=== PATIENT | male | born 1945 | race Hispanic/Latino ===

== ENCOUNTER 2024-04-24 09:23 | Emergency (ER) | payer OTHER ==
--- OUTSIDE RECORDS SUMMARY | 2024-04-24 09:27 | XMS REPORT | Continuity of Care Document ---
Author Name Unknown Address [address] [facility] [address] [place] [address] [facility] Address [address] [facility] [address] [place] [address] Care Team Providers Care Strategic Communications Manager Name Role Phone Steven Moeller MD Primary Care Physician ENOCH BASHIR Attending Clinician Unavaila FERNANDEZ Khalil Attending Clinician Unavailable STEVEN MOELLER Attending Clinician Unavailable Sean Iglesias Attending Clinician Unavailable TAL DIALLO Attending Clinician Jessica Ar Bolaños Attending Clinician Unavailable CHAVA HERNANDEZ Attending Clinician Unavail able INGRID HERNANDEZ Attending Clinician UnavailPRINCE Lionel Attending Clinician Unavailable RAMON ALDANA Attending Clinician Un available LOIS MAXWELL Attending Clinician Un available STEVEN MOELLER Attending Clinician UnavailFERNANDEZ Gross Attending Clinician U navailable PAT MOSLEY Attending Clinician Unav ailable Matthew Walter Attending Clinician Unavailable Pat Mosley Admitting Clinician Unavailable TOM ARELLANOKristel NÚÑEZFANTA Admitting Clinician Unavail able PAT MOSLEY Admitting Clinician Unav ailable Payers Payer Name Policy Type Policy Number Effective Date Expirati on Date Source [place] [id number] 2020 00:00:00 [facility] MEDIC[facility] SNP [id number] 2020 00:00:00 2024 00:00:00 Problems Condition Name Condition Details Condition Category Status Onset Date Resolution Date Last Treatment Date Treating Clinician Comments Source Leg swelling Leg swelling Disease Active 2020-08 00:00: 00 [facility] 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) Disease Active 2020-08 00:00: 00 [facility] Allergies, Adverse Reactions, Alerts Allergy Name Allergy Type Status Severity Reaction(s) Onset Date Inactive Date Treating Clinician Comments Source morphine DA Active MO SWELLING 2022-08 00:00: 00 [facility] codeine DA Active MO SWELLING 2022-08 00:00: 00 [facility] Ticlopid ine Allergy to substanc e Active 2020-08 00:00: 00 [facility] Aspirin Allergy to substanc e Active Hives 0 3- 00:00: 00 [facility] Morphine Allergy to substanc e Active 10-29 00:00: 00 [facility] Zolpidem Allergy to substanc e Active 10-29 00:00: 00 [facility] ticlopid ine HCl DA Active U 3- 00:00: 00 [facility] zolpidem tartrate DA Active U 3-22 00:00: [address] [facility] morphine DA Active U 3-22 00:00: [address] [facility] aspirin DA Active MO Hives 0 3-22 00:00: 00 [facility] Social History Social Habit Start Date Stop Date Quantity Comments Source Exposure to SARS-CoV-2 (event) Not sure [facility] Tobacco use and exposure 2021-07-18 00:00:00 2021-07-18 00:00:00 Smokeless tobacco non-user [facility] Sex Ass[birth year] At 1945 00:00:00 1945 00[birth year]00 [facility] Smoking Status Start Date Stop Date Source Ex-smoker 2021-07-18 00:00:00 2021-07-18 00:00:00 [facility] Medications Ordered Medication Name Filled Medication Name Start Date Stop Date Current Medication? Ordering Clinician Indication Dosage Frequency Signature (SIG) Comments Components Source aspirin 325 MG tablet 2020-08 17:12: 48 Yes [facility] clopidogrel (Plavix) 300 MG tablet 2020-08 17:12: 48 Yes [facility] Vital Signs Vital Name Observation Time Observation Value Comments S ource Systolic blood pressure 2021-10-02 21:03:00 121 mm[Hg] [facility] Diastolic blood pressure 2021-10-02 21:03:00 67 mm[Hg] [facility] Heart rate 2021-10-02 21:03:00 59 /min [facility]th Body temperature 2021-10-02 21:03:00 36.39 [facility] Respiratory rate 2021-10-02 21:03:00 18 /min [facility] Body height 2021-10-02 21:03:00 175.3 cm [facility] Body weight 2021-10-02 21:03:00 [facility].188 [facility] BMI 2021-10-02 21:03:00 27.41 [facility] saturation in Arterial blood by Pulse oximetry 2021-10-02 21:03:00 99 /min [facility] Encounters Start Date/Time End Date/Time Encounter Type Admission Type Attending Clinicians Care Facility Care Department Encounter ID Source 2023-09-03 16:47:24 Outpatient ENOCH BASHIR [facility] [id number] [address] [place] [address] [facility] 2021-10-02 15:30:15 Outpatient FERNANDEZ HARRIS [facility] [id number] [facility] 2021-08-22 12:52:46 Outpatient STEVEN MOELLER [facility] [id number] [facility] 2021-07-23 09:47:17 Outpatient [facility] [id number] [facility] 2021-07-23 09:45:25 Outpatient [facility] [id number] [facility] 2021-05-17 10:07:00 Outpatient STEVEN MOELLER [facility] [id number] [facility] 2021-02-15 11:54:35 Outpatient STEVEN MOELLER [facility] [id number] [facility] 2021-02-15 11:53:21 Outpatient [facility] [id number] [facility] 2021-02-15 11:52:40 Outpatient [facility] [id number] [facility] 2021-02-15 11:51:47 Outpatient [facility] [id number] [facility] 2021-02-15 11:50:23 Outpatient [facility] [id number] [facility] 2019-06-09 14:39:54 Outpatient [facility] [id number] [facility] 2019-04-28 00:00:00 Inpatient R Sean Iglesias [facility] [id number] [facility] 2023-10-07 07:19:00 2023-10-07 10:51:00 Outpatient ENOCH BASHIR [facility] [id number] 2023-07-18 15:17:00 2023-07-18 20:30:00 Emergency E TAL DIALLO [facility] [id number] [facility] 2023-07-13 15:10:00 2023-07-13 17:22:00 Emergency EM Ar Gaviria [facility] AERS [id number] [facility] 2023-06-10 00:22:00 2023-06-10 04:59:00 Emergency CHAVA DIANA [facility] [id number] [facility] 2023-03-03 16:25:00 2023-03-03 20:37:00 Emergency CHAVA DIANA [facility] [id number] [facility] 2022-12-10 09:07:00 2022-12-10 23:59:00 Outpatient INGRID HERNANDEZ [facility] [id number] [facility] 2022-11-15 00:39:00 2022-11-16 14:36:00 Outpatient E SHAMARDAMEONEmeliaPRINCE [facility] [id number] [facility] 2022-05-07 13:30:00 2022-05-07 23:59:00 Outpatient RAMON ALDANA [facility] PUL [id number] [facility] 2022-04-21 23:55:00 2022-04-22 05:32:00 Emergency E MARCUSNISHELIZABETHGALLITO LOIS [facility] [id number] [facility] 2021-10-04 14:06:00 2021-10-05 17:54:00 Outpatient STEVEN MOELLER [facility] [id number] [facility] 2021-10-02 15:00:00 2021-10-02 15:25:30 Office Visit Fernandez Harris [facility] 1 [id number] [facility] 2021-09-17 09:35:00 2021-09-17 19:32:00 Outpatient TAD HARRISZANEH SE [id number] [facility] 2021-09-12 01:44:00 2021-09-13 14:50:00 Outpatient E CHLOE MOSLEYSH [facility] [id number] [facility] 2021-08-22 11:45:00 2021-08-22 12:51:18 Office Visit Steven Moeller [facility] 1 [id number] [facility] 2021-07-18 11:45:00 2021-07-18 13:07:54 Office Visit Steven Moeller [facility] 1 [id number] [facility] 2019-12-28 22:08:00 2019-12-30 12:43:00 Outpatient E PAT MOSLEY [facility] [id number] [facility] 2019-09-07 06:47:00 2019-09-07 06:47:00 Outpatient MHSE [facility]SE [id number] [facility] 2019-07-26 16:33:00 2019-07-26 16:33:00 Outpatient E [facility] MED [id number] [facility] 2019-07-06 06:12:00 2019-07-06 06:12:00 Outpatient [facility] MED [id number] [facility] 2019-06-15 09:19:00 2019-06-15 09:19:00 Outpatient [facility] MED [id number] [facility] 2019-06-03 13:47:00 2019-06-03 13:47:00 Outpatient MHSE PUL [id number] [facility] 2019-04-28 18:59:00 2019-04-28 18:59:00 Emergency E MHSE [facility]SE [id number] [facility] Results Test Description Test Time Test Comments Results Result Co mments Source Notes Date/Time Note Provider Source 2023-07-13 15:14:00 [facility] ([facility] EMERGENCY PROVIDER REPORT REPORT#:[id number] REPORT STATUS: Signed DATE:07/13/23 TIME: 1513 PATIENT: LEONEL GARCIA UNIT #: [id number] ROOM/BED: AGE: 78 SEX: M PCP PHYS: SERVICE DT: AUTHOR: Ar Gaviria MD * ALL edits or amendments must be made on the electronic/computer document * HPI-Bite: Snake General Initial Greet Date/Time 07/13/231513 Presentation Chief Complaint Snake bite Free Text HPI Notes Free Text HPI Notes The patient claims that he got bit by a snake around 45 minutes ago. He says that he went outside of his home and was feeding his cats and when he bent down to feed the cats small snake jumped up and bit him on the tip of his tongue. He is not able to identify the snake. He has a very small abrasion to the tip of the tongue there is no puncture nicolasa. There is really no soft tissue swelling of the tongue oral mucosa or face. His phonation is normal. He does not have any signs or symptoms of envenomation. We are going to observe him for some time to ensure that he does not develop any facial swelling. Review of Systems ROS Statements All systems rev neg except as marked. Complete sys rev neg except as marked. Past Medical History - Adult Stated Complaint BIT BY A SNAKE ON THE TONGUE Allergies Coded Allergies: codeine (Intermediate, SWELLING 07/13/23) morphine (Intermediate, SWELLING 07/13/23) Additional Medical History Hypertension Physical Exam Vital Signs Vital Signs First Documented: Result Date Time Pulse Ox 97 07/13 1512 B/P 174/75 07/13 151 B/P Mean 108 07/13 1512 O2 Delivery Room air 07/13 1512 Temp 36.6 07/13 1512 Pulse 57 07/13 1512 Resp 18 07/13 1512 Last Documented: Result Date Time Pulse Ox 97 07/13 151 B/P 174/75 07/13 1512 B/P Mean 108 07/13 1512 O2 Delivery Room air 07/13 1512 Temp 36.6 07/13 1512 Pulse 57 07/13 1512 Resp 18 07/13 1512 Review of Vital Signs Reviewed Focused PE General/Const General/Const Awake, Alert, No acute distress Resp/Chest Respiratory/Chest Atraumatic, Breath sounds NL, Breath sounds = bilat Cardiovascular Cardiovascular Heart rate NL, Regular rhythm, Heart sounds NL Abdomen/GI Abdomen/GI Atraumatic, Soft, Non-tender Skin Skin Atraumatic, Color NL, No rash Neurologic Neurologic Oriented X3, Speech NL, No motor deficits, No sensory deficits Patient Discharge Departure Vital Signs/Condition Vital Signs First Documented: Result Date Time Pulse Ox 97 07/13 151 B/P 174/75 07/13 151 B/P Mean 108 07/13 1512 O2 Delivery Room air 07/13 1512 Temp 36.6 07/13 1512 Pulse 57 07/13 1512 Resp 18 07/13 1512 Last Documented: Result Date Time Pulse Ox 97 07/13 1512 B/P 174/75 07/13 151 B/P Mean 108 07/13 1512 O2 Delivery Room air 07/13 1512 Temp 36.6 07/13 1512 Pulse 57 07/13 1512 Resp 18 07/13 1512 All vital signs available at the time of this entry have been reviewed. Clinical Impression Clinical Impression Primary Impression: Bite, snake, non-venomous Disposition Decision Discharge )( Discharged to Home Yes )( Time 1632 )( Date 07/13/23 Discharge/Care Plan Patient Instructions ED Snakebite, Non-Poisonous Discharge Note I have spoken with the patient and/or caregivers. I have explained the patient's condition, diagnoses and treatment plan based on the information available to me at this time. I have answered the patient's and/or caregiver's questions and addressed any concerns. The patient and/or caregivers have as good an understanding of the patient's diagnosis, condition and treatment plan as can be expected at this point. The vital signs have been stable. The patient's condition is stable and appropriate for discharge from the emergency department. The patient will pursue further outpatient evaluation with the primary care physician or other designated or consulting physician as outlined in the discharge instructions. The patient and/or caregivers are agreeable to this plan of care and follow-up instructions have been explained in detail. The patient and/or caregivers have received these instructions in written format and have expressed an understanding of the discharge instructions. The patient and/or caregivers are aware that any significant change in condition or worsening of symptoms should prompt an immediate return to this or the closest emergency department or a call to 911. at 1633 RPT #:[id number] END OF REPORT [facility]
[2024-04-24] MEDS ORDERED: NA CHLORIDE 0.9% 500 ML ONE (09:42)
[2024-04-24] MEDS ORDERED: ONDANSETRON 4 MG/2 ML VIAL ONE (09:42)
[2024-04-24] MEDS ORDERED: MORPHINE 2 MG/ML SYR ONE (09:42)
[2024-04-24 09:55] LABS: Absolute Eosinophils 0.2 K/uL (0-0.5); Absolute Lymphocytes (CBC) 1.3 K/uL (0.7-4.9); Absolute Monocytes 0.4 K/uL (0.1-1.3); Absolute Neutrophil 2.7 K/uL (1.8-8.0); Basophils % 0.5 % (0-1.3); Hematocrit 36.6 % (39.6-49.0); Lymphocytes % 27.7 % (15.3-44.8); MCHC 32.9 g/dL (32.0-36.0); MCV 91.2 fL (80-100); MPV 8.8 fL (7.6-11.3); Monocytes % 9.4 % (3.3-12.3); Neutrophils % 57.4 % (41.7-73.7); Nucleated Red Blood Cells % 0.1 % (0-0); Platelets 139 thou/uL (152-406); RBC Red Blood Cell Count 4.01 M/uL (4.33-5.43); Red Cell Distribution Width 14.4 % (12.1-15.2)
[2024-04-24 10:08] LABS: Albumin 3.2 g/dL (3.4-5.0); Anion Gap 5.6 mEq/L (5.0-15.0); Bilirubin Total 1.3 mg/dL (0.2-1.0); Globulin 3.1 g/dL (2.3-3.5); Potassium 3.6 mEq/L (3.5-5.1); Protein, Total 6.3 g/dL (6.4-8.2)
--- NOTE | 2024-04-24 11:00 | RAD REPORT ---
EXAMINATION: CT ABDOMEN AND PELVIS WITH CONTRAST CLINICAL INDICATION: Male, 78 years old. [facility] MAIN ABD PAIN IV ONLY Bed Name: 20 TECHNIQUE: CT abdomen and pelvis was performed, after the administration of IV contrast, as per [facility] protocol. Axial, sagittal and coronal reconstructions were obtained. One or more of the following dose reduction techniques were used: Automated exposure control, adjustment of the mA and/o r kV according to patient size, and/or iterative reconstruction. Unless otherwise specified, incidental findings do not require dedicated imaging follow-up. [id number]. COMPARISON: No prior exam. FINDINGS: LOWER CHEST: Moderately thickened distal esophagus. Aortic valve and coronary artery calcifications. LIVER: Normal in size and contour. No focal lesion. GALLBLADDER/BILE DUCT: Likely cholelithiasis.?Mild gallbladder wall thickening. No pericholecystic in flammatory changes. PANCREAS: No mass, ductal dilation, or azael-pancreatic fluid. SPLEEN: Normal size. No focal lesion. ADRENALS: Normal; no mass. KIDNEYS AND URETERS: Normal size and contour. No hydronephrosis. URINARY BLADDER: Mild circumferential bladder wall thickening. This may be from chronic bowel obstruc tion. GASTROINTESTINAL TRACT: Stomach is non-dilated. Small bowel has normal course and caliber. No colonic wall thickening or pericolonic inflammatory changes. Duodenal diverticulum. No appendicitis. Surgical changes along the stomach. PERITONEUM: No ascites. Small fat-containing umbilical hernia. Fat-containing left lateral ventral he rnia. LYMPH NODES: No lymphadenopathy. ABDOMINAL AORTA AND OTHER VESSELS: 4.5 cm infrarenal abdominal aortic aneurysm. For management of fus iform aneurysmal abdominal aortas: Recommend follow-up every 6 months and recommend vascular consultation or continued care with a vascu lar specialist. REPRODUCTIVE ORGANS: Prostatomegaly. MUSCULOSKELETAL: No acute or suspicious osseous abnormality. ADDITIONAL FINDINGS: None. IMPRESSION: No acute or significant abnormalities seen in the abdomen or pelvis. Incidental findings as noted abo ve. 4.5 cm infrarenal abdominal aortic aneurysm. For management of fusiform aneurysmal abdominal aortas: Recommend follow-up every 6 months and recommend vascular consultation or continued care with a vascu lar specialist.
--- NOTE | 2024-04-24 11:18 | EDPHYS ---
Physician Documentation [facility] Name: Damian Lomeli Age: 78 yrs Sex: Male : 1945 Arrival Date: 04/24/2024 Time: 09:23 Bed 20 Private MD: ED Physician Singh Morales HPI: 04/24 09:33 This 78 yrs old Male presents to ER via EMS with complaints of abdominal pain. rn 09:33 The patient presents with abdominal pain right lower quadrant. Onset: The rn symptoms/episode began/occurred 3 day(s) ago. The symptoms do not radiate. Associated signs and symptoms: Pertinent positives: diarrhea, nausea, Pertinent negatives: blood in stools, fever, testicular pain, vomiting, vomiting blood. The symptoms are described as achy, crampy. Modifying factors: The symptoms are alleviated by nothing, the symptoms are aggravated by nothing. Severity of pain: At its worst the pain was mild in the emergency department the pain is unchanged. The patient has not experienced similar symptoms in the past. The patient has not recently seen a physician. Patient reports right lower quadrant abdominal pain for 3 days associated with nonbloody diarrhea and nausea. No fever or chills. Patient states had bad [place] food 3 days ago but denies anyone else getting sick at the same time.. Historical: - Allergies: 11:19 Morphine; ld1 - Home Meds: 09:29 clopidogrel 75 mg oral tablet 1 tab daily [Active]; ld1 - PMHx: 09:29 Hypertensive disorder; Hypercholesterolemia; CHF; NV; Insomnia; Alzheimer's disease; ld1 - Immunization history:: Adult Immunizations up to date. - Infectious Disease History:: Denies. - Social history:: Smoking status: Patient denies any tobacco usage or history of. - Family history:: not pertinent. - Hospitalizations: : No recent hospitalization is reported. ROS: 09:33 Constitutional: Negative for fever, chills, and weight loss, Cardiovascular: Negative rn for chest pain, palpitations, and edema, Respiratory: Negative for shortness of breath, cough, wheezing, and pleuritic chest pain, Abdomen/GI: Negative for vomiting, constipation, Back: Negative for injury and pain, : Negative for injury, bleeding, discharge, and swelling, MS/Extremity: Negative for injury and deformity, Skin: Negative for injury, rash, and discoloration, Neuro: Negative for headache, weakness, numbness, tingling, and seizure, Exam: 09:33 Constitutional: This is a well developed, well nourished patient who is awake, alert, rn and in no acute distress. ENT: Dry mucous membranes Cardiovascular: Bradycardic, regular Respiratory: No increased work of breathing, no retractions or nasal flaring. Abdomen/GI: Soft, tender right lower quadrant, tender epigastrium, tender left abdomen without rebound or masses. No peritoneal signs MS/ Extremity: Pulses equal, no cyanosis. Neuro: Awake and alert, GCS 15 Vital Signs: 09:27 Pulse 47; Resp 18; Temp 98.1(TE); Pulse Ox 100% on R/A; Weight 85.73 kg; Height 5 ft. 7 ld1 in. ; Pain 8/10; 09:27 BP 210 / 65; ld1 10:17 BP 200 / 59; Pulse 44; Resp 18; Pulse Ox 96% on R/A; ld1 11:54 BP 184 / 64; Pulse 49; Resp 18; Pulse Ox 100% on R/A; ld1 09:27 Body Mass Index 29.60 (85.73 kg, 170.18 cm) ld1 09:27 Pain Scale: Adult ld1 MDM: 09:27 Patient medically screened. rn 11:16 Differential diagnosis: appendicitis, bowel obstruction, diverticulitis, non-specific rn abd pain, Perf. Duodenal Ulcer, Perf. Gastric Ulcer. Data reviewed: vital signs, nurses notes, lab test result(s), radiologic studies, CT scan, and as a result, I will discharge patient. Counseling: I had a detailed discussion with the patient and/or guardian regarding the historical points, exam findings, and any diagnostic results supporting the discharge/admit diagnosis, lab results, radiology results, the need for outpatient follow up, to return to the emergency department if symptoms worsen or persist or if there are any questions or concerns that arise at home. Special discussion: Based on the patient's Hx, exam, and Dx evaluation, there is no indication for emergent surgery or inpatient Tx. It is understood by the patient/guardian that if the Sx's persist or worsen they need to return immediately for re-evaluation. I discussed with the patient/guardian in detail that at this point there is no indication for admission to the hospital. It is understood, however, that if the symptoms persist or worsen the patient needs to return immediately for re-evaluation. ED course: CT without acute findings. Does show 4.5 cm abdominal aortic aneurysm without evidence of rupture or leakage. Likely incidental finding as patient presents with abdominal pain associated with diarrhea and nausea. Notified patient of abdominal aortic aneurysm and need to follow-up at least every 6 months at the beginning to assess growth. Will discharge home with Augmentin for signs and symptoms of mild colitis.. 04/24 09:28 Order name: CBC with Diff; Complete Time: 10: rn 04/24 09:28 Order name: CMP; Complete Time: : rn 04/24 09:28 Order name: Lipase; Complete Time: : rn 04/24 09:28 Order name: CT Abd/Pelvis - IV Contrast Only; Complete Time: 11:03 rn 04/24 09:28 Order name: IV Saline Lock; Complete Time: 09:33 rn 04/24 09:28 Order name: Labs collected and sent; Complete Time: 09:55 rn Administered Medications: 09:54 Drug: NS 0.9% IV 500 ml IV at bolus once Route: IV; Rate: bolus; Site: right ld1 antecubital; 11:30 Follow up: Response: No adverse reaction; IV Status: Completed infusion; IV Intake: ld1 500ml 09:54 Drug: Ondansetron IVP 4 mg IVP once; over 2 minutes Route: IVP; Site: right antecubital;ld1 11:30 Follow up: Response: No adverse reaction ld1 09:54 Not Given (Patient Refused): morphineor iv 2 mg IVP once over 4 mins ld1 11:30 Drug: Amoxicillin-Clavulanate PO 875 mg PO once Route: PO; ld1 11:55 Follow up: Response: No adverse reaction ld1 11:30 Drug: Diphenoxylate-Atropine PO 1 tabs PO once Route: PO; ld1 11:55 Follow up: Response: No adverse reaction ld1 Disposition Summary: 04/24/24 11:18 Discharge Ordered Notes: Location: Home rn Problem: new rn Symptoms: have improved rn Condition: Stable rn Diagnosis - Other specified noninfective gastroenteritis and colitis rn - Diarrhea, unspecified rn - Abdominal aortic aneurysm, without rupture rn Followup: rn - With: Private Physician - When: As needed - Reason: Recheck today's complaints, Re-evaluation by your physician Discharge Instructions: - Discharge Summary Sheet rn - Abdominal Aortic Aneurysm rn - Diarrhea, Adult rn Forms: - Medication Reconciliation Form rn - Antibiotic yarn spooler - Prescription Opioid Use rn - Patient Portal Instructions rn - Leadership Thank You Letter rn Prescriptions: - Augmentin 875-125 mg Oral Tablet - take 1 tablet ORAL route every 12 hours for 10 days; 20 tablet; Refills: 0, rn Product Selection Permitted Signatures: Dispatcher [employer] [facility] Singh Morales MD MD rn Mimi Morton RN RN ld1 Corrections: (The following items were deleted from the chart) 09: 09:29 CBC+H.LAB.BRZ ordered. EDNM EDMS 09:29 09:29 COMPREHENSIVE METABOLIC PANEL+C.LAB.BRZ ordered. EDNM EDMS 09:29 09:29 LIPASE+C.LAB.BRZ ordered. EDNM EDMS 09:29 09:29 Abdomen Pelvis W Con+CT.RAD.BRZ ordered. EDNM EDMS 09:30 09:29 Home Meds: Insomnia; ld1 ld1 11:20 09:29 Allergies: No Known Allergies; ld1 ld1
--- NOTE | 2024-04-24 11:18 | ER ---
Nurse's Notes [facility] Name: Damian Lomeli Age: 78 yrs Sex: Male : 1945 Arrival Date: 04/24/2024 Time: 09:23 Bed 20 Private MD: Diagnosis: Other specified noninfective gastroenteritis and colitis;Diarrhea, unspecified;Abdominal aortic aneurysm, without rupture Presentation: 04/24 09:27 Chief complaint: EMS states: toned out to patient home for diarrhea and abdominal pain ld1 X 3 days. Coronavirus screen: At this time, the client does not indicate any symptoms associated with coronavirus-19. Ebola Screen: No symptoms or risks identified at this time. Initial Sepsis Screen: Does the patient meet any 2 criteria? No. Patient's initial sepsis screen is negative. Does the patient have a suspected source of infection? No. Patient's initial sepsis screen is negative. Risk Assessment: Do you want to hurt yourself or someone else? Patient reports no desire to harm self or others. Onset of symptoms was April 24, 2024. 09:27 Method Of Arrival: EMS: [facility] ld1 09:27 Acuity: CHAD 3 ld1 Triage Assessment: :29 General: Appears in no apparent distress. uncomfortable, Behavior is calm, cooperative, ld1 appropriate for age. Pain: Complains of pain in right upper quadrant and right lower quadrant Pain does not radiate. Pain currently is 8 out of 10 on a pain scale. Quality of pain is described as throbbing, Pain began suddenly, Is continuous. EENT: No signs and/or symptoms were reported regarding the EENT system. Neuro: Level of Consciousness is awake, alert, obeys commands, Oriented to person, place, time, situation, Appropriate for age. Cardiovascular: Capillary refill < 3 seconds Patient's skin is warm and dry. Respiratory: Airway is patent Respiratory effort is even. GI: Abdomen is round non-distended, Reports lower abdominal pain, diarrhea. : No signs and/or symptoms were reported regarding the genitourinary system. Derm: No signs and/or symptoms reported regarding the dermatologic system. Musculoskeletal: No signs and/or symptoms reported regarding the musculoskeletal system. Historical: - Allergies: 11:19 Morphine; ld1 - Home Meds: : clopidogrel 75 mg oral tablet 1 tab daily [Active]; ld1 - PMHx: 09:29 Hypertensive disorder; Hypercholesterolemia; CHF; AR; Insomnia; Alzheimer's disease; ld1 - Immunization history:: Adult Immunizations up to date. - Infectious Disease History:: Denies. - Social history:: Smoking status: Patient denies any tobacco usage or history of. - Family history:: not pertinent. - Hospitalizations: : No recent hospitalization is reported. Screenin:32 [facility] ED Fall Risk Assessment (Adult) History of falling in the last 3 months, ld1 including since admission No falls in past 3 months (0 pts) Confusion or Disorientation No (0 pts) Intoxicated or Sedated No (0 pts) Impaired Gait No (0 pts) Mobility Assist Device Used No (0 pt) Altered Elimination No (0 pt) Score/Fall Risk Level 0 - 2 = Low Risk Oriented to surroundings, Maintained a safe environment, Educated pt \T\ family on fall prevention, incl call for assistance when getting out of bed, Assessed \T\ reinforced patient's understanding of fall precautions, Provided non-skid footwear, Hourly rounding (assess needs \T\ fall precautionary measures) done, Used ambulatory aids as needed (educated on \T\ assisted with), Used gait belt as appropriate. Abuse screen: Denies threats or abuse. Denies injuries from another. Nutritional screening: No deficits noted. Tuberculosis screening: No symptoms or risk factors identified. Assessment: 09:32 Reassessment: See triage assessment. ld1 11:54 Reassessment: Patient appears in no apparent distress at this time. No changes from ld1 previously documented assessment. Patient and/or family updated on plan of care and expected duration. Pain level reassessed. Patient is alert, oriented x 3, equal unlabored respirations, skin warm/dry/pink. Vital Signs: 09:27 Pulse 47; Resp 18; Temp 98.1(TE); Pulse Ox 100% on R/A; Weight 85.73 kg; Height 5 ft. 7 ld1 in. ; Pain 8/10; 09:27 BP 210 / 65; ld1 10:17 BP 200 / 59; Pulse 44; Resp 18; Pulse Ox 96% on R/A; ld1 11:54 BP 184 / 64; Pulse 49; Resp 18; Pulse Ox 100% on R/A; ld1 09:27 Body Mass Index 29.60 (85.73 kg, 170.18 cm) ld1 09:27 Pain Scale: Adult ld1 ED Course: 09:27 Patient arrived in ED. rn 09:27 Singh Morales MD is Attending Physician. rn 09:27 Mimi Morton, MAGNUS is Primary Nurse. ld1 09:29 Triage completed. ld1 09:29 Arm band placed on right wrist. ld1 09:32 Patient has correct armband on for positive identification. Placed in gown. Bed in low ld1 position. Call light in reach. Side rails up X2. manager of corporate on. Pulse ox on. NIBP on. Door closed. Noise minimized. Warm blanket given. 09:32 No provider procedures requiring assistance completed. Maintain EMS IV. Dressing ld1 intact. Good blood return noted. Site clean \T\ dry. Gauge \T\ site: 20g LH. 09:50 Initial lab(s) drawn, by me, sent to lab. Inserted saline lock: 22 gauge in right cc6 antecubital area, using aseptic technique. Blood collected. Flushed with 10 mL NS. 10:49 CT Abd/Pelvis - IV Contrast Only In Process Unspecified. EDMS 11:54 IV discontinued, intact, bleeding controlled, No redness/swelling at site. ld1 Administered Medications: 09:54 Drug: NS 0.9% IV 500 ml IV at bolus once Route: IV; Rate: bolus; Site: right ld1 antecubital; 11:30 Follow up: Response: No adverse reaction; IV Status: Completed infusion; IV Intake: ld1 500ml 09:54 Drug: Ondansetron IVP 4 mg IVP once; over 2 minutes Route: IVP; Site: right antecubital;ld1 11:30 Follow up: Response: No adverse reaction ld1 09:54 Not Given (Patient Refused): morphineor iv 2 mg IVP once over 4 mins ld1 11:30 Drug: Amoxicillin-Clavulanate PO 875 mg PO once Route: PO; ld1 11:55 Follow up: Response: No adverse reaction ld1 11:30 Drug: Diphenoxylate-Atropine PO 1 tabs PO once Route: PO; ld1 11:55 Follow up: Response: No adverse reaction ld1 Medication: 11:54 VIS not applicable for this client. ld1 Intake: 11:30 IV: 500ml; Total: 500ml. ld1 Outcome: 11:18 Discharge ordered by . rn 11:54 Discharged to home ambulatory, with family, ld1 :54 Condition: stable :54 Discharge instructions given to patient, family, Instructed on discharge instructions, follow up and referral plans. medication usage, Demonstrated understanding of instructions, follow-up care, medications, Prescriptions given X 1, :54 Patient left the ED. ld1 Signatures: Dispatcher [employer] EDMS Singh Morales MD MD rn Sims, Lauren, RN RN ld1 Dali Hatch cc6 Corrections: (The following items were deleted from the chart) :30 09:29 Home Meds: Insomnia; ld1 ld1 11: 09:29 Allergies: No Known Allergies; ld1 ld1
[2024-04-24] MEDS ORDERED: AMOX/K CLAV 875 MG TAB ONE (11:25)
[2024-04-24] MEDS ORDERED: DIPHENOX/ATROP SULF 1 TAB PO ONE (11:26)
[2024-04-24 12:04] VITALS: TEMP 98.1
[2024-04-24 12:19] VITALS: BP 184/64; O2SAT 100
== END 2024-04-24 11:54 | disposition home or self-care (01) ==
LOC: ER 09:23
DX: K52.89 Other specified noninfective gastroenteritis and colitis (principal); I71.40 Abdominal aortic aneurysm, without rupture, unspecified; G30.9 Alzheimer's disease, unspecified; F02.80 Dementia in other diseases classified elsewhere, unspecified severity, without behavioral disturbance, psychotic disturbance, mood disturbance, and anxiety
CPT/HCPCS: 96361; 85025; 36415; 83690; 80053; 74177; 96374; 99285; Q9967; J2405; J7040; J2270

== ENCOUNTER 2024-05-07 23:02 | Inpatient (IN) | payer OTHER ==
--- OUTSIDE RECORDS SUMMARY | 2024-05-07 23:05 | XMS REPORT | Continuity of Care Document ---
Author Name Unknown Address [address] [place] [address] [facility] thconnect Address [address] [place] [address] Care Team Providers Care Cash Applications Clerk Name Role Phone Steven Moeller MD Primary [...] Clinician Un available STEVEN MOELLER Attending Clinician Unavaila FERNANDEZ Khalil Attending Clinician U navailPAT Armando Attending Clinician Unav ailable Matthew Walter Attending Clinician Unavailable Pat Mosley Admitting Clinician Unavailable JANIYA ARELLANO Admitting Clinician Unavail able PAT MOSLEY Admitting Clinician Unav ailable Payers Payer Name Policy Type Policy Number Effective Date Expirati on Date Source [place] [id number] 2020 00:00:00 [facility] MEDIC[facility] SNP [id number] 2020 00:00:00 2024 00:00:00 Problems Condition Name Condition Details Condition Category Status Onset Date Resolution Date Last Treatment Date Treating Clinician Comments Source Leg swelling Leg swelling Disease Active 2020-08 00:00: 00 [facility] 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) Disease Active 2020-08 00:00: 00 [facility] Allergies, Adverse Reactions, Alerts Allergy Name Allergy Type Status Severity Reaction(s) Onset Date Inactive Date Treating Clinician Comments Source morphine DA Active [place] [facility] 2022-08 00:00: 00 [facility] codeine DA Active [place] 2022-08 00:00: 00 [facility] Ticlopid ine Allergy to substanc e Active 2020-08 00:00: 00 [facility] Aspirin Allergy to substanc e Active Hives 0 10-29 00:00: 00 [facility] Morphine Allergy to substanc e Active 10-29 00:00: 00 [facility] Zolpidem Allergy to substanc e Active 10-29 00:00: 00 [facility] ticlopid ine HCl DA Active U 3- 00:00: [address] [facility] zolpidem tartrate DA Active U 3- 00:00: [address] [facility] morphine DA Active U 3- 00:00: [address] [facility] aspirin DA Active [place] Hives 0 - 00:00: [address] [facility] [address] [facility] Social History Social Habit Start Date Stop Date Quantity Comments Source Exposure to SARS-CoV-2 (event) Not sure [facility] Tobacco use and exposure 2021-07-18 00:00:00 2021-07-18 00:00:00 Smokeless tobacco non-user [facility] Sex Ass[birth year] At 1945 00:00:00 1945 00:00:00 [facility] Smoking Status Start Date Stop Date Source Ex-smoker 2021-07-18 00:00:00 2021-07-18 00:00:00 [facility] Medications Ordered Medication Name Filled Medication Name Start Date Stop Date Current Medication? Ordering Clinician Indication Dosage Frequency Signature (SIG) Comments Components Source aspirin 325 MG tablet 2020-08 17:12: 48 Yes [facility] clopidogrel (Plavix) 300 MG tablet 2020-08 17:12: 48 Yes [facility] Vital Signs Vital Name Observation Time Observation Value Comments S ource Systolic blood pressure 2021-10-02 21:03:00 121 mm[Hg] [facility] Diastolic blood pressure 2021-10-02 21:03:00 67 mm[Hg] [facility] Heart rate 2021-10-02 21:03:00 59 /min [facility] Body temperature 2021-10-02 21:03:00 36.39 Claudia [facility] Respiratory rate 2021-10-02 21:03:00 18 /min [facility] Body height 2021-10-02 21:03:00 175.3 cm [facility] Body weight 2021-10-02 21:03:00 84.188 kg [facility] BMI 2021-10-02 21:03:00 27.41 kg/m2 [facility] Oxygen saturation in Arterial blood by Pulse oximetry 2021-10-02 21:03:00 99 /min [facility] Encounters Start Date/Time End Date/Time Encounter Type Admission Type Attending Clinicians Care Facility Care Department Encounter ID Source 2023-09-03 16:47:24 Outpatient ENOCH BASHIR [facility] [id number] [facility] 2021-10-02 15:30:15 Outpatient FERNANDEZ HARRIS [facility] [id number] [facility] 2021-08-22 12:52:46 Outpatient SUNNI STEVEN [facility] [id number] [facility] 2021-07-23 09:47:17 Outpatient [facility] [id number] [facility] 2021-07-23 09:45:25 Outpatient [facility] [id number] [facility] 2021-05-17 10:07:00 Outpatient STEVEN MOELLER [facility] [id number] [facility] 2021-02-15 11:54:35 Outpatient STEVEN MOELLER [facility] [id number] [facility] 2021-02-15 11:53:21 Outpatient [facility] [id number] [facility] 2021-02-15 11:52:40 Outpatient [facility] [id number] [facility] 2021-02-15 11:51:47 Outpatient [facility] [id number] [facility] 2021-02-15 11:50:23 Outpatient [facility] [id number] [facility] 2019-06-09 14:39:54 Outpatient [id number] 2019-04-28 00:00:00 Inpatient R Sean Iglesias [facility] [id number] [facility] 2023-10-07 07:19:00 2023-10-07 10:51:00 Outpatient ENOCH BASHIR [facility] [id number] [facility] 2023-07-18 15:17:00 2023-07-18 20:30:00 Emergency E TAL DIALLO [facility] [id number] [facility] 2023-07-13 15:10:00 2023-07-13 17:22:00 Emergency EM Khadra Ar [facility] AERS [id number] [facility] 2023-06-10 00:22:00 2023-06-10 04:59:00 Emergency E CHAVA HERNANDEZ [facility] [id number] [facility] 2023-03-03 16:25:00 2023-03-03 20:37:00 Emergency E CHAVA HERNANDEZ [id number] [facility] 2022-12-10 09:07:00 2022-12-10 23:59:00 Outpatient INGRID HERNANDEZ [facility] [id number] [facility] 2022-11-15 00:39:00 2022-11-16 14:36:00 Outpatient E PRINCE ANDRADE [facility] [id number] [facility] 2022-05-07 13:30:00 2022-05-07 23:59:00 Outpatient ALDANARAMON Solano [facility] PUL [id number] [facility] 2022-04-21 23:55:00 2022-04-22 05:32:00 Emergency E LOIS MAXWELL [facility] [id number] [facility] 2021-10-04 14:06:00 2021-10-05 17:54:00 Outpatient STEVEN MOELLER SE [facility] [id number] [facility] 2021-10-02 15:00:00 2021-10-02 15:25:30 Office Visit Fernandez Harris [facility] [id number] [facility] 2021-09-17 09:35:00 2021-09-17 19:32:00 Outpatient FERNANDEZ HARRIS SE [facility] [id number] [facility] 2021-09-12 01:44:00 2021-09-13 14:50:00 Outpatient E PAT MOSLEY [facility] [id number] [facility] 2021-08-22 11:45:00 2021-08-22 12:51:18 Office Visit Steven Moeller [facility] 1 [id number] [facility] 2021-07-18 11:45:00 2021-07-18 13:07:54 Office Visit Steven Moeller [facility] [address] 1 [id number] [facility] 2019-12-28 22:08:00 2019-12-30 12:43:00 Outpatient E PAT MOSLEY [facility] [id number] [facility] 2019-09-07 06:47:00 2019-09-07 06:47:00 Outpatient MHSE [facility]SE [id number] [facility] 2019-07-26 16:33:00 2019-07-26 16:33:00 Outpatient E [facility] MED [id number] [facility] 2019-07-06 06:12:00 2019-07-06 06:12:00 Outpatient [facility] MED [id number] [facility] 2019-06-15 09:19:00 2019-06-15 09:19:00 Outpatient [facility] MED [id number] [facility] 2019-06-03 13:47:00 2019-06-03 13:47:00 Outpatient [facility] PUL [id number] [facility] 2019-04-28 18:59:00 2019-04-28 18:59:00 Emergency E [facility]SE [facility]SE [id number] [facility] Results Test Description Test Time Test Comments Results Result Co mments Source Notes Date/Time Note Provider Source 2023-07-13 15:14:00 [facility] ([facility]) EMERGENCY PROVIDER REPORT REPORT#:[id number] REPORT STATUS: Signed DATE:07/13/23 TIME: 1513 PATIENT: LEONEL GARCIA UNIT #: [id number] ROOM/BED: AGE: 78 SEX: M PCP PHYS: [...] 07/13 1512 O2 Delivery Room air 07/13 151 Temp 36.6 07/13 1512 Pulse 57 07/13 151 Resp 18 07/13 1512 Last Documented: Result Date Time Pulse Ox 97 07/13 1512 B/P 174/75 07/13 151 B/P Mean 108 07/13 151 O2 Delivery Room air 07/13 151 Temp 36.6 07/13 151 Pulse 57 07/13 151 Resp 18 07/13 1512 Review of Vital [...] 07/13 1512 O2 Delivery Room air 07/13 151 Temp 36.6 07/13 1512 Pulse 57 07/13 151 Resp 18 07/13 1512 Last Documented: Result Date Time Pulse Ox 97 07/13 1512 B/P 174/75 07/13 151 B/P Mean 108 07/13 151 O2 Delivery Room air 07/13 151 Temp 36.6 07/13 1512 Pulse 57 07/13 [...] a call to 911. at 1633 RPT #:[id number] END OF REPORT [facility]
[2024-05-07 23:45] LABS: Absolute Eosinophils 0.3 K/uL (0-0.5); Absolute Lymphocytes (CBC) 1.3 K/uL (0.7-4.9); Absolute Monocytes 0.5 K/uL (0.1-1.3); Absolute Neutrophil 2.3 K/uL (1.8-8.0); Basophils % 0.5 % (0-1.3); Eosinophils % 5.8 % (0-4.4); Hematocrit 34.7 % (39.6-49.0); Hemoglobin 11.5 g/dL (13.6-17.9); Lymphocytes % 30.1 % (15.3-44.8); MCH 30.2 pg (27.0-35.0); MCHC 33.1 g/dL (32.0-36.0); MCV 91.1 fL (80-100); MPV 8.6 fL (7.6-11.3); Monocytes % 10.5 % (3.3-12.3); Neutrophils % 53.1 % (41.7-73.7); Platelets 123 thou/uL (152-406); RBC Red Blood Cell Count 3.81 M/uL (4.33-5.43); Red Cell Distribution Width 14.4 % (12.1-15.2)
[2024-05-07] MEDS ORDERED: ALBUTEROL 2.5 MG/3 ML NEB SOL ONE (23:46)
[2024-05-07] MEDS ORDERED: METHYLPREDNISOLONE 125 MG INJ ONE (23:46)
[2024-05-07] MEDS ORDERED: IPRATROPIUM BROM 0.5MG/2.5ML ONE (23:46)
[2024-05-08 00:02] LABS: AST/SGOT 18 U/L (15-37); Albumin 3.1 g/dL (3.4-5.0); Albumin/Globulin Ratio 0.9 (1.1-1.8); Alkaline Phosphatase 100 U/L (45-117); Anion Gap 5.4 mEq/L (5.0-15.0); BUN Blood Urea Nitrogen 8 mg/dL (7-18); Bicarbonate 32 mEq/L (21-32); Bilirubin Total 1.2 mg/dL (0.2-1.0); Globulin 3.5 g/dL (2.3-3.5); Glomerular Filtration Rate 90 ml/min (=/>90); Glucose Level 114 mg/dL (74-106); NT PRO-BNP 201 pg/mL (<450); Potassium 3.4 mEq/L (3.5-5.1); Protein, Total 6.6 g/dL (6.4-8.2); Sodium Level 139 mEq/L (136-145); Troponin High Sensitivity 10.6 pg/mL (<58.9)
[2024-05-08 00:12] LABS: SARS-CoV-2 Antigen CONTROL BLUE LINE VIS/BG OK; SARS-CoV-2 Antigen Rapid Res Negative (Negative)
[2024-05-08 00:38] LABS: ALT/SGPT < 14 U/L (16-61)
--- NOTE | 2024-05-08 00:46 | ER ---
Nurse's Notes [facility] Name: Damian Lomeli Age: 78 yrs Sex: Male : 1945 Arrival Date: 05/07/2024 Time: 23:02 Bed 20 Private MD: Diagnosis: Unspecified combined systolic (congestive) and diastolic (congestive) heart failure Presentation: 05/07 23:25 Chief complaint: Patient's son or daughter states: Pt c/o cough since that got tl4 worse tonight. Coronavirus screen: congestion, cough unrelated to allergies. Ebola Screen: No symptoms or risks identified at this time. Initial Sepsis Screen: Does the patient meet any 2 criteria? No. Patient's initial sepsis screen is negative. Does the patient have a suspected source of infection? No. Patient's initial sepsis screen is negative. Risk Assessment: Do you want to hurt yourself or someone else? Patient reports no desire to harm self or others. Onset of symptoms was May 07, 2024 at 21:00. 23:25 Method Of Arrival: Wheelchair tl4 23:25 Acuity: CHAD 3 tl4 Triage Assessment: 23:29 General: Appears uncomfortable, Behavior is calm, cooperative. Pain: Denies pain. EENT: tl4 No signs and/or symptoms were reported regarding the EENT system. Neuro: Level of Consciousness is awake, alert, obeys commands, Oriented to person, place, time, situation. Cardiovascular: Capillary refill < 3 seconds Patient's skin is warm and dry. Respiratory: Reports cough that is Airway is patent Respiratory effort is even, unlabored, Respiratory pattern is regular, symmetrical, Breath sounds with crackles bilaterally. GI: No signs and/or symptoms were reported involving the gastrointestinal system. : No signs and/or symptoms were reported regarding the genitourinary system. Derm: No signs and/or symptoms reported regarding the dermatologic system. Musculoskeletal: No signs and/or symptoms reported regarding the musculoskeletal system. Historical: - Allergies: 23:33 Morphine; tl4 - Home Meds: 23:33 clopidogrel 75 mg Oral tablet 1 tab daily [Active]; ezetimibe 10 mg oral tablet 1 tab tl4 daily [Active]; carvedilol 3.125 mg oral tablet 1 tab 2 times per day [Active]; escitalopram oxalate 5 mg oral tablet daily [Active]; furosemide 40 mg Oral tablet 1.5 tabs daily [Active]; montelukast 10 mg oral tablet daily [Active]; levocetirizine 5 mg oral tablet every day at bedtime [Active]; atorvastatin 80 mg oral tablet daily [Active]; quetiapine 50 mg oral tablet daily [Active]; valsartan 80 mg oral tablet daily [Active]; donepezil 10 mg oral tablet daily [Active]; trazodone 50 mg Oral tablet every day at bedtime [Active]; ropinirole 2 mg oral tablet daily [Active]; - PMHx: 23:33 Alzheimer's disease; CHF; Hypercholesterolemia; Hypertensive disorder; insomnia; MS; tl4 - Immunization history:: Adult Immunizations unknown. - Infectious Disease History:: Denies. - Social history:: Smoking status: Patient/guardian denies using tobacco, but has a distant history of tobacco abuse. Screenin/29 02:07 [facility] ED Fall Risk Assessment (Adult) History of falling in the last 3 months, cp4 including since admission No falls in past 3 months (0 pts) Confusion or Disorientation No (0 pts) Intoxicated or Sedated No (0 pts) Impaired Gait No (0 pts) Mobility Assist Device Used No (0 pt) Altered Elimination No (0 pt) Score/Fall Risk Level 0 - 2 = Low Risk Oriented to surroundings, Maintained a safe environment, Assessed \T\ reinforced patient's understanding of fall precautions, Hourly rounding (assess needs \T\ fall precautionary measures) done. Abuse screen: Denies threats or abuse. Nutritional screening: No deficits noted. Tuberculosis screening: No symptoms or risk factors identified. Assessment: 02:07 General: Appears in no apparent distress. uncomfortable, Behavior is calm, cooperative, cp4 appropriate for age. Pain: Denies pain. Neuro: Level of Consciousness is awake, alert, obeys commands, Oriented to person, place, time, situation. Cardiovascular: Patient's skin is warm and dry. Rhythm is sinus bradycardia. Respiratory: Airway is patent Respiratory effort is even, unlabored. Respiratory: Breath sounds with wheezes bilaterally. GI: No signs and/or symptoms were reported involving the gastrointestinal system. : No signs and/or symptoms were reported regarding the genitourinary system. EENT: No signs and/or symptoms were reported regarding the EENT system. Derm: No signs and/or symptoms reported regarding the dermatologic system. Musculoskeletal: No signs and/or symptoms reported regarding the musculoskeletal system. Vital Signs: 05/07 23:25 BP 153 / 61; Pulse 53; Resp 20; Temp 97.8(O); Pulse Ox 99% on R/A; Weight 94.8 kg; tl4 Height 5 ft. 9 in. ; Pain 0/10; 05/08 01:00 BP 154 / 71; Pulse 51; Resp 18; Pulse Ox 100% ; cp4 02:00 BP 150 / 69; Pulse 57; Resp 18; Pulse Ox 100% ; cp4 05/07 23:25 Body Mass Index 30.86 (94.80 kg, 175.26 cm) tl4 05/07 23:25 Pain Scale: Adult tl4 ED Course: 05/07 23:11 Patient arrived in ED. gm2 23:17 [facility] kb 23:17 Mert Angelo MD is Attending Physician. kb 23:26 Sheryl Aaron is Primary Nurse. cp4 23:29 Triage completed. tl4 23:32 Arm band placed on right wrist. tl4 23:39 SARS-COV-2 Antigen Rapid Sent. cp4 23:39 Flu Sent. cp4 23:39 CMP Sent. cp4 23:39 CBC with Diff Sent. cp4 23:39 NT PRO-BNP Sent. cp4 23:57 XRAY Chest (1 view) In Process Unspecified. EDMS 05/08 00:20 EKG done, by ED staff, reviewed by Lana CHOWDHURY. oe 00:45 Roge Collins MD is Hospitalizing Provider. kb 02:07 Bed in low position. Call light in reach. Side rails up X 1. Provided Education on: cp4 admission. 02:07 No provider procedures requiring assistance completed. Patient admitted, IV remains in cp4 place. Administered Medications: 05/07 23:51 Drug: MethylPrednisoLONE IVP 125 mg IVP once Route: IVP; Site: right antecubital; cp4 05/08 01:03 Follow up: Response: No adverse reaction cp4 05/07 23:51 Drug: Albuterol Inhalation 2.5 mg Inhalation once Route: Inhalation; cp4 05/08 01:03 Follow up: Response: No adverse reaction cp4 05/07 23:51 Drug: Ipratropium Inhalation Aerosol 0.5 mg Inhalation once Route: Inhalation; cp4 05/08 01:03 Follow up: Response: No adverse reaction cp4 01:03 Drug: Furosemide IVP 40 mg IVP once; give over 2 minutes Route: IVP; Site: right cp4 antecubital; 02:15 Follow up: Response: No adverse reaction cp4 Medication: 02:07 VIS not applicable for this client. cp4 Outcome: 00:45 Decision to Hospitalize by Provider. kb 02:07 Admitted to Med/surg accompanied by tech, via stretcher, with chart, cp4 02:07 Condition: stable 02:07 Instructed on the need for admit, 02:46 Patient left the ED. cp4 Signatures: Dispatcher [employer] EDLana Islas, FARM PLANNER-C FARM PLANNER-Uvaldo Silvestre Christina cp4 Kiara Fleming gm2 Rolando Patton, RN RN tl4
--- NOTE | 2024-05-08 00:46 | EDPHYS ---
Physician Documentation [facility] Name: Damian Lomeli Age: 78 yrs Sex: Male : 1945 Arrival Date: 05/07/2024 Time: 23:02 Bed 20 Private MD: ED Physician Mert Angelo HPI: 05/07 23:59 This 78 yrs old Male presents to ER via Wheelchair with complaints of Cough, kb Congestion, Breathing Difficulty. 23:59 Pt is a 78 year old male who presents for cough, congestion and shortness of breath kb that started 3 days ago and got worse tonight. Denies fever, n/v/d, chest pain. Historical: - Allergies: 23:33 Morphine; tl4 - Home Meds: 23:33 clopidogrel 75 mg Oral tablet 1 tab daily [Active]; ezetimibe 10 mg oral tablet 1 tab tl4 daily [Active]; carvedilol 3.125 mg oral tablet 1 tab 2 times per day [Active]; escitalopram oxalate 5 mg oral tablet daily [Active]; furosemide 40 mg Oral tablet 1.5 tabs daily [Active]; montelukast 10 mg oral tablet daily [Active]; levocetirizine 5 mg oral tablet every day at bedtime [Active]; atorvastatin 80 mg oral tablet daily [Active]; quetiapine 50 mg oral tablet daily [Active]; valsartan 80 mg oral tablet daily [Active]; donepezil 10 mg oral tablet daily [Active]; trazodone 50 mg Oral tablet every day at bedtime [Active]; ropinirole 2 mg oral tablet daily [Active]; - PMHx: 23:33 Alzheimer's disease; CHF; Hypercholesterolemia; Hypertensive disorder; insomnia; CO; tl4 - Immunization history:: Adult Immunizations unknown. - Infectious Disease History:: Denies. - Social history:: Smoking status: Patient/guardian denies using tobacco, but has a distant history of tobacco abuse. ROS: 23:59 Constitutional: As per HPI kb Exam: 23:59 Constitutional: This is a well developed, well nourished patient who is awake, alert, kb and in no acute distress. Head/Face: Normocephalic, atraumatic. ENT: Moist Mucous membranes Cardiovascular: Regular rate Abdomen/GI: Soft, non-tender. No distention Skin: Warm, dry with normal turgor. Normal color. MS/ Extremity: Pulses equal, no cyanosis. Neurovascular intact. Full, normal range of motion. Neuro: Awake and alert, GCS 15, oriented to person, place, time, and situation. Moves all extremities. Normal gait. 23:59 Respiratory: the patient does not display signs of respiratory distress, Respirations: normal, Breath sounds: rhonchi, that are mild, are scattered, wheezing: inspiratory expiratory that is moderate, is scattered, 05/08 00:04 ECG was reviewed by the Attending Physician. kb Vital Signs: 05/07 23:25 BP 153 / 61; Pulse 53; Resp 20; Temp 97.8(O); Pulse Ox 99% on R/A; Weight 94.8 kg; tl4 Height 5 ft. 9 in. ; Pain 0/10; 05/08 01:00 BP 154 / 71; Pulse 51; Resp 18; Pulse Ox 100% ; cp4 02:00 BP 150 / 69; Pulse 57; Resp 18; Pulse Ox 100% ; cp4 05/07 23:25 Body Mass Index 30.86 (94.80 kg, 175.26 cm) tl4 05/07 23:25 Pain Scale: Adult tl4 MDM: 05/07 23:17 Patient medically screened. kb 05/08 00:00 Data reviewed: vital signs, nurses notes. kb 00:44 Differential Diagnosis: Bronchitis Influenza Upper Respiratory Infection Pneumonia kb Other CHF exacerbation. Consideration of Admission/Observation Patient was admitted/placed on observation. Escalation of care including admission/observation considered. Management of patient was discussed with the following: Hospitalist: Dr Collins accepts pt for admission. Historians other than the Patient: Spouse/Significant Other: . Counseling: I had a detailed discussion with the patient and/or guardian regarding the historical points, exam findings, and any diagnostic results supporting the discharge/admit diagnosis, lab results, radiology results, the need for further work-up and treatment in the hospital. 05/07 23:22 Order name: CBC with Diff; Complete Time: 23:52 kb 05/07 23:22 Order name: NT PRO-BNP; Complete Time: 00:40 kb 05/07 23:22 Order name: Troponin HS; Complete Time: 00:40 kb 05/07 23:22 Order name: CMP; Complete Time: 00:40 kb 05/07 23:22 Order name: Flu; Complete Time: 00:17 kb 05/07 23:22 Order name: SARS-COV-2 Antigen Rapid; Complete Time: 00:17 kb 05/08 01:19 Order name: Basic Metabolic Panel [facility] 05/08 01:19 Order name: Basic Metabolic Panel [facility] 05/08 01:19 Order name: CBC with Automated Diff [facility] 05/08 01:19 Order name: CBC with Automated Diff [facility] 05/08 01:19 Order name: NT PRO-BNP [facility] 05/08 01:19 Order name: NT PRO-BNP [facility] 05/08 01:20 Order name: Respiratory Syncytial Virus Ag [facility] 05/08 01:21 Order name: Influenza Screen (A [facility] 05/08 01:21 Order name: Respiratory Syncytial Virus Ag [facility] 05/07 23:22 Order name: XRAY Chest (1 view) 05/08 01:19 Order name: Chest Pa And Lat (2 Views) [facility] 05/07 23:22 Order name: EKG; Complete Time: 23:22 kb 05/07 23:22 Order name: Cardiac monitoring; Complete Time: 23:27 kb 05/07 23:22 Order name: EKG - Nurse/Tech; Complete Time: 23:56 kb 05/07 23:22 Order name: IV Saline Lock; Complete Time: 23:39 kb 05/07 23:22 Order name: Labs collected and sent; Complete Time: 23:39 kb 05/07 23:22 Order name: O2 Per Protocol; Complete Time: 23:27 kb 05/07 23:22 Order name: O2 Sat Monitoring; Complete Time: 23:27 kb EC:04 Rate is 47 beats/min. Rhythm is regular. QRS [place] is Normal. ME interval is normal at kb 174 msec. QRS interval is normal at 164 msec. QT interval is normal at 484 msec. Administered Medications: 05/07 23:51 Drug: MethylPrednisoLONE IVP 125 mg IVP once Route: IVP; Site: right antecubital; [facility] 05/08 01:03 Follow up: Response: No adverse reaction [facility] 05/07 23:51 Drug: Albuterol Inhalation 2.5 mg Inhalation once Route: Inhalation; [facility] 05/08 01:03 Follow up: Response: No adverse reaction [facility] 05/07 23:51 Drug: Ipratropium Inhalation Aerosol 0.5 mg Inhalation once Route: Inhalation; cp4 05/08 01:03 Follow up: Response: No adverse reaction cp4 01:03 Drug: Furosemide IVP 40 mg IVP once; give over 2 minutes Route: IVP; Site: right cp4 antecubital; 02:15 Follow up: Response: No adverse reaction cp4 Disposition: 20:45 Co-signature as Attending Physician, Mert Angelo MD I agree with the assessment sp4 and plan of care. I reviewed the patient's care provided by the Advanced Practice Provider and agree with the diagnosis and treatment plan. Disposition Summary: 05/08/24 00:45 Hospitalization Ordered Notes: Hospitalization Status: Observation kb Provider: Roge Collins Location: Telemetry/MedSurg (observation) kb Condition: Stable kb Problem: new kb Symptoms: are unchanged kb Bed/Room Type: Standard Room Assignment: [facility](05/08/24 01:30) cp4 Diagnosis - Unspecified combined systolic (congestive) and diastolic (congestive) heart failure kb Forms: - Medication Reconciliation Form kb - SBAR form kb - Leadership Thank You Letter kb Signatures: Dispatcher [employer] EDMS Lana Cotto, BAKER PASTRY-C BAKER PASTRY-Mert Wadsworth MD MD sp4 Sheryl Aaron cp4 Rolando Patton RN RN tl4 Corrections: (The following items were deleted from the chart) 05/07 23:22 23:22 CBC+H.LAB.BRZ ordered. EDMS EDMS 23:22 23:22 PROBNP+C.LAB.BRZ ordered. EDMS EDMS 23:22 23:22 Troponin High Sensitivity+C.LAB.BRZ ordered. EDMS EDMS 23:22 23:22 COMPREHENSIVE METABOLIC PANEL+C.LAB.BRZ ordered. EDMS EDMS 23:22 23:22 Influenza Screen (A \T\ B)+BA.LAB.BRZ ordered. EDMS EDMS 23:22 23:22 SARS-COV-2 Antigen Rapid+I.LAB.BRZ ordered. EDMI EDMS 05/08 01:30 00:45 kb cp4
[2024-05-08] MEDS ORDERED: FUROSEMIDE 40 MG/4 ML VIAL ONE (00:59)
[2024-05-08] MEDS ORDERED: ACETAMINOPHEN 500 MG TAB PO PRN (01:13)
--- NOTE | 2024-05-08 01:23 | P.HP ---
Certification for Inpatient With expected LOS: >2 Midnights Practitioner: I am a practitioner with admitting privileges, knowledge of patient current condition, hospital course, and medical plan of care. Services: Services provided to patient in accordance with Admission requirements found in Title 42 Section 412.3 of the Code of Federal Regulations Patient History Date of Service: 05/08/24 Reason for admission: Cough congestion shortness of breath History of Present Illness: Patient is 78 years of age with a history of COPD congestive heart failure started becoming sick since last started off with a light cough Aldair Mccoy did help and today became much worse around 630 7:00 in the evening became more short of breath cough became a lot worse and it appeared in the emergency room currently he was out on a last week may have been exposed to someone with an infection denies any swelling of his extremities compliant with medications follows up with his physicians - Past Medical/Surgical History -: Alzheimer disease -: Congestive heart failure -: Hypertension -: Coronary artery disease -: Insomnia -: COPD exacerbationMonitor closely on telemetryStarted on bronchodilators -: CABG Review of Systems 10-point ROS is otherwise unremarkable General: Weakness Respiratory: Cough, Shortness of Breath Physical Examination - Vital Signs Temperature: 97.8 F Blood Pressure: 153/61 Pulse: 53 Respirations: 20 Pulse Ox (%): 99 - Physical Exam General: Alert, Oriented x3, Mild distress HEENT: Atraumatic Neck: Supple Respiratory: Diminished, Expiratory wheezes Cardiovascular: No edema, Regular rate/rhythm, Normal S1 S2 Gastrointestinal: Normal bowel sounds, Soft and benign Musculoskeletal: No clubbing, No swelling Integumentary: No rashes, No breakdown Neurological: Normal speech, Normal strength at 5/5 x4 extr - Studies Laboratory Data (last 24 hrs) 05/07/24 05/07/24 23:34 23:34 WBC 4.30 Hgb 11.5 L Hct 34.7 L Plt Count 123 L Sodium 139 Potassium 3.4 L BUN 8 Creatinine 0.81 Glucose 114 H Total Bilirubin 1.2 H AST 18 ALT < 14 L Alkaline Phosphatase 100 Microbiology Data (last 24 hrs): 05/07/24 23:34 Nasopharnyx Influenza Type A Antigen Screen - Final 05/07/24 23:34 Nasopharnyx Influenza Type B Antigen Screen - Final Assessment and Plan - Problems (Diagnosis) (1) COPD exacerbation Current Visit: Yes Status: Acute Plan: Patient is 78 years of age has been sick sick since last complaining of progressive cough congestion shortness of breath he has a history of COPD former smoker quit over 20 years ago he does use Anoro scheduled and albuterol as needed basis became worse last night around 7 PM unable to lie down flat Tessalon Perles did not help and it appeared in the emergency room chest x-ray shows significant cardiomegaly possible left lower lobe infiltrate he has a history of CABG otherwise he is gone normal troponin hemoglobin 11.5 COVID- negative admit patient treat with steroids antibiotics repeat PA lateral chest x-ray no evidence of volume overload in fact patient is hypokalemic presumably is using his Lasix will replace potassium have ordered an influenza and RSV screen otherwise his vitals oxygenation satisfactory - Advance Directives Does patient have a Living Will: No Does patient have a Durable POA for Healthcare: No
[2024-05-08] MEDS ORDERED: PROMETHAZINE-DM 5 ML OSYR PO PRN (01:24)
[2024-05-08 02:52] VITALS: BMI 26.9
[2024-05-08] MEDS: CEFTRIAXONE 1,000 MG in NA CHLORIDE 0.9% 50 ML IVPB SCH (05:37)
[2024-05-08] MEDS: AZITHROMYCIN 250 MG TAB PO SCH (05:38)
[2024-05-08] MEDS: POTASSIUM 25 MEQ EFFERV TAB PO SCH (05:38)
[2024-05-08] MEDS: IPRATROPIUM BROM 0.5MG/2.5ML NEB SCH (07:14)
[2024-05-08] MEDS: ALBUTEROL 2.5 MG/3 ML NEB SOL NEB SCH (07:14)
--- NOTE | 2024-05-08 07:35 | P.PN ---
Date of Service: 05/08/24 Subjective: continues with shortness of breath, weakness ~same dyspnea worsened with activity/exertion/laying flat feels choking sensation when laying flat, sensation of something stuck in his throat also occurs when eating sometimes. Dealing with this for a few months on room air ROS: 10 point ROS as noted above, otherwise negative Physical Exam: GEN: Alert, oriented, NAD CV: Regular rate and rhythm, LLE: trace lower extremity edema up to ankle. RLE: no edema Pulm: Nonlabored respirations on room air, diminished at bases bilaterally; +mild wheeze ABD: Soft, nontender, nondistended Neuro: normal speech, normal strength vitals reviewed Problem List: Acute on chronic COPD exacerbation Esophageal thickening Chronic CHF, unknown type hx CAD s/p CABG Hypertension Alzheimer's dementia Insomnia Acute on chronic COPD exacerbation on admission, presents with worsening dyspnea, cough, congestion, weakness. Dyspnea worsened with exertion/activity. CXR (05/07): cardiomegaly with pulmonary edema and possible small bilateral pleural effusions continue IV steroids continue empiric azithromycin / rocephin to cover possible infection continue duonebs, home inhalers wean oxygen as tolerable PRN phenergan Chest x-ray PA/lateral for tomorrow Esophageal thickening feels choking sensation when laying flat, sensation of something stuck in his throat. Sensations also occurs when eating sometimes has been dealing with this for months recent CT abdomen (04/24): moderately thickened distal esophagus. small umbilical hernia. Left lateral ventral hernia. 4.5 cm abdominal aortic aneurysm Check barium swallow Anticipate will need to follow-up with GI as an outpatient start daily protonix Chronic CHF Does not appear volume overloaded, only mild edema to the left ankle Difficult to discern with his feeling when he is laying back, if orthopnea or developed some reflux/choking issue He reports a history of CHF, we have no echo reports he was unknown systolic versus diastolic Check echo hx CAD s/p CABG Hypertension Alzheimer's dementia Insomnia confirm home meds, restart as appropriate Dispo: Home, 1-2 days Time Spent Managing Pts Care (In Minutes): 51
--- NOTE | 2024-05-08 07:43 | RAD REPORT ---
EXAM DESCRIPTION: Chest Single View CLINICAL HISTORY: COUGH COMPARISON: None. FINDINGS: 1 view(s) of the chest. Tubes and lines: Leads overlie the chest. Cardiomediastinal silhouette: Atherosclerotic calcification of thoracic aorta. Cardiomegaly. Prior me diane sternotomy. Lungs: Bilateral interstitial opacities. No pneumothorax. Possible pleural effusions. Bones: No acute osseous abnormality. Degenerative change of the spine and shoulders. Upper abdomen: No abnormality identified. IMPRESSION: Cardiomegaly with pulmonary edema pattern and possible small bilateral pleural effusions. Electronically signed by: Jatin Lo DO 05/08/2024 12:34 AM CDT RP [id number] Due to temporary technical issues with the [employer] reporting system, reports are being preston d by the in-house radiologist without review as a courtesy to ensure prompt reporting the interpreting radiologist is fully responsible for the content of the report. Transcribed Date/Time: 05/08/2024 7:43 AM
[2024-05-08 07:51] LABS: Absolute Lymphocytes (CBC) 0.6 K/uL (0.7-4.9); Absolute Neutrophil 1.9 K/uL (1.8-8.0); Basophils % 0.4 % (0-1.3); Eosinophils % 0.3 % (0-4.4); Hematocrit 35.4 % (39.6-49.0); Hemoglobin 12.1 g/dL (13.6-17.9); Lymphocytes % 23.8 % (15.3-44.8); MCH 30.5 pg (27.0-35.0); MCHC 34.1 g/dL (32.0-36.0); MCV 89.5 fL (80-100); MPV 8.7 fL (7.6-11.3); Monocytes % 1.3 % (3.3-12.3); Neutrophils % 74.2 % (41.7-73.7); Nucleated Red Blood Cells % 0.2 % (0-0); Platelets 115 thou/uL (152-406); RBC Red Blood Cell Count 3.95 M/uL (4.33-5.43); Red Cell Distribution Width 14.6 % (12.1-15.2)
[2024-05-08 08:10] LABS: AST/SGOT 15 U/L (15-37); Albumin 3.1 g/dL (3.4-5.0); Albumin/Globulin Ratio 0.9 (1.1-1.8); Alkaline Phosphatase 108 U/L (45-117); Anion Gap 5.3 mEq/L (5.0-15.0); BUN Blood Urea Nitrogen 11 mg/dL (7-18); Bicarbonate 32 mEq/L (21-32); Globulin 3.4 g/dL (2.3-3.5); Glomerular Filtration Rate 88 ml/min (=/>90); Glucose Level 195 mg/dL (74-106); Magnesium 1.8 mg/dL (1.6-2.4); NT PRO-BNP 193 pg/mL (<450); Potassium 3.3 mEq/L (3.5-5.1); Protein, Total 6.5 g/dL (6.4-8.2); Sodium Level 137 mEq/L (136-145)
[2024-05-08 08:13] LABS: ALT/SGPT < 14 U/L (16-61)
[2024-05-08] MEDS ORDERED: HOME MED 1 EA UNK (Escitalopram Oxalate [Lexapro] 5 MG Tablet) PO SCH (09:00)
[2024-05-08] MEDS: ESCITALOPRAM OXALATE 5 MG PO SCH (09:00)
[2024-05-08] MEDS ORDERED: HOME MED 1 EA UNK (Donepezil Hcl [Donepezil Hcl] 10 MG Tablet) PO SCH (09:00)
[2024-05-08] MEDS: MONTELUKAST 10 MG TAB PO SCH (09:23)
[2024-05-08] MEDS: EZETIMIBE 10 MG TAB PO SCH (09:23)
[2024-05-08] MEDS: carvediloL 3.125 MG TAB PO SCH (09:24)
[2024-05-08] MEDS: METHYLPREDNISOLONE 40 MG INJ IV SCH (09:24)
[2024-05-08] MEDS: CLOPIDOGREL 75 MG TABLET PO SCH (09:24)
[2024-05-08] MEDS: PANTOPRAZOLE 40MG TABLET PO SCH (11:42)
[2024-05-08] MEDS: DONEPEZIL HCL 5 MG TAB PO SCH (20:14)
[2024-05-08] MEDS: predniSONE 20 MG TAB PO SCH (20:15)
[2024-05-08] MEDS: ATORVASTATIN 80 MG TAB PO SCH (20:15)
[2024-05-09 06:22] LABS: Absolute Monocytes 0.6 K/uL (0.1-1.3); Absolute Neutrophil 7.7 K/uL (1.8-8.0); Basophils % 0.1 % (0-1.3); Hematocrit 34.2 % (39.6-49.0); Hemoglobin 11.7 g/dL (13.6-17.9); Lymphocytes % 10.7 % (15.3-44.8); MCHC 34.4 g/dL (32.0-36.0); MCV 90.1 fL (80-100); MPV 9.1 fL (7.6-11.3); Monocytes % 6.8 % (3.3-12.3); Neutrophils % 82.4 % (41.7-73.7); Platelets 141 thou/uL (152-406); RBC Red Blood Cell Count 3.79 M/uL (4.33-5.43); Red Cell Distribution Width 14.5 % (12.1-15.2)
[2024-05-09 06:44] LABS: Anion Gap 5.2 mEq/L (5.0-15.0); Magnesium 1.9 mg/dL (1.6-2.4); Potassium 4.2 mEq/L (3.5-5.1)
[2024-05-09] MEDS: FUROSEMIDE 40 MG/4 ML VIAL IV SCH (08:54)
--- NOTE | 2024-05-09 10:19 | EKG ---
Test Date: 2024-05-07 Test Time: 23:58:11 Sewing Machinist: JOHN MEASUREMENT RESULTS: Intervals: Rate: 47 OK: 174 QRSD: 164 QT: 548 QTc: 484 [place]: P: 44 OK: 174 QRS: -24 T: 0 INTERPRETIVE STATEMENTS: Marked sinus bradycardia Right bundle branch block Abnormal ECG Compared to ECG 01/13/1993 12:46:00 Right bundle-branch block now present Sinus rhythm no longer present Electronically Signed On 05-09-24 10:18:56 CDT by Xavi Patiño
--- NOTE | 2024-05-09 11:00 | ECHO ---
HEIGHT: 5 ft 9 in WEIGHT: 182 lb 0 oz DATE OF STUDY: 05/09/[address]: Ramírez Morales MD 2-DIMENSIONAL: YES M.MODE: YES DOPPLER: YES COLOR FLOW: YES TDS: PORTABLE: YES DEFINITY: BUBBLE STUDY: DIAGNOSIS: EVALUATE FUNCTION/ HISTORY OF CONGESTIVE HEART FAILURE/ SHORTNESS OF BREATH CARDIAC HISTORY: CATHERIZATION: SURGERY: YES PROSTHETIC VALVE: PACEMAKER: MEASUREMENTS (cm) DIASTOLIC (NORMALS) SYSTOLIC (NORMALS) IVSd 0.9 (0.6-1.2) LA Diam 3.9 (1.9-4.0) LVEF 55% LVIDd 5.1 (3.5-5.7) LVIDs 3.2 (2.0-3.5) %FS LVPWd 1.1 (0.6-1.2) Ao Diam 2.7 (2.0-3.7) 2 DIMENSIONAL ASSESSMENT: RIGHT ATRIUM: NORMAL LEFT ATRIUM: MILDLY DILATED RIGHT VENTRICLE: NORMAL LEFT VENTRICLE: NORMAL TRICUSPID VALVE: MILD TRICUSPID REGURGITATION MITRAL VALVE: TRACE MITRAL REGURGITATION PULMONIC VALVE: NORMAL AORTIC VALVE: TRACE AORTIC REGURGITATION PERICARDIAL EFFUSION: NONE AORTIC ROOT: NORMAL LEFT VENTRICULAR WALL MOTION: NORMAL DOPPLER/COLOR FLOW: NORMAL COMMENTS: 1. NORMAL LEFT VENTRICULAR SYSTOLIC FUNCTION, EJECTION FRACTION 55%, NORMAL WALL MOTION 2. NORMAL DIASTOLIC FUNCTION TECHNOLOGIST: FREDY DIEGO
--- NOTE | 2024-05-09 11:27 | RAD REPORT ---
EXAMINATION: Thorax Wo Con CLINICAL INDICATION: Male, 78 years old. [facility] MA[facility] Ro Pneumonia Y TECHNIQUE: Axial CT scan of the chest without intravenous contrast. Multiplanar reformats were genera ifeanyi and reviewed. One or more of the following dose reduction techniques were used: Automated exposure control, adjustment of the mA and/or kV according patient size, and/or iterative reconstruct ion. Unless otherwise specified, incidental findings do not require dedicated imaging follow-up. COMPARISON: Chest radiograph 05/07/2024 FINDINGS: LOWER NECK: Visualized thyroid gland and soft tissues are normal. LUNGS: Elevation of the left hemidiaphragm. Platelike left lower lobe dependent atelectasis. The lung s show no focal consolidation. Mild peripheral reticular opacities, may reflect chronic changes of mild fibrosis or COPD. Few subpleural small blebs at the right apex. No worrisome nodules. PLEURA: No pleural effusion. No pneumothorax. . MEDIASTINUM AND LYMPH NODES: Moderate cardiomegaly. Prominence of the left epicardial fat pad. No med iastinal mass or fluid collection. Normal size mediastinal, hilar, and axillary lymph nodes. OSSEOUS STRUCTURES AND CHEST WALL: Intact. UPPER ABDOMEN: No significant abnormalities. IMPRESSION: No acute pulmonary process. Mild peripheral reticular opacities may suggest mild fibrotic process, versus sequelae of COPD. Cardi omegaly, epicardial fat prominence, and elevation of the left hemidiaphragm, contribute to the radiographic appearance.
--- NOTE | 2024-05-09 13:25 | P.PN ---
Date of Service: 05/09/24 Subjective: feels better breathing improved no choking episodes last night ROS: 10 point ROS as noted above, otherwise negative Physical Exam: GEN: Alert, oriented, NAD CV: Regular rate and rhythm, LLE: trace lower extremity edema up to ankle. RLE: no edema Pulm: Nonlabored respirations on room air, diminished at bases bilaterally; +mild wheeze ABD: Soft, nontender, nondistended Neuro: normal speech, normal strength vitals reviewed Problem List: Acute on chronic COPD exacerbation Esophageal thickening Chronic CHF, unknown type hx CAD s/p CABG Hypertension Alzheimer's dementia Insomnia Acute on chronic COPD exacerbation on admission, presents with worsening dyspnea, cough, congestion, weakness. Dyspnea worsened with exertion/activity. CXR (05/07): cardiomegaly with pulmonary edema and possible small bilateral pleural effusions CT chest (05/09): mild fibrosis vs COPD with left lower lobe atelectasis IV steroids deescalated to PO prednisone 05/08 continue empiric azithromycin / rocephin to cover possible infection continue duonebs, home inhalers wean oxygen as tolerable PRN phenergan Esophageal thickening feels choking sensation when laying flat, sensation of something stuck in his throat. Sensations also occurs when eating sometimes has been dealing with this for months recent CT abdomen (04/24): moderately thickened distal esophagus. small umbilical hernia. Left lateral ventral hernia. 4.5 cm abdominal aortic aneurysm Check barium swallow may benefit from outpatient GI follow up continue daily protonix Chronic CHF Does not appear volume overloaded, only mild edema to the left ankle Difficult to discern with his feeling when he is laying back, if orthopnea or developed some reflux/choking issue He reports a history of CHF, we have no echo reports he was unknown systolic versus diastolic echo (05/09): 55% EF, normal diastolic function hx CAD s/p CABG Hypertension Alzheimer's dementia Insomnia confirm home meds, restart as appropriate Dispo: Home, anticipate tomorrow pending barium swallow further improvement Time Spent Managing Pts Care (In Minutes): 51
--- NOTE | 2024-05-09 15:26 | RAD REPORT ---
Procedure: Chest Pa And Lat (2 Views) History: Shortness of breath Comparison: April 29, 2024 Lungs appear clear of acute infiltrate. Pulmonary vascular congestion is present. No significant pleural effusion noted. Haziness left lung base secondary to a combination of elevation of the left hemidiaphragm and epicard ial fat. The heart is mildly to moderately enlarged Post surgical changes involving the chest
--- NOTE | 2024-05-09 15:43 | RAD REPORT ---
Exam: Modified barium swallow exam with speech pathology service HISTORY: [facility] MAIN distal thickened esophagus, feels choking at times. Coughing Fluoroscopy Time: 2.2 minutes 19 fluoroscopic spot images obtained Findings: Oral pharyngeal phase of swallowing normal. No pooling of contrast within the vallecula/piriform sinus. No supraglottic penetration. No aspiration
[2024-05-09] MEDS: VALSARTAN 80 MG TAB PO ONE (17:54)
--- NOTE | 2024-05-10 09:17 | P.DS ---
Admission Date: 05/08/24 Discharge Date: 05/10/24 Disposition: ROUTINE DISCHARGE Discharge Condition: GOOD Reason for Admission: Cough congestion shortness of breath Hospital Course: Diagnosis Acute on chronic COPD exacerbation Esophageal thickening Acute on chronic diastolic heart failure hx CAD s/p CABG Hypertension Alzheimer's dementia Insomnia Patient presented with worsening dyspnea, cough, congestion, weakness. Chest xray noted cardiomegaly with pulmonary edema and possible small bilateral pleural effusions. Patient was diagnosed with CHF exacerbation and COPD exacerbation. Patient had improvement with steroids, duonebs, inhalers. He was also treated with IV Lasix. Overall patient has clinically improved and tolerating room air, he is ambulatory. He had elevated blood pressure which was managed with his home antihypertensives-losartan, amlodipine was added. Use of Coreg was limited due to bradycardia. He also received empiric levaquin while hospitalized to cover possible infection / pneumonia. Patient prescribed Augmentin to cover any possible aspiration pneumonitis. In regards to difficulty swallowing, patient reported dealing with choking sensation when laying flat, sensation of something stuck in his throat for past few months. Reports sensations also occurs when eating sometimes. He had a recent CT ~2 weeks ago which noted moderately thickened distal esophagus. Case discussed with executive director contract shop Dr. Solano who plans to follow-up with the patient during the course of this week to evaluate him for EGD. Follow up: PCP 3-5 days Pulmonology 2-4 weeks Please call to schedule / confirm appointments Vital Signs/Physical Exam: Temp Pulse Resp BP Pulse Ox 98.6 F 48 L 20 180/77 H 98 05/10/24 08:00 05/10/24 08:00 05/10/24 08:00 05/10/24 08:00 05/10/24 08:00 Laboratory Data at Discharge: WBC 9.30 thou/uL (4.3-10.9) 05/09/24 05:41 Hgb 11.7 g/dL (13.6-17.9) L 05/09/24 05:41 Hct 34.2 % (39.6-49.0) L 05/09/24 05:41 Plt Count 141 thou/uL (152-406) L 05/09/24 05:41 Sodium 138 mEq/L (136-145) 05/09/24 05:41 Potassium 4.2 mEq/L (3.5-5.1) D 05/09/24 05:41 BUN 14 mg/dL (7-18) 05/09/24 05:41 Creatinine 1.03 mg/dL (0.70-1.30) 05/09/24 05:41 Glucose 61 mg/dL (74-106) L 05/09/24 05:41 Magnesium 1.9 mg/dL (1.6-2.4) 05/09/24 05:41 Total Bilirubin 1.0 mg/dL (0.2-1.0) 05/08/24 07:34 AST 15 U/L (15-37) 05/08/24 07:34 ALT < 14 U/L (16-61) L 05/08/24 07:34 Alkaline Phosphatase 108 U/L (45-117) 05/08/24 07:34 Home Medications: Atorvastatin Calcium [Lipitor] 80 mg PO DAILY 05/08/24 Carvedilol [Coreg] 3.125 mg PO BID 05/08/24 Clopidogrel Bisulfate [Plavix*] 75 mg PO DAILY 05/08/24 Donepezil HCl 10 mg PO DAILY 05/08/24 Escitalopram Oxalate [Lexapro] 5 mg PO DAILY 05/08/24 Ezetimibe 10 mg PO DAILY 05/08/24 Furosemide [Lasix*] 40 mg PO DAILY 05/08/24 Levocetirizine Dihydrochloride [Allergy Relief] 5 mg PO DAILY 05/08/24 Montelukast [Singulair*] 10 mg PO DAILY 05/08/24 Quetiapine Fumarate [Quetiapine Fumarate ER] 50 mg PO DAILY 05/08/24 Ropinirole HCl 2 mg PO DAILY 05/08/24 Trazodone [Desyrel*] 50 mg PO DAILY 05/08/24 Valsartan 80 mg PO DAILY 05/08/24 Amox/Clavulanate [Augmentin 875-125 Tab] 1 each PO BID #14 tab 05/10/24 Pantoprazole [Protonix Tab*] 40 mg PO DAILYAC #60 tab 05/10/24 predniSONE [Prednisone*] 20 mg PO BID #10 tab 05/10/24 New Medications: Amox/Clavulanate [Augmentin 875-125 Tab] 1 each PO BID #14 tab predniSONE [Prednisone*] 20 mg PO BID #10 tab Pantoprazole [Protonix Tab*] 40 mg PO DAILYAC #60 tab Physician Discharge Instructions: Physician discharge instructions: Patient presented with worsening dyspnea, cough, congestion, weakness secondary to acute on chronic COPD exacerbation. Chest xray noted cardiomegaly with pulmonary edema and possible small bilateral pleural effusions. Patient had improvement with steroids, duonebs, inhalers. He also received empiric levaquin while hospitalized to cover possible infection / pneumonia. In regards to difficulty swallowing, patient reported dealing with choking sensation when laying flat, sensation of something stuck in his throat for past few months. Reports sensations also occurs when eating sometimes. He had a recent CT ~2 weeks ago which noted moderately thickened distal esophagus. Recommend outpatient follow up with GI in near future for further discussion / consider EGD to further evaluate. Follow up: PCP 3-5 days Pulmonology 2-4 weeks GI 2-4 weeks Please call to schedule / confirm appointments Diet: AHA Activity: Fall precautions Followup: Roge Collins MD [ACTIVE - CAN ADMIT] - 1-2 Weeks EmeliaOTROSA ISELA [Primary Care Provider] - 1-2 Weeks Enrrique Solano MD [ASSOCIATE-ACTIVE - CAN ADMIT] - 1 Week (Difficulty swallowing)
[2024-05-10] MEDS: VALSARTAN 80 MG TAB PO SCH (09:24)
[2024-05-10 10:17] VITALS: O2SAT 97
[2024-05-10] MEDS: HYDRALAZINE HCL 20 MG/ML VIAL IV PRN (12:23)
[2024-05-10 12:52] VITALS: TEMP 99.2
[2024-05-10] MEDS: AMLODIPINE 10 MG TAB PO ONE (15:01)
[2024-05-10 15:42] VITALS: BP 155/61
--- NOTE | 2024-05-10 17:31 | RAD REPORT ---
EXAMINATION: ONE VIEW CHEST XR CLINICAL INDICATION: Male, 78 years old.,Cough, SOB TECHNIQUE: Frontal chest projection is submitted. Examination is limited by patient positioning and t echnique. COMPARISON: 05/09/2024 FINDINGS: Mild central interstitial prominence. Left basilar atelectasis versus trace effusion. No pneumothora x or sizable effusion. The heart is moderately enlarged in size. Sequelae of CABG. IMPRESSION: Mild central interstitial prominence may reflect mild congestion/CHF.
== END 2024-05-10 16:50 | disposition home or self-care (01) | DRG 291 ==
LOC: ER 23:02 → 2ND 05-08 01:13 → UNDODISIN 05-09 18:15
PROVIDERS: ADMIT Internal Medicine Sleep Medicine; ATTEND Internal Medicine
DX: I11.0 Hypertensive heart disease with heart failure (principal); I50.33 Acute on chronic diastolic (congestive) heart failure; J18.9 Pneumonia, unspecified organism; J44.1 Chronic obstructive pulmonary disease with (acute) exacerbation; J44.0 Chronic obstructive pulmonary disease with (acute) lower respiratory infection; E78.00 Pure hypercholesterolemia, unspecified; G47.00 Insomnia, unspecified; K43.9 Ventral hernia without obstruction or gangrene; I71.9 Aortic aneurysm of unspecified site, without rupture; G30.9 Alzheimer's disease, unspecified; F02.80 Dementia in other diseases classified elsewhere, unspecified severity, without behavioral disturbance, psychotic disturbance, mood disturbance, and anxiety; I25.10 Atherosclerotic heart disease of native coronary artery without angina pectoris; I25.2 Old myocardial infarction; Z88.5 Allergy status to narcotic agent; Z95.1 Presence of aortocoronary bypass graft; Z11.52 Encounter for screening for COVID-19; Z79.02 Long term (current) use of antithrombotics/antiplatelets; Z79.899 Other long term (current) drug therapy; Z87.891 Personal history of nicotine dependence
CPT/HCPCS: 36415; 71045; 71046; 71250; 74230; 80048; 80053; 83735; 83880; 84145; 84484; 85025; 87804; 87807; 87811; 92610; 93005; 93306; 94760; 96374; 96375; 99285; J0360; J0696; J1940; J2919; J7512; J7613; J7644

== ENCOUNTER 2024-05-23 22:47 | Inpatient (IN) | payer OTHER ==
--- OUTSIDE RECORDS SUMMARY | 2024-05-23 22:49 | XMS REPORT | Continuity of Care Document ---
Author Name Unknown Address [address] [place] [address] [facility] thconnect Address [address] [place] [address] Care Team Providers Care Family Support Specialist Name Role Phone Pat Mosley MD Primary Care Physicia n ENOCH BASHIR Attending Clinician Unavaila FERNANDEZ Khalil Attending Clinician Unavailable STEVEN MOELLER Attending Clinician Unavailable Sean Iglesias Attending Clinician Unavailable Anant Diallo MD Attending Clinician ANANT DIALLO Attending Clinician Jessica Ar Bolaños Attending Clinician Unavailable HCAVA HERNANDEZ Attending Clinician Unavail able INGRID HERNANDEZ Attending Clinician UnavailPRINCE Lionel Attending Clinician Unavailable RAMON ALDANA Attending Clinician Un available LOIS MAXWELL Attending Clinician Un available STEVEN MOELLER Attending Clinician Unavaila tam HARRIS, FERNANDEZ ESCOBEDO Attending Clinician U prettyailable PAT MOSLEY Attending Clinician Unav ailable Matthew Walter Attending Clinician Unavailable Pat Mosley Admitting Clinician Unavailable JENNIFERHAILEWINSOMETOMKristel JARAMILLO Admitting Clinician Unavail able PAT MOSLEY Admitting Clinician Unav ailable Payers Payer Name Policy Type Policy Number Effective Date Expirati on Date Source [place] MED[place] [id number] 2020 00:00:00 [facility] MEDICARE SNP [id number] 2020 00:00:00 2024 00:00:00 [facility] MEDICARE DUAL SNP Medicare [id number] 2020 00:00:00 MED[place]ID [place] Medicaid [id number] 2020 00:00:00 Problems Condition Name Condition Details Condition Category Status Onset Date Resolution Date Last Treatment Date Treating Clinician Comments Source Leg swelling Leg swelling Disease Active 2020-08 00:00: 00 [facility] 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) Disease Active 2020-08 00:00: 00 [facility] Allergies, Adverse Reactions, Alerts Allergy Name Allergy Type Status Severity Reaction(s) Onset Date Inactive Date Treating Clinician Comments Source morphine DA Active MO SWELLING 2022-08 00:00: 00 [facility] codeine DA Active MO SWELLING 2022-08 00:00: 00 [facility] Ticlopid ine Allergy to substanc e Active 2020-08 00:00: 00 [facility] Aspirin Allergy to substanc e Active Hives 10-29 00:00: 00 [facility] Morphine Allergy to substanc e Active 10-29 00:00: 00 [facility] Zolpidem Allergy to substanc e Active - 00:00: 00 [facility] ticlopid ine HCl DA Active U 3- 00:00: 00 [facility] zolpidem tartrate DA Active U - 00:00: 00 [facility] Huy morphine DA Active U 10-29 00:00: 00 [facility] aspirin DA Active [place] [facility] [address] [facility] Social [facility] Social Habit Start Date Stop Date Quantity Comments Source Gender identity 2023-10-31 05:52:33 Identifies as male gender (finding) [facility] Exposure to SARS-CoV-2 (event) Not sure [facility] History of tobacco use Current smoker [facility] Sexual orientation [facility] History of Social function 2023-10-02 00:00:00 2023-10-02 00:00:00 [facility] Tobacco use and exposure 2021-07-18 00:00:00 2021-07-18 00:00:00 Smokeless tobacco non-user [facility] Sex Assigned At 1945 00:00:00 1945 00:00:00 [facility] Smoking Status Start Date Stop Date Source Ex-smoker [facility] Medications Ordered Medication Name Filled Medication Name Start Date Stop Date Current Medication? Ordering Clinician Indication Dosage Frequency Signature (SIG) Comments Components Source iohexol (OMNIPaque) 350 MG/ML injection 80 mL iohexol (OMNIPaque) 350 MG/ML injection 80 mL [id number] 20:12: 32 05-17 20:13 :00 No 80mL 80 mL, Intravenou s, Once in imaging, Starting on Thu05/17/24 at 2011, For 1 dose Carmelina garner [place] [facility] QUEtiapine (SEROquel) 50 MG tablet QUEtiapine (SEROquel) 50 MG tablet 10-02 00:00: 00 Yes 50mg 50 mg = 1 tab, PO, BID, 0 Refill(s) Carmelina [facility] escitalopra m (Lexapro) 5 MG tablet escitalopra m (Lexapro) 5 MG tablet 12-10 00:00: 00 Yes 5mg 5 mg = 1 tab, PO, Daily, # 30 tab, 0 Refill(s) Carmelina garner [facility] folic acid (Folvite) 1 MG tablet folic acid (Folvite) 1 MG tablet 12-10 00:00: 00 Yes 1mg 1 mg = 1 tab, PO, Daily, # 30 tab, 0 Refill(s) Carmelina [facility] valsartan (Diovan) 80 MG tablet valsartan (Diovan) 80 MG tablet 11-15 00:00: 00 Yes 80mg 80 mg = 1 tab, PO, Daily, # 30 tab, 0 Refill(s) Carmelina [facility] LEVOCETIRIZ INE DIHYDROCHLO RIDE PO LEVOCETIRIZ INE DIHYDROCHLO RIDE PO 11-15 00:00: 00 Yes 5mg 5 mg =, PO, QPM, 0 Refill(s) Carmel[facility] clopidogrel (Plavix) 75 MG tablet clopidogrel (Plavix) 75 MG tablet 10-02 00:00: 00 Yes 75mg 75 mg = 1 tab, PO, Daily, 0 Refill(s) Carmel[facility] benzonatate (Tessalon) 100 MG capsule benzonatate (Tessalon) 100 MG capsule 10-02 00:00: 00 Yes 100mg 100 mg = 1 cap, PO, TID, 0 Refill(s) Carmel[facility] aspirin 325 MG tablet 2020-08 17:12: 48 Yes [facility] clopidogrel (Plavix) 300 MG tablet 2020-08 17:12: 48 Yes [facility] Furosemide (LASIX PO) Furosemide (LASIX PO) 12-28 00:00: 00 Yes 40mg 40 mg, PO, Daily, 0 Refill(s) Carmel[facility] aspirin EC ([employer] Aspirin EC Low Dose) 81 MG EC tablet aspirin EC ([employer] Aspirin EC Low Dose) 81 MG EC tablet 2018-08 00:00: 00 Yes 81mg 81 mg = 1 tab, PO, Daily, # 90 tab, 3 Refill(s) [facility] atorvastati n (Lipitor) 40 MG tablet atorvastati n (Lipitor) 40 MG tablet 2018-08 00:00: 00 Yes 80mg 80 mg = 2 tab, PO, Bedtime, 0 Refill(s) [facility] pantoprazol e (ProtoNix) 40 MG EC tablet pantoprazol e (ProtoNix) 40 MG EC tablet 2018-08 00:00: 00 Yes 40mg 40 mg = 1 tab, PO, Daily, 0 Refill(s) Carmelina Benitez ezetimibe (Zetia) 10 MG tablet ezetimibe (Zetia) 10 MG tablet 2018-08 00:00: 00 Yes 10mg 10 mg = 1 tab, PO, Daily, 0 Refill(s) Carmelina Benitez traZODone (Desyrel) 50 MG tablet traZODone (Desyrel) 50 MG tablet 2018-08 00:00: 00 Yes 50mg 50 mg = 1 tab, PO, Bedtime, 0 Refill(s) Carmelina Benitez montelukast (Singulair) 10 MG tablet montelukast (Singulair) 10 MG tablet 2018-08 00:00: 00 Yes 10mg 10 mg = 1 tab, PO, Bedtime, 0 Refill(s) Carmelina Benitez rOPINIRole (Requip) 0.5 MG tablet rOPINIRole (Requip) 0.5 MG tablet 2018-08 00:00: 00 Yes 1mg 1 mg = 2 tab, PO, TID, 0 Refill(s) Carmelina Benitez donepezil (Aricept) 10 MG tablet donepezil (Aricept) 10 MG tablet 2018-08 00:00: 00 Yes 10mg 10 mg = 1 tab, PO, Bedtime, 0 Refill(s) Carmelina Benitez albuterol HFA (ProAir HFA) 90 mcg/act inhaler albuterol HFA (ProAir HFA) 90 mcg/act inhaler 10-23 00:00: 00 Yes 2 puff, INHALER, Q6H, PRN for wheezing, # 8.5 gm, 0 Refill(s) Carmelina Benitez Vital Signs Vital Name Observation Time Observation Value Comments Kandice wells Systolic blood pressure 2024-05-17 23:15:00 183 mm[Hg] [facility] Diastolic blood pressure 2024-05-17 23:15:00 67 mm[Hg] [facility] Heart rate 2024-05-17 23:15:00 54 /min [facility] Respiratory rate 2024-05-17 23:15:00 16 /min [facility] Oxygen saturation in Arterial blood by Pulse oximetry 2024-05-17 23:15:00 99 /min [facility] Body temperature 2024-05-17 23:00:00 37 Claudia [facility] Body height 2024-05-17 17:36:00 177.8 [facility] weight 2024-05-17 17:36:00 81.647 [facility] BMI 2024-05-17 17:36:00 25.83 kg/m2 [facility] Systolic blood pressure 2024-05-17 23:15:00 183 mm[Hg] [facility] Diastolic blood pressure 2024-05-17 23:15:00 67 mm[Hg] [facility] Heart rate 2024-05-17 23:15:00 54 /min [facility] Respiratory rate 2024-05-17 23:15:00 16 /min [facility] Oxygen saturation in Arterial blood by Pulse oximetry 2024-05-17 23:15:00 99 /min [facility] Body temperature 2024-05-17 23:00:00 37 Claudia [facility] Body height 2024-05-17 17:36:00 177.8 cm [facility] Body weight 2024-05-17 17:36:00 81.647 kg [facility] BMI 2024-05-17 17:36:00 25.83 kg/m2 Tan marixa [facility] Systolic blood pressure 2021-10-02 21:03:00 121 mm[Hg] [facility] Diastolic blood pressure 2021-10-02 21:03:00 67 mm[Hg] [facility] Heart rate 2021-10-02 21:03:00 59 /min [facility] Body temperature 2021-10-02 21:03:00 36.39 Claudia [facility] Respiratory rate 2021-10-02 21:03:00 18 /min [facility] Body height 2021-10-02 21:03:00 [facility].3 [facility] Body weight 2021-10-02 21:03:00 [facility]188 [facility] BMI 2021-10-02 21:03:00 27.41 kg/m2 [facility] Oxygen saturation in Arterial blood by Pulse oximetry 2021-10-02 21:03:00 99 /min [facility] Procedures Procedure Date / Time Performed Performing Clinicia n Source CT BRAIN WO IV CONTRAST 2024-05-17 20:05:00 Gregg, Devan [facility] CT CERVICAL SPINE WO IV CONTRAST 2024-05-17 20:05:00 Gregg, [facility] CT ABDOMEN PELVIS W IV CONTRAST 2024-05-17 20:05:00 Gregg, [facility] BASIC METABOLIC PANEL 2024-05-17 18:47:00 Gregg, [facility] COMPLETE BLOOD COUNT W/DIFF AND PLATELET 2024-05-17 18:47:00 Gregg, [facility] PROTIME-INR 2024-05-17 18:47:00 [facility] 2024-05-17 18:47:00 Gregg, [facility] TROPONIN I HIGH SENSITIVITY (SINGLE ORDER) 2024-05-17 18:47:00 Gregg, [facility] COMPLETE BLOOD COUNT 2024-05-17 18:47:00 Gregg, [facility] AUTOMATED DIFFERENTIAL 2024-05-17 18:47:00 Gregg, [facility] XR SHOULDER 2+ VIEWS RIGHT 2024-05-17 18:20:00 Gregg, [facility] XR HUMERUS 2 VIEWS RIGHT 2024-05-17 18:20:00 Champ Escobedo [facility] XR CHEST 1 VIEW 2024-05-17 18:20:00 [facility] PELVIS 1-2 VIEWS 2024-05-17 18:20:00 Gregg, [facility] ECG 12 lead (arrhythmia) 2024-05-17 00:00:00 [facility] Encounters Start Date/Time End Date/Time Encounter Type Admission Type Attending [facility] Care Facility Care Department Encounter ID Source 2023-09-03 16:47:24 Outpatient ENOCH BASHIR [facility] [id number] [facility] 2021-10-02 15:30:15 Outpatient FERNANDEZ HARRIS [facility] [id number] [facility] 2021-08-22 12:52:46 Outpatient STEVEN MOELLER [facility] [id number] [facility] 2021-07-23 09:47:17 Outpatient [facility] [id number] [facility] 2021-07-23 09:45:25 Outpatient [facility] [id number] [facility] 2021-05-17 10:07:00 Outpatient SUNNISTEVEN Rios [facility] [id number] [facility] 2021-02-15 11:54:35 Outpatient SUNNISTEVEN [facility] [id number] [facility] 2021-02-15 11:53:21 Outpatient [facility] [id number] [facility] 2021-02-15 11:52:40 Outpatient [facility] [id number] [facility] 2021-02-15 11:51:47 Outpatient [facility] [id number] [facility] 2021-02-15 11:50:23 Outpatient [facility] [id number] [facility] 2019-06-09 14:39:54 Outpatient MHSE MHSE [id number] [facility] 2019-04-28 00:00:00 Inpatient Sean Acuna [facility] [id number] [facility] 2024-05-17 17:19:00 2024-05-17 23:22:00 Emergency Anant Diallo [facility] [id number] [facility] 2024-05-17 17:19:00 2024-05-17 23:22:00 Emergency Urgent ANANT DIALLO [facility] General Medicine [id number] [facility] 2023-10-07 07:19:00 2023-10-07 10:51:00 Outpatient ENOCH BASHIR [facility] MED [id number] [facility] 2023-07-18 15:17:00 2023-07-18 20:30:00 Emergency E ANANT DIALLO MHSE MHSE [id number] [facility] 2023-07-13 15:10:00 2023-07-13 17:22:00 Emergency EM Ar Gaviria [facility] [id number] [facility] 2023-06-10 00:22:00 2023-06-10 04:59:00 Emergency E MARY, CHAVA MHSE MHSE [id number] [facility] 2023-03-03 16:25:00 2023-03-03 20:37:00 Emergency E MARY CHAVA MHSE MHSE [id number] [facility] 2022-12-10 09:07:00 2022-12-10 23:59:00 Outpatient INGRID HERNANDEZ MHBL MHBL [id number] [facility] 2022-11-15 00:39:00 2022-11-16 14:36:00 Outpatient E PRINCE ANDRADE MHSE MED [id number] [facility] 2022-05-07 13:30:00 2022-05-07 23:59:00 Outpatient RAMON ALDANA [facility]SE PUL [id number] [facility] 2022-04-21 23:55:00 2022-04-22 05:32:00 Emergency E LOIS MAXWELL [facility]SE MHSE [id number] [facility] 2021-10-04 14:06:00 2021-10-05 17:54:00 Outpatient STEVEN MOELLER MHSE MHSE [id number] [facility] 2021-10-02 15:00:00 2021-10-02 15:25:30 Office Visit Fernandez Harris [facility] 1 [id number] [facility] 2021-09-17 09:35:00 2021-09-17 19:32:00 Outpatient FERNANDEZ HARRIS SE [facility]SE [id number] [facility] 2021-09-12 01:44:00 2021-09-13 14:50:00 Outpatient E TERRENCECHLOE PEREZSH [facility]SE MED [id number] [facility] [address] [facility] 2021-08-22 11:45:00 2021-08-22 12:51:18 Office Visit Steven Moeller [facility] 1 [id number] [facility] 2021-07-18 11:45:00 2021-07-18 13:07:54 Office Visit Steven Moeller [facility] 1 [id number] [facility] 2019-12-28 22:08:00 2019-12-30 12:43:00 Outpatient E TERRENCECHLOE WoodsonSH [facility]SE MED [id number] [facility] [address] [facility] 2019-09-07 06:47:00 2019-09-07 06:47:00 Outpatient MHSE [facility]SE [id number] [facility] [address] [facility] 2019-07-26 16:33:00 2019-07-26 16:33:00 Outpatient E [facility]SE MED [id number] [facility] 2019-07-06 06:12:00 2019-07-06 06:12:00 Outpatient [facility] MED [id number] [facility] 2019-06-15 09:19:00 2019-06-15 09:19:00 Outpatient MHSE MED [id number] [facility] [address] [facility] 2019-06-03 13:47:00 2019-06-03 13:47:00 Outpatient MHSE PUL [id number] [facility] [address] [facility] 2019-04-28 18:59:00 2019-04-28 18:59:00 Emergency E MHSE MHSE [id number] [facility] [address] [facility] Results Test Description Test Time Test Comments Results Result Co mments Source Notes Pending Results Date/Time Note Provider Source 2024-05-17 23:22:41 [facility] Scheduled Orders Name Type Priority Associated Diagnoses Orde r Schedule ECG 12 lead (arrhythmia) ECG STAT Once for 1 Occur rences starting 05/17/2024 until 05/17/2024 Health Maintenance Due Date Last Done Comments Medicare Annual Wellness (AWV) 1945 Pneumococcal Vaccine: 65+ Ye ars (1 of 2 - PCV) 1951 DTaP/Tdap/Td Vaccines (1 - Tdap) 1964 Zoster Vaccines (1 of 2) 1995 Respiratory Syncytial Virus (RSV) or >=60 (1 - 1-dose 60+ series) 2005 Influenza Vaccine (#1) 2024 10/05/2021 Lipid Panel 11/17/2027 11/16/2022 HIB Vaccines Aged Out No longer eligi ble based on patient's age to complete this topic HPV Vaccines Aged Out No longer eligi ble based on patient's age to complete this topic Hepatitis A Vaccines Aged Out No long er eligible based on patient's age to complete this topic Hepatitis B Vaccines Aged Out No long er eligible based on patient's age to complete this topic IPV Vaccines Aged Out No longer eligi ble based on patient's age to complete this topic Meningococcal Vaccine Aged Out No shanique vishal eligible based on patient's age to complete this topic Rotavirus Vaccines Aged Out No longer eligible based on patient's age to complete this topic [id number] 23:22:41 Diagnosis Acute pain of right shoulder - Primary Right lower quadrant abdomin al pain Right hip pain Pain in joint, pelvic region and thigh [id number] 23:22:41 [id number] 15:14:00 [facility] ([facility]) EMERGENCY PROVIDER REPORT REPORT#:[id number] REPORT STATUS: Signed DATE:07/13/23 TIME: 1513 PATIENT: LEONEL GARCIA UNIT #: [id number] ROOM/BED: AGE: 78 SEX: M PCP PHYS: [...] Ox 97 07/13 1512 B/P 174/75 07/13 1512 B/P Mean 108 [...] or a call to 911. at 1633 [facility] #:[id number] END OF REPORTHCACL
[2024-05-23] MEDS ORDERED: FAMOTIDINE 20 MG/2 ML VIAL IV ONE (23:23)
[2024-05-23] MEDS ORDERED: NA CHLORIDE 0.9% 100 ML ONE (23:23)
[2024-05-23] MEDS ORDERED: NA CHLORIDE 0.9% 1,000 ML ONE (23:23)
[2024-05-23] MEDS ORDERED: Meropenem 1000 MG/VIAL IV ONE (23:23)
[2024-05-23 23:45] LABS: Absolute Monocytes 0.3 K/uL (0.1-1.3); Absolute Neutrophil 5.1 K/uL (1.8-8.0); Basophils % 0.4 % (0-1.3); Eosinophils % 0.1 % (0-4.4); Hematocrit 37.4 % (39.6-49.0); Hemoglobin 12.5 g/dL (13.6-17.9); Lymphocytes % 15.2 % (15.3-44.8); MCH 30.1 pg (27.0-35.0); MCHC 33.3 g/dL (32.0-36.0); MCV 90.3 fL (80-100); Monocytes % 4.7 % (3.3-12.3); Neutrophils % 79.6 % (41.7-73.7); Platelets 153 thou/uL (152-406); Protime INR 0.98; RBC Red Blood Cell Count 4.15 M/uL (4.33-5.43); Red Cell Distribution Width 14.1 % (12.1-15.2)
[2024-05-23] MEDS ORDERED: IPRATROPIUM BROM 0.5MG/2.5ML ONE (23:56)
[2024-05-23] MEDS ORDERED: LEVALBUTEROL 1.25 MG/3 ML NEB ONE (23:56)
[2024-05-24 00:06] LABS: Albumin 3.2 g/dL (3.4-5.0); Anion Gap 6.1 mEq/L (5.0-15.0); Bilirubin Direct 0.2 mg/dL (0-0.2); Bilirubin Indirect, Calculated 0.5 mg/dL (0.2-0.8); Bilirubin Total 0.7 mg/dL (0.2-1.0); Globulin 3.2 g/dL (2.3-3.5); Magnesium 1.9 mg/dL (1.6-2.4); Potassium 4.1 mEq/L (3.5-5.1); Protein, Total 6.4 g/dL (6.4-8.2); Troponin High Sensitivity 6.9 pg/mL (<58.9)
[2024-05-24 00:31] LABS: SARS-CoV-2 Antigen CONTROL BLUE LINE VIS/BG OK; SARS-CoV-2 Antigen Rapid Res Negative (Negative)
--- NOTE | 2024-05-24 00:39 | EDPHYS ---
Physician Documentation [facility] Name: Damian Lomeli Age: 78 yrs Sex: Male : 1945 Arrival Date: 05/23/2024 Time: 22:47 Bed 4 Private MD: ED Physician Ashok Soto HPI: 05/24 00:30 This 78 yrs old Male presents to ER via EMS with complaints of Syncope. vicki 00:30 The patient has experienced near-syncope, felt dizzy, felt faint, felt generally weak. vicki Onset: The symptoms/episode began/occurred just prior to arrival, this morning. Duration: This was a single episode, that is still ongoing, but improving. Context: the episode(s) was witnessed, by family, occurred at home. Associated injury: The patient did not suffer any apparent associated injury. Associated signs and symptoms: The patient has no apparent associated signs or symptoms. Current symptoms: Currently, the patient is not experiencing any symptoms. The patient has not experienced similar symptoms in the past. Historical: - Allergies: 05/23 22:55 Morphine; lg3 - PMHx: 22:55 Alzheimer's disease; CHF; Hypertensive disorder; Hypercholesterolemia; insomnia; PR; lg3 - PSHx: 22:57 Unable to Obtain; lg3 - Immunization history:: Adult Immunizations up to date. - Infectious Disease History:: Denies. - Social history:: Smoking status: Patient denies any tobacco usage or history of. Patient/guardian denies using alcohol, street drugs. ROS: 05/24 00:32 Constitutional: Negative for fever, chills, and weight loss, Eyes: Negative for injury, vicki pain, redness, and discharge, ENT: Negative for injury, pain, and discharge, Neck: Negative for injury, pain, and swelling, Abdomen/GI: Negative for abdominal pain, nausea, vomiting, diarrhea, and constipation, Back: Negative for injury and pain, : Negative for injury, bleeding, discharge, and swelling, MS/Extremity: Negative for injury and deformity, Skin: Negative for injury, rash, and discoloration, Psych: Negative for depression, anxiety, suicide ideation, homicidal ideation, and hallucinations, Allergy/Immunology: Negative for hives, rash, and allergies, Endocrine: Negative for neck swelling, polydipsia, polyuria, polyphagia, and marked weight changes, Hematologic/Lymphatic: Negative for swollen nodes, abnormal bleeding, and unusual bruising, Cardiovascular: Positive for palpitations, Respiratory: Positive for cough, "sounds productive", wheezing, expiratory, Neuro: Positive for altered mental status, dizziness, gait disturbance, weakness, Exam: 00:32 Constitutional: This is a well developed, well nourished patient who is awake, alert, vicki and in no acute distress. Head/Face: Normocephalic, atraumatic. Eyes: Pupils equal round and reactive to light, extra-ocular motions intact. Lids and lashes normal. Conjunctiva and sclera are non-icteric and not injected. Cornea within normal limits. Periorbital areas with no swelling, redness, or edema. ENT: Nares patent. No nasal discharge, no septal abnormalities noted. Tympanic membranes are normal and external auditory canals are clear. Oropharynx with no redness, swelling, or masses, exudates, or evidence of obstruction, uvula midline. Mucous membranes moist. Neck: Trachea midline, no thyromegaly or masses palpated, and no cervical lymphadenopathy. Supple, full range of motion without nuchal rigidity, or vertebral point tenderness. No Meningismus. Chest/axilla: Normal chest wall appearance and motion. Nontender with no deformity. No lesions are appreciated. Abdomen/GI: Soft, non-tender, with normal bowel sounds. No distension or tympany. No guarding or rebound. No evidence of tenderness throughout. Back: No spinal tenderness. No costovertebral tenderness. Full range of motion. Male : Normal genitalia with no discharge or lesions. Skin: Warm, dry with normal turgor. Normal color with no rashes, no lesions, and no evidence of cellulitis. MS/ Extremity: Pulses equal, no cyanosis. Neurovascular intact. Full, normal range of motion. Neuro: Awake and alert, GCS 15, oriented to person, place, time, and situation. Cranial nerves II-XII grossly intact. Motor strength 5/5 in all extremities. Sensory grossly intact. Cerebellar exam normal. Normal gait. Psych: Awake, alert, with orientation to person, place and time. Behavior, mood, and affect are within normal limits. 00:32 Cardiovascular: Rate: normal, Rhythm: regular, Pulses: Pulses are 4+ in bilateral radial, brachial, femoral, popliteal, posterior tibial and and dorsalis pedis arteries.. Heart sounds: normal, Edema: is not appreciated, JVD: is not appreciated, 00:32 ECG was reviewed by the Attending Physician. Vital Signs: 05/23 22:53 BP 191 / 71; Pulse 58; Resp 17 S; Temp 98.4(O); Pulse Ox 100% on R/A; Weight 87.09 kg lg3 (M); Height 5 ft. 8 in. (R); Pain 0/10; 05/24 01:04 BP 181 / 63; Pulse 51; Resp 15 S; Pulse Ox 100% on R/A; lg3 05/23 22:53 Body Mass Index 29.19 (87.09 kg, 172.72 cm) 3 05/23 22:53 Pain Scale: Adult lg3 NIH Stroke Scale Scores: 05/23 22:53 NIHSS Score: 0 3 MDM: 22:59 Medical Screening Exam initiated [facility] 05/24 00:35 Differential diagnosis: Anemia Anxiety Reaction Bronchitis CHF exacerbation, Chronic vicki Obstructive Pulmonary Disease Myocardial Infarction pneumonia, pulmonary edema, Pulmonary Embolism reactive airway disease, Sepsis Unstable Angina. Antibiotic administration: merrem. Differential Diagnosis: cardiac arrhythmia, cerebrovascular accident, drug effect, emotional response, GI bleed, idiopathic syncope, seizure, transient ischemic attack, vasovagal episode. Differential Diagnosis: Obstructed Airway Bronchitis Influenza Upper Respiratory Infection Sinusitis Pharyngitis Otitis Media Allergic Rhinitis Asthma Exacerbation Viral Syndrome Pneumonia Tracheal Injury. Immunization status: Pneumococcal vaccine: within last 5 years. Influenza vaccine: within last 5 years. Data reviewed: vital signs, nurses notes, EMS record, lab test result(s), EKG, radiologic studies, CT scan, plain films. Consideration of Admission/Observation Patient was admitted/placed on observation. Escalation of care including admission/observation considered. I considered the following discharge prescriptions or medication management in the emergency department Medications were administered in the Emergency Department. See MAR. Care significantly affected by the following chronic conditions: Hypertension, Congestive Heart Failure, insomnia, cad, high chlesterol. 05/23 23:21 Order name: Basic Metabolic Panel; Complete Time: 00:12 [facility] 05/23 23:21 Order name: CBC with Diff; Complete Time: 00:12 [facility] 05/23 23:21 Order name: LFT's; Complete Time: 00:12 [facility] 05/23 23:21 Order name: Magnesium; Complete Time: 00:12 [facility] 05/23 23:21 Order name: NT PRO-BNP; Complete Time: 00:12 [facility] 05/23 23:21 Order name: PT-INR; Complete Time: 00:12 [facility] 05/23 23:21 Order name: Troponin HS; Complete Time: 00:12 [facility] 05/23 23:21 Order name: Lipase; Complete Time: 00:12 [facility] 05/23 23:21 Order name: Urinalysis w/ reflexes [facility] 05/23 23:21 Order name: Blood Culture Adult (2) [facility] 05/23 23:21 Order name: Lactate w/ 2H reflex if indic.; Complete Time: 00:12 [facility] 05/23 23:21 Order name: Flu; Complete Time: 00:23 [facility] 05/23 23:21 Order name: SARS RAPID; Complete Time: 00:38 [facility] 05/23 23:31 Order name: Glucose, Ancillary Testing; Complete Time: 00:12 EDMS 05/23 23:33 Order name: Glucose, Ancillary Testing EDMS 05/24 01:00 Order name: Urinalysis w/ reflexes EDMS 05/24 01:00 Order name: CBC with Automated Diff EDMS 05/24 01:00 Order name: CBC with Automated Diff EDMS 05/24 01:00 Order name: Comprehensive Metabolic Panel EDMS 05/24 01:00 Order name: Comprehensive Metabolic Panel EDCT 05/23 23:21 Order name: XRAY Chest (1 view) [facility] 05/23 23:21 Order name: CT Head C Spine [facility] 05/23 23:21 Order name: CT Chest Abdomen Pelvis W/O Contrast [facility] 05/23 23:21 Order name: Cardiac monitoring; Complete Time: 23:33 [facility] 05/23 23:21 Order name: EKG - Nurse/Tech; Complete Time: 23:33 [facility] 05/23 23:21 Order name: IV Saline Lock; Complete Time: 23:33 [facility] 05/23 23:21 Order name: Labs collected and sent; Complete Time: 23:34 [facility] 05/23 23:21 Order name: O2 Per Protocol; Complete Time: 23:34 [facility] 05/23 23:21 Order name: O2 Sat Monitoring; Complete Time: 23:34 [facility] EC:32 Rate is 56 beats/min. Rhythm is regular. QRS [place] is Normal. OR interval is normal. QRS vicki interval is normal. QT interval is normal. No Q waves. T waves are Normal. No ST changes noted. Clinical impression: NSR w/ Non-specific ST/T Changes and No evidence of ischemia. Interpreted by me. Reviewed by me. Administered Medications: 05/23 23:46 Drug: NS 0.9% IV 1000 ml IV at 125 ml/hr continuous Route: IV; Rate: 125 ml/hr; Site: [facility] left upper arm; 05/24 02:12 Follow up: Response: No adverse reaction; IV Status: Infusion continued upon admission bm8 05/23 23:46 Drug: Famotidine IVP 20 mg IVP once; dilute with 10 mL 0.9% NaCl; give over 2 minutes lg3 Route: IVP; Site: left upper arm; 05/24 01:06 Follow up: Response: No adverse reaction lg3 05/23 23:46 Drug: Meropenem IV 1 grams IV at per protocol once; (mix in NS 100 mL) Route: IV; Rate: lg3 per protocol; Site: left upper arm; 05/24 01:06 Follow up: Response: No adverse reaction; IV Status: Completed infusion; IV Intake: lg3 100ml 00:01 Drug: Levalbuterol Inhalation 1.25 mg Inhalation once Route: Inhalation; bm8 01:05 Follow up: Response: No adverse reaction lg3 00:01 Drug: Ipratropium Inhalation Aerosol 0.5 mg Inhalation once Route: Inhalation; bm8 01:05 Follow up: Response: No adverse reaction lg3 00:58 Drug: MethylPrednisoLONE IVP 125 mg IVP once Route: IVP; Site: left upper arm; lg3 01:05 Follow up: Response: No adverse reaction lg3 00:58 Drug: Levalbuterol Inhalation 1.25 mg Inhalation once Route: Inhalation; lg3 01:05 Follow up: Response: No adverse reaction lg3 Disposition Summary: 05/24/24 00:38 Hospitalization Ordered Notes: Hospitalization Status: Inpatient Admission vicki Provider: Daron Everett cha Location: Telemetry/MedSur (Inpatient) vicki Condition: Fair vicki Problem: new vicki Symptoms: have improved vicki Bed/Room Type: Standard vicki Room Assignment: 202(05/24/24 01:36) vk Diagnosis - Syncope Near vicki - Bradycardia, unspecified vicki - Cardiomegaly vicki - Weakness vicki - Pleural effusion in other conditions classified elsewhere - left vicki Forms: - Medication Reconciliation Form vicki - SBAR form [facility] - Leadership Thank You Letter vicki NIH Stroke Scale - NIH Stroke Score Date: 05/23/2024 Time: 22:53 Total Score = 0 10. Dysarthria (speech clarity - read or repeat words) - 0(Normal) 11. Extinction and Inattention (visual/tactile/auditory/spatial/personal) - 0(No abnormality) 1a. Level of Consciousness (LOC) - 0(Alert) 1b. Level of Consciousness (LOC) (Month \\T\\ Age) - 0(Both) 1c. LOC Commands (Open \\T\\ Closes Eyes/Orchid Worker) - 0(Both) 2. Best Gaze (Lateral Gaze Paresis) - 0(Normal) 3. Visual Field Loss - 0(No visual loss) 4. Facial Palsy - 0(Normal) 5a. Left Arm: Motor (10-second hold) - 0(No drift) 5b. Right Arm: Motor (10-second hold) - 0(No drift) 6a. Left Leg: Motor (5-second hold - always test supine) - 0(No drift) 6b. Right Leg: Motor (5-second hold - always test supine) - 0(No drift) 7. Limb Ataxia (finger/nose \\T\\ heel/braga - test with eyes open) - 0(Absent) 8. Sensory Loss (pinprick arms/legs/face) - 0(Normal) 9. Best Language: Aphasia (description/naming/reading) - 0(No aphasia) Initials: lg3 Signatures: Dispatcher [employer] EDMS Ashok Soto MD MD cha Able, Lacie RN RN lg3 Antonieta Butler Brad, RN RN bm8 Corrections: (The following items were deleted from the chart) 05/23 23:22 23:22 Head C Spine MPR Wo Con+CT.RAD.BRZ ordered. EDMS EDMS 23:22 23:22 Chest Abdomen Pelvis Wo Con+CT.RAD.BRZ ordered. EDMS EDMS 05/24 01:07 00:38 vicki barksdale 01:36 01:07 Janelle barksdale
--- NOTE | 2024-05-24 00:39 | ER ---
Nurse's Notes [facility] Name: Damian Lomeli Age: 78 yrs Sex: Male : 1945 Arrival Date: 05/23/2024 Time: 22:47 Bed 4 Private MD: Diagnosis: Syncope Near;Bradycardia, unspecified;Cardiomegaly;Weakness;Pleural effusion in other conditions classified elsewhere-left Presentation: 05/23 22:53 Chief complaint: EMS states: syncopal episode at home. on EMS arrival, PT weak, altered lg3 and bradycardic. BGL 179. IO established to right humerus. on arrival to ED pt awake but confused. denies pain. Coronavirus screen: Client denies travel out of the [place] in the last 14 days. At this time, the client does not indicate any symptoms associated with coronavirus-19. Ebola Screen: No symptoms or risks identified at this time. Initial Sepsis Screen: Does the patient meet any 2 criteria? No. Patient's initial sepsis screen is negative. Does the patient have a suspected source of infection? No. Patient's initial sepsis screen is negative. Risk Assessment: Do you want to hurt yourself or someone else? Patient reports no desire to harm self or others. Onset of symptoms was May 23, 2024. 22:53 Method Of Arrival: EMS: [facility] lg3 22:53 Acuity: CHAD 2 lg3 Triage Assessment: 22:57 General: Appears in no apparent distress. comfortable, Behavior is calm, cooperative. lg3 Pain: Denies pain. EENT: No deficits noted. No signs and/or symptoms were reported regarding the EENT system. Neuro: Kyle Agitation-Sedation Scale (RASS): 0 - Alert and Calm Level of Consciousness is awake, alert, obeys commands, confused, Oriented to person, place, situation, Reports weakness. Cardiovascular: No deficits noted. Denies chest pain, shortness of breath, Capillary refill < 3 seconds Clubbing of nail beds is absent JVD is absent Patient's skin is warm and dry. Respiratory: No deficits noted. Airway is patent Respiratory effort is even, unlabored, Respiratory pattern is regular, symmetrical. GI: No deficits noted. No signs and/or symptoms were reported involving the gastrointestinal system. Abdomen is round non-distended. : Reports urinary frequency. Derm: No deficits noted. No signs and/or symptoms reported regarding the dermatologic system. Skin is intact, is healthy with good turgor, Skin is dry, Skin is normal, Skin temperature is warm. Musculoskeletal: Reports generalized weakness. Historical: - Allergies: 22:55 Morphine; lg3 - PMHx: 22:55 Alzheimer's disease; CHF; Hypertensive disorder; Hypercholesterolemia; insomnia; CA; lg3 - PSHx: 22:57 Unable to Obtain; lg3 - Immunization history:: Adult Immunizations up to date. - Infectious Disease History:: Denies. - Social history:: Smoking status: Patient denies any tobacco usage or history of. Patient/guardian denies using alcohol, street drugs. Screenin:00 [facility] ED Fall Risk Assessment (Adult) History of falling in the last 3 months, lg3 including since admission Yes- single mechanical fall (1 pt) Confusion or Disorientation Yes (5 pts) Intoxicated or Sedated No (0 pts) Impaired Gait No (0 pts) Mobility Assist Device Used No (0 pt) Altered Elimination No (0 pt) Score/Fall Risk Level 3 or more points = High Risk Oriented to surroundings, Maintained a safe environment, Educated pt \T\ family on fall prevention, incl call for assistance when getting out of bed, Assessed \T\ reinforced patient's understanding of fall precautions, Provided non-skid footwear. Abuse screen: Denies threats or abuse. Denies injuries from another. Nutritional screening: No deficits noted. Tuberculosis screening: No symptoms or risk factors identified. Assessment: 23:00 General: see triage assessment. Pain: Denies pain. Neuro: Kyle Agitation-Sedation lg3 Scale (RASS): 0 - Alert and Calm Level of Consciousness is awake, alert, obeys commands, confused, Oriented to person, place, situation. Cardiovascular: No deficits noted. 05/24 01:04 Reassessment: Patient appears in no apparent distress at this time. Patient and/or lg3 family updated on plan of care and expected duration. Pain level reassessed. Patient is alert, oriented x 3, equal unlabored respirations, skin warm/dry/pink. Patient states feeling better. Patient states symptoms have improved. 02:11 Cardiovascular: Rhythm is sinus bradycardia. bm8 Vital Signs: 05/23 22:53 BP 191 / 71; Pulse 58; Resp 17 S; Temp 98.4(O); Pulse Ox 100% on R/A; Weight 87.09 kg lg3 (M); Height 5 ft. 8 in. (R); Pain 0/10; 05/24 01:04 BP 181 / 63; Pulse 51; Resp 15 S; Pulse Ox 100% on R/A; lg3 05/23 22:53 Body Mass Index 29.19 (87.09 kg, 172.72 cm) lg3 05/23 22:53 Pain Scale: Adult lg3 NIH Stroke Scale Scores: 05/23 22:53 NIHSS Score: 0 3 ED Course: 22:48 Patient arrived in ED. jj6 22:53 Sneha Padilla, RN is Primary Nurse. lg3 22:55 Triage completed. lg3 22:57 Arm band placed on right wrist. lg3 22:59 Ashok Soto MD is Attending Physician. vicki 23:00 Patient has correct armband on for positive identification. Placed in gown. Bed in low lg3 position. Call light in reach. Side rails up X2. Client placed on continuous cardiac and pulse oximetry monitoring. NIBP monitoring applied. clinical research monitor on. Door closed. Noise minimized. Warm blanket given. Pillow given. 23:00 Maintain EMS IV. Dressing intact. Good blood return noted. Site clean \T\ dry. Gauge \T\ lg 3 site: IO to right humerus . Flushed with 10 mL NS. 23:00 Initial lab(s) drawn, by me, sent to lab. First set of blood cultures drawn by me, EKG bm8 done, by ED staff, reviewed by Ashok Soto MD COVID swab sent to lab. Flu and/or RSV swab sent to lab. Inserted saline lock: 20 gauge in left upper arm, using aseptic technique. ,using aseptic technique. ultrasound guided Blood collected. Flushed with 10 mL NS right humeral IO dc'ed at Pt's request. Patient maintains SpO2 saturation greater than 95% on room air. 23:15 Second set of blood cultures drawn by me. bm8 23:34 No provider procedures requiring assistance completed. bm8 23:47 Lactate w/ 2H reflex if indic. Sent. lg3 23:47 Blood Culture Adult (2) Sent. lg3 23:47 Lipase Sent. lg3 23:55 XRAY Chest (1 view) In Process Unspecified. EDMS 05/24 00:00 CT Head C Spine In Process Unspecified. EDMS 00:00 CT Chest Abdomen Pelvis W/O Contrast In Process Unspecified. EDMS 00:37 Daron Everett MD is Hospitalizing Provider. vicki 02:10 Provided Education on: need for admission. bm8 Administered Medications: 05/23 23:46 Drug: NS 0.9% IV 1000 ml IV at 125 ml/hr continuous Route: IV; Rate: 125 ml/hr; Site: lg3 left upper arm; 05/24 02:12 Follow up: Response: No adverse reaction; IV Status: Infusion continued upon admission bm8 05/23 23:46 Drug: Famotidine IVP 20 mg IVP once; dilute with 10 mL 0.9% NaCl; give over 2 minutes lg3 Route: IVP; Site: left upper arm; 05/24 01:06 Follow up: Response: No adverse reaction lg3 05/23 23:46 Drug: Meropenem IV 1 grams IV at per protocol once; (mix in NS 100 mL) Route: IV; Rate: lg3 per protocol; Site: left upper arm; 05/24 01:06 Follow up: Response: No adverse reaction; IV Status: Completed infusion; IV Intake: lg3 100ml 00:01 Drug: Levalbuterol Inhalation 1.25 mg Inhalation once Route: Inhalation; bm8 01:05 Follow up: Response: No adverse reaction lg3 00:01 Drug: Ipratropium Inhalation Aerosol 0.5 mg Inhalation once Route: Inhalation; bm8 01:05 Follow up: Response: No adverse reaction lg3 00:58 Drug: MethylPrednisoLONE IVP 125 mg IVP once Route: IVP; Site: left upper arm; lg3 01:05 Follow up: Response: No adverse reaction lg3 00:58 Drug: Levalbuterol Inhalation 1.25 mg Inhalation once Route: Inhalation; lg3 01:05 Follow up: Response: No adverse reaction lg3 Medication: 05/23 23:00 VIS not applicable for this client. lg3 Intake: 05/24 01:06 IV: 100ml; Total: 100ml. lg3 Outcome: 00:38 Decision to Hospitalize by Provider. vicki 02:10 Admitted to Med/surg accompanied by tech, via stretcher, room 202, with chart, bm8 02:10 Condition: stable 02:10 Instructed on the need for admit, Demonstrated understanding of instructions, follow-up care, 02:12 Patient left the ED. bm8 NIH Stroke Scale - NIH Stroke Score Date: 05/23/2024 Time: 22:53 Total Score = 0 10. Dysarthria (speech clarity - read or repeat words) - 0(Normal) 11. Extinction and Inattention (visual/tactile/auditory/spatial/personal) - 0(No abnormality) 1a. Level of Consciousness (LOC) - 0(Alert) 1b. Level of Consciousness (LOC) (Month \T\ Age) - 0(Both) 1c. LOC Commands (Open \T\ Closes Eyes/Biodiesel Plant Superintendent) - 0(Both) 2. Best Gaze (Lateral Gaze Paresis) - 0(Normal) 3. Visual Field Loss - 0(No visual loss) 4. Facial Palsy - 0(Normal) 5a. Left Arm: Motor (10-second hold) - 0(No drift) 5b. Right Arm: Motor (10-second hold) - 0(No drift) 6a. Left Leg: Motor (5-second hold - always test supine) - 0(No drift) 6b. Right Leg: Motor (5-second hold - always test supine) - 0(No drift) 7. Limb Ataxia (finger/nose \T\ heel/braga - test with eyes open) - 0(Absent) 8. Sensory Loss (pinprick arms/legs/face) - 0(Normal) 9. Best Language: Aphasia (description/naming/reading) - 0(No aphasia) Initials: lg3 Signatures: Dispatcher [employer] Ashok Singh MD MD cha Able, Lacie, RN RN lg3 Sasha [id number] Jb Beltre, RN RN bm8
[2024-05-24] MEDS ORDERED: METHYLPREDNISOLONE 125 MG INJ ONE (00:49)
[2024-05-24] MEDS ORDERED: LEVALBUTEROL 1.25 MG/3 ML NEB ONE (00:49)
[2024-05-24] MEDS ORDERED: IPRATROPIUM BROM 0.5MG/2.5ML NEB PRN (00:53)
[2024-05-24] MEDS ORDERED: ONDANSETRON 4 MG/2 ML VIAL IV PRN (00:53)
[2024-05-24] MEDS ORDERED: ALBUTEROL 2.5 MG/3 ML NEB SOL NEB PRN (00:53)
--- NOTE | 2024-05-24 00:53 | P.HP ---
Certification for Inpatient Patient admitted to: Observation With expected LOS: <2 Midnights Practitioner: I am a practitioner with admitting privileges, knowledge of patient current condition, hospital course, and medical plan of care. Services: Services provided to patient in accordance with Admission requirements found in Title 42 Section 412.3 of the Code of Federal Regulations Patient History Date of Service: 05/24/24 Reason for admission: Syncope History of Present Illness: 78 yrs old Male with past medical history of Alzheimer's dementia, hypertension, hyperlipidemia, CHF, insomnia, CAD status post CABG who was brought to ER with syncopal episode. Patient is a poor historian hence most of the history is obtained from the chart review and also talking to the family member at the bedside. Apparently patient has been doing okay till this morning when he had felt generalized weakness and has difficulty in ambulating. Shaking as per the family member. Patient had a near syncopal episode when walking to the bathroom. Denies any chest pain or shortness of breath. No fever or chills. No sick contacts. No nausea vomiting or diarrhea. No loss of consciousness. No seizure-like activities. Patient was assessed in the ER was admitted for further management of syncopal episode Allergies No Known Allergies Allergy (Unverified 05/08/24 03:43) Home medications list reviewed: Yes Home Medications: Atorvastatin Calcium [Lipitor] 80 mg PO DAILY 05/08/24 Carvedilol [Coreg] 3.125 mg PO BID 05/08/24 Clopidogrel Bisulfate [Plavix*] 75 mg PO DAILY 05/08/24 Donepezil HCl 10 mg PO DAILY 05/08/24 Escitalopram Oxalate [Lexapro] 5 mg PO DAILY 05/08/24 Ezetimibe 10 mg PO DAILY 05/08/24 Furosemide [Lasix*] 40 mg PO DAILY 05/08/24 Levocetirizine Dihydrochloride [Allergy Relief] 5 mg PO DAILY 05/08/24 Montelukast [Singulair*] 10 mg PO DAILY 05/08/24 Quetiapine Fumarate [Quetiapine Fumarate ER] 50 mg PO DAILY 05/08/24 Ropinirole HCl 2 mg PO DAILY 05/08/24 Trazodone [Desyrel*] 50 mg PO DAILY 05/08/24 Valsartan 80 mg PO DAILY 05/08/24 Amox/Clavulanate [Augmentin 875-125 Tab] 1 each PO BID #14 tab 05/10/24 Ipratropium/Albuterol Sulfate [Iprat-Albut 0.5-3(2.5) mg/3 ml] 3 ml IH Q6H PRN #120 amp 05/10/24 Nebulizer 1 each MC PRN #1 ea 05/10/24 Pantoprazole [Protonix Tab*] 40 mg PO DAILYAC #60 tab 05/10/24 predniSONE [Prednisone*] 20 mg PO BID #10 tab 05/10/24 - Past Medical/Surgical History Diabetic: No Past Medical History: Reviewed- Non-Contributory -: Alzheimer disease -: Congestive heart failure -: Hypertension -: Coronary artery disease -: Insomnia -: COPD Past Surgical History: Reviewed- Non-Contributory -: CABG - Family History Family History: Reviewed- Non-Contributory - Social History Alcohol use: No CD- Drugs: No Caffeine use: Yes Review of Systems is unable to be obtained Physical Examination - Vital Signs Temperature: 98.2 F Blood Pressure: 180/60 Pulse: 54 Respirations: 18 Pulse Ox (%): 94 - Physical Exam General: Alert, In no apparent distress, Oriented x2, Cooperative HEENT: Atraumatic, Normocephalic Neck: Supple, No Thyromegaly Respiratory: Clear to auscultation bilaterally, Normal air movement Cardiovascular: Normal pulses, Regular rate/rhythm, Normal S1 S2 Capillary refill: <2 Seconds Gastrointestinal: Soft and benign, Non-distended, W/out hepatosplenomegaly Musculoskeletal: No clubbing, No swelling Integumentary: No rashes, No breakdown Neurological: Other (Alert , awake , no focal weakness ) Lymphatics: No axilla or inguinal lymphadenopathy - Studies Laboratory Data (last 24 hrs) 05/23/24 05/23/24 05/23/24 23:15 23:15 23:15 WBC 6.40 Hgb 12.5 L Hct 37.4 L Plt Count 153 PT 11.0 INR 0.98 Sodium 139 Potassium 4.1 BUN 14 Creatinine 1.02 Glucose 173 H Magnesium 1.9 Total Bilirubin 0.7 AST 14 L ALT 21 Alkaline Phosphatase 104 Lipase 31 Microbiology Data (last 24 hrs): 05/23/24 23:43 Nasopharnyx Influenza Type A Antigen Screen - Final 10/14/24 23:43 Nasopharnyx Influenza Type B Antigen Screen - Final Assessment and Plan - Plan Syncope No loss of consciousness No focal weakness Started on aspirin and statin CT findings noted Monitor neuro vital signs Monitor under telemetry We will get a carotid Doppler Hypertension Antihypertensives titrated Continue home medications and titrate as needed Hyperlipidemia Continue statin Dementia Continue home medications and supportive management CAD status post CABG Continue home medications Monitor closely on telemetry Followed at [place] BPH/outlet obstruction We will get a PSA level UA pending GI/DVT prophylaxis Advanced directive full code Discharge Plan: Home Plan to discharge in: 48 Hours - Advance Directives Does patient have a Living Will: No Does patient have a Durable POA for Healthcare: No - Code Status/Comfort Care Code Status: Full Code Time Spent Managing Pts Care (In Minutes): 48
--- NOTE | 2024-05-24 02:44 | RAD REPORT ---
PROCEDURE: CT Head and Cervical Spine Without Intravenous Contrast CLINICAL INDICATION: The patient is 78 years old and is Male; Dizziness. TECHNIQUE: Axial computed tomography images of the head/brain and cervical spine without intravenous contrast. Sagittal and coronal reformatted images were created and reviewed. This CT exam was performed using one or more of the following dose reduction techniques: automated exposure control, adjustmen t of the mA and/or kV according to patient size, and/or use of iterative reconstruction technique. COMPARISON: CT Head 05/17/2024, CT Cervical Spine 05/17/[address] Head 07/18/2023. FINDINGS: BRAIN: Remote white matter infarction or insult redemonstrated in the anterior right periventricula r white matter, unchanged. Bilateral basal ganglia calcifications, nonspecific but most commonly suggestive of poorly co ntrolled hypertension. Mild global cerebral atrophy with commensurate sulcal and ventricular enlargement, not greate r than expected for patient age. No extra-axial fluid collection. No intracranial hemorrhage. No focal lira-white matter differentiation abnormality. MIDLINE SHIFT: No midline shift. VENTRICLES: See above. SKULL: See below. SINUSES: Unremarkable as visualized. No acute sinusitis. MASTOID AIR CELLS: Unremarkable as visualized. No mastoid effusion. ORBITS: Redemonstrated absence of the right lens. VERTEBRAE: Multilevel cervical spondylosis. No acute fracture or acute vertebral body height loss. No significant subluxation. DISCS/SPINAL CANAL/NEURAL FORAMINA: Mild to moderate focal spinal canal stenosis at the C4-5 level secondary to a moderate-sized central disc osteophyte. This is unchanged from prior exam. No transtentorial herniation. No additional high-grade bony spinal canal stenosis. OTHER BONES/JOINTS: Unremarkable as visualized. No fracture of the calvarium or visualized facial bones. SOFT TISSUES: Unremarkable No abnormal prevertebral soft tissue swelling. VASCULATURE: Moderate calcification of the visualized aortic arch. OTHER FINDINGS: Dens is intact. No dislocation. Craniocervical orientation is normal. IMPRESSION: 1. Chronic and senescent changes with no acute intracranial abnormality. No fracture of the calvari um or visualized facial bones. 2. Degenerative changes with no acute abnormality of the cervical spine. Electronically signed by: Ry Hernadez MD 05/24/2024 01:42 AM CDT RP Due to temporary technical issues with the [employer] reporting system, reports are being preston d by the in-house radiologist without review as a courtesy to ensure prompt reporting the interpreting radiologist is fully responsible for the content of the report. Transcribed Date/Time: 05/24/2024 2:44 AM
--- NOTE | 2024-05-24 02:44 | RAD REPORT ---
PROCEDURE: CT Chest, Abdomen and Pelvis Without Intravenous Contrast CLINICAL INDICATION: The patient is 78 years old and is Male; Dyspnea, abdominal distention. TECHNIQUE: Axial computed tomography images of the chest, abdomen and pelvis without intravenous contrast. Sag ittal and coronal reformatted images were created and reviewed. This CT exam was performed using one or more of the following dose reduction techniques: automated exposure control, adjustment of t he mA and/or kV according to patient size, and/or use of iterative reconstruction technique. COMPARISON: XR Chest 05/23/2024, CT Abdomen Pelvis 05/17/2024, CT Chest 05/09/[address] Chest Abdomen Pelvis . FINDINGS: CHEST: LUNGS: Mild upper lobe predominant paraseptal emphysematous changes. Increased AP diameter of the c hest and relative flattening of the hemidiaphragms bilaterally. Bibasilar scarring versus subsegmental atelectasis with no acute focal consolidation. No mass. PLEURAL SPACE: Unremarkable No significant effusion. No pneumothorax. HEART: Moderate aortic valve calcifications. Coronary artery bypass graft (CABG). No cardiomegaly. No significant pericardial effusion. ABDOMEN: LIVER: Unremarkable GALLBLADDER AND BILE DUCTS: Contracted appearance of the gallbladder. No calcified stones. No ductal dilation. PANCREAS: Diffusely atrophic appearance of the pancreas with no ductal dilatation or solid or cysti c mass appreciated. SPLEEN: Unremarkable No splenomegaly. ADRENALS: Unremarkable No mass. KIDNEYS AND URETERS: Tiny nonobstructive intrarenal stones within the inferior pole of the right ki dney. No hydronephrosis or obstructive intrarenal or intraureteral stones. STOMACH AND BOWEL: Large proximal duodenal diverticulum incidentally noted. Colonic diverticulosis without evidence of acute diverticulitis. No evidence of small or large bowel obstruction. PELVIS: APPENDIX: No findings to suggest acute appendicitis. BLADDER: Moderate distention of the urinary bladder with no wall thickening or perivesicular fat st randing. No stones. REPRODUCTIVE: Marked prostatomegaly. CHEST, ABDOMEN and PELVIS: INTRAPERITONEAL SPACE: Unremarkable No significant fluid collection. No free air. BONES/JOINTS: Median sternotomy. No dislocation. No displaced or depressed rib fractures. No appreciable sternal or vertebral fractures. Moderate-sized diffuse disc osteophyte complex at L5-S1 with mild associated spinal canal narrowing a nd moderate right L5-S1 bony neuroforaminal narrowing. No acute osseous abnormality. No suspicious lytic or blastic bone lesions. SOFT TISSUES: Small fat-containing left-sided ventral wall/spigelian hernia. Small fat-containing umbilical hernia. VASCULATURE: Fusiform aneurysmal dilatation of the infrarenal abdominal aorta, measuring up to 4.6 cm in AP diameter. Moderate thoracic and abdominal aortic calcified atherosclerosis. LYMPH NODES: Unremarkable No enlarged lymph nodes. IMPRESSION: 1. No acute abnormality of the chest, abdomen, or pelvis. 2. Fusiform aneurysmal dilatation of the infrarenal abdominal aorta, measuring up to 4.6 cm in AP d iameter. Recommend referral to terrazzo worker apprentice and CTA or MRA, as appropriate, within 12 months. Reference: Journal of Vascular Surgery 67.1 (2018): 2-77. J Am Alejandro Radiol 2013;10:789-794. 3. Marked prostatomegaly with moderate distention of the urinary bladder. Recommend clinical correl ation for bladder outlet obstruction. Correlation PSA levels recommended. 4. Colonic diverticulosis without evidence of acute diverticulitis. 5. Sternotomy and post CABG changes with moderate calcification of the aortic valve. 6. Additional nonacute findings as above. Electronically signed by: Ry Hernadez MD 05/24/2024 01:50 AM CDT RP Due to temporary technical issues with the [employer] reporting system, reports are being preston d by the in-house radiologist without review as a courtesy to ensure prompt reporting the interpreting radiologist is fully responsible for the content of the report. Transcribed Date/Time: 05/24/2024 2:44 AM
--- NOTE | 2024-05-24 04:52 | RAD REPORT ---
EXAM: XR Chest, 1 View CLINICAL HISTORY: The patient is 78 years old and is Male; COUGH TECHNIQUE: Frontal view of the chest. COMPARISON: No relevant prior studies available. FINDINGS: Lungs: Prominent interstitial markings which may indicate chronic changes and/or interstitial rain ma. Peribronchial thickening. Pleural space: Left hemidiaphragm is obscured which can be seen with left pleural effusion, as we ll as left lower lobe consolidation or atelectasis. No pneumothorax. Heart: Unremarkable. Mediastinum: Postsurgical changes in the mediastinum. Bones/joints: No acute findings. IMPRESSION: 1. Prominent interstitial markings which may indicate chronic changes and/or interstitial edema. Pe ribronchial thickening. 2. Left hemidiaphragm is obscured which can be seen with left pleural effusion, as well as left low er lobe consolidation or atelectasis. Electronically signed by: Rodney Elliott MD 05/24/2024 12:50 AM CDT RP 8 Due to temporary technical issues with the [employer] reporting system, reports are being preston d by the in-house radiologist without review as a courtesy to ensure prompt reporting the interpreting radiologist is fully responsible for the content of the report. Transcribed Date/Time: 05/24/2024 4:51 AM
[2024-05-24] MEDS: PANTOPRAZOLE 40MG TABLET PO SCH (06:10)
[2024-05-24 07:09] VITALS: O2SAT 100
[2024-05-24] MEDS: Escitalopram Oxalate [Lexapro] 5 MG Tablet PO SCH (09:00)
[2024-05-24] MEDS: CLOPIDOGREL 75 MG TABLET PO SCH (09:17)
[2024-05-24] MEDS: carvediloL 3.125 MG TAB PO SCH (09:17)
[2024-05-24] MEDS: VALSARTAN 80 MG TAB PO SCH (09:17)
[2024-05-24] MEDS: ENOXAPARIN 40 MG/0.4 ML SQ SCH (09:18)
[2024-05-24] MEDS: DONEPEZIL HCL 5 MG TAB PO SCH (09:18)
--- NOTE | 2024-05-24 11:14 | RAD REPORT ---
EXAMINATION: US CAROTID DUPLEX CLINICAL INDICATION: Syncope TECHNIQUE: Real-time grayscale, color flow and spectral Doppler sonographic images were obtained of t extracranial carotid system using a linear transducer. COMPARISON: No prior exam. FINDINGS: The velocity of the right internal carotid artery 102 cm/s The right ICA/CCA ratio normal The velocity left internal carotid artery 238 cm/s The left ICA/CCA ratio 1.9 Mild plaque is present within the right common and right internal carotid arteries. Marked plaque is present in the proximal left internal carotid artery. Vertebral arteries demonstrate anterograde flow. No significant abnormality external carotid arteries Methods for NASCET criteria: mild stenosis, 0% to 49%; moderate, 50% to 69%; severe stenosis, 70% to 99% IMPRESSION: Marked plaque proximal left internal carotid artery resulting in an approximately 80% stenosis
--- NOTE | 2024-05-24 15:11 | P.PN ---
Date of Service: 05/24/24 subjective Admitted for syncopal episode, mild aphasia Review of Systems is unable to be obtained Physical Examination - Vital Signs Temperature: 98.2 F Blood Pressure: 180/60 Pulse: 54 Respirations: 18 Pulse Ox (%): 94 - Physical Exam General: Alert, In no apparent distress, Oriented x2, Cooperative HEENT: Atraumatic, Normocephalic Neck: Supple, No Thyromegaly Respiratory: Clear to auscultation bilaterally, Normal air movement Cardiovascular: Normal pulses, Regular rate/rhythm, Normal S1 S2 Capillary refill: <2 Seconds Gastrointestinal: Soft and benign, Non-distended, W/out hepatosplenomegaly Musculoskeletal: No clubbing, No swelling, and steady gait Integumentary: No rashes, No breakdown Neurological: Other (Alert , awake , no focal weakness ) Lymphatics: No axilla or inguinal lymphadenopathy Assessment and Plan - Plan pre Syncope CAD No loss of consciousness No focal weakness Started on aspirin and statin CT findings noted Monitor neuro vital signs Monitor under telemetry carotid Doppler Mild plaque is present within the right common and right internal carotid arteries. Marked plaque is present in the proximal left internal carotid artery.Vertebral arteries demonstrate anterograde flow MRI of the brain ordered Speech eval ordered for aphasia Hypertension Antihypertensives titrated Continue home medications and titrate as needed Hyperlipidemia Continue statin Dementia Continue home medications and supportive management CAD status post CABG Continue home medications Monitor closely on telemetry Followed at [facility] BPH/outlet obstruction We will get a PSA level UA pending GI/DVT prophylaxis Advanced directive full code Discharge Plan: Home Plan to discharge in: 48 Hours - Advance Directives Does patient have a Living Will: No Does patient have a Durable POA for Healthcare: No - Code Status/Comfort Care Code Status: Full Code Time Spent Managing Pts Care (In Minutes): 30
[2024-05-24] MEDS: ATORVASTATIN 80 MG TAB PO SCH (20:56)
--- NOTE | 2024-05-24 22:40 | RAD REPORT ---
EXAMINATION: MRI BRAIN WITHOUT CONTRAST CLINICAL INDICATION: Male, 78 years old.Dizziness, persistent TECHNIQUE: Multiplanar multisequence MR images of the brain were obtained without intravenous contras t. Unless otherwise specified, incidental findings do not require dedicated imaging follow-up. COMPARISON: Head CT 05/23/2024 FINDINGS: INTRACRANIAL: Midline structures are unremarkable. Diffusion-weighted images show no acute or early subacute infarction. There is mild brain atrophy with mildT2/FLAIR hyperintensities in the periventricular and deep white matter regions, likely representing chronic microvascular ischemic vicki nges. Focus of near CSF signal intensity with adjacent gliosis in the right subinsular region, suggesting sequelae of a small remote infarct. There is no mass effect or midline shift. No abnormal extraaxial fluid collection. VASCULATURE: Suspected saccular aneurysm near the right MCA branch point, measuring up to 8 mm. Other balbuena normal signal voids in the larger intracranial arteries and dural venous sinuses. SINUSES: The paranasal sinuses and mastoid air cells are predominantly clear. BONE: The marrow signal pattern is within normal limits. IMPRESSION: No evidence of acute intracranial hemorrhage or infarct. 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 This would be better evaluated by dedicated CT angiogram, MRA, or catheter angiography. Suspected small right subinsular remote infarct, and other sequela of chronic small vessel ischemic c hanges as above.
[2024-05-25 04:04] VITALS: BMI 29.2
[2024-05-25] MEDS: NA CHLORIDE 0.9% 500 ML IV SCH (05:52)
[2024-05-25 05:54] LABS: Absolute Eosinophils 0.1 K/uL (0-0.5); Absolute Lymphocytes (CBC) 1.4 K/uL (0.7-4.9); Absolute Monocytes 0.7 K/uL (0.1-1.3); Absolute Neutrophil 6.9 K/uL (1.8-8.0); Basophils % 0.3 % (0-1.3); Eosinophils % 0.6 % (0-4.4); Hematocrit 35.7 % (39.6-49.0); Hemoglobin 12.3 g/dL (13.6-17.9); Lymphocytes % 15.6 % (15.3-44.8); MCH 30.6 pg (27.0-35.0); MCHC 34.5 g/dL (32.0-36.0); MCV 88.8 fL (80-100); MPV 8.8 fL (7.6-11.3); Monocytes % 7.6 % (3.3-12.3); Neutrophils % 75.9 % (41.7-73.7); Nucleated Red Blood Cells % 0.1 % (0-0); Platelets 157 thou/uL (152-406); RBC Red Blood Cell Count 4.01 M/uL (4.33-5.43); Red Cell Distribution Width 14.2 % (12.1-15.2)
[2024-05-25 06:10] LABS: Albumin 2.8 g/dL (3.4-5.0); Albumin/Globulin Ratio 0.9 (1.1-1.8); Anion Gap 5.9 mEq/L (5.0-15.0); Bilirubin Total 0.7 mg/dL (0.2-1.0); Globulin 3.1 g/dL (2.3-3.5); Potassium 3.9 mEq/L (3.5-5.1); Protein, Total 5.9 g/dL (6.4-8.2)
--- NOTE | 2024-05-25 07:53 | P.PN ---
Date of Service: 05/25/24 subjective PT, Speech eval to determine therapy needs at discharge no over night compliants Review of Systems is unable to be obtained Physical Examination - Vital Signs reviewed - Physical Exam General: Alert, In no apparent distress, Oriented x2, Cooperative HEENT: Atraumatic, Normocephalic Neck: Supple, No Thyromegaly Respiratory: Clear to auscultation bilaterally, Normal air movement Cardiovascular: Normal pulses, Regular rate/rhythm, Normal S1 S2 Capillary refill: <2 Seconds Gastrointestinal: Soft and benign, Non-distended, W/out hepatosplenomegaly Musculoskeletal: No clubbing, No swelling, and steady gait Integumentary: No rashes, No breakdown Neurological: (Alert , awake , mild expressive aphasia Assessment and Plan - Plan pre Syncope CAD Subacute CVA-saccular right MCA aneurysm near the branch point in the right sylvian fissure, measuring up to 8 mm. Started on aspirin and statin CT findings noted Monitor neuro vital signs Monitor under telemetry permissive hypertension carotid Doppler Mild plaque is present within the right common and right internal carotid arteries. Marked plaque is present in the proximal left internal carotid artery.Vertebral arteries demonstrate anterograde flow MRI of the brain ordered No evidence of acute intracranial hemorrhage or infarct.Suspected saccular right MCA aneurysm near the branch point in the right sylvian fissure, measuring up to 8 mm. This would be better evaluated by dedicated CT angiogram, MRA, or catheter angiography. Suspected small right subinsular remote infarct, and other sequela of chronic small vessel ischemic changes as above.Speech eval ordered for aphasia CT head ordered Speech eval ordered aphasia PT eval, Eval DME needs Hypertension Antihypertensives titrated Continue home medications and titrate as needed Hyperlipidemia Continue statin Dementia Continue home medications and supportive management CAD status post CABG Continue home medications Monitor closely on telemetry Followed at [place] BPH/outlet obstruction We will get a PSA level UA pending GI/DVT prophylaxis Advanced directive full code Discharge Plan: Home Plan to discharge in: 48 Hours - Advance Directives Does patient have a Living Will: No Does patient have a Durable POA for Healthcare: No - Code Status/Comfort Care Code Status: Full Code Time Spent Managing Pts Care (In Minutes): 30
--- NOTE | 2024-05-25 09:27 | RAD REPORT ---
EXAMINATION: CTA HEAD CLINICAL INDICATION: Male, 78 years old. aneurysm TECHNIQUE: Axial CT images were obtained through the head after intravenous contrast utilizing angiog raphic protocol with 3D post-processing (maximum intensity projection images, volume rendered images and/or shaded surface rendered images). One or more of the following dose reduction technique s were used: Automated exposure control, adjustment of the mA and/or kV according to patient size, and/or iterative reconstruction. Unless otherwise specified, incidental findings do not require dedic ated imaging follow-up. COMPARISON: No prior exam. FINDINGS: ICA: The petrous, cavernous, and supraclinoid segments of the bilateral internal carotid arteries are normal apart from mild calcific atherosclerotic plaque. The ophthalmic artery origins are visualized and normal. The posterior communicating arteries are patent. RALPH: Anterior cerebral arteries are normal bilaterally. The anterior communicating artery is patent. MCA: Saccular aneurysm measuring up to 8 mm in greatest diameter, and 4 mm in diameter at the neck, a rising from the right M1 segment at the level of the trifurcation, projecting anteriorly and slightly laterally. Middle cerebral arteries are patent bilaterally. SUEDING MACHINE OPERATOR: Posterior cerebral arteries are normal bilaterally. Vertebrobasilar: The vertebral arteries are patent. The basilar artery is normal in appearance. 3D images confirm these findings. IMPRESSION: Saccular right aneurysm measuring up to 8 mm. Patent kaw of [place] vessels otherwise.
[2024-05-25] MEDS: QUETIAPINE 25 MG TAB PO SCH (09:57)
[2024-05-25] MEDS: MONTELUKAST 10 MG TAB PO SCH (09:57)
[2024-05-25] MEDS: FUROSEMIDE 40 MG TABLET PO SCH (09:57)
[2024-05-25] MEDS: ACETAMINOPHEN 325 MG TABLET PO PRN (11:49)
[2024-05-25 17:16] VITALS: BP 149/51; TEMP 97.8
[2024-05-25] MEDS ORDERED: AMLODIPINE 10 MG TAB PO ONE (17:30)
[2024-05-25 19:22] LABS: Thyroid Stimulating Hormone 6.48 uIU/mL (0.358-3.740)
[2024-05-25] MEDS: CEFTRIAXONE 1,000 MG in NA CHLORIDE 0.9% 50 ML IVPB ONE (20:04)
[2024-05-25] MEDS ORDERED: AMLODIPINE 10 MG TAB ONE (20:38)
--- NOTE | 2024-05-26 12:01 | EKG ---
Test Date: 2024-05-23 Test Time: 23:02:58 Die Tripper: MARCELL MEASUREMENT RESULTS: Intervals: Rate: 56 TX: 168 QRSD: 142 QT: 458 QTc: 441 Bryant: P: 51 TX: 168 QRS: -27 T: 28 INTERPRETIVE STATEMENTS: Sinus bradycardia Right bundle branch block Abnormal ECG Compared to ECG 05/07/2024 23:58:11 No significant changes Electronically Signed On 05-26-24 11:54:08 CDT by Xavi Patiño
== END 2024-05-25 20:45 | disposition short-term general hospital (02) | DRG 65 ==
LOC: ER 22:47 → 4TH 05-24 00:53 → 2ND 05-24 01:39 → OBSVTOIN 05-24 15:40
PROVIDERS: ADMIT Family Medicine; ATTEND Hospitalist
DX: I63.9 Cerebral infarction, unspecified (principal); N13.8 Other obstructive and reflux uropathy; N40.1 Benign prostatic hyperplasia with lower urinary tract symptoms; I10 Essential (primary) hypertension; E78.00 Pure hypercholesterolemia, unspecified; G47.00 Insomnia, unspecified; I77.9 Disorder of arteries and arterioles, unspecified; I51.7 Cardiomegaly; J44.9 Chronic obstructive pulmonary disease, unspecified; I25.10 Atherosclerotic heart disease of native coronary artery without angina pectoris; G30.9 Alzheimer's disease, unspecified; F02.80 Dementia in other diseases classified elsewhere, unspecified severity, without behavioral disturbance, psychotic disturbance, mood disturbance, and anxiety; I25.2 Old myocardial infarction; R47.01 Aphasia; R00.1 Bradycardia, unspecified; Z88.5 Allergy status to narcotic agent; Z11.52 Encounter for screening for COVID-19; Z79.52 Long term (current) use of systemic steroids; Z79.02 Long term (current) use of antithrombotics/antiplatelets; Z79.899 Other long term (current) drug therapy
CPT/HCPCS: 36415; 70450; 70496; 70551; 71045; 71250; 72125; 74176; 80048; 80053; 80076; 82947; 83605; 83690; 83735; 83880; 84153; 84439; 84443; 84484; 85025; 85610; 87040; 87804; 87811; 92523; 93005; 93880; 94760; 96361; 96365; 96375; 97116; 97161; 99285; G0378; J0696; J1650; J2185; J2919; J7030; J7614; J7644; Q9967

== ENCOUNTER 2024-06-30 00:12 | Observation (INO) | payer OTHER ==
--- OUTSIDE RECORDS SUMMARY | 2024-06-30 00:18 | XMS REPORT | Continuity of Care Document ---
Author Name Unknown Address [address] [facility] [address] [place] [address] [facility] thconnect Address [address] [place] [address] Care Team Providers Care Bulk Picker Name Role Phone Steven Moeller MD Primary Care Physician [phone] ENOCH BASHIR Attending Clinician UnavailFERNANDEZ Gross Attending Clinician Unavailable STEVEN MOELLER Attending Clinician Unavailable Sean Iglesias Attending Clinician Unavailable RAMON ARNOLD Attending Clinician Unavailable SHAVON RODRIGUEZ Attending Clinician Un available 2, Se Room Attending Clinician Unavailable Ramon Arnold MD Attending Clinician [phone] Shavon Rodriguez MD Attending Clinician Abraham Holguin MD Attending Clinician [phone] Musa ULLOA, Kobe Boone Attending Clinician +- [phone] Justyn Steward MD Attending Clinician [phone] JUSTYN STEWARD Attending Clinician Unavailable ANATN DIALLO Attending Clinician Jessica maria antonia Diallo MD, Anant Hernandez Attending Clinician Ar Gaviria Attending Clinician Unavailable CHAVA HERNANDEZ Attending Clinician Unavail able MEINGRID CUNHA Attending Clinician Unavailabl PRINCE Suleman Attending Clinician Unavailable RAMON ALDANA Attending Clinician Un available FOLLOIS WESTBROOK Attending Clinician Un available SUNNISTEVEN HOWELL Attending Clinician Unavaila tam HARRIS, FERNANDEZ ESCOBEDO Attending Clinician U navailable PAT MOSLEY Attending Clinician Unav ailable Matthew Walter Attending Clinician Unavailable Musa ULLOA, Kobe Boone Admitting Clinician +- [phone] KOBE DSOUZA Admitting Clinician Unavai Pat Rodriguez Admitting Clinician Unavailable JANIYA SCHOFIELD Admitting Clinician Unavail able PAT MOSLEY Admitting Clinician Unav ailable Payers Payer Name Policy Type Policy Number Effective Date Expirati on Date Source [place] [id number] 2020 00:00:00 [facility] MEDICARE SNP [id number] 2020 00:00:00 2024 00:00:00 [facility] MEDICARE DUAL SNP Medicare [id number] 2020 00:00:00 MEDICAID [facility] Medicaid [id number] 2020 00:00:00 [facility] MEDICAID DUAL SNP Medicaid [id number] 2024 00:00:00 Problems Condition Name Condition Details Condition Category Status Onset Date Resolution Date Last Treatment Date Treating Clinician Comments Source 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 Disease Active 2023-08 0 00:00: 00 Carmelina Antonio Epic Nonrheumat ic aortic valve stenosis Nonrheumat ic aortic valve stenosis Disease Active 2023-08 0-24 00:00: 00 Carmelina Benitez Diastolic heart failure Diastolic heart failure Disease Active 2023-08 0-24 00:00: 00 Carmelina Benitez Chronic bronchitis Chronic bronchitis Disease Active 2023-08 024 00:00: 00 Carmelina Benitez Type 2 diabetes mellitus, with long-term current use of insulin Type 2 diabetes mellitus, with long-term current use of insulin Disease Active 2023-08 024 00:00: 00 Carmelina Benitez Non-ST elevation myocardial infarction (NSTEMI) ([facility]/HCC) Non-ST elevation myocardial infarction (NSTEMI) (CMS/HCC) Disease Active 2023-08 024 00:00: 00 Carmelina Benitez Primary hypertensi on Primary hypertensi on Disease Active 2023-08 024 00:00: 00 Carmelina Benitez Brain aneurysm Brain aneurysm Disease Active 2023-08 0-16 00:00: 00 Carmelina Benitez Leg swelling Leg swelling Disease Active 2020-08 2 00:00: 00 [facility] 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) Disease Active 2020-08 00:00: 00 [facility] Allergies, Adverse Reactions, Alerts Allergy Name Allergy Type Status Severity Reaction(s) Onset Date Inactive Date Treating Clinician Comments Source Morphine Propensi ty to adverse reaction s Active 2023-08 0-17 00:00: 00 Carmelina Benitez morphine DA Active [place] SWELLING 2022-08 00:00: 00 [facility] codeine DA Active MO SWELLING 2022-08 00:00: 00 [facility] Ticlopid ine Allergy to substanc e Active 2020-08 00:00: 00 [facility] ticlopid ine HCl DA Active U 3- 00:00: [address] [facility] zolpidem tartrate DA Active U 3- 00:00: [address] [facility] morphine DA Active U 3-22 00:00: [address] [facility] aspirin DA Active MO Hives 3-22 00:00: [address] [facility] Aspirin Allergy to substanc e Active Hives 10-29 00:00: 00 [facility] Morphine Allergy to substanc e Active 10-29 00:00: 00 [facility] Zolpidem Allergy to substanc e Active 10-29 00:00: 00 [facility] Social History Social Habit Start Date Stop Date Quantity Comments Source Gender identity 2023-10-31 05:52:33 Identifies as male gender (finding) [facility] History of tobacco use Current smoker [facility] Sexual orientation [facility] Exposure to SARS-CoV-2 (event) Not sure [facility] Alcoholic beverage intake 2024-06-02 00:00:00 2024-06-02 00:00:00 Lifetime non-drinker (finding) [facility] History of Social function 2024 00:00:00 2024 00:00:00 [facility] Tobacco use and exposure 2021-07-18 00:00:00 2021-07-18 00:00:00 Smokeless tobacco non-user [facility] Sex Assigned At 1945 00:00:00 1945 00:00:00 [facility] Smoking Status Start Date Stop Date Source Ex-smoker [facility] Medications Ordered Medication Name Filled Medication Name Start Date Stop Date Current Medication? Ordering Clinician Indication Dosage Frequency Signature (SIG) Comments Components Source docusate sodium (Colace) capsule 100 mg docusate sodium (Colace) capsule 100 mg 2023-08 09:00: 00 Yes 100mg Q.5D 100 mg, Oral, 2 times daily, First dose on Thu05/26/24 at 0900 [facility] atorvastati n (Lipitor) tablet 80 mg atorvastati n (Lipitor) tablet 80 mg 2023-08 09:00: 00 Yes 80mg QD 80 mg, Oral, Daily, First dose on Thu05/26/24 at 0900 [facility] escitalopra m (Lexapro) tablet 5 mg escitalopra m (Lexapro) tablet 5 mg 2023-08 0 09:00: 00 Yes 5mg QD 5 mg, Oral, Daily, First dose on Thu05/26/24 at 0900 [facility] valsartan (Diovan) tablet 80 mg valsartan (Diovan) tablet 80 mg 2023-08 09:00: 00 Yes 80mg QD 80 mg, Oral, Daily, First dose on Thu05/26/24 at 0900 [facility] famotidine (Pepcid) tablet 20 mg famotidine (Pepcid) tablet 20 mg 2023-08 09:00: 00 Yes 20mg QD 20 mg, Oral, Daily, First dose on Thu05/26/24 at 0900 [facility] perflutren lipid microsphere s (Definity) injection 5.6724 mg perflutren lipid microsphere s (Definity) injection 5.6724 mg 2023-08 04:23: 14 05-26 04:23 :00 No 10uL/kg 5.6724 mg (rounded from 5.6789 mg = 10 mcL/kg ?87.1 kg), Intravenou s, Once in imaging, Starting on Thu05/26/24 at 0423, For 1 dose, Contrast - for use by imaging provider only. Prior to administra tion or further dilution, Definity product must be activated. First, bring vial to room temperatur e. Then, shake vial for 45 seconds using manufactur PowerbyProxi d Vialmix apparatus. Do not use if the 45 second activation cycle has not been completed. Following activation , the product will appear as a milky white suspension and may be used immediatel y. If not used within 5 minutes of activation , re-suspend by inverting and shaking the vial for 10 seconds. Unused product must be discarded within 12 hours after activation . To administer undiluted, draw up activated product into a 3 or 5 mL syringe. If ordered as a diluted syringe, draw up 8.7 mL of preservati ve free saline into a 10 mL syringe, then slowly withdraw 1.3 mL of activated Definity into same syringe. Gently shake by hand to evenly distribute . If ordered as a diluted infusion, draw up 1.3 mL of activated Definity, then add to a 50 mL preservati ve free saline bag. Gently squeeze IV bag to evenly distribute prior to administra tion. [facility] iohexol (OMNIPaque) 350 MG/ML injection 70 mL iohexol (OMNIPaque) 350 MG/ML injection 70 mL 2023-08 01:36: 58 05-26 01:37 :00 No 70mL 70 mL, Intravenou s, Once in imaging, Starting on Thu05/26/24 at 0136, For 1 dose Carmelina Benitez acetaminoph en (Tylenol) tablet 650 mg acetaminoph en (Tylenol) tablet 650 mg 2023-08 01:23: 58 Yes 650mg Q6H 650 mg, Oral, Every 6 hours PRN, mild pain (1-3), Starting on Thu05/26/24 at 0123, Max acetaminop hen = 4000mg/day (4gm/day) Carmelina Benitez sodium chloride 0.9 % infusion sodium chloride 0.9 % infusion 2023-08 23:30: 00 Yes 50mL/h 50 mL/hr, Intravenou s, Continuous , Starting on Thu05/25/24 at 2330 Carmelina Benitez ezetimibe (Zetia) tablet 10 mg ezetimibe (Zetia) tablet 10 mg 2023-08 23:30: 00 Yes 10mg 10 mg, Oral, Nightly, First dose on Thu05/25/24 at 2330 Carmelina Benitez donepezil (Aricept) tablet 10 mg donepezil (Aricept) tablet 10 mg 2023-08 23:30: 00 Yes 10mg 10 mg, Oral, Nightly, First dose on Thu05/25/24 at 2330 Carmelina Benitez ipratropium -albuterol (Duo-Neb) 0.5-2.5 mg/3 mL nebulizer solution 3 mL ipratropium -albuterol (Duo-Neb) 0.5-2.5 mg/3 mL nebulizer solution 3 mL 2023-08 23:20: 09 Yes 3mL Q6H 3 mL, Nebulizati on, Every 6 hours PRN, wheezing, Starting on Thu05/25/24 at 2320 Carmelina Benitez niMODipine (Nimotop) capsule 60 mg niMODipine (Nimotop) capsule 60 mg 2023-08 23:00: 00 05-26 00:46 :30 No 60mg Q4H 60 mg, Oral, Every 4 hours, First dose on Thu05/25/24 at 2300, Hold for HR <60 Time Critical Medication . For oral administra tion only. If patient unable to swallow capsules, call pharmacy. Carmelina Benitez sodium chloride (NS) 0.9 % flush 10 mL sodium chloride (NS) 0.9 % flush 10 mL 2023-08 22:15: 00 Yes 10mL Q12H 10 mL, Intravenou s, Every 12 hours, First dose on Thu05/25/24 at 2215, Administer at least once every 12 hours Carmelina Benitez sennosides (Senokot) tablet 8.6 mg sennosides (Senokot) tablet 8.6 mg 2023-08 22:15: 00 Yes 1{tbl} Q.5D 8.6 mg (1 tablet), Oral, 2 times daily, First dose on Thu05/25/24 at 2215 Carmelina Benitez glucagon injection 1 mg glucagon injection 1 mg 2023-08 22:11: 27 Yes 1mg 1 mg, Intramuscu lar, As needed, For BG < 70 mg/dL if no IV access and patient is either Unconsciou s, unable to swallow or npo, Starting on Thu05/25/24 at 2211, For BG < 70 mg/dL if no IV access and patient is either Unconsciou s, unable to swallow or npo and notify MD. Carmelina Benitez dextrose 50 % solution 25 g dextrose 50 % solution 25 g 2023-08 22:11: 27 Yes 25g 25 g, Intravenou s, As needed, other, if Blood Glucose </= 50 mg/dL, Starting on Thu05/25/24 at 2211, If BG </=50 mg/dL, give 50 mL of D50W IV push STAT and notify MD. Carmelina Benitez dextrose 50 % solution 12.5 g dextrose 50 % solution 12.5 g 2023-08 22:11: 27 Yes 12.5g 12.5 g, Intravenou s, As needed, low blood sugar, if Blood Glucose 51- 69 mg/dL, Starting on Thu05/25/24 at 2211, For BG 51-69 mg/dL and patient UNCONSCIOU S OR UNABLE TO SWALLOW OR NPO: Give 25 mL of D50W IV push and notify MD. Carmelina Benitez sodium chloride 0.9 % infusion 250 mL sodium chloride 0.9 % infusion 250 mL 2023-08 22:11: 27 Yes 250mL 250 mL, Intravenou s, As needed, For antibiotic flush to clear line, replace bag every 24 hours., Starting on Thu05/25/24 at 1 Carmelina Benitez sodium chloride (NS) 0.9 % flush 10 mL sodium chloride (NS) 0.9 % flush 10 mL 2023-08 22:11: 27 Yes 10mL 10 mL, Intravenou s, As needed, line care, Line Flush, Starting on Thu05/25/24 at 1 Carmelina Benitez diphenhydrA MINE (BENADryl) liquid 12.5 mg diphenhydrA MINE (BENADryl) liquid 12.5 mg 2023-08 22:11: 27 Yes 12.5mg Q6H 12.5 mg, Oral, Every 6 hours PRN, itching, Starting on Thu05/25/24 at 2210 Carmelina Benitez naloxone (Narcan) injection 0.04 mg naloxone (Narcan) injection 0.04 mg 2023-08 22:11: 27 Yes .04mg 0.04 mg, Intravenou s, As needed, opioid reversal, every 2 mins PRN for Narcotic Reversal, Starting on Thu05/25/24 at 2210, For 8 doses, Give up to 8 doses of 0.04 mg as needed to reverse over sedation. Keep available for immediate use. Call ordering physician STAT. (Dilute 0.4 mg/mL in 9 mL of saline) Carmelina Benitez bisacodyl (Dulcolax) suppository 10 mg bisacodyl (Dulcolax) suppository 10 mg 2023-08 22:11: 27 Yes 10mg Q24H 10 mg, Rectal, Daily PRN, constipati on, Starting on Thu05/25/24 at 1 Carmelina Benitez ondansetron (Zofran) injection 4 mg ondansetron (Zofran) injection 4 mg 2023-08 22:11: 27 Yes 4mg Q6H 4 mg, Intravenou s, Every 6 hours PRN, nausea, vomiting, Starting on Thu05/25/24 at 2211 Carmelina Benitez labetalol injection 10 mg labetalol injection 10 mg 2023-08 22:11: 27 Yes 1317 10mg 10 mg, Intravenou s, Every 15 min PRN, high blood pressure, Starting on Thu05/25/24 at 2211, Administer IV Push over 2 minutes. May give up to 3 consecutiv e doses. If goal BP is not achieved after 3 consecutiv e doses, Notify MD. (Refer to SBP goal documented in Vital Sign/BP Parameters ? order). Recheck Vitals Q15 minutes x 4. Do not administer if HR < 55 BPM., Indication s: Cerebral Hemorrhage Carmelina Benitez iohexol (OMNIPaque) 350 MG/ML injection 80 mL iohexol (OMNIPaque) 350 MG/ML injection 80 mL 2023-08 20:12: 32 05-17 20:13 :00 No 80mL 80 mL, Intravenou s, Once in imaging, Starting on Thu05/17/24 at 2011, For 1 dose Carmelina Benitez QUEtiapine (SEROquel) 50 MG tablet QUEtiapine (SEROquel) 50 MG tablet 10-02 00:00: 00 Yes 50mg 50 mg = 1 tab, PO, BID, 0 Refill(s) Carmelina Benitez escitalopra m (Lexapro) 5 MG tablet escitalopra m (Lexapro) 5 MG tablet 5-03 00:00: 00 Yes 5mg 5 mg = 1 tab, PO, Daily, # 30 tab, 0 Refill(s) Carmelina Benitez folic acid (Folvite) 1 MG tablet folic acid (Folvite) 1 MG tablet 5-03 00:00: 00 Yes 1mg 1 mg = 1 tab, PO, Daily, # 30 tab, 0 Refill(s) Carmelina Benitez valsartan (Diovan) 80 MG tablet valsartan (Diovan) 80 MG tablet 11-15 00:00: 00 Yes 80mg 80 mg = 1 tab, PO, Daily, # 30 tab, 0 Refill(s) Carmelina Benitez LEVOCETIRIZ INE DIHYDROCHLO RIDE PO LEVOCETIRIZ INE DIHYDROCHLO RIDE PO 08 00:00: 00 Yes 5mg 5 mg =, PO, QPM, 0 Refill(s) Carmelina Benitez clopidogrel (Plavix) 75 MG tablet clopidogrel (Plavix) 75 MG tablet 10-02 00:00: 00 Yes 75mg 75 mg = 1 tab, PO, Daily, 0 Refill(s) Carmelina Benitez benzonatate (Tessalon) 100 MG capsule benzonatate (Tessalon) 100 MG capsule 10-02 00:00: 00 Yes 100mg 100 mg = 1 cap, PO, TID, 0 Refill(s) [facility] aspirin 325 MG tablet 2020-08 17:12: 48 Yes [facility] clopidogrel (Plavix) 300 MG tablet 2020-08 17:12: 48 Yes [facility] Furosemide (LASIX PO) Furosemide (LASIX PO) 12-28 00:00: 00 Yes 40mg 40 mg, PO, Daily, 0 Refill(s) Carmelina Benitez aspirin EC (Campanisto Aspirin EC Low Dose) 81 MG EC tablet aspirin EC (Campanisto Aspirin EC Low Dose) 81 MG EC tablet 2018-08 00:00: 00 Yes 81mg 81 mg = 1 tab, PO, Daily, # 90 tab, 3 Refill(s) Carmelina Benitez atorvastati n (Lipitor) 40 MG tablet atorvastati n (Lipitor) 40 MG tablet 2018-08 00:00: 00 Yes 80mg 80 mg = 2 tab, PO, Bedtime, 0 Refill(s) Carmelina Benitez pantoprazol e (ProtoNix) 40 MG EC tablet pantoprazol e (ProtoNix) 40 MG EC tablet 2018-08 00:00: 00 Yes 40mg 40 mg = 1 tab, PO, Daily, 0 Refill(s) Carmelnia Benitez ezetimibe (Zetia) 10 MG tablet ezetimibe (Zetia) 10 MG tablet 2018-08 00:00: 00 Yes 10mg 10 mg = 1 tab, PO, Daily, 0 Refill(s) Carmelina [facility] traZODone (Desyrel) 50 MG tablet traZODone (Desyrel) 50 MG tablet 2018-08 00:00: 00 Yes 50mg 50 mg = 1 tab, PO, Bedtime, 0 Refill(s) Carmelina [facility] montelukast (Singulair) 10 MG tablet montelukast (Singulair) 10 MG tablet 2018-08 00:00: 00 Yes 10mg 10 mg = 1 tab, PO, Bedtime, 0 Refill(s) Carmelina [facility] rOPINIRole (Requip) 0.5 MG tablet rOPINIRole (Requip) 0.5 MG tablet 2018-08 00:00: 00 Yes 1mg 1 mg = 2 tab, PO, TID, 0 Refill(s) [facility] donepezil (Aricept) 10 MG tablet donepezil (Aricept) 10 MG tablet 2018-08 00:00: 00 Yes 10mg 10 mg = 1 tab, PO, Bedtime, 0 Refill(s) [facility] albuterol HFA (ProAir HFA) 90 mcg/act inhaler albuterol HFA (ProAir HFA) 90 mcg/act inhaler 16 00:00: 00 Yes 2 puff, INHALER, Q6H, PRN for wheezing, # 8.5 gm, 0 Refill(s) Carmelina garner [facility] Vital Signs Vital Name Observation Time Observation Value Comments S priscilla Systolic blood pressure 2024-06-02 10:25:00 165 mm[Hg] [facility] Diastolic blood pressure 2024-06-02 10:25:00 71 mm[Hg] [facility] Heart rate 2024-06-02 10:25:00 65 /min [facility] Respiratory rate 2024-06-02 10:25:00 18 /min [facility] Oxygen saturation in Arterial blood by Pulse oximetry 2024-06-02 10:25:00 98 /min [facility] Epic Body temperature 2024-06-02 09:51:00 37 [facility] Epic Systolic blood pressure 2024-06-02 10:25:00 165 mm[Hg] [facility] Diastolic blood pressure 2024-06-02 10:25:00 71 mm[Hg] [facility] Epic Heart rate 2024-06-02 10:25:00 65 /min [facility] [place] [facility] Respiratory rate 2024-06-02 10:25:00 18 /min [facility] Oxygen saturation in Arterial blood by Pulse oximetry 2024-06-02 10:25:00 98 /min [facility] Body temperature 2024-06-02 09:51:00 37 [facility] Epic Respiratory rate 2024 15:00:00 20 /min [facility] Heart rate 2024 14:45:00 66 /min [facility] Oxygen saturation in Arterial blood by Pulse oximetry 2024 14:42:00 96 /min [facility] Epic Systolic blood pressure 2024 14:30:00 139 mm[Hg] [facility] Diastolic blood pressure 2024 14:30:00 81 mm[Hg] [facility] Body temperature 2024 12:00:00 [facility] Body height 2024 04:00:00 177.8 cm [facility] Epic Body weight 2024 04:00:00 87.1 kg [facility] Epic BMI 2024 04:00:00 27.55 kg/m2 Tan [facility] Epic Respiratory rate 2024 15:00:00 20 /min [facility] Heart rate 2024 14:45:00 66 /min [facility] Oxygen saturation in Arterial blood by Pulse oximetry 2024 14:42:00 96 /min [facility] Epic Systolic blood pressure 2024 14:30:00 139 mm[Hg] [facility] Epic Diastolic blood pressure 2024 14:30:00 81 mm[Hg] [facility] Body temperature 2024 12:00:00 35.39 [facility] Body height 2024 04:00:00 177.8 cm Tan thorl [facility] Body weight 2024 04:00:00 87.1 kg Tan rial [facility] BMI 2024 04:00:00 27.55 kg/m2 [facility] [place] Epic Systolic blood pressure 2024-05-17 23:15:00 183 mm[Hg] [facility] Diastolic blood pressure 2024-05-17 23:15:00 67 mm[Hg] [facility] Heart rate 2024-05-17 23:15:00 54 /min [facility] Respiratory rate 2024-05-17 23:15:00 16 /min [facility] Epic Oxygen saturation in Arterial blood by Pulse oximetry 2024-05-17 23:15:00 99 /min [facility] Body temperature 2024-05-17 23:00:00 37 [facility] Body height 2024-05-17 17:36:00 177.8 cm Tan thorl [facility] Body weight 2024-05-17 17:36:00 81.647 kg Atn rial [facility] BMI 2024-05-17 17:36:00 25.83 kg/m2 Tan [facility] Epic Systolic blood pressure 2024-05-17 23:15:00 183 mm[Hg] [facility] Diastolic blood pressure 2024-05-17 23:15:00 67 mm[Hg] [facility] Heart rate 2024-05-17 23:15:00 54 /min [facility] Respiratory rate 2024-05-17 23:15:00 16 /min [facility] Oxygen saturation in Arterial blood by Pulse oximetry 2024-05-17 23:15:00 99 /min [facility] Body temperature 2024-05-17 23:00:00 37 [facility] Body height 2024-05-17 17:36:00 177.8 cm Tan [facility] Body weight 2024-05-17 17:36:00 81.647 kg Tan rial [facility] Epic BMI 2024-05-17 17:36:00 25.83 kg/m2 [facility] [place] Epic Systolic blood pressure 2021-10-02 21:03:00 121 mm[Hg] [facility] Diastolic blood pressure 2021-10-02 21:03:00 67 mm[Hg] [facility] Heart rate 2021-10-02 21:03:00 59 /min [facility] Body temperature 2021-10-02 21:03:00 36.39 Claudia [facility] Respiratory rate 2021-10-02 21:03:00 18 /min [facility] Body height 2021-10-02 21:03:00 175.3 cm [facility] Body weight 2021-10-02 21:03:00 84.188 kg [facility] BMI 2021-10-02 21:03:00 27.41 kg/m2 [facility] Oxygen saturation in Arterial blood by Pulse oximetry 2021-10-02 21:03:00 99 /min [facility] Procedures Procedure Date / Time Performed Performing Clinician Source POCT Glucose 2024-06-24 00:00:00 [facility] Complete Blood Count w/Diff and Platelet 2024-06-22 00:00:00 [facility] Basic Metabolic Panel 2024-06-22 00:00:00 [facility] EGD 2024-06-02 09:53:10 Ramon Arnold [facility] POCT glucose meter docked device 2024-06-02 00:00:00 [facility] POC GLUCOSE UNSOLICITED RESULTS 2024 07:35:00 Justyn Steward [facility] TRANSTHORACIC ECHO (TTE) COMPLETE W/ CONTRAST 2024 04:22:00 [employer] [facility] XR CHEST 1 VIEW 2024 03:39:00 [employer] ae [facility] CT ANGIOGRAM NECK 2024 01:36:00 Sadiq Trimble [facility] THROMBOELASTOGRAPH CLOTTING PROFILE 2024 01:01:00 People[employer] espinosa [facility] UA WITH MICROSCOPIC NO CULTURE 2024 00:58:00 [employer] [facility] DRUG SCREEN URINE (10 DRUG) 2024 00:58:00 People s, Vivi Abernathy [facility] COMPLETE BLOOD COUNT 2024 00:53:00 Peoples, Brook Abernathy [facility] AUTOMATED DIFFERENTIAL 2024 00:53:00 Peoples, Delta Abernathy [facility] COMPREHENSIVE METABOLIC PANEL 2024 00:53:00 TrimbleSadiq [facility] ETHANOL LEVEL 2024 00:53:00 Peoples, Vivi Abernathy [facility] LACTIC ACID LEVEL 2024 00:53:00 Peoples, Vivi Abernathy [facility] COMPLETE BLOOD COUNT W/DIFF AND PLATELET 2024 00:53:00 Peoples, Vivi Abernathy [facility] PLAVIX EFFECT PLATELET 2024 00:53:00 TrimbleSadiq [facility] PT AND PTT 2024 00:53:00 Peoples, Vivi Abernathy [facility] Complete Blood Count 2024 00:00:00 [facility] Automated Differential 2024 00:00:[address] [facility] [address] EXTERNAL BODY 2024-05-25 23:35:51 [facility] 2024-05-25 23:35:51 [facility] 2024-05-25 23:35:50 [facility]TERNAL HEAD 2024-05-25 23:35:50 [facility] EXTERNAL BODY 2024-05-25 23:35:50 [facility] EXTERNAL BODY 2024-05-25 23:35:50 Zo Cole [facility] B[facility] 2024-05-25 22:47:00 TrimbleSadiq [facility] AUTOMATED DIFFERENTIAL 2024-05-25 22:47:00 TrimbleSadiq [facility] BASIC METABOLIC PANEL 2024-05-25 22:47:00 TrimbleSadiq Manan [facility] COMPREHENSIVE METABOLIC PANEL 2024-05-25 22:47:00 Peoples, Vivi Abernathy [facility] MAGNESIUM LEVEL 2024-05-25 22:47:00 Peoples, Vivi Nolasco ae [facility] PHOSPHORUS LEVEL 2024-05-25 22:47:00 Peoples, Vivi Abernathy [facility] TYPE AND SCREEN 2024-05-25 22:47:00 Nai Sadiq Hinkle [facility] COMPLETE BLOOD COUNT W/DIFF AND PLATELET 2024-05-25 22:47:00 Nai Sadiq Hinkle [facility] TROPONIN I HIGH SENSITIVITY (SINGLE ORDER) 2024-05-25 22:47:00 Peoples, Vivi Abernathy [facility] PT AND PTT 2024-05-25 22:47:00 Nai Sadiq Manan [facility] POC GLUCOSE UNSOLICITED RESULTS 2024-05-25 22:46:00 Justyn Steward [facility] ECG 12 lead 2024-05-25 00:00:[address] [facility] [address] BRAIN WO IV CONTRAST 2024-05-17 20:05:00 Devan Escobedo [facility] CT CERVICAL SPINE WO IV CONTRAST 2024-05-17 20:05:[address] [facility] PELVIS W IV CONTRAST 2024-05-17 20:05:00 [facility] BASIC METABOLIC PANEL 2024-05-17 18:47:00 Bj Escobedo [facility] COMPLETE BLOOD COUNT W/DIFF AND PLATELET 2024-05-17 18:47:00 [facility]R 2024-05-17 18:47:00 Kyler Escobedo [facility] PTT 2024-05-17 18:47:00 Kyler Escobedo [facility] TROPONIN I HIGH SENSITIVITY (SINGLE ORDER) 2024-05-17 18:47:00 [facility]PLETE [facility]LOOD COUNT 2024-05-17 18:47:00 [facility] DIFFERENTIAL 2024-05-17 18:47:00 Hawa Escobedo [facility] XR SHOULDER 2+ VIEWS RIGHT 2024-05-17 18:20:00 [facility]R HUMERUS 2 VIEWS RIGHT 2024-05-17 18:20:00 Champ Escobedo jamison [facility] Epic XR CHEST 1 VIEW 2024-05-17 18:20:00 Kyler Escobedo [facility] XR PELVIS 1-2 VIEWS 2024-05-17 18:20:00 yKler Escobedo [facility] Epic ECG 12 lead (arrhythmia) 2024-05-17 00:00:00 [facility] Comprehensive Metabolic Panel [facility] Transthoracic echo (TTE) complete [facility] Thromboelastograph [facility] Tissue Examination [facility] Encounters Start Date/Time End Date/Time Encounter Type Admission Type Attending [facility] Care Facility Care Department Encounter ID Source 2023-09-03 16:47:24 Outpatient ENOCH BASHIR [facility] [id number] [facility] 2021-10-02 15:30:15 Outpatient BAUDILIO FERNANDEZ [facility] [id number] [facility] 2021-08-22 12:52:46 Outpatient SUNNIMERYLSTEVEN [facility] [id number] [facility] 2021-07-23 09:47:17 Outpatient [facility] [id number] [facility] 2021-07-23 09:45:25 Outpatient [facility] [id number] [facility] 2021-05-17 10:07:00 Outpatient SUNNIMERYLSTEVEN [facility] [id number] [facility] 2021-02-15 11:54:35 Outpatient SUNNIMERYLSTEVEN [facility] [id number] [facility] 2021-02-15 11:53:21 Outpatient [facility] [id number] [facility] 2021-02-15 11:52:40 Outpatient [facility] [id number] [facility] 2021-02-15 11:51:47 Outpatient [facility] [id number] [facility] 2021-02-15 11:50:23 Outpatient [facility] [id number] [facility] 2019-06-09 14:39:54 Outpatient [facility] [id number] [facility] 2019-04-28 00:00:[address] [facility] [id number] [facility] 2024-06-02 07:32:59 2024-06-02 23:59:00 Outpatient Elective RAMON ARNOLD MATTHEW [facility] [id number] [facility] 2024-06-02 07:32:59 2024-06-02 23:59:00 Hospital Encounter 2, Se Room Ramon Arnold Matthew Steven [facility] [id number] [facility] 2024-05-30 11:56:28 2024-05-30 15:36:51 Outpatient Elective MHESE MHESE [id number] [facility] 2024-05-25 23:35:51 2024 23:59:00 Outpatient MHESE [facility] [id number] [facility] 2024-05-25 22:03:00 2024 15:18:00 Hospital Encounter Abraham Holguin, Justyn Sanders [facility] [id number] [facility] 2024-05-25 22:03:00 2024 15:18:00 Inpatient Elective JUSTYN STEWARD [facility] Neurology [id number] [facility] 2024-05-25 23:35:51 2024-05-25 23:59:00 Outpatient MHESE MHESE [id number] [facility] 2024-05-25 23:35:50 2024-05-25 23:59:00 Outpatient MHESE [facility]ESE [id number] [facility] 2024-05-25 23:35:50 2024-05-25 23:59:00 Outpatient MHESE MHESE [id number] [facility] 2024-05-25 23:35:50 2024-05-25 23:59:00 Outpatient MHESE [facility] [id number] [facility] 2024-05-25 23:35:50 2024-05-25 23:59:00 Outpatient MHESE [facility] [id number] [facility] 2024-05-17 17:19:00 2024-05-17 23:22:00 Emergency Urgent ANANT DIALLO ESE General Medicine [id number] [facility] 2024-05-17 17:19:00 2024-05-17 23:22:[address] [facility] [id number] [facility] 2023-10-07 07:19:00 2023-10-07 10:51:00 Outpatient ENOCH BASHIR [facility] MED [id number] [facility] 2023-07-18 15:17:00 2023-07-18 20:30:00 Emergency E ANANT DIALLO MHSE MHSE [id number] [facility] 2023-07-13 15:10:00 2023-07-13 17:22:00 Emergency EM Ar Gaviria [facility] AERS [id number] [facility] 2023-06-10 00:22:00 2023-06-10 04:59:00 Emergency E CHAVA HERNANDEZ MHSE MHSE [id number] [facility] 2023-03-03 16:25:00 2023-03-03 20:37:00 Emergency E CHAVA HERNANDEZ SE MHSE [id number] [facility] 2022-12-10 09:07:00 2022-12-10 23:59:00 Outpatient MEINGRID CUNHA BL [facility]BL [id number] [facility] 2022-11-15 00:39:00 2022-11-16 14:36:00 Outpatient E PRINCE ANDRADE [facility] MED [id number] [facility] 2022-05-07 13:30:00 2022-05-07 23:59:00 Outpatient RAMON ALDANA [facility]SE PUL [id number] [facility] 2022-04-21 23:55:00 2022-04-22 05:32:00 Emergency E LOIS MAXWELL MHSE MHSE [id number] [facility] 2021-10-04 14:06:00 2021-10-05 17:54:00 Outpatient STEVEN MOELLER MHSE MHSE [id number] [facility] 2021-10-02 15:00:00 2021-10-02 15:25:30 Office Visit Fernandez Harris [facility] 1 [id number] [facility] 2021-09-17 09:35:00 2021-09-17 19:32:00 Outpatient FERNANDEZ HARRIS [facility]SE [id number] 2021-09-12 01:44:00 2021-09-13 14:50:00 Outpatient E TERRENCECHLOESH [id number] 2021-08-22 11:45:00 2021-08-22 12:51:18 Office Visit Steven Moeller [facility] 1 [id number] [facility] 2021-07-18 11:45:00 2021-07-18 13:07:54 Office Visit Steven Moeller [facility] 1 [id number] [facility] 2019-12-28 22:08:00 2019-12-30 12:43:00 Outpatient E TERRENCECHLOESH [facility] MED [id number] [facility] 2019-09-07 06:47:00 2019-09-07 06:47:00 Outpatient MHSE MHSE [id number] [facility] 2019-07-26 16:33:00 2019-07-26 16:33:00 Outpatient E [facility]SE MED [id number] [facility] 2019-07-06 06:12:00 2019-07-06 06:12:00 Outpatient MHSE MED [id number] [facility] 2019-06-15 09:19:00 2019-06-15 09:19:00 Outpatient MH[facility] MED [id number] [facility] 2019-06-03 13:47:00 2019-06-03 13:47:00 Outpatient MHSE PUL [id number] [facility] 2019-04-28 18:59:00 2019-04-28 18:59:00 Emergency E MHSE MHSE [id number] [facility] Results Test Description Test Time Test Comments Results Result Co mments Source [facility] [id number] 01:13:25* Test Item Value Reference Range Interpretation Comme [facility] POC Glu (test code = 3090613053) 107 mg/dL 70-99 H POC Performing Location (mik t code = 6249023923) J7 NSICU Lab Interpretation (test cod e = 15643-1) Abnormal [facility] [id number] 09:09:00* Test Item Value Reference Range Interpretation Comme [facility] Point of Care Testing (test code = CREATTPOC) 0.8 mg/dL 0.6-1.3 N Point of Care Testing (test code = EGFRMDRDPOC) Greater than 90 Reference Range for Estimated GFR: Greater than 90 mL/min/1.73 m2NOTE:The MDRD equation has not been validated for use with theelderly (over 70 years of age), women, patientswith serious comorbid condition or persons with extremes ofbody size, muscle mass, or nutritional status. Consult Notes Date/Time Note Provider Source 2024-05-25 22:22:14 Neurocritical Care Consultation Note History Of Present Illness Leonel Lomeli, 79 y.o. male with PMH of Alzherimer's disease, H TN, HLD, CHF, insomnia, CAD s/p CABG who presented to OSH for syncopal episode. History obtained from chart review as patient unable to provide own history. He had an episode of generalized weakness and difficulty in ambulating this morning. He had a witnessed near syncopal episode when walking to the bathroom per family. He was evaluated at the OSH and found to have an acomm aneurysm on CTH/CTA h/n, but no evidence of intracranial hemorrhage. He was subsequently transferred to [facility] NSICU on 05/25/2024 for higher level of care. Interval Events: On admission, patient mildly confused and with some word finding difficulty, otherwise no focal weakness or sensory loss. Following commands. Past Medical History has no past medical history on file. Surgical History has a past surgical history that includes IR body sinogram (12/10/2022); Other surgical history (Bilateral, 10/04/2021); Laparoscopy repair hiatal hernia (N/A, 09/17/2021); and Esophagogastroduodenoscopy (N/A, 09/12/2021). Family History No family history on file. Social History Social History Tobacco Use Smoking status: Former Allergies Patient has no known allergies. Home Medications Medications Prior to Admission Medication Sig Dispense Refill Last Dose/Taking albuterol HFA (ProAir HFA) 90 mcg/act inhaler 2 puff, INHALER, Q6H, PRN for wheezing, # 8.5 gm, 0 Refill(s) aspirin EC (Izzy Aspirin EC Low Dose) 81 MG EC tablet 81 mg = 1 tab, PO, Daily, # 90 tab, 3 Refill(s) atorvastatin (Lipitor) 40 MG tablet 80 mg = 2 tab, PO, Bedtime, 0 Refill(s) benzonatate (Tessalon) 100 MG capsule 100 mg = 1 cap, PO, TID, 0 Refill(s) clopidogrel (Plavix) 75 MG tablet 75 mg = 1 tab, PO, Daily, 0 Refill(s) donepezil (Aricept) 10 MG tablet 10 mg = 1 tab, PO, Bedtime, 0 Refill(s) escitalopram (Lexapro) 5 MG tablet 5 mg = 1 tab, PO, Daily, # 30 tab, 0 Refill(s) ezetimibe (Zetia) 10 MG tablet 10 mg = 1 tab, PO, Daily, 0 Refill(s) folic acid (Folvite) 1 MG tablet 1 mg = 1 tab, PO, Daily, # 30 tab, 0 Refill(s) Furosemide (LASIX PO) 40 mg, PO, Daily, 0 Refill(s) LEVOCETIRIZINE DIHYDROCHLORIDE PO 5 mg =, PO, QPM, 0 Refill(s) montelukast (Singulair) 10 MG tablet 10 mg = 1 tab, PO, Bedtime, 0 Refill(s) pantoprazole (ProtoNix) 40 MG EC tablet 40 mg = 1 tab, PO, Daily, 0 Refill(s) QUEtiapine (SEROquel) 50 MG tablet 50 mg = 1 tab, PO, BID, 0 Refill(s) rOPINIRole (Requip) 0.5 MG tablet 1 mg = 2 tab, PO, TID, 0 Refill(s) traZODone (Desyrel) 50 MG tablet 50 mg = 1 tab, PO, Bedtime, 0 Refill(s) valsartan (Diovan) 80 MG tablet 80 mg = 1 tab, PO, Daily, # 30 tab, 0 Refill(s) Review of Systems ROS all negative except those noted in HPI Physical Exam pre-admit mRS: Score 3: Moderate disability; requiring some help, but able to walk without assistance. Further clinical exam documented under Impression and Plan by systems. ASSESSMENT AND PLAN Leonel Armani, 79 y.o. male with PMH of Alzherimer's disease, H TN, HLD, CHF, insomnia, CAD s/p CABG, who presented on 05/25/2024 as a transfer for encephalopathy. NEUROLOGIC Encephalopathy, unspecified Depression Alzheimer's dementia insomnia Neuro Exam: GCS: E4 Eyes open spontaneously, V4 Speech confused, M6 Follows commands MS: AAO x2, following commands, speech fluent, mild dysarthria, mild expressive aphasia CN: L pupil 3, R pupil 3, EOMI, VFF, face symmetric Motor: No drift, 5/5 strength throughout Coordination: deferred Sensory: intact to light touch throughout Gait: deferred MRI brain without evidence of subarachnoid blood, per nsgy no plan to pursue LP OSH initial CTH revealed chronic ischemic changes. No hemorrhage identified. Pending over read. OSH MR brain w/o contrast: no acute hemorrhage. R MCA aneurysm identified. Small right subinsular remote infarct. Pending over read. CTA H/N R M1 saccular aneurysm 4x8 mm. Pending repeat read OSH CT c spine: no fracture. Pending over read. 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 Home med Donepezil 10 mg every day restart Lexapro 5 mg every day restart Quetiapine 50 mg every day held Ropinirole 2 mg every day held Trazodone 50 mg every day held CARDIOVASCULAR CAD sp CABG Congestive heart failure Essential Hypertension Pre syncope CV Exam: RRR VS Parameters: SBP<150 Cardene gtt nimodipine 60mg q4h Home med: Coreg 3.125 mg bid held Plavix 75 mg every day held Lasix 40 mg every day held Valsartan 80 mg every day restart Trop unremarkable EKG RBBB TTE unremarkable OSH US carotid duplex: marked plaque proximal L ICA 80% stenosis No a-line, No CVC CVC indication: none PULMONARY COPD Pulm Exam: CTAB ABG On NC, spO2 goal >88% Home med Iprat-albut q6hr prn restart GASTROINTESTINAL Unspecified protein-calorie malnutrition (E46) on admission GI Exam: soft, non-distended, present bowl sounds Nutrition: Current Order: Adult Diet Regular GI route: 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 GI ppx: none bowel regimen: docusate, senna q12h last BM [employer] Lab Results Component Value Date ALT 16 05/25/2024 AST 25 05/25/2024 Alkaline Phosphatase 98 05/25/2024 Bilirubin Total 0.88 05/25/2024 RENAL Pending labs No intake or output data in the 24 hours ending 05/26/24 0042 Results from last 7 days Lab Units 05/25/24 2247 SODIUM mEq/L 143 | 143 POTASSIUM mEq/L 3.8 | 3.8 CHLORIDE mEq/L 104 | 104 CO2 mEq/L 32.4* | 32.4* BUN mg/dL 15 | 15 CREATININE mg/dL 1.12 | 1.12 ICU electrolyte replacement protocol NS 50 ml/hr condom cath in place BMP on 05/17,pending repeat overnight INFECTIOUS DISEASE No data recorded. Results from last 7 days Lab Units 05/25/24 2247 WBC 10*3/uL 5.22 UA unremarkable Monitor trend fever curve and WBC no ABX indicated HEMATOLOGIC Results from last 7 days Lab Units 05/25/24 2247 HEMOGLOBIN g/dL 12.6 PLATELETS 10*3/uL 135* INR 0.93 PTT Seconds 25.0 Monitor thrombocytopenia On plavix post CABG for cardiac stents DVT ppx: SCDs; hold sc heparin ENDOCRINE Hyperlipidemia Results from last 7 days Lab Units 05/25/24 2247 GLUCOSE mg/dL 114* | 114* BG goal 80-180 medium-dose ISS Home meds: atorvastatin 80 mg every day restart Ezetimibe 10 mg every day restart MUSCULOSKELETAL AND INTEGUMENTARY Skin Exam: warm, dry, intact SCDs Code Status: Full Code Disposition: keep in ICU as pt remains in critical state The patient has an illness or injury that has acutely impaired one or more vital organ systems. There is a high probability of imminent or life threatening deterioration in the patient's condition during this evaluation. This is the total time spent evaluating the patient, speaking with medical staff and family, interpreting studies, discussing the case with consultants and admitting teams, retrieving data and reviewing charts, documenting the visit, and performing bundled procedures required during patient management. Minutes Critical Care Time Day MD Day ALEXA - ( ) Day Total 20 Night MD 15 Night ALEXA - (Brook Cole NP) 35 Night Total 35 TOTAL of Critical Care Time spent [facility] Neurocritical Care ICU White Team ICU Ph #[phone]; White Team IMU/Floor ALEXA Ph #[phone], #[phone] Neurology Physician Abraham Antonio History and Physical Notes Date/Time Note Provider Source 2024-06-02 10:00:00 History Of Present Illness Leonel Lomeli is a 79 y.o. male presenting with dysphagia. Past Medical History He has a past medical history of Aneurysm (CMS/HCC) (HCC), COPD (chronic obstructive pulmonary disease) (HCC), DVT (deep venous thrombosis) (CMS/HCC) (HCC), Heart attack (HCC), History of blood transfusion, and Hypertension. Surgical History He has a past surgical history that includes IR body sinogram (12/10/2022); Other surgical history (Bilateral, 10/04/2021); Laparoscopy repair hiatal hernia (N/A, 09/17/2021); Esophagogastroduodenoscopy (N/A, 09/12/2021); CT angiogram neck (2024); and Coronary artery bypass graft. Family History No family history on file. Social History He reports that he has quit smoking. He does not have any smokeless tobacco history on file. He reports that he does not drink alcohol and does not use drugs. Allergies Morphine Medications (Not in a hospital admission) Review of Systems All other systems reviewed and are negative. Physical Exam: Constitutional: Appearance: Normal appearance. HENT: Nose: Nose normal. Eyes: Pupils: Pupils are equal, round, and reactive to light. Cardiovascular: Rate and Rhythm: Normal rate and regular rhythm. Pulmonary: Effort: Pulmonary effort is normal. Breath sounds: Normal breath sounds. Abdominal: General: Abdomen is flat. Bowel sounds are normal. Palpations: Abdomen is soft. Musculoskeletal: Cervical back: Normal range of motion. Neurological: Mental Status: He is alert. Last Recorded Vitals Blood pressure 174/58, pulse 54, temperature 36.2 ?C (97.2 ?F), temperature source Temporal, resp. rate 17, SpO2 95%. Relevant Results Assessment & Plan Dysphagia, unspecified EGD Current Diet: NPO Diet T [facility] Notes Date/Time Note Provider Source Referral ID Status Reason Start Date Expiration Date V isits Requested Visits Authorized [id number] Pending Review 06/02/2024 11/29/2024 1 1 [facility] * Gastroenterology (Routine) - Authorized Specialty Diagnoses / Procedures Referred By Contac t Referred To Contact Gastroenterology Diagnoses Dysphagia, unspecified [place] [address] [address] Phone: tel: fax: [facility] [id number] [place] [address]. [place] [address] Phone: tel: Referral ID Status Reason Start Date Expiration Date V isits Requested Visits Authorized [id number] Authorized 05/27/2024 11/23/2024 1 1 [id number] 00:32:45* Gastroenterology (Routine) - Authorized Specialty Diagnoses / Procedures Referred By Contac t Referred To Contact Gastroenterology Diagnoses Dysphagia, unspecified [place] [address] [address] Phone: tel: fax: [facility] [id number] [place] [address]. [place] [address] Phone: tel: Referral ID Status Reason Start Date Expiration Date V isits Requested Visits Authorized [id number] Authorized 05/27/2024 11/23/2024 1 1 [id number] 00:32:45Pending Results Scheduled Orders Name Type Priority Associated Diagnoses Order Schedule POCT glucose meter docked device Point of Care Testing - Docked Device Routine STAT (Lab) for 1 Occurrences starting 06/02/2024 until 06/02/2024 Tissue Examination Pathology and Cytology Timed Dysphagia, unspecified Release Upon Ordering for 1 Occurrences starting 06/02/2024, 1 completed Health Maintenance Due Date Last Done Comments Medicare Annual Wellness (AWV) 1945 Pneumococcal Vaccine: 65+ Years (1 of 2 - PCV) 1951 Diabetes: Foot Exam 1955 Diabetes: Retinopathy Screening 1955 DTaP/Tdap/Td Vaccines (1 - Tdap) 1964 Diabetes: Urine Protein Screening 1964 Zoster Vaccines (1 of 2) 1995 Respiratory Syncytial Virus (RSV) or >=60 (1 - 1-dose 60+ series) 2005 Diabetes: Hemoglobin A1C 05/18/2023 023, 11/16/2022 Lipid Panel 11/17/2023 11/16/2022 Influenza Vaccine (#1) 2024 10/05/2021 HIB Vaccines Aged Out No longer eligi [...] on patient's age to complete this topic [id number] 00:32:45 Diagnosis Dysphagia, unspecified [id number] 00:32:45 [place] [id number] 15:19:12* Auth/Cert (Routine) Specialty Diagnoses / Procedures Referred By Ollie sanderson Referred To Contact Diagnoses Brain aneurysm Saccular aneurysm 8mm Procedures Pending PSC Kobe Dsouza MD [address] [place] [address] Phone: tel: fax: [facility] [address] [place] [address] Phone: tel: Referral ID Status Reason Start Date Expiration Date Visits Re quested Visits Authorized [id number] 1 1 [id number] 15:19:12* Intimate Partner Violence Question Answer Date of Assessment Author Within the last year, have you been humiliated or emotionally abused in other ways by your partner or ex-partner? Patient unable to answer 2024 3:34 AM Citlaly Andrade RN Within the last year, have you been afraid of your partner or ex-partner? Patient unable to answer 2024 3:34 AM Citlaly Andrade RN Within the last year, have you been raped or forced to have any kind of sexual activity by your partner or ex-partner? Patient unable to answer 2024 3:34 AM HADLEYT Citlaly Skinner RN Within the last year, have you been kicked, hit, slapped, or otherwise physically hurt by your partner or ex-partner? Patient unable to answer 2024 3:34 AM HADLEYT Citlaly Skinner RN * * Calculated C-SSRS Risk Score (Lifetime/Recent) Answer Date of Assessment Author No Risk Indicated 2024 3:38 AM CDT Citlaly Skinner RN * Luana Suicide Severity Rating Scale (Screener/Recent Self-Report) Question Answer Date of Assessment Author 1. Wish to be (Past 1 Month) No 2024 3:38 AM HADLEYT Ernesto Skinner RN 2. Non-Specific Active Suici shoshana Thoughts (Past 1 Month) No 2024 3:38 AM HADLEYT Simón Skinner RN 6. Suicidal Behavior (Lifetime) No 3:38 AM HADLEYT Citlaly Skinner RN [id number] 15:19:12* BRET NewtonW - 2024 10:36 AM CDT SW asked whether patient will have adequate help at home after discharge: family is willing and has capacity to assist and care for patient; able to assist with f/u appointments if needed, including transportation. Patient's/Family's response: Yes Roxi José Marital Status: [place] MPOA:N/A Decision Maker: Patient; If unable to, John Lomeli [phone] Lives with: Roxi José [phone] Pre-hospital function: Needed assistance Services: N/A Home Health: N/A DME use at home: Bert PCP/Contact Information: [facility]acy: listed in Epic/verified Home/Address: verified in Facesheet Health Insurance/Payer: [facility] Medicare, [facility] Medicaid Who is available to provide care if needed?/Caregiver: Roxi José 02/03 care/supervision at home if needed: Roxi Transportation arrangements: Roxi [employer] NOK is John Lomeli [phone] CM/SW will continue to follow and assist with care transition needs. [facility] [id number] * Thalia Aguirre, PT - 2024 9:00 AM CDT Physical Therapy Evaluation and Treatment Note Patient Name: Leonel Lomeli Today's Date: 2024 Preferred Language: Namib[place] Assessment & Plan Consulted w/ RN prior to seeing pt. Pt was received supine in bed. Pt is pleasant and jovial. Pt completed bed mobility w/ CGA. Pt completed transfers w/ CGA. Pt amb 100ft w/ RW & CGA. Pt declined gait training w/o assistive device at this time. Pt reports he amb w/ cane/walking stick at all times as baseline. At the end of the session, pt was left sitting in bedside chair w/ lap belt on & RN present in room. Assessment: Prognosis: Good Plan: Treatment Plan/Goals Established with Patient/Caregiver: Yes Treatment/Interventions: Bed mobility training, Balance training, Caregiver training, Equipment training, Functional activities, Gait training, Neuromuscular re-education, Pain management, Patient education, Positioning, Posture/Body mechanics baring, Stair training, Therapeutic exercises, Transfer training PT Plan: Skilled PT PT Frequency: 3-4 times per week until discharge PT Discharge Recommendations: Home health PT Equipment Recommended: Walker- rolling PT Recommended Transfer Status: (CGA with RW) Therapy discharge recommendations are made by determining the patient's prior level of function, assessing current function level and establishing rehab potential. The overall discharge plan may be affected by input from Physicians, Care Coordination, medical condition/status, family support and insurance benefits. Subjective Current Problem: Per H&P: "79 year old male with PMH of mild dementia, hypertension, hyperlipidemia, COPD, CABG 20 years ago, recent cardiac stent 2 years ago on aspirin and Plavix, abdominal aortic aneurysm. He presents to outside hospital 3 days ago due to episode of generalized weakness, generalized shaking, trouble speaking. Further workup at [facility] with CT head did not show any acute hemorrhages with CTA of the head showing a right 9 mm laterally inferiorly projecting MCA bifurcation aneurysm at the genu for which he was transferred to [facility]. MRI brain did not show any acute hemorrhages. No concern for aneurysm rupture. Carotid ultrasound also showed a 80% stenosis at the left carotid bifurcation. His symptoms have since resolved and is mostly back to baseline. No acute intervention at this time. Patient is medically cleared for discharge with plans for repeat CTA head and neck in 1 year." Vital Signs: Patient Vitals for the past 24 hrs: BP MAP (mmHg) Pulse Resp SpO2 05/26/24 1400 130/65 91 58 21 95 % 05/26/24 1300 149/70 100 60 14 97 % 05/26/24 1200 -- -- 65 -- -- 05/26/24 1157 -- -- -- 19 -- 05/26/24 1154 -- -- -- -- 95 % 05/26/24 1146 159/67 97 -- -- -- 05/26/24 1100 127/62 87 60 14 96 % 05/26/24 1000 143/71 100 61 20 95 % 05/26/24 0900 141/65 93 54 16 95 % 05/26/24 0800 136/65 93 59 17 96 % 05/26/24 0700 137/56 89 51 18 97 % 05/26/24 0645 145/65 94 55 15 97 % 05/26/24 0630 148/70 100 52 19 97 % 05/26/24 0615 139/66 95 55 18 96 % 05/26/24 0600 142/66 95 59 16 97 % 05/26/24 0545 131/71 96 58 24 97 % 05/26/24 0530 141/65 93 57 15 98 % 05/26/24 0515 137/62 89 54 14 96 % 05/26/24 0500 128/59 85 50 16 96 % 05/26/24 0445 131/60 86 52 15 96 % 05/26/24 0430 131/56 87 54 15 96 % 05/26/24 0415 130/61 88 (!) 47 21 96 % 05/26/24 0400 126/61 88 50 24 96 % 05/26/24 0345 131/62 84 (!) 47 17 97 % 05/26/24 0330 111/55 75 54 17 97 % 05/26/24 0315 145/63 91 58 (!) 28 97 % 05/26/24 0300 133/62 89 (!) 47 20 96 % 05/26/24 0245 128/60 86 52 25 97 % 05/26/24 0230 123/60 87 (!) 46 21 96 % 05/26/24 0215 135/63 91 (!) 44 (!) 27 97 % 05/26/24 0201 129/64 92 (!) 45 24 91 % 05/26/24 0200 129/64 92 (!) 48 18 90 % 05/26/24 0145 159/65 93 (!) 45 15 91 % 05/26/24 0130 -- -- 52 -- -- 05/26/24 0115 146/64 92 55 18 94 % 05/26/24 0100 142/63 91 51 15 94 % 05/26/24 0045 136/64 92 54 18 96 % 05/26/24 0000 150/65 94 53 16 94 % 05/25/24 2300 151/67 96 53 14 93 % Home Living: Type of Home: House Lives With: (Niece & her family) Home Adaptive Equipment: (cane/walking stick) Prior Level of Function: Level of [place]: Ambulated with assistive device (comment) (w/ cane/walking stick) ADL Assistance: Independent Homemaking Assistance: (Niece/family assist w/ IADLs) Objective General Visit Information: Bed Mobility 1: Level of Assistance 1: Supervision/touching assistance Bed Mobility To/From: Supine to sit on EOB Transfers 1: Level of Assistance 1: Supervision/touching assistance Transfer To/From: [id number] Assistive Devices And Adaptive Equipments: Walker, front-wheeled Gait training: Gait Training Activity 1: Distance (enter in feet): 100ft Assistive Devices And Adaptive Equipments: Walker, front-wheeled Level of Assistance 1: Supervision/touching assistance AM-PAC Basic Mobility:Turning in bed without bedrails: A Little Lying on back to sitting on edge of flat bed: A Little Bed to chair: A Little Standing up from chair: A Little Walk in room: A Little Climbing 3-5 stairs: A Little Mobility Inpatient Raw Score: 18 -HLM Goal: 6 Walked 25 feet or more (i.e. walked outside of room) Patient Education:Education Documentation Physical Therapy Plan of Care, taught by Thalia Aguirre PT at 2024 2:31 PM. Learner: Patient Readiness: Acceptance Method: Explanation Response: Verbalizes Understanding Education CommentsNo comments found. Goal:Encounter Goals Encounter Goals (Active) Patient will ambulate 150ft distance using LRAD with no assistance(Progressing) Start: 05/26/24 Expected End: 06/23/24 Patient will perform chair to and from bed transfer with no assistance (Progressing) Start: 05/26/24 Expected End: 06/23/24 Patient will perform supine to sit on bed with no assistance demonstrating control (Progressing) Start: 05/26/24 Expected End: 06/23/24 Treatment Note: If this is the last documented treatment, then it will signify discharge from acute care prior to discharge from the therapy service and will serve as the discharge summary. Thalia Aguirre PT [facility]2024-10-17 15:19:12Pending Results Scheduled Orders Name Type Priority Associated Diagnoses Order Schedule Comprehensive Metabolic Panel Lab Timed Daily until discontinued starting 2024, 1 completed Complete Blood Count w/Diff and Platelet Lab Timed Daily until discontinued starting 2024 POCT Glucose Point of Care Testing - Docked Device Routine Every 15 minutes as needed until discontinued starting 05/25/2024 POCT Glucose Point of Care Testing - Docked Device Routine 3 times daily before meals (Lab) for 30 Days starting 2024 until 06/24/2024, 2 completed ECG 12 lead ECG Routine Once for 1 Occurrences starting 05/25/2024 until 05/25/2024 Basic Metabolic Panel Lab Routine Mor leeroy draw (Lab) for 4 Weeks starting 2024 until 06/22/2024 Complete Blood Count w/Diff and Platelet Lab Routine Morning draw (Lab) for 4 Weeks starting 2024 until 06/22/2024 Complete Blood Count Lab Timed Once for 1 Occurrences starting 2024 until 2024 Automated Differential Lab Timed On ce for 1 Occurrences starting 2024 until 2024 Health Maintenance Due Date Last Done Comments [...] on patient's age to complete this topic [id number] 15:19:12 Diagnosis Brain aneurysm - Primary Cerebral aneurysm, nonruptured [id number] 15:19:12 [place] [id number] 15:05:44 Patient left with transport team for discharge at 1503. [facility]o4416-09-95 12:23:28 Problem: Pain Goal: My pain/discomfort is manageable Outcome: Adequate for Discharge Problem: Safety Goal: Patient will be injury free during hospitalization Outcome: Adequate for Discharge Goal: I will remain free of falls Outcome: Adequate for Discharge Problem: Daily Care Goal: Daily care needs are met Outcome: Adequate for Discharge Problem: Psychosocial Needs Goal: Demonstrates ability to cope with hospitalization/illness Outcome: Adequate for Discharge Goal: Collaborate with me, my family, and caregiver to identify my specific goals Outcome: Adequate for Discharge Problem: Discharge Barriers Goal: My discharge needs are met Outcome: Adequate for Discharge [id number] 23:22:41* [id number] 23:22:41Pending Results Scheduled Orders Name Type Priority Associated Diagnoses [...] on patient's age to complete this topic [facility] [id number] 23:22:41 Diagnosis Acute pain of right shoulder - Primary Right lower quadrant abdomin al pain Right hip pain Pain in joint, pelvic region and thigh [facility] [id number] 23:22:41 [facility] [id number] 15:14:00 [facility] ([facility]) EMERGENCY PROVIDER REPORT REPORT#:[id number] REPORT STATUS: Signed DATE:07/13/23 TIME: 1513 PATIENT: LEONEL LOMELI UNIT #: [id number] ROOM/BED: AGE: 78 SEX: M PCP PHYS: [...] Pulse 57 07/13 151 Resp 18 07/13 151 Last Documented: Result Date Time Pulse Ox 97 07/13 1512 B/P 174/75 07/13 1512 B/P Mean 108 07/13 1512 O2 Delivery Room air 07/13 151 Temp 36.6 07/13 151 Pulse 57 07/13 151 Resp 18 07/13 151 Review of Vital Signs Reviewed Focused PE [...] Room air 07/13 1512 Temp 36.6 07/13 151 Pulse 57 07/13 151 Resp 18 07/13 1512 Last Documented: Result Date Time Pulse Ox 97 07/13 1512 B/P 174/75 07/13 1512 B/P Mean 108 07/13 151 O2 Delivery Room air 07/13 1512 Temp 36.6 07/13 1512 Pulse 57 07/13 151 Resp 18 07/13 1512 All vital signs [...] a call to 911. at [phone] RPT #:[id number] END OF REPORTHCACL
[2024-06-30] MEDS ORDERED: MECLIZINE HCL 12.5 MG TAB ONE (01:20)
[2024-06-30] MEDS ORDERED: METOCLOPRAMIDE 5 MG TAB ONE (01:21)
[2024-06-30 01:24] LABS: Absolute Eosinophils 0.2 K/uL (0-0.5); Absolute Monocytes 0.4 K/uL (0.1-1.3); Nucleated Red Blood Cells % 0.1 % (0-0)
[2024-06-30 01:25] LABS: PT Prothrombin Time 11.8 SECONDS (9.4-12.5); Protime INR 1.06
[2024-06-30 01:35] LABS: Absolute Lymphocytes (CBC) 1.1 K/uL (0.7-4.9); Absolute Neutrophil 2.7 K/uL (1.8-8.0); Basophils % 0.5 % (0-1.3); Eosinophils % 4.6 % (0-4.4); Hematocrit 36.3 % (39.6-49.0); Hemoglobin 12.1 g/dL (13.6-17.9); Lymphocytes % 25.6 % (15.3-44.8); MCH 30.3 pg (27.0-35.0); MCHC 33.4 g/dL (32.0-36.0); MCV 90.7 fL (80-100); MPV 8.8 fL (7.6-11.3); Monocytes % 9.9 % (3.3-12.3); Neutrophils % 59.4 % (41.7-73.7); Platelets 140 thou/uL (152-406); Red Cell Distribution Width 15.5 % (12.1-15.2)
[2024-06-30 01:49] LABS: AST/SGOT 20 U/L (15-37); Albumin 3.4 g/dL (3.4-5.0); Albumin/Globulin Ratio 0.9 (1.1-1.8); Alkaline Phosphatase 130 U/L (45-117); Anion Gap 8.5 mEq/L (5.0-15.0); BUN Blood Urea Nitrogen 6 mg/dL (7-18); Bicarbonate 30 mEq/L (21-32); Bilirubin Direct 0.4 mg/dL (0-0.2); Bilirubin Indirect, Calculated 1.4 mg/dL (0.2-0.8); Bilirubin Total 1.8 mg/dL (0.2-1.0); Globulin 3.6 g/dL (2.3-3.5); Glomerular Filtration Rate 91 ml/min (=/>90); Glucose Level 121 mg/dL (74-106); Magnesium 1.9 mg/dL (1.6-2.4); NT PRO-BNP 622 pg/mL (<450); Potassium 3.5 mEq/L (3.5-5.1); Sodium Level 140 mEq/L (136-145); Troponin High Sensitivity 17.2 pg/mL (<58.9)
[2024-06-30 01:50] LABS: ALT/SGPT < 14 U/L (16-61)
--- NOTE | 2024-06-30 01:53 | RAD REPORT ---
EXAM DESCRIPTION: CT of the head without contrast CLINICAL HISTORY: DIZZINESS COMPARISON: 05/24/2024 TECHNIQUE: Axial CT of the head obtained from the skull apex to the skull base without contrast. This exam was performed according to our departmental dose-optimization program, which includes automated exposure control, adjustment of the mA and/or kV according to patient size and/or use of it erative reconstruction technique. FINDINGS: No acute intracranial hemorrhage identified. No mass, mass effect, shift of the midline, abnormal ext ra-axial fluid collection or CT evidence of acute ischemic change identified. The ventricular system and sulcal spaces are mildly enlarged compatible with mild cerebral atrophy. Scattered areas of hypodensity throughout the supratentorial white matter are nonspecific and may be related to chronic small vessel ischemic change. 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 The visualized paranasal sinuses and the mastoids are clear. No skull fracture identified. Visualiz ed orbits and globes are unremarkable. Atherosclerotic calcification of the intracranial internal carotid arteries. IMPRESSION: 1. No acute intracranial abnormality by CT criteria. Electronically signed by: Jatin Lo DO 06/30/2024 01:44 AM [facility] [id number] Due to temporary technical issues with the PACS/[employer]System[employer] reporting system, reports are being preston d by the in-house radiologist without review as a courtesy to ensure prompt reporting the interpreting radiologist is fully responsible for the content of the report. Transcribed Date/Time: 06/30/2024 1:53 AM
--- NOTE | 2024-06-30 01:57 | RAD REPORT ---
EXAM DESCRIPTION: Chest Abd Pelvis Wo Con CLINICAL HISTORY: CHEST PAIN COMPARISON: 05/26/2024 TECHNIQUE: CT of the chest, abdomen and pelvis performed without IV contrast. Evaluation of the solid organs and vasculature is suboptimal due to lack of IV contrast. This exam was performed according to our departmental dose-optimization program, which includes automated exposure control, adjustment of the mA and/or kV according to patient size and/or use of iterative reconstruction technique. FINDINGS: Chest: Thyroid: No abnormalities of the visualized thyroid. Great Vessels: Great vessels have normal anatomic configuration. Thoracic Aorta: Atherosclerotic calcification of the thoracic aorta. Pulmonary arteries: The main pulmonary artery is not dilated. Heart: Cardiomegaly. Coronary artery atherosclerosis. Prior median sternotomy. Lymph Nodes: No enlarged mediastinal lymph nodes identified. Esophagus: Small hiatal hernia. Other: No additional findings. Lungs: Paraseptal emphysematous change. Mild peripheral interstitial opacities. Mild bilateral subseg mental atelectasis. Elevation of left hemidiaphragm. Pleura: No pleural effusion or pneumothorax. Trachea/Airways: No abnormalities of the visualized trachea or airways. Abdomen: Liver: The liver has normal size and density. Gallbladder: No calcified gallstones. Spleen, Pancreas, and Adrenal Glands: The spleen, pancreas, and adrenal glands are unremarkable. Kidneys: The kidneys have normal size and contour without evidence of solid mass or hydronephrosis. Vasculature: Aortoiliac atherosclerosis. IVC is unremarkable. 4.5 cm infrarenal abdominal aortic aneu rysm. Stomach: The stomach and duodenum have normal course. Duodenal diverticulum. Other: No free intraperitoneal air. No free fluid or lymphadenopathy. Fat-containing umbilical he rnia. Small fat-containing left lateral abdominal wall hernia. Pelvis: Bladder: Mild wall thickening of the urinary bladder. Bowel: No dilated loops of large or small bowel. Scattered diverticula of the colon. Appendix: Not definitely identified. Pelvis: Enlarged prostate. Bones: Mild endplate spondylosis, disc height narrowing, and facet arthropathy. Osteopenia. Osteoarth ritic change of the hips. IMPRESSION: 1. Mild wall thickening of the urinary bladder. This could be seen with cystitis or chronic bladder outlet obstruction. 2. Enlarged prostate. 3. Cardiomegaly with coronary artery atherosclerosis. 4. Abdominal aortic aneurysm measuring 4.5 cm. Recommend CTA or MRA, as appropriate, in 12 months a nd referral to vascular specialist. Reference: Journal of Vascular Surgery 67.1 (2018): 2-77. J Am Alejandro Radiol 2013;10:789-794. 5. Diverticulosis without evidence of acute diverticulitis. Electronically signed by: Jatin Lo DO 06/30/2024 01:52 AM [employer] [id number] Due to temporary technical issues with the PACS/[employer] reporting system, reports are being preston d by the in-house radiologist without review as a courtesy to ensure prompt reporting the interpreting radiologist is fully responsible for the content of the report. Transcribed Date/Time: 06/30/2024 1:57 AM
--- NOTE | 2024-06-30 04:35 | ER ---
Nurse's Notes [facility] Name: Damian Lomeli Age: 79 yrs Sex: Male : 1945 Arrival Date: 06/30/2024 Time: 00:12 Bed 15 Private MD: Diagnosis: Muscle weakness (generalized);Hypertensive crisis, generalized weakness, dizziness, gait impairment Presentation: 06/30 00:45 Chief complaint: Patient states: recent change in BP meds by PCP. home health nurse lg3 reports high BP all day. new onset weakness, dizziness and left sided abdominal pain with swelling. Coronavirus screen: Client denies travel out of the [place] in the last 14 days. At this time, the client does not indicate any symptoms associated with coronavirus-19. Ebola Screen: No symptoms or risks identified at this time. Initial Sepsis Screen: Does the patient meet any 2 criteria? No. Patient's initial sepsis screen is negative. Does the patient have a suspected source of infection? No. Patient's initial sepsis screen is negative. Risk Assessment: Do you want to hurt yourself or someone else? Patient reports no desire to harm self or others. Onset of symptoms was June 29, 2024. 00:45 Method Of Arrival: Ambulatory lg3 00:45 Acuity: CHAD 3 lg3 Triage Assessment: 00:47 General: Appears in no apparent distress. uncomfortable, Behavior is calm, cooperative. lg3 Pain: Complains of pain in left lower quadrant. EENT: No deficits noted. No signs and/or symptoms were reported regarding the EENT system. Neuro: Kyle Agitation-Sedation Scale (RASS): 0 - Alert and Calm Level of Consciousness is awake, alert, obeys commands, Oriented to person, place, time, situation, Reports dizziness, weakness. Cardiovascular: No deficits noted. Denies chest pain, shortness of breath, Capillary refill < 3 seconds Clubbing of nail beds is absent JVD is absent Patient's skin is warm and dry. Respiratory: No deficits noted. Reports cough that is Airway is patent Respiratory effort is even, unlabored, Respiratory pattern is regular, symmetrical. GI: Abdomen is round Reports lower abdominal pain. : No signs and/or symptoms were reported regarding the genitourinary system. Derm: No deficits noted. No signs and/or symptoms reported regarding the dermatologic system. Skin is intact, is healthy with good turgor, Skin is dry, Skin is normal, Skin temperature is warm. Musculoskeletal: No deficits noted. No signs and/or symptoms reported regarding the musculoskeletal system. Circulation, motion, and sensation intact. Range of motion: intact in all extremities. Historical: - Allergies: 00:47 Morphine; lg3 - PMHx: 00:47 Alzheimer's disease; CHF; Hypercholesterolemia; Hypertensive disorder; insomnia; OK; lg3 brain aneurism (OK); abdominal aneurism (OK); blood clots (OK); umbilical hernia (OK); - PSHx: 00:47 cardiac bypass (OK); carddiac stents (OK); Appendectomy; lg3 - Immunization history:: Adult Immunizations up to date. - Infectious Disease History:: Denies. - Social history:: Smoking status: Patient denies any tobacco usage or history of. Patient/guardian denies using alcohol, street drugs. - Family history:: not pertinent. Screenin:51 [facility] ED Fall Risk Assessment (Adult) History of falling in the last 3 months, lg3 including since admission No falls in past 3 months (0 pts) Confusion or Disorientation No (0 pts) Intoxicated or Sedated No (0 pts) Impaired Gait Yes (1 pt) Mobility Assist Device Used Yes (1 pt) Altered Elimination No (0 pt) Score/Fall Risk Level 3 or more points = High Risk Oriented to surroundings, Maintained a safe environment, Educated pt \T\ family on fall prevention, incl call for assistance when getting out of bed, Assessed \T\ reinforced patient's understanding of fall precautions, Provided non-skid footwear. Abuse screen: Denies threats or abuse. Denies injuries from another. Nutritional screening: No deficits noted. Tuberculosis screening: No symptoms or risk factors identified. Assessment: 00:30 General: Appears uncomfortable, Behavior is cooperative. Pain: Complains of pain in ha1 abdomen and left lower quadrant Pain does not radiate. Pain currently is 7 out of 10 on a pain scale. Quality of pain is described as aching. Neuro: Level of Consciousness is awake, alert, obeys commands, Oriented to person, place, time, situation. Neuro: Reports dizziness, weakness. Cardiovascular: Capillary refill < 3 seconds Patient's skin is warm and dry. Respiratory: Airway is patent Respiratory effort is even, unlabored, Respiratory pattern is regular, symmetrical. GI: Abdomen is round non-distended, Reports lower abdominal pain. Derm: No signs and/or symptoms reported regarding the dermatologic system. Skin is pink, warm \T\ dry. 01:30 Reassessment: Patient and/or family updated on plan of care and expected duration. Pain ha1 level reassessed. Patient is alert, oriented x 3, equal unlabored respirations, skin warm/dry/pink. 02:33 Reassessment: Patient and/or family updated on plan of care and expected duration. Pain ha1 level reassessed. Patient is alert, oriented x 3, equal unlabored respirations, skin warm/dry/pink. 03:30 Reassessment: Patient and/or family updated on plan of care and expected duration. Pain ha1 level reassessed. Patient is alert, oriented x 3, equal unlabored respirations, skin warm/dry/pink. 04:30 Reassessment: Patient and/or family updated on plan of care and expected duration. Pain ha1 level reassessed. 04:30 General: Appears ill, Behavior is drowsy. Neuro: Level of Consciousness is lethargic, ha1 Oriented to person, Notified care provider. . Vital Signs: 00:45 BP 160 / 59; Pulse 54; Resp 16 S; Temp 97.8(O); Pulse Ox 100% on R/A; Weight 87.09 kg lg3 (R); Height 5 ft. 7 in. (R); 01:20 BP 168 / 65; Pulse 50; Resp 17 S; Pulse Ox 100% on R/A; ha1 02:20 BP 161 / 61; Pulse 50; Resp 17 S; Pulse Ox 99% on R/A; ha1 03:00 BP 138 / 53; Pulse 49; Resp 16 S; Pulse Ox 97% on R/A; ha1 04:20 BP 165 / 61; Pulse 49; Resp 17 S; Pulse Ox 96% on R/A; ha1 05:30 BP 147 / 41; Pulse 43; Resp 17 S; Pulse Ox 96% on R/A; ha1 00:45 Body Mass Index 30.07 (87.09 kg, 170.18 cm) lg3 [place] Coma Score: 04:25 Eye Response: spontaneous(4). Motor Response: obeys commands(6). Verbal Response: sp4 oriented(5). Total: 15. NIH Stroke Scale Scores: 05:51 NIHSS Score: 0 sp4 ED Course: 00:18 Patient arrived in ED. gm2 00:21 Mert Angelo MD is Attending Physician. sp4 00:30 Patient has correct armband on for positive identification. Bed in low position. Call ha1 light in reach. Side rails up X 1. 00:40 Provided Education on: plan of care . ha1 00:47 Triage completed. lg3 00:47 EKG done, by ED staff, reviewed by Mert Angelo MD. oe 00:47 Arm band placed on right wrist. lg3 01:00 Inserted saline lock: 20 gauge in right antecubital area, using aseptic technique. oe Blood collected. Flushed with 10 mL NS. 01:13 Lona Soriano, RN is Primary Nurse. ha1 01:14 Basic Metabolic Panel Sent. ha1 01:14 CBC with Diff Sent. ha1 01:14 LFT's Sent. ha1 01:14 Magnesium Sent. ha1 01:14 NT PRO-BNP Sent. ha1 01:14 PT-INR Sent. ha1 01:14 Troponin HS Sent. ha1 01:22 CT Head Brain wo Cont In Process Unspecified. EDMS 01:23 CT Chest Abdomen Pelvis W/O Contrast In Process Unspecified. EDMS 05:48 Nichol Davidson is Hospitalizing Provider. sp4 06:07 Missed attempt(s): 22 gauge Bleeding controlled, band aid applied, catheter tip intact. oe 06:20 No provider procedures requiring assistance completed. Patient admitted, IV remains in ha1 place. 06:24 Inserted saline lock: 20 gauge in right antecubital area, using aseptic technique. oe Flushed with 10 mL NS. Administered Medications: 01:42 Drug: metoCLOPramide IVP 10 mg IVP once; over 1 to 2 minutes {Note: given po.} Route: ha1 IVP; Site: Other; 02:20 Follow up: Response: No adverse reaction; Marked relief of symptoms ha1 01:42 Drug: Meclizine PO 25 mg PO once Route: PO; ha1 02:20 Follow up: Response: No adverse reaction; Marked relief of symptoms ha1 05:00 Drug: Dextromethorphan-Guaifenesin PO Liquid 10 mg-100 mg/5 mL 10 ml PO once Route: PO; ha1 05:30 Follow up: Response: No adverse reaction ha1 Medication: 01:25 VIS not applicable for this client. ha1 Outcome: 04:34 Discharge ordered by . sp4 05:49 Decision to Hospitalize by Provider. sp4 06:20 Admitted to ER Hold. Please see [facility] for further documentation. ha1 06:20 Condition: stable 06:20 Instructed on the need for admit, Demonstrated understanding of instructions, 15:46 Patient left the ED. [id number] NIH Stroke Scale - NIH Stroke Score Date: 06/30/2024 Time: 05:51 Total Score = 0 10. Dysarthria (speech clarity - read or repeat words) - 0(Normal) 11. Extinction and Inattention (visual/tactile/auditory/spatial/personal) - 0(No abnormality) 1a. Level of Consciousness (LOC) - 0(Alert) 1b. Level of Consciousness (LOC) (Month \T\ Age) - 0(Both) 1c. LOC Commands (Open \T\ Closes Eyes/Tip Mender) - 0(Both) 2. Best Gaze (Lateral Gaze Paresis) - 0(Normal) 3. Visual Field Loss - 0(No visual loss) 4. Facial Palsy - 0(Normal) 5a. Left Arm: Motor (10-second hold) - 0(No drift) 5b. Right Arm: Motor (10-second hold) - 0(No drift) 6a. Left Leg: Motor (5-second hold - always test supine) - 0(No drift) 6b. Right Leg: Motor (5-second hold - always test supine) - 0(No drift) 7. Limb Ataxia (finger/nose \T\ heel/braga - test with eyes open) - 0(Absent) 8. Sensory Loss (pinprick arms/legs/face) - 0(Normal) 9. Best Language: Aphasia (description/naming/reading) - 0(No aphasia) Initials: sp4 Signatures: Dispatcher [employer] EDMS Uvaldo Kidd Lacie, RN RN lg3 Lona Soriano RN RN ha1 Niki Antunez RN RN [id number] Mert Angelo MD MD sp4 Kiara Fleming 2 Corrections: (The following items were deleted from the chart) 06:28 04:00 BP 165 / 61; Pulse 49bpm; Resp 17bpm; Spontaneous; Pulse Ox 96% RA; ha1 ha1
--- NOTE | 2024-06-30 04:35 | EDPHYS ---
Physician Documentation [facility] Name: Damian Lomeli Age: 79 yrs Sex: Male : 1945 Arrival Date: 06/30/2024 Time: 00:12 Bed 15 Private MD: ED Physician Mert Angelo HPI: 06/30 00:21 This 79 yrs old Male presents to ER via Unassigned with complaints of High sp4 Blood Pressure, Weakness, Chest Congestion. 05:51 Patient with history of Alzheimer's disease CHF hypercholesterolemia hypertensive sp4 disorder insomnia MO and saccular brain aneurysm brought in from home for acute onset of generalized weakness, elevated blood pressure and chest congestion.. Historical: - Allergies: 00:47 Morphine; lg3 - PMHx: 00:47 Alzheimer's disease; CHF; Hypercholesterolemia; Hypertensive disorder; insomnia; MO; lg3 brain aneurism (MO); abdominal aneurism (MO); blood clots (MO); umbilical hernia (MO); - PSHx: 00:47 cardiac bypass (MO); carddiac stents (MO); Appendectomy; lg3 - Immunization history:: Adult Immunizations up to date. - Infectious Disease History:: Denies. - Social history:: Smoking status: Patient denies any tobacco usage or history of. Patient/guardian denies using alcohol, street drugs. - Family history:: not pertinent. ROS: 05:51 Constitutional: Negative for fever, chills, and weight loss, positive for generalized sp4 weakness, chest congestion, high blood pressure, dizziness 05:51 All other systems are negative, Exam: 04:25 Constitutional: This is a well developed, well nourished patient who is awake, alert, sp4 and in no acute distress. Head/Face: Normocephalic, atraumatic. Eyes: Pupils equal round and reactive to light, extra-ocular motions intact. Lids and lashes normal. Conjunctiva and sclera are not injected. Cornea within normal limits. Periorbital areas with no swelling, redness, or edema. ENT: Nares patent. No nasal discharge, no septal abnormalities noted. Tympanic membranes are normal and external auditory canals are clear. Oropharynx with no redness, swelling, or masses, exudates, or evidence of obstruction, uvula midline. Mucous membranes moist. Neck: Trachea midline, no thyromegaly or masses palpated, and no cervical lymphadenopathy. Supple, full range of motion without nuchal rigidity, or vertebral point tenderness. Chest/axilla: Normal chest wall appearance and motion. Nontender with no deformity. No lesions are appreciated. Cardiovascular: Regular rate and rhythm with a normal S1 and S2. No gallops, murmurs, or rubs. Normal PMI, no JVD. No pulse deficits. Respiratory: Lungs have equal breath sounds bilaterally, clear to auscultation and percussion. No rales, rhonchi or wheezes noted. No increased work of breathing, no retractions or nasal flaring. Abdomen/GI: Soft, with normal bowel sounds. No distension or tympany. No guarding or rebound. No evidence of tenderness throughout. Back: No spinal tenderness. No costovertebral tenderness. Male : Normal genitalia with no discharge or lesions. Skin: Warm, dry with normal turgor. Normal color with no rashes, no lesions, and no evidence of cellulitis. MS/ Extremity: Pulses equal, no cyanosis. Neurovascular intact. Full, normal range of motion. Neuro: Awake and alert, GCS 15, oriented to person, place, time, and situation. Cranial nerves II-XII grossly intact. Motor strength 5/5 in all extremities. Sensory grossly intact. Psych: Awake, alert, with orientation to person, place and time. Behavior, mood, and affect are within normal limits 04:25 ECG was reviewed by the Attending Physician. EKG at 0041 sinus bradycardia rate 52, right bundle branch block. Vital Signs: 00:45 BP 160 / 59; Pulse 54; Resp 16 S; Temp 97.8(O); Pulse Ox 100% on R/A; Weight 87.09 kg lg3 (R); Height 5 ft. 7 in. (R); 01:20 BP 168 / 65; Pulse 50; Resp 17 S; Pulse Ox 100% on R/A; ha1 02:20 BP 161 / 61; Pulse 50; Resp 17 S; Pulse Ox 99% on R/A; ha1 03:00 BP 138 / 53; Pulse 49; Resp 16 S; Pulse Ox 97% on R/A; ha1 04:20 BP 165 / 61; Pulse 49; Resp 17 S; Pulse Ox 96% on R/A; ha1 05:30 BP 147 / 41; Pulse 43; Resp 17 S; Pulse Ox 96% on R/A; ha1 00:45 Body Mass Index 30.07 (87.09 kg, 170.18 cm) lg3 NIH Stroke Scale Scores: 05:51 NIHSS Score: 0 sp4 [place] Coma Score: 04:25 Eye Response: spontaneous(4). Motor Response: obeys commands(6). Verbal Response: sp4 oriented(5). Total: 15. MDM: 00:21 Medical Screening Exam initiated sp4 04:23 ED course: IMPRESSION: 1. Mild wall thickening of the urinary bladder. This could be sp4 seen with cystitis or chronic bladder outlet obstruction. 2. Enlarged prostate. 3. Cardiomegaly with coronary artery atherosclerosis. 4. Abdominal aortic aneurysm measuring 4.5 cm. Recommend CTA or MRA, as appropriate, in 12 months and referral to vascular specialist. Reference: Journal of Vascular Surgery 67.1 (2018): 2-77. J Am Alejandro Radiol 2013;10:789-794. 5. Diverticulosis without evidence of acute diverticulitis. Electronically signed by: Jatin Lo DO 06/30/2024 01:52 AM. ED course: EXAM DESCRIPTION: CT of the head without contrast CLINICAL HISTORY: DIZZINESS COMPARISON: 05/24/2024 TECHNIQUE: Axial CT of the head obtained from the skull apex to the skull base without contrast. This exam was performed according to our departmental dose-optimization program, which includes automated exposure control, adjustment of the mA and/or kV according to patient size and/or use of iterative reconstruction technique. FINDINGS: No acute intracranial hemorrhage identified. No mass, mass effect, shift of the midline, abnormal extra-axial fluid collection or CT evidence of acute ischemic change identified. The ventricular system and sulcal spaces are mildly enlarged compatible with mild cerebral atrophy. Scattered areas of hypodensity throughout the supratentorial white matter are nonspecific and may be related to chronic small vessel ischemic change. 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 The visualized paranasal sinuses and the mastoids are clear. No skull fracture identified. Visualized orbits and globes are unremarkable. Atherosclerotic calcification of the intracranial internal carotid arteries. IMPRESSION: 1. No acute intracranial abnormality by CT criteria. . 05:48 Data reviewed: vital signs, nurses notes, EMS record, old medical records, lab test sp4 result(s), EKG, radiologic studies, CT scan, plain films. 05:51 Differential diagnosis: hypertensive crisis, Malignant HTN, CVA, intracerebral sp4 hemorrhage. 05:54 Consideration of Admission/Observation Patient was admitted/placed on observation. sp4 Escalation of care including admission/observation considered. Management of patient was discussed with the following: Hospitalist: Admit team . ED course: Patient was marked for discharge home but could not get up to ambulate. Therefore will be admitting for generalized weakness with poor ambulatory status. . 06/30 00:21 Order name: Basic Metabolic Panel; Complete Time: 04:18 sp4 06/30 00:21 Order name: CBC with Diff; Complete Time: 04:18 sp4 06/30 00:21 Order name: LFT's; Complete Time: 04:18 sp4 06/30 00:21 Order name: Magnesium; Complete Time: 04:18 sp4 06/30 00:21 Order name: NT PRO-BNP; Complete Time: 04:18 sp4 06/30 00:21 Order name: PT-INR; Complete Time: 04:18 sp4 06/30 00:21 Order name: Troponin HS; Complete Time: 04:18 sp4 06/30 00:59 Order name: CT Head Brain wo Cont; Complete Time: 04:18 sp4 06/30 00:59 Order name: CT Chest Abdomen Pelvis W/O Contrast; Complete Time: 04:18 sp4 06/30 07:25 Order name: Physical Therapy Consult EDUT 06/30 00:21 Order name: Cardiac monitoring; Complete Time: 00:47 sp4 06/30 00:21 Order name: EKG - Nurse/Tech; Complete Time: 00:47 sp4 06/30 00:21 Order name: IV Saline Lock; Complete Time: 01:04 sp4 06/30 00:21 Order name: Labs collected and sent; Complete Time: 01:04 sp4 06/30 00:21 Order name: O2 Per Protocol; Complete Time: :13 sp4 06/30 00:21 Order name: O2 Sat Monitoring; Complete Time: : sp4 EC:25 Rate is 52 beats/min. Rhythm is regular, Sinus bradycardia. QRS Howard is Normal. OK sp4 interval is normal. QRS interval is prolonged. QT interval is normal. No Q waves. T waves are Normal. No ST changes noted. Clinical impression: No evidence of ischemia. Interpreted by me. Reviewed by me. Administered Medications: 01:42 Drug: metoCLOPramide IVP 10 mg IVP once; over 1 to 2 minutes {Note: given po.} Route: ha1 IVP; Site: Other; 02:20 Follow up: Response: No adverse reaction; Marked relief of symptoms ha1 01:42 Drug: Meclizine PO 25 mg PO once Route: PO; ha1 02:20 Follow up: Response: No adverse reaction; Marked relief of symptoms ha1 05:00 Drug: Dextromethorphan-Guaifenesin PO Liquid 10 mg-100 mg/5 mL 10 ml PO once Route: PO; ha1 05:30 Follow up: Response: No adverse reaction ha1 Disposition Summary: 06/30/24 05:49 Hospitalization Ordered Provider: Nichol Davidson sp4 Condition: Stable(06/30/24 05:49) sp4 Problem: new(06/30/24 05:49) sp4 Symptoms: have improved(06/30/24 05:49) sp4 Bed/Room Type: Standard sp4 Location: Telemetry/MedSurg (observation)(06/30/24 14:36) em1 Room Assignment: [facility](06/30/24 14:36) em1 Diagnosis - Muscle weakness (generalized) sp4 - Hypertensive crisis, generalized weakness, dizziness, gait impairment sp4 Forms: - Medication Reconciliation Form sp4 - SBAR form sp4 - Leadership Thank You Letter sp4 NIH Stroke Scale - NIH Stroke Score Date: 06/30/2024 Time: 05:51 Total Score = 0 10. Dysarthria (speech clarity - read or repeat words) - 0(Normal) 11. Extinction and Inattention (visual/tactile/auditory/spatial/personal) - 0(No abnormality) 1a. Level of Consciousness (LOC) - 0(Alert) 1b. Level of Consciousness (LOC) (Month \T\ Age) - 0(Both) 1c. LOC Commands (Open \T\ Closes Eyes/Certified Control Systems Technician) - 0(Both) 2. Best Gaze (Lateral Gaze Paresis) - 0(Normal) 3. Visual Field Loss - 0(No visual loss) 4. Facial Palsy - 0(Normal) 5a. Left Arm: Motor (10-second hold) - 0(No drift) 5b. Right Arm: Motor (10-second hold) - 0(No drift) 6a. Left Leg: Motor (5-second hold - always test supine) - 0(No drift) 6b. Right Leg: Motor (5-second hold - always test supine) - 0(No drift) 7. Limb Ataxia (finger/nose \T\ heel/braga - test with eyes open) - 0(Absent) 8. Sensory Loss (pinprick arms/legs/face) - 0(Normal) 9. Best Language: Aphasia (description/naming/reading) - 0(No aphasia) Initials: sp4 Signatures: Dispatcher [employer] EDMS Rogers Mcgrath em1 Sneha Padilla RN RN lg3 Lona Soriano RN RN ha1 Mert Angelo MD MD sp4 Corrections: (The following items were deleted from the chart) 00:22 00:22 BASIC METABOLIC PANEL+C.LAB.BRZ ordered. EDMS EDMS 00:22 00:22 CBC+H.LAB.BRZ ordered. EDMS EDMS 00:22 00:22 HEPATIC FUNCTION+C.LAB.BRZ ordered. EDMS EDMS 00:22 00:22 MAGNESIUM+C.LAB.BRZ ordered. EDMS EDMS 00:22 00:22 PROBNP+C.LAB.BRZ ordered. EDMS EDMS 00:22 00:22 PROTIME (+INR)+COAG.LAB.BRZ ordered. EDMS EDMS 00:22 00:22 Troponin High Sensitivity+C.LAB.BRZ ordered. EDMS EDMS 00:22 00:22 Chest Single View+RAD.RAD.BRZ ordered. EDMS EDMS 05:48 04:34 Home sp4 sp4 05:48 04:34 new sp4 sp4 05:48 04:34 have improved sp4 sp4 05:48 04:34 Stable sp4 sp4 05:48 04:34 Generalized weakness, acute dizziness, cough, congestion, headache, sp4 elevated blood pressure sp4 06:18 05:49 Telemetry/MedSurg (observation) sp4 lg3 06:18 05:49 sp4 lg3 14:36 06:18 [facility] ER HOLD lg3 em1 14:36 06:18 ERHOLD- lg3 em1
[2024-06-30] MEDS ORDERED: GUAIFENESIN/DM 5 ML UCUP ONE (04:51)
[2024-06-30] MEDS ORDERED: ENOXAPARIN 40 MG/0.4 ML SQ ONE (08:17)
[2024-06-30] MEDS: ENOXAPARIN 40 MG/0.4 ML SQ SCH (08:39)
--- NOTE | 2024-06-30 16:31 | P.HP ---
Certification for Inpatient Patient admitted to: Inpatient With expected LOS: >2 Midnights Patient will require the following post-hospital care: None Practitioner: I am a practitioner with admitting privileges, knowledge of patient current condition, hospital course, and medical plan of care. Services: Services provided to patient in accordance with Admission requirements found in Title 42 Section 412.3 of the Code of Federal Regulations Patient History Date of Service: 06/30/24 Reason for admission: Weakness, hypertension History of Present Illness: 78-year-old male with history of Alzheimer's dementia, hypertension, hyperlipidemia, CHF, insomnia, CAD with previous CABG with known 8 mm saccular aneurysm to the right MCA presents to the emergency department with chief complaint of elevated blood pressure, weakness. He was admitted here on 05/24 and ultimately transferred on 05/25 for evaluation of his MCA aneurysm, he went to [facility] and family reported that there was no recommended intervention at that time. His PCP has been adjusting his blood pressure but it had been running high the last few days, his home health/PT staff recommended he come to the hospital for the elevated blood pressure. He was worked up in the ER labs were significant for a BNP of [address] chest abdomen pelvis with IV contrast was performed which demonstrated a 4.5 cm infrarenal abdominal aortic aneurysm, enlarged prostate, mild thickening of the urinary bladder, diverticulosis. Times for me to ambulate patient but he had what sounded to be like a near syncopal episode and was not able to ambulate, feeling very weak. Will be admitted for further evaluation and management. Allergies No Known Allergies Allergy (Unverified 05/08/24 03:43) Home Medications: Atorvastatin Calcium [Lipitor] 80 mg PO DAILY 05/08/24 Carvedilol [Coreg] 3.125 mg PO BID 05/08/24 Clopidogrel Bisulfate [Plavix*] 75 mg PO DAILY 05/08/24 Donepezil HCl 10 mg PO DAILY 05/08/24 Escitalopram Oxalate [Lexapro] 5 mg PO DAILY 05/08/24 Ezetimibe 10 mg PO DAILY 05/08/24 Furosemide [Lasix*] 40 mg PO DAILY 05/08/24 Levocetirizine Dihydrochloride [Allergy Relief] 5 mg PO DAILY 05/08/24 Montelukast [Singulair*] 10 mg PO DAILY 05/08/24 Quetiapine Fumarate [Quetiapine Fumarate ER] 50 mg PO DAILY 05/08/24 Ropinirole HCl 2 mg PO DAILY 05/08/24 Trazodone [Desyrel*] 50 mg PO DAILY 05/08/24 Valsartan 80 mg PO DAILY 05/08/24 Amox/Clavulanate [Augmentin 875-125 Tab] 1 each PO BID #14 tab 05/10/24 Ipratropium/Albuterol Sulfate [Iprat-Albut 0.5-3(2.5) mg/3 ml] 3 ml IH Q6H PRN #120 amp 05/10/24 Nebulizer 1 each PRN #1 ea 05/10/24 Pantoprazole [Protonix Tab*] 40 mg PO DAILYAC #60 tab 05/10/24 predniSONE [Prednisone*] 20 mg PO BID #10 tab 05/10/24 - Past Medical/Surgical History Diabetic: No -: Alzheimer disease -: Congestive heart failure -: Hypertension -: Coronary artery disease -: Insomnia -: COPD -: CABG Psychosocial/ Personal History: Lives at home with his family - Social History Smoking Status: Unknown if ever smoked Alcohol use: No CD- Drugs: No Caffeine use: Yes Place of Residence: Home Review of Systems 10-point ROS is otherwise unremarkable General: Weakness, Malaise Physical Examination - Vital Signs Temperature: 97.9 F Blood Pressure: 131/61 Pulse: 59 Respirations: 16 Pulse Ox (%): 97 - Physical Exam General: Alert, In no apparent distress, Oriented x2 HEENT: Atraumatic, PERRLA, EOMI Neck: Supple, 2+ carotid pulse no bruit, No LAD, Without JVD or thyroid abnormality Respiratory: Clear to auscultation bilaterally, Normal air movement Cardiovascular: Regular rate/rhythm, Normal S1 S2 Gastrointestinal: Normal bowel sounds, No tenderness Musculoskeletal: No tenderness Integumentary: No rashes Neurological: Normal gait, Normal speech, Normal strength at 5/5 x4 extr, Normal tone, Normal affect - Studies Laboratory Data (last 24 hrs) 06/30/24 06/30/24 06/30/24 00:58 00:58 00:58 WBC 4.50 Hgb 12.1 L Hct 36.3 L Plt Count 140 L PT 11.8 INR 1.06 Sodium 140 Potassium 3.5 BUN 6 L Creatinine 0.78 Glucose 121 H Magnesium 1.9 Total Bilirubin 1.8 H AST 20 ALT < 14 L Alkaline Phosphatase 130 H Assessment and Plan - Plan Assessment: Deconditioning/weakness/difficulty with ambulation Alzheimer's dementia Hypertension Chronic CHFunknown EF CAD with previous CABG Hyperlipidemia Known 8 mm MCA aneurysm 4.5 cm infrarenal abdominal aortic aneurysm Plan: Deconditioning/weakness/difficulty with ambulation Alzheimer's dementia Orthostatic vitals obtained, normal PT consultation Obtain UA Hypertension Continue home medications Family bedside reports they are being titrated by PCP Monitor blood pressure during hospitalization Chronic CHFunknown EF CAD with previous CABG Hyperlipidemia Continue home medications Known 8 mm MCA aneurysm Had recent evaluation at outside hospital No intervention recommended at that time per family at 4.5 cm infrarenal abdominal aortic aneurysm Recommend repeat imaging per radiology guidelines in 12 months and referral to vascular outpatient DVT PPX: Lovenox Code status: Full Discharge Plan: Home Plan to discharge in: 48 Hours - Advance Directives Does patient have a Living Will: No Does patient have a Durable POA for Healthcare: No - Code Status/Comfort Care Code Status Assessed: Yes (Full code) Critical Care: No Time Spent Managing Pts Care (In Minutes): 62
[2024-06-30 22:47] VITALS: O2SAT 62
[2024-07-01] LABS: Specific Gravity 1.019 (1.005-1.030); Sqamous Epithelial <5 /HPF (None Seen); Urine Bacteria <20 /HPF (<20); Urine Bilirubin NEGATIVE (Negative); Urine Blood Negative (Negative); Urine Clarity Clear (Clear); Urine Color Light-Yellow (Yellow); Urine Culture Reflex Order NOT NEEDED; Urine Glucose NEGATIVE (Negative); Urine Ketones NEGATIVE (Negative); Urine Micro Reflex YN NO BILL MICROSCOPIC; Urine Mucus Slight /HPF (None Seen); Urine Nitrite NEGATIVE (Negative); Urine Protein TRACE (Negative); Urine RBC <5 /HPF (None Seen); Urine Urobilinogen 1+ (Normal); Urine WBC None Seen /HPF (<5)
[2024-07-01] MEDS: VALSARTAN 80 MG TAB PO SCH (00:38)
[2024-07-01 06:06] LABS: Absolute Eosinophils 0.1 K/uL (0-0.5); Absolute Lymphocytes (CBC) 1.3 K/uL (0.7-4.9); Absolute Monocytes 0.8 K/uL (0.1-1.3); Absolute Neutrophil 5.6 K/uL (1.8-8.0); Basophils % 0.5 % (0-1.3); Eosinophils % 1.7 % (0-4.4); Hematocrit 34.9 % (39.6-49.0); Hemoglobin 11.6 g/dL (13.6-17.9); Lymphocytes % 16.4 % (15.3-44.8); MCH 30.5 pg (27.0-35.0); MCHC 33.1 g/dL (32.0-36.0); MCV 91.9 fL (80-100); MPV 9.3 fL (7.6-11.3); Monocytes % 10.4 % (3.3-12.3); Platelets 135 thou/uL (152-406); Red Cell Distribution Width 15.6 % (12.1-15.2)
[2024-07-01] MEDS ORDERED: ALBUTEROL 2.5 MG/3 ML NEB SOL IH PRN (06:13)
[2024-07-01] MEDS: PANTOPRAZOLE 40MG TABLET PO SCH (06:33)
[2024-07-01 06:36] LABS: AST/SGOT 21 U/L (15-37); Albumin 3.1 g/dL (3.4-5.0); Alkaline Phosphatase 110 U/L (45-117); Anion Gap 6.7 mEq/L (5.0-15.0); BUN Blood Urea Nitrogen 11 mg/dL (7-18); Bicarbonate 32 mEq/L (21-32); Bilirubin Total 1.2 mg/dL (0.2-1.0); Globulin 3.2 g/dL (2.3-3.5); Glomerular Filtration Rate 85 ml/min (=/>90); Glucose Level 138 mg/dL (74-106); Potassium 3.7 mEq/L (3.5-5.1); Protein, Total 6.3 g/dL (6.4-8.2); Sodium Level 141 mEq/L (136-145)
[2024-07-01] MEDS ORDERED: IPRATROPIUM BROM 0.5MG/2.5ML IH PRN (06:37)
[2024-07-01 06:46] LABS: ALT/SGPT < 14 U/L (16-61)
[2024-07-01] MEDS: ROPINIROLE HCL 1 MG TAB PO SCH (09:33)
[2024-07-01] MEDS: FUROSEMIDE 40 MG TABLET PO SCH (09:33)
[2024-07-01] MEDS: DONEPEZIL HCL 5 MG TAB PO SCH (09:34)
[2024-07-01] MEDS: MONTELUKAST 10 MG TAB PO SCH (09:34)
[2024-07-01] MEDS: LORATADINE 10 MG TAB PO SCH (09:35)
[2024-07-01] MEDS: CLOPIDOGREL 75 MG TABLET PO SCH (09:35)
[2024-07-01] MEDS: QUETIAPINE 25 MG TAB PO SCH (09:35)
[2024-07-01] MEDS: ESCITALOPRAM 20 MG TAB PO SCH (09:35)
[2024-07-01] MEDS: EZETIMIBE 10 MG TAB PO SCH (09:36)
[2024-07-01 12:07] VITALS: BP 160/52; TEMP 98.5
--- NOTE | 2024-07-01 14:40 | P.DS ---
Admission Date: 06/30/24 Discharge Date: 07/01/24 Disposition: ROUTINE DISCHARGE Discharge Condition: GOOD Reason for Admission: Weakness, hypertension Brief History of Present Illness: 78-year-old male with history of Alzheimer's dementia, hypertension, hyperlipidemia, CHF, insomnia, CAD with previous CABG with known 8 mm saccular aneurysm to the right MCA presents to the emergency department with chief complaint of elevated blood pressure, weakness. He was admitted here on 05/24 and ultimately transferred on 05/25 for evaluation of his MCA aneurysm, he went to [facility] and family reported that there was no recommended intervention at that time. His PCP has been adjusting his blood pressure but it had been running high the last few days, his home health/PT staff recommended he come to the hospital for the elevated blood pressure. He was worked up in the ER labs were significant for a BNP of [address] chest abdomen pelvis with IV contrast was performed which demonstrated a 4.5 cm infrarenal abdominal aortic aneurysm, enlarged prostate, mild thickening of the urinary bladder, diverticulosis. Times for me to ambulate patient but he had what sounded to be like a near syncopal episode and was not able to ambulate, feeling very weak. Will be admitted for further evaluation and management. Hospital Course: Assessment: Deconditioning/weakness/difficulty with ambulation Alzheimer's dementia Hypertension Chronic CHFunknown EF CAD with previous CABG Hyperlipidemia Known 8 mm MCA aneurysm 4.5 cm infrarenal abdominal aortic aneurysm Patient was admitted to the hospital for generalized weakness, hypertension. He is unable to ambulate at time of admission. Orthostatic vital signs were assessed and normal, later on the day he was seen by physical therapy and able to walk 500 feet with a front wheeled walker, throughout the night he has been ambulatory to the restroom independently with a walker. Significant changes in his labs, blood pressure acceptable today. Recommend continuing home indications as previously prescribed Follow-up with PCP in 1 to 2 weeks Vital Signs/Physical Exam: Temp Pulse Resp BP Pulse Ox 98.5 F 68 20 160/52 H 95 07/01/24 12:00 07/01/24 12:00 07/01/24 12:00 07/01/24 12:00 07/01/24 12:00 General: Alert, In no apparent distress, Oriented x3 HEENT: Atraumatic, PERRLA Neck: Supple, JVD not distended Respiratory: Clear to auscultation bilaterally, Normal air movement Cardiovascular: Regular rate/rhythm, Normal S1 S2 Gastrointestinal: Normal bowel sounds, No tenderness Musculoskeletal: No tenderness Integumentary: No rashes Neurological: Normal speech, Normal tone, Normal affect Laboratory Data at Discharge: WBC 7.90 thou/uL (4.3-10.9) 07/01/24 05:21 Hgb 11.6 g/dL (13.6-17.9) L 07/01/24 05:21 Hct 34.9 % (39.6-49.0) L 07/01/24 05:21 Plt Count 135 thou/uL (152-406) L 07/01/24 05:21 PT 11.8 SECONDS (9.4-12.5) 06/30/24 00:58 INR 1.06 06/30/24 00:58 Sodium 141 mEq/L (136-145) 07/01/24 05:21 Potassium 3.7 mEq/L (3.5-5.1) 07/01/24 05:21 BUN 11 mg/dL (7-18) 07/01/24 05:21 Creatinine 0.92 mg/dL (0.70-1.30) 07/01/24 05:21 Glucose 138 mg/dL (74-106) H 07/01/24 05:21 Magnesium 1.9 mg/dL (1.6-2.4) 06/30/24 00:58 Total Bilirubin 1.2 mg/dL (0.2-1.0) H 07/01/24 05:21 AST 21 U/L (15-37) 07/01/24 05:21 ALT < 14 U/L (16-61) L 07/01/24 05:21 Alkaline Phosphatase 110 U/L (45-117) 07/01/24 05:21 Home Medications: Clopidogrel Bisulfate [Plavix*] 75 mg PO DAILY 05/08/24 Donepezil HCl 10 mg PO DAILY 05/08/24 Escitalopram Oxalate [Lexapro] 5 mg PO DAILY 05/08/24 Ezetimibe 10 mg PO DAILY 05/08/24 Furosemide [Lasix*] 40 mg PO DAILY 05/08/24 Levocetirizine Dihydrochloride [Allergy Relief] 5 mg PO DAILY 05/08/24 Montelukast [Singulair*] 10 mg PO DAILY 05/08/24 Quetiapine Fumarate [Quetiapine Fumarate ER] 50 mg PO DAILY 05/08/24 Ropinirole HCl 2 mg PO DAILY 05/08/24 Trazodone [Desyrel*] 50 mg PO DAILY 05/08/24 Valsartan 80 mg PO DAILY 05/08/24 Ipratropium/Albuterol Sulfate [Iprat-Albut 0.5-3(2.5) mg/3 ml] 3 ml IH Q6H PRN #120 amp 05/10/24 Nebulizer 1 each MC PRN #1 ea 05/10/24 Pantoprazole [Protonix Tab*] 40 mg PO DAILYAC #60 tab 05/10/24 Physician Discharge Instructions: Patient was admitted to the hospital for generalized weakness, hypertension. He is unable to ambulate at time of admission. Orthostatic vital signs were assessed and normal, later on the day he was seen by physical therapy and able to walk 500 feet with a front wheeled walker, throughout the night he has been ambulatory to the restroom independently with a walker. Significant changes in his labs, blood pressure acceptable today. Recommend continuing home indications as previously prescribed Follow-up with PCP in 1 to 2 weeks Diet: AHA Activity: Fall precautions Followup: ROSA ISELA NATARAJAN [Primary Care Provider] - 1 Week Time spent managing pt's care (in minutes): 37
--- NOTE | 2024-07-04 12:11 | EKG ---
Test Date: 2024-06-30 Test Time: 00:41:01 Decision Analyst: JOHN MEASUREMENT RESULTS: Intervals: Rate: 52 [place]: 176 QRSD: 150 QT: 452 QTc: 420 [place]: P: 52 [place]: 176 QRS: -24 T: 25 INTERPRETIVE STATEMENTS: Sinus bradycardia Right bundle branch block Inferior infarct, age undetermined Abnormal ECG Compared to ECG 05/23/2024 23:02:58 Myocardial infarct finding now present Electronically Signed On 07-04-24 12:04:39 REVIEW NURSE by Xavi Patiño
== END 2024-07-01 13:28 | disposition home or self-care (01) ==
LOC: ER 00:12 → ERHOLD 07:20 → INTOOBSV 07:20 → 2ND 15:13
PROVIDERS: ADMIT Hospitalist; ATTEND Hospitalist
DX: R53.1 Weakness (principal); R26.2 Difficulty in walking, not elsewhere classified; I71.40 Abdominal aortic aneurysm, without rupture, unspecified; I67.1 Cerebral aneurysm, nonruptured; I10 Essential (primary) hypertension; G30.9 Alzheimer's disease, unspecified; F02.80 Dementia in other diseases classified elsewhere, unspecified severity, without behavioral disturbance, psychotic disturbance, mood disturbance, and anxiety; E78.5 Hyperlipidemia, unspecified; G47.00 Insomnia, unspecified; I50.9 Heart failure, unspecified; Z95.1 Presence of aortocoronary bypass graft
CPT/HCPCS: 85025 ×2; 81001; 80048; 36415 ×2; 83735; 85610; 80076; 84443; 84484; 84439; 80053; 83880; 70450; 71250; 74176; 97116 ×2; 97161; 96374; 99285; J8597; J1650 ×2; 93005; G0378

== ENCOUNTER 2024-08-07 13:11 | Emergency (ER) | payer OTHER ==
--- OUTSIDE RECORDS SUMMARY | 2024-08-07 13:14 | XMS REPORT | Continuity of Care Document ---
Author Name Unknown Address [address] [facility] [address] [place] [address] [facility] thconnect Address [address] [facility] [address] [place] [address] Care Team Providers Care Courier Delivery Driver Name Role Phone Steven Moeller MD Primary Care Physician [phone] ENOCH BASHIR Attending Clinician UnavailFERNANDEZ Gross Attending Clinician Unavailable STEVEN MOELLER Attending Clinician Unavailable Sean Iglesias Attending Clinician Unavailable RAMON ARNOLD Attending Clinician Unavailable SHAVON RODRIGUEZ Attending Clinician Un available 2, Se Room Attending Clinician Unavailable Ramon Arnold MD Attending Clinician [phone] Shavon Rodriguez MD Attending Clinician Abraham Holguin MD Attending Clinician +- [phone] Kobe Dsouza MD Attending Clinician [phone]- [phone] Justyn Steward MD Attending Clinician JUSTYN STEWARD Attending Clinician Unavailable Noelle ULLOA, Anant Hernandez Attending Clinician ANANT DIALLO Attending Clinician Jessica Ar Bolaños Attending Clinician Unavailable CHAVA HERNANDEZ Attending Clinician Unavail able MENOELSAINGRID STRONG Attending Clinician UnavailPRINCE Lionel Attending Clinician Unavailable RAMON ALDANA Attending Clinician Un available FOLORLOIS COOPER Attending Clinician Un available SUNNISTEVEN Attending Clinician Unavaila ble FERNANDEZ HARRIS Attending Clinician U navailPAT Armando Attending Clinician Unav ailable Matthew Walter Attending Clinician Unavailable Kobe Dsouza MD Admitting Clinician [phone]- [phone] KOBE DSOUZA Admitting Clinician UnaPat Phipps Admitting Clinician Unavailable JANIYA SCHOFIELD Admitting Clinician Unavail able PAT OCAMPO Admitting Clinician Unav ailable Payers Payer Name Policy Type Policy Number Effective Date Expirati on Date Source [place] [id number] 2020 00:00:00 [facility] MEDICARE SNP [id number] 2020 00:00:00 2024 00:00:00 [facility] MEDICARE DUAL SNP Medicare [id number] 2020 00:00:00 [place] Medicaid [id number] 2020 00:00:00 [facility] MEDICAID DUAL [facility] Medicaid [id number] 2024 00:00:00 Problems Condition Name Condition Details Condition Category Status Onset Date Resolution Date Last Treatment Date Treating Clinician Comments Source 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 Disease Active 2023-08 00:00: 00 Carmelina Antonio Epic Nonrheumat ic aortic valve stenosis Nonrheumat ic aortic valve stenosis Disease Active 2023-08 0 00:00: 00 Carmelina Antonio Epic Diastolic heart failure Diastolic heart failure Disease Active 2023-08 0-24 00:00: 00 Carmelina Benitez Chronic bronchitis Chronic bronchitis Disease Active 2023-08 024 00:00: 00 Carmelina patsy Benitez Type 2 diabetes mellitus, with long-term current use of insulin Type 2 diabetes mellitus, with long-term current use of insulin Disease Active 2023-08 0-24 00:00: 00 Carmelina garner Pacoledy Benitez Non-ST elevation myocardial infarction (NSTEMI) (CMS/HCC) Non-ST elevation myocardial infarction (NSTEMI) (CMS/HCC) Disease Active 2023-08 0-24 00:00: 00 Carmelina Benitez Primary hypertensi on Primary hypertensi on Disease Active 2023-08 024 00:00: 00 Carmelina garner Randolph Eli Brain aneurysm Brain aneurysm Disease Active 2023-08 0-16 00:00: 00 Carmelina Benitez Leg swelling Leg swelling Disease Active 2020-08 2- 00:00: 00 [facility] 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) Disease Active 2020-08 2-08 00:00: 00 [facility] Allergies, Adverse Reactions, Alerts Allergy Name Allergy Type Status Severity Reaction(s) Onset Date Inactive Date Treating Clinician Comments Source Morphine Propensi ty to adverse reaction s Active 2023-08 0-17 00:00: 00 Carmelina Benitez morphine DA Active MO SWELLING 2022-08 2- 00:00: 00 [facility] codeine DA Active MO SWELLING 2022-08 2 00:00: 00 [facility] Ticlopid ine Allergy to substanc e Active 2020-08 2- 00:00: 00 [facility] Aspirin Allergy to substanc e Active Hives 3- 00:00: 00 [facility] Morphine Allergy to substanc e Active - 00:00: 00 [facility] Zolpidem Allergy to substanc e Active 10-29 00:00: 00 [facility] ticlopid ine HCl DA Active U 3- 00:00: [address] [facility] zolpidem tartrate DA Active U 10-29 00:00: 00 ITZ Chaparro [facility] Timothy Son morphine DA Active U 10-29 00:00: [address] [facility] Huy aspirin DA Active MO Hives 10-29 00:00: 00 [facility] Huy Social History Social Habit Start Date Stop Date Quantity Comments Source Gender identity 2023-10-31 05:52:33 Identifies as male gender (finding) [facility] Exposure to SARS-CoV-2 (event) Not sure [facility] History of tobacco use Current smoker [facility] Sexual orientation [facility] Alcoholic beverage intake 2024-06-02 00:00:00 2024-06-02 00:00:00 Lifetime non-drinker (finding) [facility] History of Social function 2024 00:00:00 2024 00:00:00 [facility] Tobacco use and exposure 2021-07-18 00:00:00 2021-07-18 00:00:00 Smokeless tobacco non-user [facility] Sex Ass[birth year] At 1945 00:00:00 1945 00:00:00 [facility] Smoking Status Start Date Stop Date Source Ex-smoker [facility] Medications Ordered Medication Name Filled Medication Name Start Date Stop Date Current Medication? Ordering Clinician Indication Dosage Frequency Signature (SIG) Comments Components Source docusate sodium (Colace) capsule 100 mg docusate sodium (Colace) capsule 100 mg 2023-08 09:00: 00 Yes 100mg Q.5D 100 mg, Oral, 2 times daily, First dose on Thu05/26/24 at 0900 [facility] atorvastati n (Lipitor) tablet 80 mg atorvastati n (Lipitor) tablet 80 mg 2023-08 09:00: 00 Yes 80mg QD 80 mg, Oral, Daily, First dose on Thu05/26/24 at 0900 [facility] escitalopra m (Lexapro) tablet 5 mg escitalopra m (Lexapro) tablet 5 mg 2023-08 09:00: 00 Yes 5mg QD 5 mg, Oral, Daily, First dose on Thu05/26/24 at 0900 [facility] valsartan (Diovan) tablet 80 mg valsartan (Diovan) tablet 80 mg 2023-08 09:00: 00 Yes 80mg QD 80 mg, Oral, Daily, First dose on Thu05/26/24 at 0900 Carmelina Benitez famotidine (Pepcid) tablet 20 mg famotidine (Pepcid) tablet 20 mg 2023-08 09:00: 00 Yes 20mg QD 20 mg, Oral, Daily, First dose on Thu05/26/24 at 0900 [facility]el[facility] perflutren lipid microsphere s (Definity) injection 5.6724 [...] Then, shake vial for 45 seconds using Datto d Vialmix apparatus. Do not use if [...] to evenly distribute prior to administra tion. Carmelina Benitez iohexol (OMNIPaque) 350 MG/ML injection 70 mL [...] unable to swallow or npo and notify . Carmelina Benitez dextrose 50 % solution 25 [...] mL of D50W IV push and notify . Carmelina Benitez sodium chloride 0.9 % infusion [...] hours PRN, itching, Starting on Thu05/25/24 at 1 Carmelina Benitez naloxone (Narcan) injection 0.04 mg [...] mg ondansetron (Zofran) injection 4 mg 2023-08 0 22:11: 27 Yes 4mg Q6H 4 mg, [...] MG tablet QUEtiapine (SEROquel) 50 MG tablet - 00:00: 00 Yes 50mg 50 mg = [...] MG tablet valsartan (Diovan) 80 MG tablet 08 00:00: 00 Yes 80mg 80 mg = [...] cap, PO, TID, 0 Refill(s) [facility] aspirin 325 MG tablet 2020-08 17:12: 48 Yes [facility] clopidogrel (Plavix) 300 MG tablet 2020-08 17:12: 48 Yes [facility] Furosemide (LASIX PO) Furosemide (LASIX PO) 12-28 00:00: 00 Yes 40mg 40 mg, PO, Daily, 0 Refill(s) Carmelina Benitez aspirin EC (CafeMom Aspirin EC Low Dose) 81 MG EC tablet aspirin EC (CafeMom Aspirin EC Low Dose) 81 MG EC [...] tab, PO, Daily, 0 Refill(s) [facility] traZODone (Desyrel) 50 MG tablet traZODone (Desyrel) 50 MG tablet 2018-08 00:00: 00 Yes 50mg 50 mg = 1 tab, PO, Bedtime, 0 Refill(s) [facility] montelukast (Singulair) 10 MG tablet montelukast (Singulair) 10 MG tablet 2018-08 00:00: 00 Yes 10mg 10 mg = 1 tab, PO, Bedtime, 0 Refill(s) [facility] rOPINIRole (Requip) 0.5 MG tablet rOPINIRole (Requip) 0.5 MG tablet 2018-08 00:00: 00 Yes 1mg 1 mg = 2 tab, PO, TID, 0 Refill(s) [facility] donepezil (Aricept) 10 MG tablet donepezil (Aricept) 10 MG tablet 2018-08 00:00: 00 Yes 10mg 10 mg = 1 tab, PO, Bedtime, 0 Refill(s) [facility] albuterol HFA (ProAir HFA) 90 mcg/act inhaler albuterol HFA (ProAir HFA) 90 mcg/act inhaler 3-16 00:00: 00 Yes 2 puff, INHALER, Q6H, PRN for wheezing, # 8.5 gm, 0 Refill(s) Carmelina garner [facility] Vital Signs Vital Name Observation Time Observation Value Comments S priscilla Systolic blood pressure 2024-06-02 10:25:00 165 mm[Hg] [facility] Diastolic blood pressure 2024-06-02 10:25:00 71 mm[Hg] [facility] Heart rate 2024-06-02 10:25:00 65 /min [facility] Respiratory rate 2024-06-02 10:25:00 18 /min [facility] Oxygen saturation in Arterial blood by Pulse oximetry 2024-06-02 10:25:00 98 /min [facility] Body temperature 2024-06-02 09:51:00 37 [facility] Systolic blood pressure 2024-06-02 10:25:00 165 mm[Hg] [facility] Diastolic blood pressure 2024-06-02 10:25:00 71 mm[Hg] [facility] Epic Heart rate 2024-06-02 10:25:00 65 /min [facility] Epic Respiratory rate 2024-06-02 10:25:00 18 /min [facility] Oxygen saturation in Arterial blood by Pulse oximetry 2024-06-02 10:25:00 98 /min [facility] Body temperature 2024-06-02 09:51:00 37 [facility] Respiratory rate 2024 15:00:00 20 /min [facility] Heart rate 2024 14:45:00 66 /min [facility] Epic Oxygen saturation in Arterial blood by Pulse oximetry 2024 14:42:00 96 /min [facility] Epic Systolic blood pressure 2024 14:30:00 139 mm[Hg] [facility] Diastolic blood pressure 2024 14:30:00 81 mm[Hg] [facility] Body temperature 2024 12:00:00 35.39 [facility] Body height 2024 04:00:00 177.8 cm Tan thor [facility] Epic Body weight 2024 04:00:00 [facility] BMI 2024 04:00:00 27.55 kg/m2 Tan rial [facility] Epic Respiratory rate 2024 15:00:00 20 /min [facility] Heart rate 2024 14:45:00 66 /min [facility] Oxygen saturation in Arterial blood by Pulse oximetry 2024 14:42:00 96 /min [facility] Systolic blood pressure 2024 14:30:00 139 mm[Hg] [facility] Epic Diastolic blood pressure 2024 14:30:00 81 mm[Hg] [facility] Body temperature 2024 12:00:00 35.39 [facility] Body height 2024 04:00:00 177.8 cm Tan rial [facility] Body weight 2024 04:00:00 87.1 kg Tan thorl [facility] BMI 2024 04:00:00 27.55 kg/m2 Tan rial [facility] Epic Systolic blood pressure 2024-05-17 23:15:00 183 mm[Hg] [facility] Diastolic blood pressure 2024-05-17 23:15:00 67 mm[Hg] [facility] Heart rate 2024-05-17 23:15:00 54 /min [facility] Respiratory rate 2024-05-17 23:15:00 16 /min [facility] Oxygen saturation in Arterial blood by Pulse oximetry 2024-05-17 23:15:00 99 /min [facility] Body temperature 2024-05-17 23:00:00 37 [facility] Body height 2024-05-17 17:36:00 177.8 cm Tan [facility] Body weight 2024-05-17 17:36:00 81.647 kg Tan [facility] BMI 2024-05-17 17:36:00 25.83 kg/m2 Tan rial [facility] Epic Systolic blood pressure 2024-05-17 23:15:00 183 mm[Hg] [facility] Diastolic blood pressure 2024-05-17 23:15:00 67 mm[Hg] [facility] Heart rate 2024-05-17 23:15:00 54 /min [facility] Respiratory rate 2024-05-17 23:15:00 16 /min [facility] Oxygen saturation in Arterial blood by Pulse oximetry 2024-05-17 23:15:00 99 /min [facility] Body temperature 2024-05-17 23:00:00 37 [facility] Body height 2024-05-17 17:36:00 177.8 cm Tan rial [facility] Body weight 2024-05-17 17:36:00 81.647 kg Tan rial [facility] Epic BMI 2024-05-17 17:36:00 25.83 kg/m2 Tan [facility] Systolic blood pressure 2021-10-02 21:03:00 121 mm[Hg] [facility] Diastolic blood pressure 2021-10-02 21:03:00 67 mm[Hg] [facility] Heart rate 2021-10-02 21:03:00 59 /min [facility] Body temperature 2021-10-02 21:03:00 36.39 Claudia [facility] Respiratory rate 2021-10-02 21:03:00 18 /min [facility] Body height 2021-10-02 21:03:[address] [facility] weight 2021-10-02 21:03:[address] [facility] BMI 2021-10-02 21:03:00 27.41 kg/m2 [facility] Oxygen saturation in Arterial blood by Pulse oximetry 2021-10-02 21:03:00 99 /min [facility] Procedures Procedure Date / Time Performed Performing Clinician Source POCT Glucose 2024-06-24 00:00:00 [facility] Complete Blood Count w/Diff and Platelet 2024-06-22 00:00:00 [facility] Basic Metabolic Panel 2024-06-22 00:00:00 [facility] EGD 2024-06-02 09:53:10 Ramon Arnold [facility] POCT glucose meter docked device 2024-06-02 00:00:00 [facility] POC GLUCOSE UNSOLICITED RESULTS 2024 07:35:00 Justyn Steward [facility] TRANSTHORACIC ECHO (TTE) COMPLETE W/ CONTRAST 2024 04:22:00 PeoplesiVvi [facility] XR CHEST 1 VIEW 2024 03:39:00 PeoplesVivi ae [facility] CT ANGIOGRAM NECK 2024 01:36:00 Sadiq Trimble [facility] THROMBOELASTOGRAPH CLOTTING PROFILE 2024 01:01:00 PeopleVivi espinosa [facility] UA WITH MICROSCOPIC NO CULTURE 2024 00:58:00 PeopleVivi espinosa [facility] DRUG SCREEN URINE (10 DRUG) 2024 00:58:00 People s, Vivi Abernathy [facility] COMPLETE BLOOD COUNT 2024 00:53:00 Peoples, Brook Abernathy [facility] AUTOMATED DIFFERENTIAL 2024 00:53:00 Peoples, Delta Abernathy [facility] COMPREHENSIVE METABOLIC PANEL 2024 00:53:00 Sadiq Trimble [facility] ETHANOL LEVEL 2024 00:53:00 Peoples, Vivi Abernathy [facility] LACTIC ACID LEVEL 2024 00:53:00 Peoples, Vivi Abernathy [facility] COMPLETE BLOOD COUNT W/DIFF AND PLATELET 2024 00:53:00 Peoples, Vivi Abernathy [facility] PLAVIX EFFECT PLATELET 2024 00:53:00 TrimbleSadiq [facility] PT AND PTT 2024 00:53:00 Peoples, Vivi Abernathy [facility] Complete Blood Count 2024 00:00:00 [facility] Automated Differential 2024 00:00:[address] [facility] [address] EXTERNAL BODY 2024-05-25 23:35:51 [facility] 2024-05-25 23:35:51 Zo [facility] 2024-05-25 23:35:50 [facility] 2024-05-25 23:35:50 [facility] US EXTERNAL [facility]ODY 2024-05-25 23:35:50 [facility] EXTERNAL BODY 2024-05-25 23:35:50 [facility] COMPLETE [facility]LOOD COUNT 2024-05-25 22:47:00 Sadiq Trimble [facility] AUTOMATED DIFFERENTIAL 2024-05-25 22:47:00 Sadiq Trimble [facility] BASIC METABOLIC PANEL 2024-05-25 22:47:00 TrimbleSadiq Manan [facility] COMPREHENSIVE METABOLIC PANEL 2024-05-25 22:47:00 Peoples, Vivi Abernathy [facility] MAGNESIUM LEVEL 2024-05-25 22:47:00 Peoples, Vivi Nolasco ae [facility] PHOSPHORUS LEVEL 2024-05-25 22:47:00 Peoples, Vivi Abernathy [facility] TYPE AND SCREEN 2024-05-25 22:47:00 Nai Sadiq Manan [facility] COMPLETE BLOOD COUNT W/DIFF AND PLATELET 2024-05-25 22:47:00 Nai Sadiq Hinkle [facility] TROPONIN I HIGH SENSITIVITY (SINGLE ORDER) 2024-05-25 22:47:00 Peoples, Vivi Abernathy [facility] PT AND PTT 2024-05-25 22:47:00 Nai Sadiq Manan [facility] POC GLUCOSE UNSOLICITED RESULTS 2024-05-25 22:46:00 Justyn Steward [facility] ECG 12 lead 2024-05-25 00:00:[address] [facility] [address] BRAIN WO IV CONTRAST 2024-05-17 20:05:00 Devan Escobedo [facility] CT CERVICAL SPINE WO IV CONTRAST 2024-05-17 20:05:[facility] PELVIS W IV CONTRAST 2024-05-17 20:05:00 [facility] BASIC METABOLIC PANEL 2024-05-17 18:47:00 Bj Escobedo [facility] COMPLETE BLOOD COUNT W/DIFF AND PLATELET 2024-05-17 18:47:00 [facility]R 2024-05-17 18:47:00 Kyler Escobedo l [facility] PTT 2024-05-17 18:47:00 [facility] HIGH SENSITIVITY (SINGLE ORDER) 2024-05-17 18:47:00 [facility]PLETE [facility]LOOD COUNT 2024-05-17 18:47:00 [facility] DIFFERENTIAL 2024-05-17 18:47:00 Hawa Escobedo [facility] XR SHOULDER 2+ VIEWS RIGHT 2024-05-17 18:20:00 [facility] HUMERUS 2 VIEWS RIGHT 2024-05-17 18:20:00 Champ Escobedo [facility] Epic XR CHEST 1 VIEW 2024-05-17 18:20:00 Kyler Escobedo Tan thorpatsy [facility] XR PELVIS 1-2 VIEWS 2024-05-17 18:20:00 Kyler Escobedo [facility] ECG 12 lead (arrhythmia) 2024-05-17 00:00:00 [facility] Comprehensive Metabolic Panel [facility] Transthoracic echo (TTE) complete [facility] Thromboelastograph [facility] Tissue Examination [facility] Encounters Start Date/Time End Date/Time Encounter Type Admission Type Attending Clinicians Care Facility Care Department Encounter ID Source 2023-09-03 16:47:24 Outpatient ENOCH BASHIR [facility] [id number] [facility] 2021-10-02 15:30:15 Outpatient FERNANDEZ HARRIS [facility] [id number] [facility] 2021-08-22 12:52:46 Outpatient STEVEN MOELLER [facility] [id number] [facility] 2021-07-23 09:47:17 Outpatient [facility] [id number] [facility] 2021-07-23 09:45:25 Outpatient [facility] [id number] [facility] 2021-05-17 10:07:00 Outpatient STEVEN MOELLER [facility] [id number] [facility] 2021-02-15 11:54:35 Outpatient STEVEN MOELLER [facility] [id number] [facility] 2021-02-15 11:53:21 Outpatient [facility] [id number] [facility] 2021-02-15 11:52:40 Outpatient [facility] [id number] [facility] 2021-02-15 11:51:47 Outpatient [facility] [id number] [facility] 2021-02-15 11:50:23 Outpatient [facility] [id number] [facility] 2019-06-09 14:39:54 Outpatient [facility] [id number] [facility] [facility] 2019-04-28 00:00:00 Inpatient Sean Acuna [facility] [id number] [facility] 2024-06-02 07:32:59 2024-06-02 23:59:00 Outpatient Elective RAMON ARNOLD MATTHEW [facility] MH[facility] [id number] [facility] 2024-06-02 07:32:59 2024-06-02 23:59:00 Hospital Encounter 2, Se Room Ramon Arnold Matthew Steven [facility] [id number] [facility] 2024-05-30 11:56:28 2024-05-30 15:36:51 Outpatient Elective MHESE MHESE [id number] [facility] 2024-05-25 23:35:51 2024 23:59:00 Outpatient MHESE MH[facility] [id number] [facility] 2024-05-25 22:03:00 2024 15:18:00 Hospital Encounter Abraham Holguin Spiros Lee Chen, Peng [facility] [id number] [facility] 2024-05-25 22:03:00 2024 15:18:00 Inpatient Elective JUSTYN STEWARD [facility] Neurology [id number] [facility] 2024-05-25 23:35:51 2024-05-25 23:59:00 Outpatient MHESE MHESE [id number] [facility] 2024-05-25 23:35:50 2024-05-25 23:59:00 Outpatient MHESE [facility] [id number] [facility] 2024-05-25 23:35:50 2024-05-25 23:59:00 Outpatient MHESE [facility] [id number] [facility] 2024-05-25 23:35:50 2024-05-25 23:59:00 Outpatient MHESE [facility] [id number] [facility] 2024-05-25 23:35:50 2024-05-25 23:59:00 Outpatient MHESE [facility] [id number] [facility] 2024-05-17 17:19:00 2024-05-17 23:22:[address] [facility] [id number] [facility] 2024-05-17 17:19:00 2024-05-17 23:22:00 Emergency Urgent ANANT DIALLO [facility] General Medicine [id number] [facility] 2023-10-07 07:19:00 2023-10-07 10:51:00 Outpatient ENOCH BASHIR [facility] [id number] [facility] 2023-07-18 15:17:00 2023-07-18 20:30:00 Emergency E ANANT DIALLO MHSE MHSE [id number] [facility] 2023-07-13 15:10:00 2023-07-13 17:22:00 Emergency EM Ar Gaviria [facility] AERS [id number] [facility] 2023-06-10 00:22:00 2023-06-10 04:59:00 Emergency E CHAVA HERNANDEZ MHSE MHSE [id number] [facility] 2023-03-03 16:25:00 2023-03-03 20:37:00 Emergency E CHAVA HERNANDEZ MHSE MHSE [id number] [facility] 2022-12-10 09:07:00 2022-12-10 23:59:00 Outpatient INGRID HERNANDEZ BL [facility]BL [id number] [facility] 2022-11-15 00:39:00 2022-11-16 14:36:00 Outpatient E PRINCE ANDRADE [facility] MED [id number] [facility] 2022-05-07 13:30:00 2022-05-07 23:59:00 Outpatient RAMON ALDANA [facility]SE PUL [id number] [facility] 2022-04-21 23:55:00 2022-04-22 05:32:00 Emergency E LOIS MAXWELL MHSE MHSE [id number] [facility] 2021-10-04 14:06:00 2021-10-05 17:54:00 Outpatient STEVEN MOELLER MHSE MHSE [id number] [facility] 2021-10-02 15:00:00 2021-10-02 15:25:30 Office Visit Fernandez Harris [facility] [id number] [facility] 2021-09-17 09:35:00 2021-09-17 19:32:00 Outpatient FERNANDEZ HARRIS MHSE MHSE [id number] [facility] 2021-09-12 01:44:00 2021-09-13 14:50:00 Outpatient E CHLOE OCAMPOSH [facility] MED [id number] [facility] 2021-08-22 11:45:00 2021-08-22 12:51:18 Office Visit Steven Moeller [facility] 1 [id number] [facility] 2021-07-18 11:45:00 2021-07-18 13:07:54 Office Visit Steven Moeller [facility] 1 [id number] [facility] 2019-12-28 22:08:00 2019-12-30 12:43:00 Outpatient E CHLOE OCAMPOSH [id number] 2019-09-07 06:47:00 2019-09-07 06:47:00 Outpatient [facility] [id number] [facility] 2019-07-26 16:33:00 2019-07-26 16:33:00 Outpatient E [facility] [id number] [facility] [address] [facility] 2019-07-06 06:12:00 2019-07-06 06:12:00 Outpatient [facility] [id number] [facility] [address] [facility] 2019-06-15 09:19:00 2019-06-15 09:19:00 Outpatient [facility] [id number] [facility] 2019-06-03 13:47:00 2019-06-03 13:47:00 Outpatient [facility] PUL 7503 [facility] 2019-04-28 18:59:00 2019-04-28 18:59:00 Emergency E [facility]SE [id number] [facility] Results Test Description Test Time Test Comments Results Result Co mments Source [facility] [id number] 01:13:25* Test Item Value Reference Range Interpretation Comme [facility] POC Glu (test code = 7435909884) 107 mg/dL 70-99 H POC Performing Location (mik t code = 5730493063) J7 NSICU Lab Interpretation (test cod e = 83658-9) Abnormal [facility] [id number] 09:09:00* Test Item Value Reference Range Interpretation Comme nts Point of Care Testing (test code = [...] intracranial hemorrhage. He was subsequently transferred to [facility] NSICU on 05/25/2024 for higher level of [...] and Plan by systems. ASSESSMENT AND PLAN Leonelnasir Lomeli, 79 y.o. 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 male presenting with dysphagia. Past Medical History He has a past medical history of Aneurysm (CMS/HCC) ([facility]), COPD (chronic obstructive pulmonary disease) (HCC), DVT [...] Dysphagia, unspecified EGD Current Diet: NPO Diet [facility]"
--- NOTE | 2024-08-07 13:39 | RAD REPORT ---
EXAMINATION: CTA NECK CLINICAL INDICATION: Male, 79 years old. AMS, stroke alert TECHNIQUE: Axial CT images were obtained from the aortic arch to the skull base after intravenous con trast utilizing angiographic protocol with 3D post-processing (maximum intensity projection images, volume rendered images and/or shaded surface rendered images). One or more of the following dose redu ction techniques were used: Automated exposure control, adjustment of the mA and/or kV according to patient size, and/or iterative reconstruction. Unless otherwise specified, incidental findings do not require dedicated imaging follow-up. [id number]. NASCET criteria used. Mild 0-49% stenosis Moderate 50-69% stenosis Severe 70-99% stenosis COMPARISON: 05/24/2024 FINDINGS: AORTA: Atherosclerosis. Three-vessel arch. CCA: Mild calcified and noncalcified plaque involving both common carotid arteries but no flow-limiti ng stenosis. ICA/ECA: Calcified and noncalcified plaque is present at both carotid bulbs. On the left, there is a moderate 50-69% stenosis. The external carotid arteries are patent. VERTEBRAL: The cervical vertebral arteries are patent and codominant. SOFT TISSUE: No significant neck soft tissue abnormalities. The visualized lung apices are clear. 3D images confirm these findings. IMPRESSION: Moderate (50-69%) stenosis at the left proximal ICA. The previous carotid ultrasound from 05/24/2024 likely overestimated the degree of stenosis. The right carotid system is patent.
--- NOTE | 2024-08-07 13:41 | RAD REPORT ---
EXAMINATION: CT HEAD stroke WITHOUT CONTRAST CLINICAL INDICATION: Male, 79 years old.STROKE ALERT TECHNIQUE: Axial CT images from the skull base to the vertex without intravenous contrast. Coronal an d sagittal reformatted images were created from the data set. One or more of the following dose reduction techniques were used: Automated exposure control, adjustment of the mA and/or kV according to patient size, and/or iterative reconstruction. Unless otherwise specified, incidental findings do not require dedicated imaging follow-up. [id number]. COMPARISON: 06/30/2024 FINDINGS: INTRACRANIAL: No acute intracranial hemorrhage. No hydrocephalus. No mass effect or midline shift. Mi ld chronic small vessel ischemic changes.Mild cerebral atrophy. Remote right spears radiata lacunar infarct adjacent to the frontal horn of right lateral ventricle. VASCULATURE: No visualized abnormalities in the arteries or dural venous sinuses. SCALP/SKULL: No significant soft tissue or osseous abnormalities. SINUSES: The visualized paranasal sinuses and mastoid air cells are predominantly clear. IMPRESSION: No acute intracranial abnormality. Conveyed to Dr. Morales by Dr. Blake at 1327 on 08/07/24
[2024-08-07 13:44] LABS: Absolute Eosinophils 0.4 K/uL (0-0.5); Absolute Lymphocytes (CBC) 1.7 K/uL (0.7-4.9); Absolute Monocytes 0.8 K/uL (0.1-1.3); Absolute Neutrophil 4.7 K/uL (1.8-8.0); Basophils % 0.4 % (0-1.3); Eosinophils % 5.4 % (0-4.4); Hematocrit 37.1 % (39.6-49.0); Hemoglobin 11.9 g/dL (13.6-17.9); Lymphocytes % 21.8 % (15.3-44.8); MCH 29.7 pg (27.0-35.0); MCHC 32.1 g/dL (32.0-36.0); MCV 92.6 fL (80-100); MPV 9.1 fL (7.6-11.3); Monocytes % 10.9 % (3.3-12.3); Neutrophils % 61.5 % (41.7-73.7); Platelets 142 thou/uL (152-406); RBC Red Blood Cell Count 4.01 M/uL (4.33-5.43); Red Cell Distribution Width 14.9 % (12.1-15.2)
--- NOTE | 2024-08-07 13:45 | RAD REPORT ---
EXAMINATION: CTA HEAD CLINICAL INDICATION: Male, 79 years old. AMS;a STROKE ALERT TECHNIQUE: Axial CT images were obtained through the head after intravenous contrast utilizing angiog raphic protocol with 3D post-processing (maximum intensity projection images, volume rendered images and/or shaded surface rendered images). One or more of the following dose reduction technique s were used: Automated exposure control, adjustment of the mA and/or kV according to patient size, and/or iterative reconstruction. Unless otherwise specified, incidental findings do not require dedic ated imaging follow-up. COMPARISON: 05/25/2024 FINDINGS: ICA: The petrous, cavernous, and supraclinoid segments of the bilateral internal carotid arteries are normal. The ophthalmic artery origins are visualized and normal. The posterior communicating arteries are patent. Calcified plaque is present involving the bilateral cavernous carotids. RALPH: Anterior cerebral arteries are normal bilaterally. The anterior communicating artery is patent. 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 This projects an teriorly and laterally. No other aneurysms are identified. No MCA occlusion identified. PUZZLE ASSEMBLER: Posterior cerebral arteries are normal bilaterally. Vertebrobasilar: The vertebral arteries are patent. The basilar artery is normal in appearance. 3D images confirm these findings. IMPRESSION: No occlusion or hemodynamically significant stenosis. 8 mm saccular aneurysm arising at the trifurcat ion of the right distal M1 MCA is unchanged.
[2024-08-07 13:48] LABS: PT Prothrombin Time 11.2 SECONDS (9.4-12.5); PTT, Activated Partial Thromb 34.7 SECONDS (24.3-36.9)
[2024-08-07 13:59] LABS: Anion Gap 5.7 mEq/L (5.0-15.0); Potassium 3.7 mEq/L (3.5-5.1); Troponin High Sensitivity 8.7 pg/mL (<58.9)
[2024-08-07] MEDS ORDERED: ASPIRIN 325 MG TAB ONE (14:18)
[2024-08-07] MEDS ORDERED: FOLIC ACID 5 MG/ML VIAL ONE (14:19)
[2024-08-07] MEDS ORDERED: NA CHLORIDE 0.9% 500 ML ONE (14:20)
--- NOTE | 2024-08-07 14:30 | EDPHYS ---
Physician Documentation [facility] Name: Damian Lomeli Age: 79 yrs Sex: Male : 1945 Arrival Date: 08/07/2024 Time: 13:11 Bed 4 Private MD: ED Physician Singh Morales HPI: 08/07 13:16 This 79 yrs old Male presents to ER via Unassigned with complaints of AMS, rn unresponsive. 13:16 Patient brought in by EMS for being unresponsive. Patient unable to communicate rn verbally. Unknown last known normal. Patient denies pain and can answer yes or no. Patient not alert or oriented enough to answer his last known normal himself. No family to ask. EMS states no but he had seen able to give last known normal either. EMS reports told by bystander that he has a history of stroke but could not get any more information or his neurological baseline. They report normal glucose. No evidence or signs of trauma.. 14:26 The patient presents with decreased responsiveness. Onset: The symptoms/episode rn began/occurred today. Current symptoms: In the emergency department the patient's symptoms have improved. It is unknown whether or not the patient has had similar symptoms in the past. Historical: - Allergies: 13:17 No Known Allergies; bp - Home Meds: 13:17 atorvastatin 80 mg Oral tablet daily [Active]; carvedilol 3.125 mg Oral tablet 1 tab 2 bp times per day [Active]; clopidogrel 75 mg Oral tablet 1 tab daily [Active]; donepezil 10 mg Oral tablet daily [Active]; escitalopram oxalate 5 mg Oral tablet daily [Active]; ezetimibe 10 mg Oral tablet 1 tab daily [Active]; furosemide 40 mg Oral tablet 1.5 tabs daily [Active]; quetiapine 50 mg Oral tablet daily [Active]; ropinirole 2 mg Oral tablet daily [Active]; trazodone 50 mg Oral tablet every day at bedtime [Active]; valsartan 80 mg Oral tablet daily [Active]; levocetirizine 5 mg Oral tablet every day at bedtime [Active]; montelukast 10 mg Oral tablet daily [Active]; - PMHx: 13:17 abdominal aneurism (VA); Alzheimer's disease; blood clots (VA); brain aneurism (VA); bp CHF; Hypercholesterolemia; Hypertensive disorder; insomnia; [place]; Umbilical hernia ([place]); - PSHx: 13:17 cardiac bypass; carddiac stents; Appendectomy; bp - Immunization history:: Adult Immunizations up to date. - Infectious Disease History:: Denies. - Social history:: Smoking status: Patient denies any tobacco usage or history of. - Family history:: not pertinent. - Hospitalizations: : No recent hospitalization is reported. ROS: 14:26 Unable to obtain ROS due to altered mental status, rn Exam: 14:26 Constitutional: This is a well developed, well nourished patient who is somnolent but rn awakens to voice and pain Head/Face: Normocephalic, atraumatic. Eyes: Pupils pinpoint Cardiovascular: Bradycardic, regular Respiratory: Mild tachypnea Abdomen/GI: Soft, nontender, nondistended Neuro: Somnolent but awakens to voice and pain. Exhibits right facial droop and left lower extremity weakness. Mumbles and incomprehensible speech, does not cooperate with majority of exam Vital Signs: 13:20 BP 140 / 70; Pulse 50; Resp 15; Temp 98; Pulse Ox 97% ; bp 13:30 BP 161 / 48; Pulse 56; Resp 27; Pulse Ox 96% ; bp 14:31 BP 137 / 46; Pulse 46; Resp 19; Pulse Ox 95% ; bp 16:00 BP 138 / 50; Pulse 43; Resp 14; Pulse Ox 100% ; bp NIH Stroke Scale Scores: 13:31 NIHSS Score: 9 bp 14:26 NIHSS Score: 11 rn MDM: 13:11 Medical Screening Exam initiated rn 14:01 ED course: Discussed case with Dr. Marquis, agrees that is contraindication to TNK due rn to cerebral aneurysm. He recommends transferring for higher level of care possible intravascular intervention given last known normal is 4 hours per family member who just arrived.. 14:06 ED course: New family member arrived and states last known normal was this morning at rn 10 AM. Patient still not TNK candidate due to cerebral aneurysm, although unchanged, is contraindication of TNK.. 14:28 Differential Diagnosis: CVA, electrolyte abnormality, hypoglycemia, intracranial bleed, rn volume depletion. Data reviewed: vital signs, nurses notes, lab test result(s), radiologic studies, CT scan, and as a result, I will admit patient. Consideration of Admission/Observation Patient was admitted/placed on observation. Escalation of care including admission/observation considered. Counseling: I had a detailed discussion with the patient and/or guardian regarding the historical points, exam findings, and any diagnostic results supporting the discharge/admit diagnosis, lab results, radiology results, the need for further work-up and treatment in the hospital, the need to transfer to another facility, for higher level of care, [facility] does not immediately have the required specialist. 14:28 ED course: I personally spent 35 minutes engaged in work directly related to the rn individual patient's care. This does not include any time spent performing procedures. The patient has been deemed critically ill because due to altered mental status presenting within the window of TNK, review of medical records and discussion of case with neurology as well as family and organizing transfer.. 08/07 13:14 Order name: Basic Metabolic Panel; Complete Time: 14:06 rn 08/07 13:14 Order name: CBC with Diff; Complete Time: 13:58 rn 08/07 13:14 Order name: High Sensitivity Troponin; Complete Time: 14:06 rn 08/07 13:14 Order name: Magnesium; Complete Time: 14:06 rn 08/07 13:14 Order name: Protime (+inr); Complete Time: 13:58 rn 08/07 13:14 Order name: Ptt, Activated; Complete Time: 13:58 rn 08/07 13:14 Order name: CT Head Angio; Complete Time: 13:47 rn 08/07 13:14 Order name: CT Neck Angio; Complete Time: 13:47 rn 08/07 13:14 Order name: CT Stroke Brain w/o Contrast; Complete Time: 13:47 rn 29 13:14 Order name: Stroke CXR 1 View; Complete Time: 14:40 rn 08/07 13:14 Order name: Accucheck; Complete Time: 13:31 rn 08/07 13:14 Order name: Cardiac monitoring; Complete Time: 13:31 rn 08/07 13:14 Order name: EKG - Nurse/Tech; Complete Time: 13:34 rn 08/07 13:14 Order name: IV Saline Lock; Complete Time: 13:31 rn 08/07 13:14 Order name: Labs collected and sent; Complete Time: 13:31 rn 08/07 13:14 Order name: NPO; Complete Time: 13:31 rn 08/07 13:14 Order name: O2 Per Protocol; Complete Time: 13:31 rn 08/07 13:14 Order name: O2 Sat Monitoring; Complete Time: 13:31 rn 08/07 13:14 Order name: Stroke Swallow Screen; Complete Time: 13:31 rn Administered Medications: 14:15 Drug: Aspirin ME Suppository 300 mg ME once Route: ME; bp 16:12 Follow up: Response: No adverse reaction bp 14:15 Drug: NS 0.9% IV 500 ml 500 ml IV at 1 bolus once; to be given as a bolus over 30 bp minutes Volume: 500 ml; Route: IV; Rate: 1 bolus; Site: left hand; 16:12 Follow up: IV Status: Completed infusion bp 14:15 Drug: foLIC Acid IVPB 1 mg IVPB once Route: IVPB; Site: left hand; bp 16:12 Follow up: IV Status: Completed infusion bp Disposition: 14:28 Critical Care:. rn Disposition Summary: 08/07/24 14:29 Transfer Ordered Notes: Transfer Location: [facility] rn Reason: Higher level of care rn Condition: Stable rn Problem: new rn Symptoms: have improved rn Accepting Physician: (08/07/24 16:57) bp Diagnosis - Cerebral infarction, unspecified rn - Cerebral aneurysm, nonruptured rn - Altered mental status, unspecified rn Forms: - Medication Reconciliation Form rn - SBAR form online journalist time excluding procedures: 14:28 Critical care time: Bedside Care: 20 minutes, Consultation: 5 minutes, Family rn Intervention: 10 minutes. Total time: 35 minutes NIH Stroke Scale - NIH Stroke Score Date: 08/07/2024 Time: :31 Total Score = 9 10. Dysarthria (speech clarity - read or repeat words) - 2(Severe) 11. Extinction and Inattention (visual/tactile/auditory/spatial/personal) - 0(No abnormality) 1a. Level of Consciousness (LOC) - 1(Not Alert) 1b. Level of Consciousness (LOC) (Month \T\ Age) - 2(Neither) 1c. LOC Commands (Open \T\ Closes Eyes/Material Stress Tester) - 1(One) 2. Best Gaze (Lateral Gaze Paresis) - 0(Normal) 3. Visual Field Loss - 0(No visual loss) 4. Facial Palsy - 0(Normal) 5a. Left Arm: Motor (10-second hold) - 0(No drift) 5b. Right Arm: Motor (10-second hold) - 0(No drift) 6a. Left Leg: Motor (5-second hold - always test supine) - 0(No drift) 6b. Right Leg: Motor (5-second hold - always test supine) - 0(No drift) 7. Limb Ataxia (finger/nose \T\ heel/braga - test with eyes open) - 0(Absent) 8. Sensory Loss (pinprick arms/legs/face) - 0(Normal) 9. Best Language: Aphasia (description/naming/reading) - 3(Mute, global aphasia) Initials: bp NIH Stroke Scale - NIH Stroke Score Date: 08/07/2024 Time: 14:26 Total Score = 11 10. Dysarthria (speech clarity - read or repeat words) - 1(Mild to Moderate) 11. Extinction and Inattention (visual/tactile/auditory/spatial/personal) - 0(No abnormality) 1a. Level of Consciousness (LOC) - 1(Not Alert) 1b. Level of Consciousness (LOC) (Month \T\ Age) - 2(Neither) 1c. LOC Commands (Open \T\ Closes Eyes/Material Stress Tester) - 2(Neither) 2. Best Gaze (Lateral Gaze Paresis) - 0(Normal) 3. Visual Field Loss - 0(No visual loss) 4. Facial Palsy - 1(Minor Paralysis) 5a. Left Arm: Motor (10-second hold) - 0(No drift) 5b. Right Arm: Motor (10-second hold) - 0(No drift) 6a. Left Leg: Motor (5-second hold - always test supine) - 2(Drift, some effort against gravity) 6b. Right Leg: Motor (5-second hold - always test supine) - 0(No drift) 7. Limb Ataxia (finger/nose \T\ heel/braga - test with eyes open) - 0(Absent) 8. Sensory Loss (pinprick arms/legs/face) - 0(Normal) 9. Best Language: Aphasia (description/naming/reading) - 2(Severe aphasia) Initials: rn Signatures: Dispatcher [employer] EDMS Morales, Singh, MD MD rn Joseline, Evaristo, RN RN bp Corrections: (The following items were deleted from the chart) 13: 13:14 CT-STROKE BRAIN W/O CONTRAST+CT.RAD.BRZ ordered. EDMS EDMS 13: 13:14 Chest Single View+RAD.RAD.BRZ ordered. EDMS EDMS 14: 13:17 NIHSS Score: 9 rn rn 14: 14:10 NIHSS Score: 11 rn rn 14:29 14:29 Dr. escobar rn 16:57 14:29 Dr. escobar bp
--- NOTE | 2024-08-07 14:30 | ER ---
Nurse's Notes [facility] Name: Damian Lomeli Age: 79 yrs Sex: Male : 1945 Arrival Date: 08/07/2024 Time: 13:11 Bed 4 Private MD: Diagnosis: Cerebral infarction, unspecified;Cerebral aneurysm, nonruptured;Altered mental status, unspecified Presentation: 08/07 13:20 Chief complaint: EMS states: FOUND DOWN AT [facility], LAST KNOWN NORMAL 1200. Coronavirus bp screen: At this time, the client does not indicate any symptoms associated with coronavirus-19. Ebola Screen: No symptoms or risks identified at this time. Initial Sepsis Screen: Does the patient meet any 2 criteria? No. Patient's initial sepsis screen is negative. Does the patient have a suspected source of infection? No. Patient's initial sepsis screen is negative. Risk Assessment: Do you want to hurt yourself or someone else? Patient reports no desire to harm self or others. Note EST LKN START OF SERVICE 1200. Onset of symptoms was August 07, 2024 at 12:00. Care prior to arrival: IV initiated. 22 GA, in the left hand, Glucose check: 180. 13:20 Method Of Arrival: EMS: [facility] bp 13:20 Acuity: CHAD 2 bp Triage Assessment: 13:22 General: Appears distressed, unkempt, Behavior is uncooperative, unresponsive. Pain: bp Unable to use pain scale. Patient is unresponsive. EENT: No deficits noted. Neuro: Level of Consciousness is listless, Oriented to none Speech with expressive aphasia noted. Cardiovascular: Rhythm is sinus bradycardia. Respiratory: No deficits noted. GI: No signs and/or symptoms were reported involving the gastrointestinal system. : No signs and/or symptoms were reported regarding the genitourinary system. Derm: No deficits noted. Musculoskeletal: No deficits noted. Historical: - Allergies: 13:17 No Known Allergies; bp - Home Meds: 13:17 atorvastatin 80 mg Oral tablet daily [Active]; carvedilol 3.125 mg Oral tablet 1 tab 2 bp times per day [Active]; clopidogrel 75 mg Oral tablet 1 tab daily [Active]; donepezil 10 mg Oral tablet daily [Active]; escitalopram oxalate 5 mg Oral tablet daily [Active]; ezetimibe 10 mg Oral tablet 1 tab daily [Active]; furosemide 40 mg Oral tablet 1.5 tabs daily [Active]; quetiapine 50 mg Oral tablet daily [Active]; ropinirole 2 mg Oral tablet daily [Active]; trazodone 50 mg Oral tablet every day at bedtime [Active]; valsartan 80 mg Oral tablet daily [Active]; levocetirizine 5 mg Oral tablet every day at bedtime [Active]; montelukast 10 mg Oral tablet daily [Active]; - PMHx: 13:17 abdominal aneurism (NC); Alzheimer's disease; blood clots (NC); brain aneurism (NC); bp CHF; Hypercholesterolemia; Hypertensive disorder; insomnia; NC; Umbilical hernia (NC); - PSHx: 13:17 cardiac bypass; carddiac stents; Appendectomy; bp - Immunization history:: Adult Immunizations up to date. - Infectious Disease History:: Denies. - Social history:: Smoking status: Patient denies any tobacco usage or history of. - Family history:: not pertinent. - Hospitalizations: : No recent hospitalization is reported. Screenin:24 [facility] ED Fall Risk Assessment (Adult) History of falling in the last 3 months, bp including since admission Yes- physiologic fall (2 pts) Confusion or Disorientation Yes (5 pts) Intoxicated or Sedated No (0 pts) Impaired Gait No (0 pts) Mobility Assist Device Used Yes (1 pt) Altered Elimination No (0 pt) Score/Fall Risk Level 3 or more points = High Risk Oriented to surroundings, Maintained a safe environment. Abuse screen: Denies threats or abuse. Denies injuries from another. Nutritional screening: No deficits noted. Tuberculosis screening: No symptoms or risk factors identified. Assessment: 13:23 General: CODE STROKE 1309. bp 13:30 Reassessment: PT RETURNED FROM CT. bp 14:31 Reassessment: TRANSFER INITIATED. bp 15:45 Reassessment: ATTEMPTED TO CALL REPORT [facility], NO ANSWER. bp 16:00 Reassessment: ATTEMPTED TO CALL REPORT [facility], NO ANSWER. bp 16:10 Reassessment: ATTEMPTED TO CALL REPORT TO [facility], LEFT MESSAGE FOR NURSE, bp NURSE UNAVAILABLE. 16:55 Reassessment: EMS AT B/S FOR TRANSPORT. bp Vital Signs: 13:20 BP 140 / 70; Pulse 50; Resp 15; Temp 98; Pulse Ox 97% ; bp 13:30 BP 161 / 48; Pulse 56; Resp 27; Pulse Ox 96% ; bp 14:31 BP 137 / 46; Pulse 46; Resp 19; Pulse Ox 95% ; bp 16:00 BP 138 / 50; Pulse 43; Resp 14; Pulse Ox 100% ; bp NIH Stroke Scale Scores: 13:31 NIHSS Score: 9 bp 14:26 NIHSS Score: 11 contemporary or modern dancer Course: 13:11 Patient arrived in ED. rn 13:11 iSngh Morales MD is Attending Physician. rn 13:17 Evaristo Trevizo, MAGNUS is Primary Nurse. bp 13:21 Triage completed. bp 13:22 Arm band placed on. bp 13:22 Maintain EMS IV. Dressing intact. Good blood return noted. Site clean \T\ dry. Gauge \T\ bp site: 22 GA L HAND. Flushed with 10 mL NS. 13:23 Initial lab(s) drawn, by me, sent to lab. Inserted saline lock: 20 gauge in right bp antecubital area, using aseptic technique. Blood collected. Flushed with 10 mL NS. 13:24 Patient has correct armband on for positive identification. bp 13:30 CT Head Angio In Process Unspecified. EDMS 13:33 CT Neck Angio In Process Unspecified. EDMS 13:33 CT Stroke Brain w/o Contrast In Process Unspecified. EDMS 13:36 EKG done, by ED staff, reviewed by Singh Morales MD. ss 14:26 Stroke CXR 1 View In Process Unspecified. EDMS 14:38 initiated a transfer with Zina from the [facility] Transfer [place]. eb 14:[address] Hernandez the neuro boner meat for [facility] with Dr. Morales for patient eb transfer consulltation. 15:[address] Strange the hospitalist boner meat for [facility] with Dr. Morales for eb patient transfer consultation. 15:48 administrative approval given by Zina Estes Rn/ patient has been accepted to [facility] room 705/ report to be called to [phone]/ Dr. Strange has accepted the patient in transfer/. 16:09 No provider procedures requiring assistance completed. Patient transferred, IV remains bp in place. Administered Medications: 14:15 Drug: Aspirin KS Suppository 300 mg KS once Route: KS; bp 16:12 Follow up: Response: No adverse reaction bp 14:15 Drug: NS 0.9% IV 500 ml 500 ml IV at 1 bolus once; to be given as a bolus over 30 bp minutes Volume: 500 ml; Route: IV; Rate: 1 bolus; Site: left hand; 16:12 Follow up: IV Status: Completed infusion bp 14:15 Drug: foLIC Acid IVPB 1 mg IVPB once Route: IVPB; Site: left hand; bp 16:12 Follow up: IV Status: Completed infusion bp Medication: 16:55 VIS not applicable for this client. bp Outcome: 14:29 ER care complete, transfer ordered by MD. escobar 16:55 Transferred by ground EMS to [facility], Transfer form completed. bp 16:55 Condition: stable 16:55 Instructed on the need for transfer, 16:57 Patient left the ED. bp NIH Stroke Scale - NIH Stroke Score Date: 08/07/2024 Time: 13:31 Total Score = 9 10. Dysarthria (speech clarity - read or repeat words) - 2(Severe) 11. Extinction and Inattention (visual/tactile/auditory/spatial/personal) - 0(No abnormality) 1a. Level of Consciousness (LOC) - 1(Not Alert) 1b. Level of Consciousness (LOC) (Month \T\ Age) - 2(Neither) 1c. LOC Commands (Open \T\ Closes Eyes/Licensed Electrician) - 1(One) 2. Best Gaze (Lateral Gaze Paresis) - 0(Normal) 3. Visual Field Loss - 0(No visual loss) 4. Facial Palsy - 0(Normal) 5a. Left Arm: Motor (10-second hold) - 0(No drift) 5b. Right Arm: Motor (10-second hold) - 0(No drift) 6a. Left Leg: Motor (5-second hold - always test supine) - 0(No drift) 6b. Right Leg: Motor (5-second hold - always test supine) - 0(No drift) 7. Limb Ataxia (finger/nose \T\ heel/braga - test with eyes open) - 0(Absent) 8. Sensory Loss (pinprick arms/legs/face) - 0(Normal) 9. Best Language: Aphasia (description/naming/reading) - 3(Mute, global aphasia) Initials: bp NIH Stroke Scale - NIH Stroke Score Date: 08/07/2024 Time: 14:26 Total Score = 11 10. Dysarthria (speech clarity - read or repeat words) - 1(Mild to Moderate) 11. Extinction and Inattention (visual/tactile/auditory/spatial/personal) - 0(No abnormality) 1a. Level of Consciousness (LOC) - 1(Not Alert) 1b. Level of Consciousness (LOC) (Month \T\ Age) - 2(Neither) 1c. LOC Commands (Open \T\ Closes Eyes/Licensed Electrician) - 2(Neither) 2. Best Gaze (Lateral Gaze Paresis) - 0(Normal) 3. Visual Field Loss - 0(No visual loss) 4. Facial Palsy - 1(Minor Paralysis) 5a. Left Arm: Motor (10-second hold) - 0(No drift) 5b. Right Arm: Motor (10-second hold) - 0(No drift) 6a. Left Leg: Motor (5-second hold - always test supine) - 2(Drift, some effort against gravity) 6b. Right Leg: Motor (5-second hold - always test supine) - 0(No drift) 7. Limb Ataxia (finger/nose \T\ heel/braga - test with eyes open) - 0(Absent) 8. Sensory Loss (pinprick arms/legs/face) - 0(Normal) 9. Best Language: Aphasia (description/naming/reading) - 2(Severe aphasia) Initials: rn Signatures: Dispatcher [employer] Singh Muller MD MD rn Blanchard, Shelby, RN RN ss Peltier, Brian, RN RN bp Botello, Elizabeth eb Corrections: (The following items were deleted from the chart) 13:34 13:31 Reassessment: PT RETURNED FROM [facility]
--- NOTE | 2024-08-07 14:35 | RAD REPORT ---
EXAM: Chest Single View HISTORY: stroke alert COMPARISON: 05/23/2023 FINDINGS: LUNGS/PLEURA: Low lung volumes. Increased prominence of the pulmonary interstitium. Similar partial o bscuration of the left hemidiaphragm which remains elevated.. MEDIASTINUM: The mediastinal silhouette is within normal limits. CARDIAC: Stable size and configuration. UPPER ABDOMEN: No significant abnormality. BONES: Sternotomy. No acute abnormality. LINES/TUBES/OTHER: N/A IMPRESSION: Decreased lung volumes from prior which may be accentuating the pulmonary vascular markings. Edema is difficult to entirely exclude, however. The left lung base is not well assessed which may be due to underpenetration, a finding which has been present on prior exams as well.
[2024-08-07 17:23] VITALS: TEMP 98
[2024-08-07 17:29] VITALS: BP 138/50; O2SAT 100
--- NOTE | 2024-08-08 11:10 | EKG ---
Test Date: 2024-08-07 Test Time: 13:34:12 Polysomnography Technologist: SIMRAN MEASUREMENT RESULTS: Intervals: Rate: 53 NJ: 182 QRSD: 156 QT: 484 QTc: 454 Caruthers: P: 41 NJ: 182 QRS: -28 T: 46 INTERPRETIVE STATEMENTS: Sinus bradycardia Right bundle branch block Inferior infarct, age undetermined Abnormal ECG Compared to ECG 06/30/2024 00:41:01 No significant changes Electronically Signed On 08-08-24 11:08:54 PIN SETTER by Xavi Patiño
== END 2024-08-07 16:57 | disposition short-term general hospital (02) ==
LOC: ER 13:11
DX: I63.9 Cerebral infarction, unspecified (principal); I67.1 Cerebral aneurysm, nonruptured; R29.711 NIHSS score 11; I10 Essential (primary) hypertension; I50.9 Heart failure, unspecified; G30.9 Alzheimer's disease, unspecified; F02.80 Dementia in other diseases classified elsewhere, unspecified severity, without behavioral disturbance, psychotic disturbance, mood disturbance, and anxiety; Z95.1 Presence of aortocoronary bypass graft
CPT/HCPCS: 96365; 93005; 85025; 80048; 36415; 83735; 85610; 82565; 82947; 85730; 84484; 70496; 70498; 70450; 71045; 99285; 96366; Q9967; J7040

== ENCOUNTER 2024-11-10 17:56 | Inpatient (IN) | payer OTHER ==
[2024-11-10 19:09] LABS: Absolute Eosinophils 0.4 K/uL (0-0.5); Absolute Lymphocytes (CBC) 1.6 K/uL (0.7-4.9); Absolute Monocytes 0.4 K/uL (0.1-1.3); Absolute Neutrophil 1.9 K/uL (1.8-8.0); Basophils % 0.5 % (0-1.3); Eosinophils % 9.8 % (0-4.4); Hematocrit 35.6 % (39.6-49.0); Hemoglobin 11.9 g/dL (13.6-17.9); Lymphocytes % 36.6 % (15.3-44.8); MCH 29.9 pg (27.0-35.0); MCHC 33.4 g/dL (32.0-36.0); MCV 89.5 fL (80-100); MPV 8.6 fL (7.6-11.3); Neutrophils % 43.1 % (41.7-73.7); Nucleated Red Blood Cells % 0.2 % (0-0); Platelets 140 thou/uL (152-406); RBC Red Blood Cell Count 3.98 M/uL (4.33-5.43); Red Cell Distribution Width 14.9 % (12.1-15.2)
[2024-11-10] MEDS ORDERED: HYDRALAZINE HCL 20 MG/ML VIAL ONE (19:22)
[2024-11-10 19:27] LABS: Albumin 3.3 g/dL (3.4-5.0); Albumin/Globulin Ratio 0.9 (1.1-1.8); Anion Gap 4.8 mEq/L (5.0-15.0); Bilirubin Direct 0.3 mg/dL (0-0.2); Bilirubin Indirect, Calculated 0.7 mg/dL (0.2-0.8); Globulin 3.5 g/dL (2.3-3.5); Magnesium 2.1 mg/dL (1.6-2.4); Potassium 3.8 mEq/L (3.5-5.1); Protein, Total 6.8 g/dL (6.4-8.2); Troponin High Sensitivity 11.5 pg/mL (<58.9)
--- NOTE | 2024-11-10 19:28 | RAD REPORT ---
EXAMINATION: Head Brain Wo Cont CLINICAL INDICATION: Male, 79 years old.MENTAL STATUS CHANGE TECHNIQUE: Axial CT images from the skull base to the vertex without intravenous contrast. Coronal an d sagittal reformatted images were created from the data set. One or more of the following dose reduction techniques were used: Automated exposure control, adjustment of the mA and/or kV according to patient size, and/or iterative reconstruction. Unless otherwise specified, incidental findings do not require dedicated imaging follow-up. [id number]. COMPARISON: 08/07/2024 FINDINGS: INTRACRANIAL: No acute intracranial hemorrhage. No hydrocephalus. No mass effect or midline shift. Mi ld chronic small vessel ischemic changes.Mild cerebral atrophy. Remote right spears radiata lacunar infarct. VASCULATURE: No visualized abnormalities in the arteries or dural venous sinuses. SCALP/SKULL: No calvarial fracture identified. No acute soft tissue abnormality. SINUSES: Circumferential thickening left maxillary sinus. No significant mastoid fluid. IMPRESSION: No acute intracranial abnormality. No significant change from prior.
--- NOTE | 2024-11-10 19:30 | RAD REPORT ---
EXAM: Chest Single View HISTORY: 79 years Male CHEST PAIN COMPARISON: 08/07/24 FINDINGS: LUNGS/PLEURA: Diffuse prominence of the pulmonary interstitium. CARDIAC/MEDIASTINUM: Moderate cardiomegaly. UPPER ABDOMEN: No significant abnormality. BONES: Sternotomy. No acute abnormality. LINES/TUBES/OTHER: N/A IMPRESSION: Low lung volumes with diffuse prominence of the pulmonary interstitium. This which could reflect eith er edema or accentuation of the vasculature due to portable technique and low lung volumes.
[2024-11-10 20:16] LABS: Specific Gravity 1.014 (1.005-1.030); Urine Bilirubin NEGATIVE (Negative); Urine Blood Negative (Negative); Urine Clarity Clear (Clear); Urine Color Light-Yellow (Yellow); Urine Glucose NEGATIVE (Negative); Urine Ketones NEGATIVE (Negative); Urine Microscopic Reflex YN NO UMIC; Urine Nitrite NEGATIVE (Negative); Urine Protein NEGATIVE (Negative); Urine Urobilinogen Normal (Normal); Urine pH 7.5 (5.0-7.0)
--- NOTE | 2024-11-10 20:36 | ER ---
Nurse's Notes [facility] Name: Damian Lomeli Age: 79 yrs Sex: Male : 1945 Arrival Date: 11/10/2024 Time: 17:56 Bed 20 Private MD: Diagnosis: Syncope Near;Hypertensive heart disease without heart failure;Lower abdominal pain, unspecified Presentation: 11/10 17:58 Chief complaint: EMS states: family reported he was unresponsive slumped over in a aa5 chair, upon scene arrival pt was awake and alert A\\T\\O x person and place. Pt reports feeling "tired", reports abdominal pain. 17:58 Coronavirus screen: At this time, the client does not indicate any symptoms associated aa5 with coronavirus-19. Ebola Screen: Patient denies travel to an Ebola-affected area in the 21 days before illness onset. Initial Sepsis Screen: Does the patient meet any 2 criteria? No. Patient's initial sepsis screen is negative. Does the patient have a suspected source of infection? No. Patient's initial sepsis screen is negative. Risk Assessment: Do you want to hurt yourself or someone else? Patient reports no desire to harm self or others. Onset of symptoms was November 10, 2024. 17:58 Acuity: CHAD 2 aa5 17:58 Method Of Arrival: EMS: [facility] aa 17:58 Care prior to arrival: Glucose check: 133. aa5 Historical: - Allergies: 17:58 morphine; aa5 - Home Meds: 19:05 donepezil 10 mg Oral tablet every day at bedtime [Active]; carvedilol 3.125 mg Oral aa5 tablet 1 tab 2 times per day [Active]; clopidogrel 75 mg Oral tablet 1 tab daily [Active]; valsartan 80 mg Oral tablet 2 times per day [Active]; ezetimibe 10 mg Oral tablet 1 tab daily [Active]; escitalopram oxalate 5 mg Oral tablet daily [Active]; pantoprazole 40 mg oral tablet, delayed release (enteric coated) daily [Active]; levocetirizine 5 mg Oral tablet every day at bedtime [Active]; montelukast 10 mg Oral tablet daily [Active]; atorvastatin 80 mg Oral tablet daily [Active]; quetiapine 50 mg Oral tablet every day at bedtime [Active]; memantine 5 mg oral tablet 2 times per day [Active]; ropinirole 2 mg Oral tablet daily [Active]; - PMHx: 17:58 abdominal aneurism (Unknown); Alzheimer's disease; blood clots (Unknown); brain aa5 aneurism (Unknown); CHF; Hypercholesterolemia; Hypertensive disorder; insomnia; MD; Umbilical hernia (Unknown); - PSHx: 17:58 Appendectomy; heart stents (Unknown); CABG (Unknown); aa5 - Immunization history:: Adult Immunizations unknown. - Infectious Disease History:: Denies. - Social history:: Smoking status: Patient denies any tobacco usage or history of. - History obtained from: Niece. Screenin:00 [facility] ED Fall Risk Assessment (Adult) History of falling in the last 3 months, aa5 including since admission No falls in past 3 months (0 pts) Confusion or Disorientation Yes (5 pts) Intoxicated or Sedated No (0 pts) Impaired Gait No (0 pts) Mobility Assist Device Used No (0 pt) Altered Elimination No (0 pt) Score/Fall Risk Level 3 or more points = High Risk Oriented to surroundings, Maintained a safe environment, Educated pt \\T\\ family on fall prevention, incl call for assistance when getting out of bed, Assessed \\T\\ reinforced patient's understanding of fall precautions. Abuse screen: Denies threats or abuse. Nutritional screening: No deficits noted. Tuberculosis screening: No symptoms or risk factors identified. Assessment: 17:58 General: Appears comfortable, Behavior is calm, cooperative. Pain: Complains of pain in aa5 left upper quadrant and left lower quadrant Pain currently is 5 out of 10 on a pain scale. Neuro: Level of Consciousness is awake, alert, obeys commands, Oriented to person, place, situation, Curriculum Designer are equal bilaterally Moves all extremities. Speech is normal, Facial symmetry appears normal, Reports generalized weakness . Denies paresthesias numbness. Cardiovascular: Heart tones S1 S2 present Rhythm is sinus bradycardia. Respiratory: Airway is patent Respiratory effort is even, unlabored, Respiratory pattern is regular, symmetrical. GI: Abdomen is round non-distended, Bowel sounds present X 4 quads. Abdomen is tender to palpation in left upper quadrant and left lower quadrant Patient currently denies nausea, vomiting. : No signs and/or symptoms were reported regarding the genitourinary system. EENT: No signs and/or symptoms were reported regarding the EENT system. Derm: Skin is pink, warm \\T\\ dry. Musculoskeletal: Range of motion: intact in all extremities. 19:00 Reassessment: Patient is alert, oriented x 3, equal unlabored respirations, skin aa5 warm/dry/pink. Pt to CT scan. Vital Signs: 17:58 BP 202 / 67; Pulse 50; Resp 16 S; Temp 97.5(TE); Pulse Ox 100% on R/A; Weight 87.54 kg aa5 (R); Height 5 ft. 9 in. (R); Pain 5/10; 19:20 BP 203 / 69; Pulse 51; Resp 18; Pulse Ox 100% ; cp4 20:44 BP 181 / 59; Pulse 56; Resp 18; Pulse Ox 100% ; cp4 22:03 BP 194 / 59; Pulse 60; Resp 16; Pulse Ox 100% ; cp4 17:58 Body Mass Index 28.50 (87.54 kg, 175.26 cm) aa5 17:58 Pain Scale: Adult aa5 NIH Stroke Scale Scores: 20:13 NIHSS Score: 0 ci ED Course: 17:58 Patient arrived in ED. aa5 17:58 Arm band placed on Patient placed in an exam room, on a stretcher. aa5 17:58 Patient has correct armband on for positive identification. Placed in gown. Bed in low aa5 position. Call light in reach. Side rails up X2. Client placed on continuous cardiac and pulse oximetry monitoring. NIBP monitoring applied. property assessment monitor on. Pulse ox on. NIBP on. 17:59 Olive Man RN is Primary Nurse. aa5 18:10 Stephanie Paiz is Attending Physician. ci 18:30 Initial lab(s) drawn, by me, sent to lab. Inserted saline lock: 20 gauge in right aa5 antecubital area, using aseptic technique. Blood collected. Flushed with 10 mL NS. 18:38 First set of blood cultures drawn by me. aa5 18:57 Triage completed. aa5 19:00 No provider procedures requiring assistance completed. aa5 19:00 Report given to MAGNUS Saucedo. aa5 19:20 CT Head Brain wo Cont In Process Unspecified. EDMS 19:26 XRAY Chest (1 view) In Process Unspecified. EDMS 20:35 Daron Everett MD is Hospitalizing Provider. ci 20:37 Attending Physician role handed off by Stephanie Paiz rt 20:37 Rick Goldstein MD is Attending Physician. rt 20:51 CT Abd/Pelvis - IV Contrast Only In Process Unspecified. EDMS 22:36 Patient admitted, IV remains in place. cp4 22:36 Provided Education on: admission. cp4 Administered Medications: 19:25 Drug: hydrALAZINE IVP 10 mg IVP once Route: IVP; Site: right antecubital; cp4 20:45 Follow up: Response: No adverse reaction; Blood pressure is lowered cp4 Medication: 19:09 VIS not applicable for this client. aa5 Outcome: 20:36 Decision to Hospitalize by Provider. ci 22:36 Admitted to Med/surg accompanied by tech, via stretcher, room 214, with chart, cp4 22:36 Condition: stable 22:36 Instructed on the need for admit, 22:37 Patient left the ED. cp4 NIH Stroke Scale - NIH Stroke Score Date: 11/10/2024 Time: 20:13 Total Score = 0 10. Dysarthria (speech clarity - read or repeat words) - 0(Normal) 11. Extinction and Inattention (visual/tactile/auditory/spatial/personal) - 0(No abnormality) 1a. Level of Consciousness (LOC) - 0(Alert) 1b. Level of Consciousness (LOC) (Month \\T\\ Age) - 0(Both) 1c. LOC Commands (Open \\T\\ Closes Eyes/Type Caster) - 0(Both) 2. Best Gaze (Lateral Gaze Paresis) - 0(Normal) 3. Visual Field Loss - 0(No visual loss) 4. Facial Palsy - 0(Normal) 5a. Left Arm: Motor (10-second hold) - 0(No drift) 5b. Right Arm: Motor (10-second hold) - 0(No drift) 6a. Left Leg: Motor (5-second hold - always test supine) - 0(No drift) 6b. Right Leg: Motor (5-second hold - always test supine) - 0(No drift) 7. Limb Ataxia (finger/nose \\T\\ heel/braga - test with eyes open) - 0(Absent) 8. Sensory Loss (pinprick arms/legs/face) - 0(Normal) 9. Best Language: Aphasia (description/naming/reading) - 0(No aphasia) Initials: ci Signatures: Dispatcher [employer] Olive Ramesh, MAGNUS RN aa5 Rick Goldstein MD MD rt Potter, Christina cp4 Stephanie Paiz ci
--- NOTE | 2024-11-10 20:36 | EDPHYS ---
Physician Documentation [facility] [place] Name: Damian Lomeli Age: 79 yrs Sex: Male : 1945 Arrival Date: 11/10/2024 Time: 17:56 Bed 20 Private MD: ED Physician Rick Goldstein HPI: 11/10 19:33 This 79 yrs old Male presents to ER via EMS with complaints of Unresponsive - ci episode. 19:33 Patient also complaining of abdominal pain.Patient is a 79-year-old male with PMH ci Alzheimer's, brain aneurysm who presents with episode of unresponsiveness. Patient's niece reports patient was slumped over in the chair and was not responding. Reports prior episode of similar symptoms and patient was transferred to [facility] where he had negative stroke workup. Patient also complaining of abdominal pain. No nausea/vomiting, denies diarrhea/constipation.. Historical: - Allergies: 17:58 morphine; aa5 - Home Meds: 19:05 donepezil 10 mg Oral tablet every day at bedtime [Active]; carvedilol 3.125 mg Oral aa5 tablet 1 tab 2 times per day [Active]; clopidogrel 75 mg Oral tablet 1 tab daily [Active]; valsartan 80 mg Oral tablet 2 times per day [Active]; ezetimibe 10 mg Oral tablet 1 tab daily [Active]; escitalopram oxalate 5 mg Oral tablet daily [Active]; pantoprazole 40 mg oral tablet, delayed release (enteric coated) daily [Active]; levocetirizine 5 mg Oral tablet every day at bedtime [Active]; montelukast 10 mg Oral tablet daily [Active]; atorvastatin 80 mg Oral tablet daily [Active]; quetiapine 50 mg Oral tablet every day at bedtime [Active]; memantine 5 mg oral tablet 2 times per day [Active]; ropinirole 2 mg Oral tablet daily [Active]; - PMHx: 17:58 abdominal aneurism (Unknown); Alzheimer's disease; blood clots (Unknown); brain aa5 aneurism (Unknown); CHF; Hypercholesterolemia; Hypertensive disorder; insomnia; ID; Umbilical hernia (Unknown); - PSHx: 17:58 Appendectomy; heart stents (Unknown); CABG (Unknown); aa5 - Immunization history:: Adult Immunizations unknown. - Infectious Disease History:: Denies. - Social history:: Smoking status: Patient denies any tobacco usage or history of. - History obtained from: Niece. ROS: 20:13 Constitutional: Negative for fever, chills, and weight loss, ci 20:13 Cardiovascular: Positive for 20:13 Neuro: Positive for altered mental status, syncope, Exam: 20:13 Constitutional: This is a well developed, well nourished patient who is awake, alert, ci and in no acute distress. Head/Face: Normocephalic, atraumatic. Eyes: Pupils equal round and reactive to light, extra-ocular motions intact. Lids and lashes normal. Conjunctiva and sclera are non-icteric and not injected. Cornea within normal limits. Periorbital areas with no swelling, redness, or edema. ENT: Nares patent. No nasal discharge, no septal abnormalities noted. Tympanic membranes are normal and external auditory canals are clear. Oropharynx with no redness, swelling, or masses, exudates, or evidence of obstruction, uvula midline. Mucous membranes moist. Neck: Trachea midline, no thyromegaly or masses palpated, and no cervical lymphadenopathy. Supple, full range of motion without nuchal rigidity, or vertebral point tenderness. No Meningismus. Chest/axilla: Normal chest wall appearance and motion. Nontender with no deformity. No lesions are appreciated. 20:13 Cardiovascular: Rate: bradycardic, Rhythm: regular, 20:13 ECG was reviewed by the Attending Physician. EKG shows sinus bradycardia, heart rate 54, right bundle branch block, no acute ischemic changes. 20:13 Abdomen/GI: Inspection: abdomen appears normal, Palpation: soft, moderate abdominal tenderness, in the suprapubic area, right lower quadrant and left lower quadrant, voluntary guarding, no appreciated organomegaly, 20:13 Neuro: Orientation: AO x 2, at baseline, Vital Signs: 17:58 BP 202 / 67; Pulse 50; Resp 16 S; Temp 97.5(TE); Pulse Ox 100% on R/A; Weight 87.54 kg aa5 (R); Height 5 ft. 9 in. (R); Pain 5/10; 19:20 BP 203 / 69; Pulse 51; Resp 18; Pulse Ox 100% ; cp4 20:44 BP 181 / 59; Pulse 56; Resp 18; Pulse Ox 100% ; cp4 22:03 BP 194 / 59; Pulse 60; Resp 16; Pulse Ox 100% ; cp4 17:58 Body Mass Index 28.50 (87.54 kg, 175.26 cm) aa5 17:58 Pain Scale: Adult aa5 NIH Stroke Scale Scores: 20:13 NIHSS Score: 0 ci MDM: 18:18 Medical Screening Exam initiated ci 20:36 Differential Diagnosis altered mental status, sepsis, Hypertensive urgency, syncope, ci ACS. Patient is AOx4, NIH 0, low suspicion for CVA, TIA.. Data reviewed: vital signs, nurses notes. ED course: Hypertensive on arrival with BP 203/69, repeat blood pressure after IV hydralazine 181/59. Discussed with Stephan Cavazos to admit to cardiac telemetry. Patient did endorse lower abdominal pain, CT abdomen/pelvis pending, endorsed to incoming ED physician to follow-up.. 21:23 ED course: Reviewed patient's CT scan images, passed along findings to admitting rt physician. 11/10 18:27 Order name: Basic Metabolic Panel; Complete Time: 19:31 ci 04/ 18:27 Order name: CBC with Diff; Complete Time: 19:13 ci 04/ 18:27 Order name: LFT's; Complete Time: 19:31 ci 04/ 18:27 Order name: Magnesium; Complete Time: 19:31 ci 04/ 18:27 Order name: NT PRO-BNP; Complete Time: 19:31 ci 04 18:27 Order name: Troponin HS; Complete Time: 19:31 ci 04/ 18:27 Order name: Blood Culture Adult (2) ci 04/ 18:27 Order name: Lactate w/ 2H reflex if indic.; Complete Time: 19:31 ci 04/ 19:45 Order name: Lipase; Complete Time: 20:33 ci 04/ 19:45 Order name: Urinalysis w/ reflexes; Complete Time: 20:33 ci 04/ 21:14 Order name: Urinalysis w/ reflexes EDMS 11/10 21:14 Order name: CBC with Automated Diff EDMS 11/10 21:14 Order name: CBC with Automated Diff EDMS 11/10 21:14 Order name: Comprehensive Metabolic Panel EDMS 11/10 21:14 Order name: Comprehensive Metabolic Panel EDMS 11/10 18:27 Order name: XRAY Chest (1 view); Complete Time: 19:31 ci 11/10 19:31 Interpretation: Abnormal. ci 11/10 18:27 Order name: CT Head Brain wo Cont; Complete Time: 19:31 ci 11/10 19:45 Order name: CT Abd/Pelvis - IV Contrast Only; Complete Time: 21:03 ci 11/10 18:27 Order name: Cardiac monitoring; Complete Time: 18:53 ci 11/10 18:27 Order name: EKG - Nurse/Tech; Complete Time: 18:53 ci 11/10 18:27 Order name: IV Saline Lock; Complete Time: 18:53 ci 11/10 18:27 Order name: Labs collected and sent; Complete Time: 18:53 ci 11/10 18:27 Order name: O2 Per Protocol; Complete Time: 18:53 ci 11/10 18:27 Order name: O2 Sat Monitoring; Complete Time: 18:53 ci Administered Medications: 19:25 Drug: hydrALAZINE IVP 10 mg IVP once Route: IVP; Site: right antecubital; cp4 20:45 Follow up: Response: No adverse reaction; Blood pressure is lowered cp4 Disposition Summary: 11/10/24 20:36 Hospitalization Ordered Notes: Hospitalization Status: Inpatient Admission ci Provider: Daron Everett Location: Telemetry/MedSurg (Inpatient) ci Condition: Stable ci Problem: new ci Symptoms: are unchanged ci Bed/Room Type: Standard Room Assignment: 214(11/10/24 21:18) rv1 Diagnosis - Syncope Near ci - Hypertensive heart disease without heart failure ci - Lower abdominal pain, unspecified ci Forms: - Medication Reconciliation Form ci - SBAR form ci - Leadership Thank You Letter ci NIH Stroke Scale - NIH Stroke Score Date: 11/10/2024 Time: 20:13 Total Score = 0 10. Dysarthria (speech clarity - read or repeat words) - 0(Normal) 11. Extinction and Inattention (visual/tactile/auditory/spatial/personal) - 0(No abnormality) 1a. Level of Consciousness (LOC) - 0(Alert) 1b. Level of Consciousness (LOC) (Month \T\ Age) - 0(Both) 1c. LOC Commands (Open \T\ Closes Eyes/Motor Home Electrical [employer]) - 0(Both) 2. Best Gaze (Lateral Gaze Paresis) - 0(Normal) 3. Visual Field Loss - 0(No visual loss) 4. Facial Palsy - 0(Normal) 5a. Left Arm: Motor (10-second hold) - 0(No drift) 5b. Right Arm: Motor (10-second hold) - 0(No drift) 6a. Left Leg: Motor (5-second hold - always test supine) - 0(No drift) 6b. Right Leg: Motor (5-second hold - always test supine) - 0(No drift) 7. Limb Ataxia (finger/nose \T\ heel/braga - test with eyes open) - 0(Absent) 8. Sensory Loss (pinprick arms/legs/face) - 0(Normal) 9. Best Language: Aphasia (description/naming/reading) - 0(No aphasia) Initials: ci Signatures: Dispatcher [employer] EDMS Olive Man RN RN aa5 Rick Goldstein MD MD rt Zoila Ward rv1 Sheryl Aaron cp4 Stephanie Paiz ci Corrections: (The following items were deleted from the chart) 18:27 18:27 Head Brain Wo Cont+CT.RAD.BRZ ordered. EDMS EDMS 19:38 19:33 Patient is a 79-year-old male with PMH Alzheimer's, brain aneurysm who ci presents with episode of unresponsiveness. Patient's niece reports patient was slumped over in the chair and was not responding. Reports prior episode of similar symptoms and patient was transferred to [facility] where he had negative stroke workup. Patient denies any complaints for me, no nausea/vomiting, diarrhea or constipation denies any abdominal pain, fever.. ci 19:45 19:45 Abdomen Pelvis W Con+CT.RAD.BRZ ordered. EDMS EDMS 20:14 19:33 Patient is a 79-year-old male with PMH Alzheimer's, brain aneurysm who ci presents with episode of unresponsiveness. Patient's niece reports patient was slumped over in the chair and was not responding. Reports prior episode of similar symptoms and patient was transferred to [facility] where he had negative stroke workup. Patient denies any complaints for me, no nausea/vomiting, diarrhea or constipation denies any abdominal pain, fever. Patient al. ci 21:18 20:36 ci rv1
--- NOTE | 2024-11-10 21:02 | RAD REPORT ---
EXAMINATION: Abdomen Pelvis W Contrast CLINICAL INDICATION: Male, 79 years old.ABD PAIN TECHNIQUE: CT abdomen and pelvis was performed, after the administration of IV contrast, as [facility]. Axial, sagittal and coronal reconstructions were obtained. One or more of the following dose reduction techniques were used: Automated exposure control, adjustment of the mA and/o r kV according to patient size, and/or iterative reconstruction. Unless otherwise specified, incidental findings do not require dedicated imaging follow-up. [id number]. COMPARISON: 04/24/2024 FINDINGS: LOWER CHEST: No acute process identified.Mild cardiomegaly. Moderate coronary artery calcifications.M oderate circumferential thickening of the distal esophagus which could reflect esophagitis. Endoscopy could better evaluate. Surgical changes at the gastric esophageal junction. Mitral annular calcifications. Trace fluid along the lower esophagus is unchanged. UPPER GI: Duodenal diverticulum. Question gastric wall thickening which could reflect gastritis but i s nonspecific. LIVER: Hepatic steatosis, but otherwise unremarkable. GALLBLADDER/BILE DUCTS: No biliary ductal dilatation.? PANCREAS: No mass, ductal dilation, or azael-pancreatic fluid. SPLEEN: Unremarkable. ADRENALS: No adrenal masses. KIDNEYS AND URETERS: No hydronephrosis.No suspicious renal mass.No renal calculi. ABDOMINAL AORTA AND OTHER VESSELS: Infrarenal abdominal aortic aneurysm measuring 4.5 cm. This is unc hanged. PERITONEUM: No abnormal free fluid. No free air. LYMPH NODES: No pathologic lymphadenopathy. ABDOMINAL WALL: Small fat containing umbilical hernia. Fat-containing left lateral ventral hernia. SM ALL BOWEL/COLON: Small bowel has normal course and caliber. No colonic wall thickening or pericolonic inflammatory changes. Moderate diverticulosis without diverticulitis. Mild formed stool b urden. URINARY BLADDER: Underdistended but grossly unremarkable. REPRODUCTIVE ORGANS: Severe prostatomegaly. MUSCULOSKELETAL: Multilevel degenerative changes in the spine. No acute fracture. ADDITIONAL FINDINGS: None. IMPRESSION: No acute findings within the abdomen or pelvis. Incidental findings as noted above.
[2024-11-10] MEDS ORDERED: ONDANSETRON 4 MG/2 ML VIAL IV PRN (21:10)
[2024-11-10] MEDS ORDERED: HYDRALAZINE HCL 20 MG/ML VIAL IV PRN (21:12)
--- NOTE | 2024-11-10 21:13 | P.HP ---
Certification for Inpatient Patient admitted to: Observation With expected LOS: <2 Midnights Practitioner: I am a practitioner with admitting privileges, knowledge of patient current condition, hospital course, and medical plan of care. Services: Services provided to patient in accordance with Admission requirements found in Title 42 Section 412.3 of the Code of Federal Regulations Patient History Date of Service: 11/10/24 Reason for admission: Syncope History of Present Illness: 79 yrs old Male with past medical history of hypertension, hyperl ipidemia, Alzheimer's disease, history of DVT, history of brain aneurysm, history of abdominal aneurysm, CAD status post CABG, PCI who was brought to ER with syncopal episode. Patient is a poor historian hence most of the history is obtained from the chart review and also talking to the ER physician. Patient was seen slumped over in the chair and was not responding for a few minutes. Denies any chest pain or shortness of breath. Patient had similar episode and was worked up for stroke which was negative. Denies any fever chills. No sick contacts. Denies any nausea vomiting or diarrhea. Patient complains of some abdominal discomfort. No history of seizures. Denies any incontinence. Patient was assessed in the ER and is admitted for further management of syncope and hypertensive urgency Allergies No Known Allergies Allergy (Unverified 05/08/24 03:43) Home medications list reviewed: Yes Home Medications: Clopidogrel Bisulfate [Plavix*] 75 mg PO DAILY 05/08/24 Donepezil HCl 10 mg PO DAILY 05/08/24 Escitalopram Oxalate [Lexapro] 5 mg PO DAILY 05/08/24 Ezetimibe 10 mg PO DAILY 05/08/24 Furosemide [Lasix*] 40 mg PO DAILY 05/08/24 Levocetirizine Dihydrochloride [Allergy Relief] 5 mg PO DAILY 05/08/24 Montelukast [Singulair*] 10 mg PO DAILY 05/08/24 Quetiapine Fumarate [Quetiapine Fumarate ER] 50 mg PO DAILY 05/08/24 Ropinirole HCl 2 mg PO DAILY 05/08/24 Trazodone [Desyrel*] 50 mg PO DAILY 05/08/24 Valsartan 80 mg PO DAILY 05/08/24 Ipratropium/Albuterol Sulfate [Iprat-Albut 0.5-3(2.5) mg/3 ml] 3 ml IH Q6H PRN #120 amp 05/10/24 Nebulizer 1 each PRN #1 ea 05/10/24 Pantoprazole [Protonix Tab*] 40 mg PO DAILYAC #60 tab 05/10/24 - Past Medical/Surgical History Diabetic: No Past Medical History: Reviewed- Non-Contributory -: Alzheimer disease -: Congestive heart failure -: Hypertension -: Coronary artery disease -: Insomnia -: COPD Past Surgical History: Reviewed- Non-Contributory -: CABG Psychosocial/ Personal History: Lives at home with his family - Social History Smoking Status: Never smoker Alcohol use: No CD- Drugs: No Caffeine use: Yes Review of Systems 10-point ROS is otherwise unremarkable Physical Examination - Vital Signs Temperature: 97.5 F Blood Pressure: 192/72 Pulse: 50 Respirations: 18 Pulse Ox (%): 94 - Physical Exam General: Alert, In no apparent distress, Oriented x2, Cooperative HEENT: Atraumatic, Normocephalic Neck: Supple Respiratory: Clear to auscultation bilaterally, Normal air movement Cardiovascular: Regular rate/rhythm, Normal S1 S2 Capillary refill: <2 Seconds Gastrointestinal: Soft and benign, W/out hepatosplenomegaly Musculoskeletal: No clubbing, No swelling Neurological: Other (Alert awake, nonfocal) Lymphatics: No axilla or inguinal lymphadenopathy - Studies Laboratory Data (last 24 hrs) 11/10/24 11/10/24 11/10/24 19:56 18:30 18:30 WBC 4.30 Hgb 11.9 L Hct 35.6 L Plt Count 140 L Sodium 140 Potassium 3.8 BUN 12 Creatinine 0.89 Glucose 134 H Magnesium 2.1 Total Bilirubin 1.0 AST 20 ALT 18 Alkaline Phosphatase 131 H Lipase 27 Assessment and Plan - Plan Syncope We will get a syncopal workup CT head negative for any acute changes Monitor closely on telemetry for any arrhythmias Hypertensive urgency Hypertension Antihypertensives titrated Continue home medications and titrate as needed Alzheimer's dementia Continue home medications and supportive management CAD status post CABG and PCI Continue home medications Monitor closely on telemetry Patient denies any chest pain at this time Hyperlipidemia Continue statin GI/DVT prophylaxis Advanced directive full code Discharge Plan: Home Plan to discharge in: 48 Hours - Advance Directives Does patient have a Living Will: No Does patient have a Durable POA for Healthcare: No - Code Status/Comfort Care Code Status: Full Code Time Spent Managing Pts Care (In Minutes): 48
[2024-11-10 22:59] VITALS: O2SAT 100
[2024-11-10 23:52] VITALS: BMI 28.5
[2024-11-11] MEDS ORDERED: IPRATROPIUM BROM 0.5MG/2.5ML IH PRN (00:02)
[2024-11-11] MEDS: AMLODIPINE 5 MG TAB PO SCH ×2 (00:52→09:35)
[2024-11-11] MEDS: VALSARTAN 80 MG TAB PO ONE (00:53)
[2024-11-11] MEDS ORDERED: ALBUTEROL 2.5 MG/3 ML NEB SOL NEB PRN (01:06)
[2024-11-11 06:12] LABS: Absolute Eosinophils 0.4 K/uL (0-0.5); Absolute Lymphocytes (CBC) 1.3 K/uL (0.7-4.9); Absolute Monocytes 0.6 K/uL (0.1-1.3); Absolute Neutrophil 3.1 K/uL (1.8-8.0); Basophils % 0.4 % (0-1.3); Eosinophils % 7.1 % (0-4.4); Hematocrit 34.4 % (39.6-49.0); Hemoglobin 11.7 g/dL (13.6-17.9); Lymphocytes % 24.6 % (15.3-44.8); MCH 29.8 pg (27.0-35.0); MCHC 33.9 g/dL (32.0-36.0); MPV 9.1 fL (7.6-11.3); Monocytes % 10.4 % (3.3-12.3); Neutrophils % 57.5 % (41.7-73.7); Nucleated Red Blood Cells % 0.1 % (0-0); Platelets 143 thou/uL (152-406); RBC Red Blood Cell Count 3.91 M/uL (4.33-5.43); Red Cell Distribution Width 14.8 % (12.1-15.2)
[2024-11-11] MEDS: PANTOPRAZOLE 40MG TABLET PO SCH (06:13)
[2024-11-11 06:19] LABS: Albumin 3.1 g/dL (3.4-5.0); Anion Gap 6.2 mEq/L (5.0-15.0); Bilirubin Total 0.8 mg/dL (0.2-1.0); Globulin 3.1 g/dL (2.3-3.5); Protein, Total 6.2 g/dL (6.4-8.2)
[2024-11-11 06:20] LABS: Potassium 4.2 mEq/L (3.5-5.1)
[2024-11-11] MEDS ORDERED: HYDRALAZINE HCL 20 MG/ML VIAL IV PRN (07:51)
[2024-11-11] MEDS ORDERED: VALSARTAN 80 MG TAB PO SCH (09:00)
[2024-11-11] MEDS ORDERED: HOME MED 1 EA UNK (Escitalopram Oxalate [Lexapro] 5 MG Tablet) PO SCH (09:00)
[2024-11-11] MEDS: QUETIAPINE 25 MG TAB PO SCH (09:34)
[2024-11-11] MEDS: ROPINIROLE HCL 1 MG TAB PO SCH (09:34)
[2024-11-11] MEDS: EZETIMIBE 10 MG TAB PO SCH (09:34)
[2024-11-11] MEDS: FUROSEMIDE 40 MG TABLET PO SCH (09:35)
[2024-11-11] MEDS: ESCITALOPRAM OXALATE 10 MG TABLET PO SCH (09:35)
[2024-11-11] MEDS: DONEPEZIL HCL 5 MG TAB PO SCH (09:35)
[2024-11-11] MEDS: CLOPIDOGREL 75 MG TABLET PO SCH (09:35)
[2024-11-11] MEDS: LORATADINE 10 MG TAB PO SCH (09:35)
[2024-11-11] MEDS: VALSARTAN 80 MG TAB PO SCH (09:39)
[2024-11-11] MEDS: MONTELUKAST 10 MG TAB PO SCH (09:39)
[2024-11-11] MEDS: ENOXAPARIN 40 MG/0.4 ML SQ SCH (09:39)
--- NOTE | 2024-11-11 10:27 | P.PN ---
Subjective Date of Service: 11/11/24 Chief Complaint: Syncope Subjective: No chest pain or shortness of breath. No nausea or vomiting. No abdominal pain. No obvious bleeding. Looks comfortable in the bed. Objective: General appearance: Alert and comfortable CVS: Normal S1 and S2 Lungs: Clear to auscultation bilaterally Abdomen: Soft, bowel sounds present, no tenderness Extremities: No lower extremity edema Physical Examination - Vital Signs Temperature: 98.7 F Blood Pressure: 188/73 Pulse: 55 Respirations: 18 Pulse Ox (%): 95 - Studies Laboratory Data (last 24 hrs) 11/10/24 11/10/24 11/10/24 19:56 18:30 18:30 WBC 4.30 Hgb 11.9 L Hct 35.6 L Plt Count 140 L Sodium 140 Potassium 3.8 BUN 12 Creatinine 0.89 Glucose 134 H Magnesium 2.1 Total Bilirubin 1.0 AST 20 ALT 18 Alkaline Phosphatase 131 H Lipase 27 Assessment And Plan - Plan 1. Syncope -CT head negative for any acute changes -Monitor closely on telemetry for any arrhythmias -get echo 2. Hypertensive urgency -Antihypertensives titrated, increased valsartan, added and increased Norvasc. - Hydralazine added. 3. Alzheimer's dementia Continue home medications and supportive management 4. CAD status post CABG and PCI Continue home medications Monitor closely on telemetry Patient denies any chest pain at this time 5. Hyperlipidemia Continue statin 6. Esophageal and gastric thickening on CT scan: continue PPI, need to follow- up with PCP and gastroenterology. 7. Fatty liver: Follow-up with PCP 8. AAA, 4.[address] scan, no change as per CT report, need follow-up with PCP. 9. Prostate enlargement on CT scan: Follow-up with urology 10. Chronic anemia and thrombocytopenia: Follow-up with PCP. I did discuss all the above mentioned plan with the patient, answered all questions, discussed with nursing staff.
--- NOTE | 2024-11-11 13:11 | ECHO ---
HEIGHT: 5 ft 9 in WEIGHT: 193 lb 0 oz DATE OF STUDY: 11/11/[address]: Joe Lozada 2-DIMENSIONAL: YES M.MODE: YES DOPPLER: YES COLOR FLOW: YES TDS: PORTABLE: YES DEFINITY: BUBBLE STUDY: DIAGNOSIS: SYNCOPE CARDIAC HISTORY: CATHERIZATION: YES SURGERY: YES PROSTHETIC VALVE: NO PACEMAKER: NO MEASUREMENTS (cm) DIASTOLIC (NORMALS) SYSTOLIC (NORMALS) IVSd 1.1 (0.6-1.2) LA Diam 3.9 (1.9-4.0) LVEF 68% LVIDd 3.9 (3.5-5.7) LVIDs 2.4 (2.0-3.5) %FS 37% LVPWd 1.2 (0.6-1.2) Ao Diam 2.6 (2.0-3.7) 2 DIMENSIONAL ASSESSMENT: RIGHT ATRIUM: NORMAL LEFT ATRIUM: MILDLY DILATED RIGHT VENTRICLE: NORMAL LEFT VENTRICLE: NORMAL TRICUSPID VALVE: TRACE TRICUSPID REGURGITATION MITRAL VALVE: MILD MITRAL ANNULAR CALCIFICATION PULMONIC VALVE: MILD PULMONIC REGURGITATION AORTIC VALVE: MILD CALCIFICATION PERICARDIAL EFFUSION: NONE AORTIC ROOT: NORMAL LEFT VENTRICULAR WALL MOTION: NORMAL DOPPLER/COLOR FLOW: NORMAL COMMENTS: 1. NORMAL LEFT VENTRICULAR SYSTOLIC FUNCTION, EJECTION FRACTION 60-65%, NORMAL WALL MOTION 2. NORMAL FILLING PRESSURE TECHNOLOGIST: WALDO SAMANO
--- NOTE | 2024-11-11 13:21 | EKG ---
Test Date: 2024-11-10 Test Time: 18:22:54 Deputy Commissioner: JORDANA MEASUREMENT RESULTS: Intervals: Rate: 54 SD: 172 QRSD: 150 QT: 490 QTc: 464 [place]: P: 45 SD: 172 QRS: -16 T: 30 INTERPRETIVE STATEMENTS: Sinus bradycardia Right bundle branch block Abnormal ECG Compared to ECG 08/07/2024 13:34:12 Myocardial infarct finding no longer present Electronically Signed On 11-11-24 13:18:50 CDT by Xavi Patiño
[2024-11-11] MEDS: TRAZODONE 50 MG TABLET PO SCH (21:20)
[2024-11-12 04:34] LABS: Absolute Eosinophils 0.4 K/uL (0-0.5); Absolute Lymphocytes (CBC) 1.5 K/uL (0.7-4.9); Absolute Monocytes 0.7 K/uL (0.1-1.3); Absolute Neutrophil 3.5 K/uL (1.8-8.0); Basophils % 0.4 % (0-1.3); Eosinophils % 6.5 % (0-4.4); Hematocrit 33.2 % (39.6-49.0); Hemoglobin 11.5 g/dL (13.6-17.9); Lymphocytes % 24.2 % (15.3-44.8); MCH 30.2 pg (27.0-35.0); MCHC 34.6 g/dL (32.0-36.0); MCV 87.3 fL (80-100); MPV 8.6 fL (7.6-11.3); Monocytes % 11.5 % (3.3-12.3); Neutrophils % 57.4 % (41.7-73.7); Platelets 132 thou/uL (152-406); RBC Red Blood Cell Count 3.81 M/uL (4.33-5.43)
[2024-11-12 04:52] LABS: Anion Gap 7.3 mEq/L (5.0-15.0); Potassium 3.3 mEq/L (3.5-5.1)
[2024-11-12] MEDS: POTASSIUM CL SA 10 MEQ TAB PO ONE (09:35)
[2024-11-12] MEDS: PANTOPRAZOLE 40MG TABLET PO SCH (09:38)
[2024-11-12 09:43] LABS: Specific Gravity 1.018 (1.005-1.030); Sqamous Epithelial None Seen /HPF (None Seen); Urine Bacteria None Seen /HPF (<20); Urine Bilirubin NEGATIVE (Negative); Urine Blood Negative (Negative); Urine Clarity Turbid (Clear); Urine Color Yellow (Yellow); Urine Culture Reflex Order NOT NEEDED; Urine Glucose NEGATIVE (Negative); Urine Ketones NEGATIVE (Negative); Urine Microscopic Reflex YN ORDER UMIC; Urine Mucus Slight /HPF (None Seen); Urine Nitrite NEGATIVE (Negative); Urine Protein TRACE (Negative); Urine RBC None Seen /HPF (None Seen); Urine Urobilinogen Normal (Normal); Urine WBC <5 /HPF (<5); Urine pH 6.5 (5.0-7.0)
--- NOTE | 2024-11-12 11:34 | P.PN ---
Subjective Date of Service: 11/12/24 Chief Complaint: Syncope Subjective: No chest pain or shortness of breath. No nausea or vomiting. No abdominal pain. No obvious bleeding. Looks comfortable in the chair. Objective: General appearance: Alert and comfortable CVS: Normal S1 and S2 Lungs: Clear to auscultation bilaterally Abdomen: Soft, bowel sounds present, no tenderness Extremities: No lower extremity edema Physical Examination - Vital Signs Temperature: 97.7 F Blood Pressure: 102/59 Pulse: 70 Respirations: 16 Pulse Ox (%): 98 Assessment And Plan - Plan 1. Syncope -CT head negative for any acute changes -Monitor closely on telemetry for any arrhythmias -echo showed normal EF, 60 to 65% - Family concerned that he may have had a seizure, EEG and MRI ordered, neurology consult requested. 2. Hypertensive urgency -His blood pressure is labile, medications adjusted 3. Alzheimer's dementia Continue home medications and supportive management 4. CAD status post CABG and PCI Continue home medications Monitor closely on telemetry Patient denies any chest pain at this time 5. Hyperlipidemia Continue statin 6. Esophageal and gastric thickening on CT scan: continue PPI, need to follow- up with PCP and gastroenterology. 7. Fatty liver: Follow-up with PCP 8. AAA, 4.[address] scan, no change as per CT report, need follow-up with PCP. 9. Prostate enlargement on CT scan: Follow-up with urology 10. Chronic anemia and thrombocytopenia: Follow-up with PCP. 11. Hypokalemia: Replace and monitor. I did discuss all the above mentioned plan with the patient, answered all questions, discussed with nursing staff. Discussed with family at bedside.
[2024-11-12] MEDS: ROPINIROLE HCL 1 MG TAB PO SCH (21:00)
[2024-11-12] MEDS: VALSARTAN 80 MG TAB PO SCH (21:01)
[2024-11-12] MEDS: OXcarbazepine 150 MG TAB PO SCH (21:01)
--- NOTE | 2024-11-12 21:01 | CON ---
Date of Consultation: 11/12/2024 Time Of Service: 5 p.m. Reason For Consultation: Syncope versus seizure. History Of Present Illness: The patient's history was provided by chart review and the patient's elsa benedictter along with the patient. Mr. Lomeli is a 79-year-old patient with hypertension, dyslipidemia, Alzheimer disease that is moderate to advanced. The patient, however, is fully independent per the d jose manueler, although he could wander and be lost in plenty of places. In addition, he has brain aneurys m and has an abdominal aneurysm and coronary artery disease and CABG done. He was reportedly normal in terms of getting up, mobilizing and ambulating, taking care of himself in the morning, able to jimi e coffee and breakfast, when the patient's granddaughter noted he began shaking the left hand and li t progressed to involve shaking of the left leg. His head apparently turned somewhat down with his e yes rolled up and he was unresponsive and that continued perhaps 30 seconds or minutes. EMS was call ed and when they came, the patient was disoriented, confused and was flailing his arms around for may be 5-10 minutes per the daughter. He was brought to [facility] for an evaluation. The jyoit ent's daughter said he had 4 similar episodes, 1 in July, 1 in April, 1 somewhere in December. Th e event appeared to be stereotyped. He does have a neurologist he follows in [place]. After his mos t recent 1 in July, he was sent to [place] where his family said he had an extensive workup inclu ding brain scans and reported EEGs, but they were not told of a diagnosis and although he was dischar edmar on a seizure medication, his daughter said that she was not told of the diagnosis, so he did not start the medication. The patient himself has no memory of the events and potentially due to his Alz heimer's disease in addition to his seizure perhaps not allowing him to have memory formation. At th is point, when he came to [facility], his CT scan of the head done at 1827 on 11/10/2024 mary anne wed no acute ischemic or hemorrhagic findings. There was mild cerebral atrophy, remote right spears radiata lacunar infarct. His abdomen and pelvis CT scan showed no acute findings within the abdomen or pelvis. A chest x-ray showed low lung volumes with diffuse prominence of the pulmonary interstiti um, could reflect either edema or accentuating the vasculature due to portable technique with low cadence g volume. An echocardiogram was done. The study showed ejection fraction of 68% and essentially a n ormal study. His laboratory studies did show normal white blood cell count and stable hemoglobin around 11.5, norm al platelets slightly low at 132. His comprehensive metabolic panel showed initially normal sodium a nd potassium. Earlier today potassium was slightly low at 3.3, that is corrected. Calcium, magnesiu m on admission were normal. Liver function studies show elevated alkaline phosphatase, slightly elev ated 131 and urinalysis essentially unremarkable, although a repeat did show 75 esterase, trace prote in, and turbid clarity. Past Medical History: Alzheimer's disease, congestive heart failure, hypertension, coronary artery d isease, insomnia, COPD, repeated seizure-like activity. Allergies: NO KNOWN DRUG ALLERGIES. Medications At Home: Plavix 75 mg daily, donepezil 5 mg daily, Lexapro 5 mg daily, ezetimibe 10 mg d aily, Lasix 40 mg daily, Singulair 10 mg daily, quetiapine 50 mg daily, ropinirole 2 mg daily, trazod one 50 mg daily, valsartan 80 mg daily, Protonix 40 mg daily, has ipratropium nebulizer on board. Family History: Noncontributory. Social History: No alcohol, tobacco, or IV drug use. The patient does live at home with family. Past Surgical History: Coronary artery bypass grafting. Review of Systems: Through the patient and his daughter. No recent fevers or chills. No nausea, vomiting. The issue o f dementia is prominent. The patient may have wandering, but still takes care of his activities of d aily living independently. No other systems review positivity found. Physical Examination: Vital Signs: Blood pressure 139/56, pulse 50, respiratory tree rate 16, temperature 97.6, oxygen sat uration 97%. General: Mr. Lomeli is sitting eating dinner. Family at the bedside. HEENT: He is normocephalic, atraumatic. Sclerae anicteric. Oropharynx moist. Neck: Supple. Chest: Clear. Heart: Regular. Neurological: He does respond to his name, follow instructions that are simple, difficulty following multistep commands and motor, coordination, sensation, no asymmetries identified. Assessment And Plan: Mr. Lomeli is a 79-year-old patient who apparently has stereotyped seizure-lik e activity involving shaking of the left upper and lower extremities with eyes rolling and unresponsi veness for one minute or so with about 5-10 minutes of postictal event of confusion. He is reportedl y on antiseizure medications. The patient's daughter did go home to retrieve the medication. It inessa ears to be Keppra and with maintenance maybe 500 mg twice daily. Plan; if the patient's daughter keith ngs back the antiepileptic medication, it may be restarted. He actually has a followup with his neur ologist in [place] and may keep that appointment. Continue his current regimen of medications for Al zheimer's disease or his stroke risk reduction, fluid management, electrolyte replacement, GE reflux issues. He does have Seroquel, which may be used for psychotic features associated with dementia, al though it is not clear if those are being exhibited at this point. Continue with Clive. He may, again if need be, follow up in Dr. Marquis's clinic, although he does have a neurologist i [facility]. JAVIER/MILTON Voice ID: [id number] Report ID: [id number]
[2024-11-13 05:10] LABS: Absolute Eosinophils 0.4 K/uL (0-0.5); Absolute Lymphocytes (CBC) 1.3 K/uL (0.7-4.9); Absolute Monocytes 0.6 K/uL (0.1-1.3); Absolute Neutrophil 3.3 K/uL (1.8-8.0); Basophils % 0.6 % (0-1.3); Eosinophils % 7.1 % (0-4.4); Hematocrit 33.5 % (39.6-49.0); Hemoglobin 11.3 g/dL (13.6-17.9); Lymphocytes % 23.4 % (15.3-44.8); MCH 29.4 pg (27.0-35.0); MCHC 33.7 g/dL (32.0-36.0); MCV 87.3 fL (80-100); MPV 8.6 fL (7.6-11.3); Monocytes % 10.4 % (3.3-12.3); Neutrophils % 58.5 % (41.7-73.7); Nucleated Red Blood Cells % 0.1 % (0-0); Platelets 145 thou/uL (152-406); RBC Red Blood Cell Count 3.84 M/uL (4.33-5.43); Red Cell Distribution Width 15.1 % (12.1-15.2)
[2024-11-13 05:26] LABS: Anion Gap 7.8 mEq/L (5.0-15.0); Magnesium 2.1 mg/dL (1.6-2.4); Phosphorus 3.2 mg/dL (2.5-4.9); Potassium 3.8 mEq/L (3.5-5.1)
[2024-11-13] MEDS: FUROSEMIDE 40 MG TABLET PO SCH (09:54)
[2024-11-13] MEDS: POTASSIUM CL SA 10 MEQ TAB PO ONE (09:55)
--- NOTE | 2024-11-13 11:29 | P.PN ---
Subjective Date of Service: 11/13/24 Chief Complaint: Syncope Subjective: No chest pain or shortness of breath. No nausea or vomiting. No abdominal pain. No obvious bleeding. Looks comfortable in the chair. Objective: General appearance: Alert and comfortable CVS: Normal S1 and S2 Lungs: Clear to auscultation bilaterally Abdomen: Soft, bowel sounds present, no tenderness Extremities: No lower extremity edema Physical Examination - Vital Signs Temperature: 98.0 F Blood Pressure: 145/61 Pulse: 65 Respirations: 16 Pulse Ox (%): 97 Assessment And Plan - Plan 1. Syncope -CT head negative for any acute changes -Monitor closely on telemetry for any arrhythmias -echo showed normal EF, 60 to 65% - Family concerned that he may have had a seizure, EEG and MRI pending, neurology consult apprecaited 2. Hypertensive urgency -His blood pressure is labile, continue current medications for now 3. Alzheimer's dementia Continue home medications and supportive management 4. CAD status post CABG and PCI Continue home medications Monitor closely on telemetry Patient denies any chest pain at this time 5. Hyperlipidemia Continue statin 6. Esophageal and gastric thickening on CT scan: continue PPI, need to follow- up with PCP and gastroenterology. 7. Fatty liver: Follow-up with PCP 8. AAA, 4.[address] scan, no change as per CT report, need follow-up with PCP. 9. Prostate enlargement on CT scan: Follow-up with urology 10. Chronic anemia and thrombocytopenia: Follow-up with PCP. 11. Hypokalemia: Replaced, monitor. I did discuss all the above mentioned plan with the patient, answered all questions, discussed with nursing staff.
[2024-11-14 05:38] LABS: Absolute Eosinophils 0.4 K/uL (0-0.5); Absolute Lymphocytes (CBC) 1.7 K/uL (0.7-4.9); Absolute Monocytes 0.6 K/uL (0.1-1.3); Absolute Neutrophil 2.5 K/uL (1.8-8.0); Basophils % 0.6 % (0-1.3); Eosinophils % 7.3 % (0-4.4); Hematocrit 36.6 % (39.6-49.0); Hemoglobin 12.2 g/dL (13.6-17.9); Lymphocytes % 32.1 % (15.3-44.8); MCH 29.4 pg (27.0-35.0); MCHC 33.3 g/dL (32.0-36.0); MCV 88.3 fL (80-100); MPV 8.9 fL (7.6-11.3); Monocytes % 11.4 % (3.3-12.3); Neutrophils % 48.6 % (41.7-73.7); Nucleated Red Blood Cells % 0.2 % (0-0); Platelets 149 thou/uL (152-406); RBC Red Blood Cell Count 4.14 M/uL (4.33-5.43); Red Cell Distribution Width 15.1 % (12.1-15.2)
--- NOTE | 2024-11-14 13:09 | RAD REPORT ---
EXAMINATION: MRI BRAIN WITHOUT CONTRAST CLINICAL INDICATION: ?seizure TECHNIQUE: Multiplanar multisequence MR images of the brain were obtained without intravenous contras t. Unless otherwise specified, incidental findings do not require dedicated imaging follow-up. COMPARISON: 05/25/2024 FINDINGS: INTRACRANIAL: Diffusion-weighted images show no acute or early subacute infarction. There is mild bra in atrophy with mildT2/FLAIR hyperintensities in the periventricular and deep white matter regions, likely representing chronic microvascular ischemic changes. There is no mass effect or midline shift. No abnormal extraaxial fluid collection. VASCULATURE: 8 mm aneurysm seen right M1 segment, unchanged. SINUSES: The paranasal sinuses and mastoid air cells are predominantly clear. BONE: The marrow signal pattern is within normal limits. IMPRESSION: Negative for acutre CVA or other acute intracranial finding. Stable 8 mm right M1 segment aneurysm since comparison study.
--- NOTE | 2024-11-14 16:12 | P.PN ---
Subjective Date of Service: 11/14/24 Chief Complaint: Syncope Subjective: No chest pain or shortness of breath. No nausea or vomiting. No abdominal pain. No obvious bleeding. Looks comfortable in the chair. Objective: General appearance: Alert and comfortable CVS: Normal S1 and S2 Lungs: Clear to auscultation bilaterally Abdomen: Soft, bowel sounds present, no tenderness Extremities: No lower extremity edema Physical Examination - Vital Signs Temperature: 97.9 F Blood Pressure: 119/57 Pulse: 66 Respirations: 20 Pulse Ox (%): 96 Assessment And Plan - Plan 1. Syncope -CT head negative for any acute changes -Monitor closely on telemetry for any arrhythmias -echo showed normal EF, 60 to 65% - Family concerned that he may have had a seizure - EEG pending - neurology consult apprecaited -restarted trileptol - MRI : no acute stroke, stable 8 mm aneurysm 2. Hypertensive urgency -His blood pressure is labile, continue current dose of valsartan (BID) for now, once daily at home 3. Alzheimer's dementia Continue home medications and supportive management 4. CAD status post CABG and PCI Continue home medications Monitor closely on telemetry Patient denies any chest pain at this time 5. Hyperlipidemia Continue statin 6. Esophageal and gastric thickening on CT scan: continue PPI, need to follow- up with PCP and gastroenterology. 7. Fatty liver: Follow-up with PCP 8. AAA, 4.[address] scan, no change as per CT report, need follow-up with PCP. 9. Prostate enlargement on CT scan: Follow-up with urology 10. Chronic anemia and thrombocytopenia: Follow-up with PCP. 11. Hypokalemia: Replaced, monitor. I did discuss all the above mentioned plan with the patient's family at bedside, answered all questions, discussed with nursing staff. 79 Patient admitted with syncope and high blood pressure, his blood pressure is labile, medications adjusted, blood pressure is improving, family requested neurology consult, neurology recommend to continue Trileptal, I discussed with the family about getting MRI and EEG as an outpatient but they prefer to be done here, MRI is done, which did not show any acute issues, EEG result is pending, when I discussed with the family this morning they want all the results prior to discharge, I reached out to the family this afternoon by phone but no answer, if the EEG is negative, he can be discharged to go home tomorrow.,
[2024-11-15 05:10] LABS: Absolute Eosinophils 0.3 K/uL (0-0.5); Absolute Lymphocytes (CBC) 1.1 K/uL (0.7-4.9); Absolute Monocytes 0.5 K/uL (0.1-1.3); Absolute Neutrophil 2.6 K/uL (1.8-8.0); Basophils % 0.3 % (0-1.3); Eosinophils % 6.9 % (0-4.4); Hematocrit 34.9 % (39.6-49.0); Hemoglobin 11.7 g/dL (13.6-17.9); Lymphocytes % 24.9 % (15.3-44.8); MCH 29.2 pg (27.0-35.0); MCHC 33.4 g/dL (32.0-36.0); MCV 87.4 fL (80-100); MPV 8.3 fL (7.6-11.3); Monocytes % 11.8 % (3.3-12.3); Neutrophils % 56.1 % (41.7-73.7); Nucleated Red Blood Cells % 0.2 % (0-0); Platelets 135 thou/uL (152-406); Red Cell Distribution Width 14.6 % (12.1-15.2)
[2024-11-15] MEDS: ACETAMINOPHEN 325 MG TABLET PO PRN (05:12)
[2024-11-15 05:26] LABS: Anion Gap 8.1 mEq/L (5.0-15.0); Potassium 4.1 mEq/L (3.5-5.1)
--- NOTE | 2024-11-15 15:23 | P.PN ---
Subjective Date of Service: 11/15/24 Chief Complaint: Syncope Subjective: No new changes No complaints Review of Systems 10-point ROS is otherwise unremarkable Physical Examination - Vital Signs Temperature: 97.5 F Blood Pressure: 114/54 Pulse: 77 Respirations: 18 Pulse Ox (%): 97 - Physical Exam General: Alert HEENT: Atraumatic Neck: Supple Respiratory: Clear to auscultation bilaterally Cardiovascular: No edema Gastrointestinal: Normal bowel sounds Musculoskeletal: No clubbing, No swelling, No erythema, No tenderness Assessment And Plan - Plan 1. Syncope -CT head negative for any acute changes -Monitor closely on telemetry for any arrhythmias -echo showed normal EF, 60 to 65% - Family concerned that he may have had a seizure - EEG pending - neurology consult apprecaited: Resumed Trileptal at home dose -restarted trileptol - MRI : no acute stroke, stable 8 mm aneurysm 2. Hypertensive urgency -His blood pressure is labile, continue current dose of valsartan (BID) for now, once daily at home 3. Alzheimer's dementia Continue home medications and supportive management 4. CAD status post CABG and PCI Continue home medications Monitor closely on telemetry Patient denies any chest pain at this time 5. Hyperlipidemia Continue statin 6. Esophageal and gastric thickening on CT scan: continue PPI, need to follow- up with PCP and gastroenterology. 7. Fatty liver: Follow-up with PCP 8. AAA, 4.[address] scan, no change as per CT report, need follow-up with PCP. 9. Prostate enlargement on CT scan: Follow-up with urology 10. Chronic anemia and thrombocytopenia: Follow-up with PCP. 11. Hypokalemia: Replaced, monitor. , Disposition: Awaiting EEG result
[2024-11-15 16:19] VITALS: BP 111/56; TEMP 97.6
--- NOTE | 2024-11-15 18:02 | P.DS ---
Admission Date: 11/10/24 Discharge Date: 11/15/24 Disposition: ROUTINE DISCHARGE Discharge Condition: GOOD Reason for Admission: Syncope Brief History of Present Illness: 79 yrs old Male with past medical history of hypertension, hyperlipidemia, Alzheimer's disease, history of DVT, history of brain aneurysm, history of abdominal aneurysm, CAD status post CABG, PCI who was brought to ER with syncopal episode. Patient is a poor historian hence most of the history is obtained from the chart review and also talking to the ER physician. Patient was seen slumped over in the chair and was not responding for a few minutes. Denies any chest pain or shortness of breath. Patient had similar episode and was worked up for stroke which was negative. Denies any fever chills. No sick contacts. Denies any nausea vomiting or diarrhea. Patient complains of some abdominal discomfort. No history of seizures. Denies any incontinence. Patient was assessed in the ER and is admitted for further management of syncope and hypertensive urgency Hospital Course: 79 yrs old Male with past medical history of hypertension, hyperlipidemia, Alzheimer's disease, history of DVT, history of brain aneurysm, history of abdominal aneurysm, CAD status post CABG, PCI who was admitted for syncopal episode. On admission, CT of head and MRI brain were grossly unremarkable. Patient was seen by neurology, Dr. Lainez who recommended resuming seizure medication at outpatient dose, Trileptal 30 mg twice daily which was resumed. Patient underwent an EEG which was pending at time of discharge. Discussed with neurology, Dr. Escalona and he recommended outpatient follow-up in his clinic to review and discuss EEG results. Patient was then discharged home with family. Vital Signs/Physical Exam: Temp Pulse Resp BP Pulse Ox 97.6 F 63 18 111/56 L 98 11/15/24 16:00 11/15/24 16:00 11/15/24 16:00 11/15/24 16:00 11/15/24 16:00 General: Alert, Oriented x3 HEENT: Atraumatic Neck: Supple Respiratory: Clear to auscultation bilaterally Cardiovascular: No edema, Normal pulses, Regular rate/rhythm Gastrointestinal: Normal bowel sounds Musculoskeletal: No clubbing, No swelling, No erythema Neurological: Normal gait, Normal speech, Normal strength at 5/5 x4 extr Laboratory Data at Discharge: WBC 4.60 thou/uL (4.3-10.9) 11/15/24 05:02 Hgb 11.7 g/dL (13.6-17.9) L 11/15/24 05:02 Hct 34.9 % (39.6-49.0) L 11/15/24 05:02 Plt Count 135 thou/uL (152-406) L 11/15/24 05:02 Sodium 139 mEq/L (136-145) 11/15/24 05:02 Potassium 4.1 mEq/L (3.5-5.1) 11/15/24 05:02 BUN 15 mg/dL (7-18) 11/15/24 05:02 Creatinine 1.19 mg/dL (0.70-1.30) 11/15/24 05:02 Glucose 123 mg/dL (74-106) H 11/15/24 05:02 Phosphorus 3.2 mg/dL (2.5-4.9) 11/13/24 04:38 Magnesium 2.1 mg/dL (1.6-2.4) 11/13/24 04:38 Total Bilirubin 0.8 mg/dL (0.2-1.0) 11/11/24 05:36 AST 21 U/L (15-37) 11/11/24 05:36 ALT 15 U/L (16-61) L 11/11/24 05:36 Alkaline Phosphatase 116 U/L (45-117) 11/11/24 05:36 Lipase 27 U/L (13-75) 11/10/24 19:56 Home Medications: Clopidogrel Bisulfate [Plavix*] 75 mg PO DAILY 05/08/24 Donepezil HCl 10 mg PO DAILY 05/08/24 Escitalopram Oxalate [Lexapro] 5 mg PO DAILY 05/08/24 Ezetimibe 10 mg PO DAILY 05/08/24 Furosemide [Lasix*] 40 mg PO DAILY 05/08/24 Levocetirizine Dihydrochloride [Allergy Relief] 5 mg PO DAILY 05/08/24 Montelukast [Singulair*] 10 mg PO DAILY 05/08/24 Quetiapine Fumarate [Quetiapine Fumarate ER] 50 mg PO DAILY 05/08/24 Ropinirole HCl 2 mg PO BEDTIME 05/08/24 Trazodone [Desyrel*] 50 mg PO DAILY PRN 05/08/24 Valsartan 80 mg PO DAILY 05/08/24 Ipratropium/Albuterol Sulfate [Iprat-Albut 0.5-3(2.5) mg/3 ml] 3 ml IH Q6H PRN #120 amp 05/10/24 Nebulizer 1 each MC PRN #1 ea 05/10/24 Pantoprazole [Protonix Tab*] 40 mg PO DAILYAC #60 tab 05/10/24 Physician Discharge Instructions: Outpatient follow-up with neurologist Dr. Marquis within 1 to 2 weeks postdischarge Diet: Regular Activity: Ad melissa Followup: [facility] [Primary Care Provider] -
--- NOTE | 2024-11-17 08:50 | EEG ---
CHART: [id number] TEST ID#: [id number] DATE OF STUDY: 11/14/2024 THE EEG WAS RECORDED PORTBALE IN THE PATIENT'S ROOM ON A 17 CHANNEL MACHINE. ELECTRODES WERE APPLIED IN THE USUAL MANNER USING THE INTERNATIONAL 10-20 SYSTEM. THE WAKING BACKGROUND RHYTHM IN THIS RECORD CONSISTS OF FAIRLY WELL DEVELOPED AND FAIRLY WELL ORGANIZED WAVES OF 8 HZ., MAXIMAL IN THE POSTERIOR HEAD REGIONS WHICH ATTENUATE NORMALLY WITH EYE OPENING. LOW-VOLTAGE 15-18 HZ MIXED WITH MODERATE VOLTAGE 1.5-3 HZ IS EXPRESSED IN THE FRONTAL AND CENTRAL REGIONS. THERE ARE NO FOCAL OR LATERALIZING FEATURES. NO EPILEPTIFORM ACTIVITY APPEARS. SLEEP DID NOT OCCUR. HYPERVENTILATION WAS NOT PERFORMED. PHOTIC STIMULATION PRODUCED NO DRIVING BILATERALLY. IMPRESSION: THIS IS A MILDLY ABNORMAL AWAKE EEG DUE TO THE PRESENCE OF A MILDLY SLOW BACKGROUND. THIS IS A NON-SPECIFIC FINDING INDICATING THE PRESNECE OF A MILD DIFFUSE DISTURBANCE IN CEREBRAL ACTIVITY.
== END 2024-11-15 18:56 | disposition home or self-care (01) | DRG 101 ==
LOC: ER 17:56 → ERHOLD 21:10 → 2ND 21:38
PROVIDERS: ADMIT Family Medicine; ATTEND Internal Medicine
DX: G40.89 Other seizures (principal); I16.0 Hypertensive urgency; I10 Essential (primary) hypertension; E78.00 Pure hypercholesterolemia, unspecified; K76.0 Fatty (change of) liver, not elsewhere classified; D64.9 Anemia, unspecified; E87.6 Hypokalemia; D69.6 Thrombocytopenia, unspecified; N40.0 Benign prostatic hyperplasia without lower urinary tract symptoms; J44.9 Chronic obstructive pulmonary disease, unspecified; I71.40 Abdominal aortic aneurysm, without rupture, unspecified; I25.10 Atherosclerotic heart disease of native coronary artery without angina pectoris; G30.9 Alzheimer's disease, unspecified; F02.80 Dementia in other diseases classified elsewhere, unspecified severity, without behavioral disturbance, psychotic disturbance, mood disturbance, and anxiety; I25.2 Old myocardial infarction; Z88.5 Allergy status to narcotic agent; Z95.1 Presence of aortocoronary bypass graft; Z95.5 Presence of coronary angioplasty implant and graft; Z79.02 Long term (current) use of antithrombotics/antiplatelets; Z90.49 Acquired absence of other specified parts of digestive tract; Z79.899 Other long term (current) drug therapy; Z86.718 Personal history of other venous thrombosis and embolism
CPT/HCPCS: 36415; 70450; 70551; 71045; 74177; 80048; 80053; 80076; 81001; 81003; 83605; 83690; 83735; 83880; 84100; 84132; 84484; 85025; 87040; 93005; 93306; 95816; 96374; 99285; J0360; J1650; Q9967

== ENCOUNTER 2025-05-06 00:30 | Emergency (ER) | payer OTHER ==
[2025-05-06 01:19] LABS: Absolute Lymphocytes (CBC) 1.6 K/uL (0.7-4.9); Hematocrit 38.5 % (39.6-49.0); Hemoglobin 12.8 g/dL (13.6-17.9); MCH 30.2 pg (27.0-35.0); MCHC 33.3 g/dL (32.0-36.0); MCV 90.7 fL (80-100); MPV 8.8 fL (7.6-11.3); Nucleated RBC Absolute Count 0.0 (0-0); Nucleated Red Blood Cells % 0.1 % (0-0); RBC Red Blood Cell Count 4.24 M/uL (4.33-5.43); White Blood Count 5.10 thou/uL (4.3-10.9)
[2025-05-06] MEDS ORDERED: ALBUTEROL 2.5 MG/3 ML NEB SOL ONE (01:29)
[2025-05-06] MEDS ORDERED: IPRATROPIUM BROM 0.5MG/2.5ML ONE (01:29)
[2025-05-06 01:37] LABS: PT Prothrombin Time 11.8 SECONDS (10-13.0); Protime INR 1.05
[2025-05-06 01:40] LABS: Influenza A Ag Negative; Influenza B Ag Negative; SARS-CoV-2 Antigen Rapid Res Negative (Negative)
[2025-05-06 01:57] LABS: ALT/SGPT 19 U/L (16-61); AST/SGOT 24 U/L (15-37); Albumin 3.2 g/dL (3.4-5.0); Albumin/Globulin Ratio 0.9 (1.1-1.8); Alkaline Phosphatase 128 U/L (45-117); Anion Gap 10.9 mEq/L (5.0-15.0); BUN Blood Urea Nitrogen 10 mg/dL (7-18); Globulin 3.6 g/dL (2.3-3.5); Glucose Level 110 mg/dL (74-106); Magnesium 1.9 mg/dL (1.6-2.4); NT PRO-BNP 136 pg/mL (<450); Potassium 3.9 mEq/L (3.5-5.1); Troponin High Sensitivity 3.6 pg/mL (<58.9)
[2025-05-06 02:06] LABS: Bilirubin Indirect, Calculated ND mg/dL (0.2-0.8)
[2025-05-06] MEDS ORDERED: MAGNES/ALUMIN/SIMET 30ML UCUP ONE (02:17)
[2025-05-06] MEDS ORDERED: LIDOCAINE VISCOUS 2% 10ML ORAL SOLN ONE (02:17)
[2025-05-06] MEDS ORDERED: KETOROLAC 30 MG/ML INJ ONE (02:17)
--- NOTE | 2025-05-06 04:15 | RAD REPORT ---
EXAMINATION: Chest Single View CLINICAL HISTORY: Chest pain;SOB COMPARISON: November 10, 2024 Radiograph Chest 1 View. FINDINGS: No consolidation, pleural effusion, or pneumothorax. No pulmonary edema noted. The heart size and med iastinal contours are stable. IMPRESSION: No acute process. RECOMMENDATIONS: Electronically signed by: Matthew Mendieta MD 05/06/2025 03:31 AM CDT RP Due to temporary technical issues with the PACS/[employer] reporting system, reports are being preston d by the in-house radiologist without review as a courtesy to ensure prompt reporting the interpreting radiologist is fully responsible for the content of the report. Transcribed Date/Time: 05/06/2025 4:15 AM
--- NOTE | 2025-05-06 06:11 | RAD REPORT ---
EXAM: CT neck with intravenous contrast CLINICAL DATA: 79 years Male dysphagia. TECHNICAL DATA: Axial CT imaging of the soft tissues of the neck were performed following the administration of intra venous contrast. followed by sagittal and coronal reconstructed images. The CT study is performed according to ALARA (as low as reasonably achievable) or ALARA/IMAGE GENTLY, with automatic adjustment of mA and/or kV according to patient size. Performed on: 05/06/2025 at 3:02 AM Comparisons: CTA neck performed on 08/07/2024. FINDINGS: The visualized portions of the brain and orbits are normal. The oral cavity, oropharynx and nasopharynx are normal. Some portions of the oral cavity and orophary nx are obscured by streak artifact related to the patient's dental hardware. The parapharyngeal fat planes are preserved. The hypopharynx is unremarkable. The epiglottis and aryepiglottic folds are normal. The vallecula and pyriform sinuses are grossly nor mal. The preepiglottic fat is preserved. The thyroid, cricoid and arytenoid cartilages are normal. There is narrowing of the airway at the level of the glottis which may be due to the phase of breathing. A glottic neoplasm is not definitely identified but no underlying mass or inflammatory process are difficult to exclude on this examination. The parotid and submandibular glands are grossly within normal limits. No intrinsic mass lesions are seen. . The carotid sheaths are normal bilaterally. There are atherosclerotic calcifications along the caroti d bifurcations bilaterally. The visualized paranasal sinuses and mastoid air cells are clear. No definite pathologically enlarged lymph nodes are identified The thyroid gland is normal in size and configuration. The thoracic inlet is normal. The visualized lung apices reveal minimal paraseptal emphysematous olea ges. No acute osseous abnormalities are identified. There are mild degenerative changes of the cervical sp ine. No focal soft tissue abnormalities are seen. There are no focal pathologic areas of enhancement. IMPRESSION: 1. There is narrowing of the airway at the level of the glottis which may be due to the phase of br eathing. A glottic neoplasm is not definitely identified but an underlying mass or inflammatory process are difficult to exclude on this examination. Consider further evaluation with direct visuali zation. 2. Otherwise, unremarkable CT scan of the soft tissues of the neck. 3. Atherosclerotic calcifications along the carotid bifurcations bilaterally. 4. Mild degenerative changes of the cervical spine. 5. Minimal paraseptal emphysematous changes in the lung apices. Pulmonary emphysema is an independe nt risk factor for lung cancer. Recommend patient be considered for lung cancer screening. [employer] Preventive Services Task Force. Screening for Lung Cancer: [place] Preventive Services Task Force Recommen dation Statement. [employer]. 2020;325(10):962-970. Electronically signed by: Marilee Kent DO 05/06/2025 06:07 AM CDT Due to temporary technical issues with the PACS/[employer] reporting system, reports are being preston d by the in-house radiologist without review as a courtesy to ensure prompt reporting the interpreting radiologist is fully responsible for the content of the report. Transcribed Date/Time: 05/06/2025 6:11 AM
--- NOTE | 2025-05-06 06:11 | RAD REPORT ---
EXAM DESCRIPTION: Thorax W/ Con CLINICAL HISTORY: Chest pain;SOB COMPARISON: None TECHNIQUE: Contiguous axial images of the chest were obtained after the administration of intravenous contrast f ollowed by reconstruction images. The exam was performed according to our departmental dose-optimization program, which includes automated exposure control, adjustment of the mA and/or kV according to patient size and/or use of iterative reconstruction technique. FINDINGS: MEDIASTINUM: The heart size is enlarged post median sternotomy. Atherosclerotic changes of the aorta and coronary vessels. No pericardial effusion. The aorta is intact without aneurysm. There are no pathologically enlarged intrathoracic or axillary lymph nodes. The esophagus is decompressed. There i s smooth circumferential wall thickening of the distal esophagus which may reflect degree of distention. Cannot exclude underlying esophagitis. The pulmonary arteries are intact without acute em bolism. LUNGS/PLEURA: The central airways are patent. Compressive atelectasis within lingula and left lower l obe. Subpleural scarring or fibrosis within the lateral segment of the right middle lobe. No pleural effusion or pneumothorax. No noncalcified pulmonary nodule. UPPER ABDOMEN: The upper abdomen demonstrates no acute abnormality.L incidental duodenal diverticula measuring up to 3.8 cm. SOFT TISSUES/BONES: There are no suspicious-appearing lytic or blastic osseous lesions. No acute osse ous abnormality. IMPRESSION: 1. No acute pulmonary artery embolism. 2. Cardiomegaly. 3. Smooth circumferential wall thickening of the distal esophagus. Correlate clinical features of e sophagitis. RECOMMENDATIONS: Electronically signed by: Matthew Mendieta MD 05/06/2025 06:00 AM CDT Due to temporary technical issues with the PACS/[employer] reporting system, reports are being preston d by the in-house radiologist without review as a courtesy to ensure prompt reporting the interpreting radiologist is fully responsible for the content of the report. Transcribed Date/Time: 05/06/2025 6:11 AM
--- NOTE | 2025-05-06 06:29 | ER ---
Nurse's Notes [facility] Name: Damian Lomeli Age: 79 yrs Sex: Male : 1945 Arrival Date: 05/06/2025 Time: 00:30 Bed 5 Private MD: Diagnosis: Chest pain, unspecified;Acute esophagitis, history of acid reflux Presentation: 05/06 00:59 Chief complaint: EMS states: Per pt's niece, the patient woke up coughing and appearing kd3 to be short of breath. Pt is reporting chest and throat pain. pt has a history of GERD. Coronavirus screen: unknown. Ebola Screen: No symptoms or risks identified at this time. Initial Sepsis Screen: Does the patient meet any 2 criteria? No. Patient's initial sepsis screen is negative. Does the patient have a suspected source of infection? No. Patient's initial sepsis screen is negative. Risk Assessment: Do you want to hurt yourself or someone else? Patient reports no desire to harm self or others. Onset of symptoms was May 06, 2025. 00:59 Method Of Arrival: EMS: [facility] kd3 00:59 Acuity: CHAD 3 kd3 Triage Assessment: 01:01 General: Appears in no apparent distress. Behavior is calm, cooperative. Pain: kd3 Complains of pain in chest, thyroid cartilage and suprasternal notch. Historical: - Allergies: 01:01 Morphine; kd3 - PMHx: 01:01 abdominal aneurism (Unknown); Alzheimer's disease; blood clots (Unknown); brain kd3 aneurism (Unknown); CHF; CVA (cardiac bypass); Hypercholesterolemia; Hypertensive disorder; insomnia; ND; Umbilical hernia (Unknown); - PSHx: 01:01 Appendectomy; CABG; carddiac stents; cardiac bypass; Heart Stents; kd3 - Immunization history:: Adult Immunizations up to date. - Infectious Disease History:: Denies. - Social history:: Smoking status: unknown. - Family history:: not pertinent. Screenin:14 [facility] ED Fall Risk Assessment (Adult) History of falling in the last 3 months, kd3 including since admission No falls in past 3 months (0 pts) Confusion or Disorientation Yes (5 pts) Intoxicated or Sedated No (0 pts) Impaired Gait No (0 pts) Mobility Assist Device Used No (0 pt) Altered Elimination No (0 pt) Score/Fall Risk Level 0 - 2 = Low Risk Maintained a safe environment. [facility] ED Fall Risk Assessment (Adult) Score/Fall Risk Level 3 or more points = High Risk Oriented to surroundings, Maintained a safe environment. Abuse screen: Denies threats or abuse. Denies injuries from another. Nutritional screening: No deficits noted. Tuberculosis screening: No symptoms or risk factors identified. Assessment: 01:13 General: Appears in no apparent distress. Behavior is calm, cooperative. Neuro: Level kd3 of Consciousness is awake, Oriented to person, place. Cardiovascular: Capillary refill < 3 seconds Patient's skin is warm and dry. Respiratory: Airway is patent Trachea midline Respiratory effort is even, unlabored. 05:48 General: Appears in no apparent distress. Behavior is calm, cooperative. General: Pt is kd3 seen resting in the stretcher, eyes closed, NAD, on continuous monitoring. . Respiratory: Airway is patent Trachea midline Respiratory effort is even, unlabored, Respiratory pattern is regular, symmetrical. 06:38 Reassessment: Patient appears in no apparent distress at this time. Patient and/or ss12 family updated on plan of care and expected duration. Pain level reassessed. Patient is alert, oriented x 3, equal unlabored respirations, skin warm/dry/pink. Vital Signs: 00:59 BP 163 / 53; Pulse 54; Resp 19; Temp 98.1(O); Pulse Ox 100% on R/A; Weight 83.46 kg; kd3 02:21 BP 153 / 47; Pulse 50; Resp 19; Pulse Ox 100% on R/A; kd3 03:36 BP 125 / 40; Pulse 51; Resp 18; Pulse Ox 93% on R/A; kd3 04:46 BP 111 / 43; Pulse 52; Resp 18 S; Pulse Ox 96% on R/A; lg3 05:47 BP 120 / 47; Pulse 50; Resp 16; Pulse Ox 98% on R/A; kd3 06:37 BP 111 / 42; Pulse 44; Resp 16; Pulse Ox 97% on R/A; ss12 ED Course: 00:36 Patient arrived in ED. kmf 00:42 Ashok Ross PA-C is PHCP. cp 00:42 Mert Angelo MD is Attending Physician. cp 00:59 Rhonda Mendoza, RN is Primary Nurse. kd3 01:01 Triage completed. kd3 01:01 Arm band placed on right wrist. EKG completed in triage. Results shown to MD. kd3 01:02 Inserted saline lock: 22 gauge in left hand, using aseptic technique. Blood collected. kd3 Flushed with 10 mL NS. 01:10 Sabine Screen Profile Sent. kd3 01:10 Group A Streptococcus Rapid Sent. kd3 01:10 COVID-19 Ag + Flu A+B Ag Sent. kd3 01:11 Basic Metabolic Panel Sent. kd3 01:11 CBC with Diff Sent. kd3 01:11 LFT's Sent. kd3 01:11 Magnesium Sent. kd3 01:11 NT PRO-BNP Sent. kd3 01:11 PT-INR Sent. kd3 01:11 Troponin HS Sent. kd3 01:14 Patient has correct armband on for positive identification. kd3 01:40 XRAY Chest (1 view) In Process Unspecified. EDMS 03:04 CT Soft Tissue Neck W/contr In Process Unspecified. EDMS 03:04 CT Chest W/ Con In Process Unspecified. EDMS 06:10 Troponin High Sensitivity Sent. ss12 06:38 Provided Education on: plan of care. ss12 06:38 No provider procedures requiring assistance completed. ss12 06:51 IV discontinued, intact, bleeding controlled, No redness/swelling at site. Pressure ss12 dressing applied. Administered Medications: 01:33 Drug: DuoNeb Nebulize (2.5 mg - 0.5 mg) 3 ml Nebulizer once Route: Nebulizer; kd3 06:52 Follow up: Response: No adverse reaction ss12 02:21 Not Given (Patient Refused): fentanyl (pf)25 mcg IVP once kd3 02:21 Drug: GI Cocktail without - (Maalox PO 30 ml, Lidocaine Mucous Membrane 2 % 15 kd3 ml) PO once Route: PO; 06:10 Follow up: Response: No adverse reaction ss12 02:21 Drug: Ketorolac IVP 15 mg IVP once Route: IVP; Site: right hand; kd3 06:10 Follow up: Response: No adverse reaction; Pain is decreased ss12 Medication: 02:22 VIS not applicable for this client. kd3 Outcome: 06:28 Discharge ordered by . sp4 06:51 Discharged to home via wheelchair, with family, ss12 06:51 Condition: stable 06:51 Discharge instructions given to patient, family, Instructed on discharge instructions, follow up and referral plans. Demonstrated understanding of instructions, follow-up care, Prescriptions given X 1, 06:52 Patient left the ED. ss12 Signatures: Dispatcher [employer] EDMS Ashok Ross PA-C PA-C cp Able, Lacie, RN RN lg3 Rhonda Mendoza RN RN kd3 Mert Angelo MD MD sp4 Sandi Whiteside [facility] Mariluz Mcgraw, RN RN ss12
--- NOTE | 2025-05-06 06:29 | EDPHYS ---
Physician Documentation [facility] Name: Damian Lomeli Age: 79 yrs Sex: Male : 1945 Arrival Date: 05/06/2025 Time: 00:30 Bed 5 Private MD: ED Physician Mert Angelo HPI: 05/06 00:55 This 79 yrs old Male presents to ER via EMS with complaints of Sore Throat and cp Chest Pain and Shortness of Breath. 00:55 The patient or guardian reports chest pain that is located primarily in the anterior cp chest wall. Onset: tonight upon awakening from sleep. 00:55 Associated signs and symptoms: Pertinent positives: sore throat, difficulty swallowing. cp 00:55 The chest pain is described as a pressure. cp Historical: - Allergies: 01:01 Morphine; kd3 - PMHx: 01:01 abdominal aneurism (Unknown); Alzheimer's disease; blood clots (Unknown); brain kd3 aneurism (Unknown); CHF; CVA (cardiac bypass); Hypercholesterolemia; Hypertensive disorder; insomnia; [place]; Umbilical hernia (Unknown); - PSHx: 01:01 Appendectomy; CABG; carddiac stents; cardiac bypass; Heart Stents; kd3 - Immunization history:: Adult Immunizations up to date. - Infectious Disease History:: Denies. - Social history:: Smoking status: unknown. - Family history:: not pertinent. ROS: 01:00 Eyes: Negative for injury, pain, redness, and discharge, cp 01:00 Constitutional: Negative for body aches, chills, fever, 01:00 Cardiovascular: Positive for chest pain, 01:00 Respiratory: Positive for shortness of breath, at rest. 01:00 Abdomen/GI: Negative for abdominal pain, vomiting, diarrhea, constipation, 01:00 Neuro: Negative for altered mental status, dizziness, headache, weakness, 01:00 All other systems are negative, 01:00 ENT: Positive for difficulty swallowing, sore throat, cp Exam: 00:45 ECG was reviewed by the Attending Physician. cp 01:05 Constitutional: The patient appears in no acute distress, alert, awake, cp non-diaphoretic, non-toxic, well developed, well nourished, uncomfortable, 01:05 Head/Face: Normocephalic, atraumatic. cp 01:05 Eyes: Periorbital structures: appear normal, Conjunctiva: normal, no exudate, no injection, Sclera: no appreciated abnormality, Lids and lashes: appear normal, bilaterally, :05 ENT: External ear(s): are unremarkable, Nose: is normal, Mouth: Lips: moist, Oral mucosa: moist, Posterior pharynx: Airway: no evidence of obstruction, patent, erythema, that is mild, :05 Neck: ROM/movement: is normal, is supple, no meningismus, :05 Chest/axilla: Inspection: normal, :05 Cardiovascular: Rate: bradycardic, Rhythm: regular, Edema: is not appreciated, JVD: is not appreciated, :05 Respiratory: the patient does not display signs of respiratory distress, Respirations: normal, no use of accessory muscles, no retractions, labored breathing, is not present, Breath sounds: are clear throughout, no decreased breath sounds, no stridor, no wheezing, :05 Abdomen/GI: Inspection: abdomen appears normal, Palpation: abdomen is soft and non-tender, in all quadrants, :05 Neuro: Orientation: no acute changes, per family, Mentation: no acute changes, per family, 06:20 Constitutional: This is a well developed, well nourished patient who is awake, alert, sp4 and in no acute distress. Head/Face: Normocephalic, atraumatic. Eyes: Pupils equal round and reactive to light, extra-ocular motions intact. Lids and lashes normal. Conjunctiva and sclera are not injected. Cornea within normal limits. Periorbital areas with no swelling, redness, or edema. ENT: Nares patent. No nasal discharge, no septal abnormalities noted. Tympanic membranes are normal and external auditory canals are clear. Oropharynx with no redness, swelling, or masses, exudates, or evidence of obstruction, uvula midline. Mucous membranes moist. Neck: Trachea midline, no thyromegaly or masses palpated, and no cervical lymphadenopathy. Supple, full range of motion without nuchal rigidity, or vertebral point tenderness. Chest/axilla: Normal chest wall appearance and motion. Nontender with no deformity. No lesions are appreciated. Cardiovascular: Regular rate and rhythm with a normal S1 and S2. No gallops, murmurs, or rubs. No pulse deficits. Respiratory: Lungs have equal breath sounds bilaterally, clear to auscultation and percussion. No rales, rhonchi or wheezes noted. No increased work of breathing, no retractions or nasal flaring. Abdomen/GI: Soft, with normal bowel sounds. No distension or tympany. No guarding or rebound. No evidence of tenderness throughout. Back: No spinal tenderness. No costovertebral tenderness. Skin: Warm, dry with normal turgor. Normal color with no rashes, no lesions, and no evidence of cellulitis. MS/ Extremity: Pulses equal, no cyanosis. Neurovascular intact. Full, normal range of motion. Neuro: Awake and alert, GCS 15, oriented to person, place, time, and situation. Cranial nerves II-XII grossly intact. Motor strength 5/5 in all extremities. Sensory grossly intact. Psych: Awake, alert, with orientation to person, place and time. Behavior, mood, and affect are within normal limits Vital Signs: 00:59 BP 163 / 53; Pulse 54; Resp 19; Temp 98.1(O); Pulse Ox 100% on R/A; Weight 83.46 kg; kd3 02:21 BP 153 / 47; Pulse 50; Resp 19; Pulse Ox 100% on R/A; kd3 03:36 BP 125 / 40; Pulse 51; Resp 18; Pulse Ox 93% on R/A; kd3 04:46 BP 111 / 43; Pulse 52; Resp 18 S; Pulse Ox 96% on R/A; lg3 05:47 BP 120 / 47; Pulse 50; Resp 16; Pulse Ox 98% on R/A; kd3 06:37 BP 111 / 42; Pulse 44; Resp 16; Pulse Ox 97% on R/A; ss12 MDM: 00:43 Medical Screening Exam initiated cp 06:09 ED course: FINDINGS: MEDIASTINUM: The heart size is enlarged post median sternotomy. sp4 Atherosclerotic changes of the aorta and coronary vessels. No pericardial effusion. The aorta is intact without aneurysm. There are no pathologically enlarged intrathoracic or axillary lymph nodes. The esophagus is decompressed. There is smooth circumferential wall thickening of the distal esophagus which may reflect degree of distention. Cannot exclude underlying esophagitis. The pulmonary arteries are intact without acute embolism. LUNGS/PLEURA: The central airways are patent. Compressive atelectasis within lingula and left lower lobe. Subpleural scarring or fibrosis within the lateral segment of the right middle lobe. No pleural effusion or pneumothorax. No noncalcified pulmonary nodule. UPPER ABDOMEN: The upper abdomen demonstrates no acute abnormality.L incidental duodenal diverticula measuring up to 3.8 cm. SOFT TISSUES/BONES: There are no suspicious-appearing lytic or blastic osseous lesions. No acute osseous abnormality. IMPRESSION: 1. No acute pulmonary artery embolism. 2. Cardiomegaly. 3. Smooth circumferential wall thickening of the distal esophagus. Correlate clinical features of esophagitis. RECOMMENDATIONS:. 06:17 Differential diagnosis: acute pericarditis, anxiety, coronary artery disease chest wall sp4 pain, congestive heart failure costochondritis, esophagitis, gastritis. HEART Score: History: Moderately Suspicious (1), ECG: Non specific repolarization disturbance / LBTB / PM (1), Age: > or = 65 years (2), Risk Factors: > or = 3 Risk factors for atherosclerotic disease (2), Troponin: < or = 1 x Normal Limit (0), Total Score = 6. The patient was not given aspirin in the Emergency Department. Patient reports taking aspirin within the past 24 hours. Data reviewed: vital signs, nurses notes. Data reviewed: EMS record, old medical records, lab test result(s), EKG, radiologic studies, CT scan, plain films. ED course: FINDINGS: The visualized portions of the brain and orbits are normal. The oral cavity, oropharynx and nasopharynx are normal. Some portions of the oral cavity and oropharynx are obscured by streak artifact related to the patient's dental hardware. The parapharyngeal fat planes are preserved. The hypopharynx is unremarkable. The epiglottis and aryepiglottic folds are normal. The vallecula and pyriform sinuses are grossly normal. The preepiglottic fat is preserved. The thyroid, cricoid and arytenoid cartilages are normal. There is narrowing of the airway at the level of the glottis which may be due to the phase of breathing. A glottic neoplasm is not definitely identified but no underlying mass or inflammatory process are difficult to exclude on this examination. The parotid and submandibular glands are grossly within normal limits. No intrinsic mass lesions are seen. . The carotid sheaths are normal bilaterally. There are atherosclerotic calcifications along the carotid bifurcations bilaterally. The visualized paranasal sinuses and mastoid air cells are clear. No definite pathologically enlarged lymph nodes are identified The thyroid gland is normal in size and configuration. The thoracic inlet is normal. The visualized lung apices reveal minimal paraseptal emphysematous changes. No acute osseous abnormalities are identified. There are mild degenerative changes of the cervical spine. No focal soft tissue abnormalities are seen. There are no focal pathologic areas of enhancement. IMPRESSION: 1. There is narrowing of the airway at the level of the glottis which may be due to the phase of breathing. A glottic neoplasm is not definitely identified but an underlying mass or inflammatory process are difficult to exclude on this examination. Consider further evaluation with direct visualization. 2. Otherwise, unremarkable CT scan of the soft tissues of the neck. 3. Atherosclerotic calcifications along the carotid bifurcations bilaterally. 4. Mild degenerative changes of the cervical spine. 5. Minimal paraseptal emphysematous changes in the lung apices. Pulmonary emphysema is an independent risk factor for lung cancer. Recommend patient be considered for lung cancer screening. [employer] Preventive Services Task Force. Screening for Lung Cancer: [place] Preventive Services Task Force Recommendation Statement. [employer]SCAR. 2020;325(10):962-970.. 05/06 00:51 Order name: Basic Metabolic Panel; Complete Time: 02:16 cp 05/06 02:16 Interpretation: Normal except: GLUC 110; GFR 87. cp 05/06 00:51 Order name: CBC with Diff; Complete Time: 01:47 cp 05/06 02:17 Interpretation: Normal except: RBC 4.24; HGB 12.8; HCT 38.5; PLT 120; EOSINOPHIL % 4.7. cp 05/06 00:51 Order name: LFT's; Complete Time: 02:16 cp 05/06 02:16 Interpretation: Normal except: ALK 128; BILIT < 0.2; ALB 3.2; GLOB 3.6; A/G 0.9. cp 05/06 00:51 Order name: Magnesium; Complete Time: 02:16 cp 05/06 00:51 Order name: NT PRO-BNP; Complete Time: 02:16 cp 05/06 00:51 Order name: PT-INR; Complete Time: 01:47 cp 05/06 00:51 Order name: Troponin HS; Complete Time: 02:16 cp 05/06 00:51 Order name: COVID-19 Ag + Flu A+B Ag; Complete Time: 01:47 cp 05/06 00:51 Order name: Group A Streptococcus Rapid; Complete Time: 01:47 cp 05/06 00:51 Order name: Lane Screen Profile; Complete Time: 02:16 cp 05/06 01:42 Order name: Throat Culture EDMS 05/06 05:12 Order name: Troponin High Sensitivity; Complete Time: 06:37 cp 05/06 00:51 Order name: XRAY Chest (1 view); Complete Time: 05:10 cp 05/06 05:10 Interpretation: Report review. 05/06 02:19 Order name: CT Soft Tissue Neck W/contr; Complete Time: 06:19 cp 05/06 02:19 Order name: CT Chest W/ Con; Complete Time: 06:19 cp 05/06 00:51 Order name: Cardiac monitoring; Complete Time: 00:56 cp 05/06 00:51 Order name: EKG - Nurse/Tech; Complete Time: 00:56 cp 05/06 00:51 Order name: IV Saline Lock; Complete Time: 01:10 cp 05/06 00:51 Order name: Labs collected and sent; Complete Time: 01:10 cp 05/06 00:51 Order name: O2 Per Protocol; Complete Time: 01:10 cp 05/06 00:51 Order name: O2 Sat Monitoring; Complete Time: 01:10 cp EC:45 Rate is 51 beats/min. Rhythm is regular. LA interval is normal. QRS interval is cp prolonged at 166 msec. QT interval is normal. T waves are Inverted in leads V2, V3. Interpreted by me. Reviewed by me. Administered Medications: 01:33 Drug: DuoNeb Nebulize (2.5 mg - 0.5 mg) 3 ml Nebulizer once Route: Nebulizer; kd3 06:52 Follow up: Response: No adverse reaction ss12 02:21 Not Given (Patient Refused): fentanyl (pf)25 mcg IVP once kd3 02:21 Drug: GI Cocktail without - (Maalox PO 30 ml, Lidocaine Mucous Membrane 2 % 15 kd3 ml) PO once Route: PO; 06:10 Follow up: Response: No adverse reaction ss12 02:21 Drug: Ketorolac IVP 15 mg IVP once Route: IVP; Site: right hand; kd3 06:10 Follow up: Response: No adverse reaction; Pain is decreased ss12 Disposition: 05:36 Co-signature as Attending Physician, Mert Angelo MD I agree with the assessment sp4 and plan of care. I reviewed the patient's care provided by Advanced Practice Provider \T\ agree w/ the diagnosis \T\ care plan. I personally saw the pt \T\ performed a substantive portion of the visit, incldng all aspects of the (History/Exam/Medical Decision Making). Disposition Summary: 05/06/25 06:28 Discharge Ordered Notes: Location: Home sp4 Problem: new sp4 Symptoms: have improved sp4 Condition: Stable sp4 Diagnosis - Chest pain, unspecified sp4 - Acute esophagitis, history of acid reflux sp4 Followup: sp4 - With: Private Physician - When: 7 - 10 days - Reason: Recheck today's complaints Discharge Instructions: - Discharge Summary Sheet sp4 - Esophagitis sp4 - Nonspecific Chest Pain, Adult, [id number] sp4 Forms: - Work release form sp4 - Patient Portal Instructions sp4 Prescriptions: - Carafate 1 gram Oral tablet - take 1 tablet ORAL route every 6 hours take on an empty stomach, beginning on sp4 waking and last dose at bedtime; 100 tablet; Refills: 0, Product Selection Permitted Signatures: Dispatcher [employer] EDAL Ashok Ross PA-C PA-C cp Doucette, Kyli, RN RN kd3 Mert Angelo MD MD sp4 Mariluz Mcgraw RN ss12 Corrections: (The following items were deleted from the chart) 05:19 05:17 Constitutional: Negative for body aches, chills, fever, cp cp 05:19 05:17 Cardiovascular: Positive for chest pain, cp cp 05:19 05:17 Eyes: Negative for injury, pain, redness, and discharge, cp cp 05:19 05:17 ENT: Positive for difficulty swallowing, sore throat, cp cp 05:19 05:17 Respiratory: Positive for shortness of breath, at rest. cp cp 05:19 05:17 Abdomen/GI: Negative for abdominal pain, vomiting, diarrhea, constipation, cp cp 05:19 05:17 Neuro: Negative for altered mental status, dizziness, headache, weakness, cp cp 05:19 05:17 All other systems are negative, cp cp
[2025-05-06 07:15] VITALS: TEMP 98.1
[2025-05-06 07:21] VITALS: BP 111/42; O2SAT 97
== END 2025-05-06 06:52 | disposition home or self-care (01) ==
LOC: ER 00:30
DX: R07.9 Chest pain, unspecified (principal); K20.90 Esophagitis, unspecified without bleeding; G30.9 Alzheimer's disease, unspecified; F02.80 Dementia in other diseases classified elsewhere, unspecified severity, without behavioral disturbance, psychotic disturbance, mood disturbance, and anxiety; I25.2 Old myocardial infarction; I50.9 Heart failure, unspecified; I10 Essential (primary) hypertension; Z88.5 Allergy status to narcotic agent; Z86.73 Personal history of transient ischemic attack (TIA), and cerebral infarction without residual deficits; Z11.52 Encounter for screening for COVID-19; Z95.1 Presence of aortocoronary bypass graft; Z95.5 Presence of coronary angioplasty implant and graft
CPT/HCPCS: 93005; 87070; 85025; 80048; 36415; 83735; 86308; 85610; 80076; 84484 ×2; 83880; 71260; 70491; 71045; 96374; 99285; 87428; Q9967; J7613; J7644